=== PATIENT | male | born 1950 | race Two or more races ===

== ENCOUNTER 2016-08-17 14:37 | Inpatient (IN) | payer BC ==
[~2016-08-17] VITALS: Ht 172.7 cm; Wt 71.0 kg
[2016-08-17 19:40] LABS: ADD SCAN DIFF NO
[2016-08-17 19:44] LABS: BASOPHILS % 0.4 % (0.0-2.0); EOSINOPHILS # 0.2 10^3/ul (0.0-0.5); EOSINOPHILS % 3.1 % (0.0-7.0); HEMATOCRIT 40.6 % (42.0-52.0); HEMOGLOBIN 12.8 g/dl (14.0-18.0); LYMPHOCYTES # 1.6 10^3/ul (0.8-2.9); MEAN CORPUSCULAR HEMOGLOBIN 27.2 pg (29.0-33.0); MEAN CORPUSCULAR HGB CONC 31.5 g/dl (32.0-37.0); MEAN CORPUSCULAR VOLUME 86.2 fl (82.0-101.0); MEAN PLATELET VOLUME 10.4 fl (7.4-10.4); MONOCYTE # 0.8 10^3/ul (0.3-0.9); MONOCYTES % 10.8 % (0.0-11.0); NEUTROPHIL # 4.5 10^3/ul (1.6-7.5); NEUTROPHILS % 63.6 % (39.0-77.0); PLATELET COUNT 422 10^3/UL (140-415); RED BLOOD COUNT 4.71 10^6/ul (4.70-6.10); RED CELL DISTRIBUTION WIDTH 17.5 % (11.5-14.5)
[2016-08-17] MEDS ORDERED: DOCU100C26 PO (19:45)
[2016-08-17] MEDS ORDERED: ISOS10TA2 PO (19:46)
[2016-08-17] MEDS ORDERED: HYDR-902 PO (19:46)
[2016-08-17] MEDS ORDERED: METO5TAB58 PO (19:47)
[2016-08-17] MEDS ORDERED: CLOP75TA4 PO (19:48)
[2016-08-17] MEDS ORDERED: CARV6.2579 PO (19:48)
[2016-08-17] MEDS ORDERED: CALC667C PO (19:51)
[2016-08-17] MEDS ORDERED: NEPHRO-VITE PO (19:51)
[2016-08-17] MEDS ORDERED: ASPI-664 PO (19:52)
[2016-08-17] MEDS ORDERED: ATOR40TA68 PO (19:52)
[2016-08-17] MEDS ORDERED: THIA100T10 PO (19:53)
[2016-08-17] MEDS ORDERED: NORT25CA PO (19:53)
[2016-08-17 19:54] LABS: INR 1.07; PROTIME 13.9 Sec (12.2-14.2); PT RATIO 1.1
[2016-08-17] MEDS ORDERED: ZOLP10TA5 PO (19:54)
[2016-08-17 19:55] LABS: PARTIAL THROMBOPLASTIN TIME 34.3 Sec (25.0-35.0)
[2016-08-17 19:56] LABS: CREATININE 7.27 mg/dl (0.61-1.24)
[2016-08-17 20:08] LABS: TROPONIN-I 0.053 ng/ml (0.00-0.12)
[2016-08-17] MEDS ORDERED: ACETAMINOPHEN 325 MG TAB PO PRN (20:30)
[2016-08-17] MEDS ORDERED: ONDANSETRON 4 MG INJ IV PRN ×2 (20:30→23:00)
--- NOTE | 2016-08-17 20:40 | RADRPT ---
PROCEDURE: XR Chest. CLINICAL INDICATION: Abdominal pain. TECHNIQUE: Single frontal view of the chest was obtained. COMPARISON: None FINDINGS: Cardiomegaly with atherosclerotic calcifications in the thoracic aorta. Suspected left thyroid goit er extending the superior mediastinum with shift of the trachea from left to right. Bilateral patchy air space disease and pulmonary vascular congestion. There is no pleural effusion or pneumothorax. IMPRESSION: 1. Left thyroid goiter. 2. Cardiomegaly and mild failure. 3. Atherosclerotic calcifications in the thoracic aorta. RPTAT: [facility] Physician Karely Date Time Electronically viewed and signed by Physician Karely on 08/17/2016 20:40 RS/
[2016-08-17 21:12] VITALS: TEMP 97.9
--- NOTE | 2016-08-17 21:44 | ERA ---
ER Documentation Chief Complaint Date/Time DATE: 08/17/16 TIME: 21:42 Chief Complaint REFERRED BY SURGEON FOR PRE-OP LAB WORK & ADMISSION (PREPARING FOR HIP SX) HPI Patient is a 65-year-old male with diabetes and dialysis who presents for admission. The patient was sent by Dr. Alston from orthopedic surgery for admission as he will require surgery on his left hip. However he has renal failure and gets dialysis Saturday, Saturday, and Fridays but missed dialysis today. Since he is not due for dialysis until Saturday he will need to be admitted for dialysis. He does have left-sided hip pain and has not been able to ambulate. He was seen by Dr. Alston in the office today who sent him to the emergency department. ROS All systems reviewed and are negative except as per history of present illness. Medications Home Meds Reported Medications Zolpidem Tartrate* (Zolpidem Tartrate*) 10 Mg Tablet, 10 MG PO QHS Y for INSOMNIA, #30 TAB 08/17/16 Thiamine* (Thiamine*) 100 Mg Tablet, 250 MG PO DAILY, TAB 08/17/16 Nortriptyline Hcl* (Nortriptyline Hcl*) 25 Mg Capsule, 25 MG PO BID, CAP 08/17/16 Aspirin* (Aspirin* EC) 81 Mg Tablet.dr, 81 MG PO DAILY, TAB 08/17/16 Atorvastatin* (Atorvastatin*) 40 Mg Tablet, 40 MG PO DAILY, #30 TAB 08/17/16 Calcium Acetate* (Calcium Acetate*) 667 Mg Capsule, 2001 MG PO WITH MEALS, #90 CAP 08/17/16 [Nephro-Pam] No Conflict Check, 1 TAB PO DAILY 08/17/16 Carvedilol* (Carvedilol*) 6.25 Mg Tablet, 6.25 MG PO BID, #60 TAB 08/17/16 Clopidogrel Bisulfate* (Clopidogrel Bisulfate*) 75 Mg Tablet, 75 MG PO DAILY, # 30 TAB 08/17/16 Metoclopramide* (Reglan*) 5 Mg Tablet, 5 MG PO AC MEALS BID, TAB 08/17/16 Hydrocodone/Acetaminophen (Anatone 10-325 Tablet) 1 Each Tablet, 1 EACH PO Q4H, TAB 08/17/16 Isosorbide Dinitrate* (Isosorbide Dinitrate*) 10 Mg Tablet, 10 MG PO BID, TAB 08/17/16 Docusate Sodium* (Doc-Q-Lace*) 100 Mg Capsule, 100 MG PO DAILY, CAP 08/17/16 Allergies Allergies: Coded Allergies: No Known Allergy (Unverified , 08/17/16) PMhx/Soc History of Surgery: Yes (CARDIAC STENT PLACEMENT X2, RIGHT ARM AV SHUNT) Anesthesia Reaction: No Hx Neurological Disorder: No Hx Respiratory Disorders: No Hx Cardiac Disorders: Yes (HTN) Hx Psychiatric Problems: No Hx Miscellaneous Medical Probl: Yes (RENAL FAILURE, HIP FX) Hx Alcohol Use: No Hx Substance Use: No Hx Tobacco Use: No Smoking Status: Unknown if ever smoked FmHx Family History: diabetes Physical Exam Vitals Vital Signs Date Time Temp Pulse Resp B/P Pulse Ox O2 Delivery O2 Flow Rate FiO2 08/17/16 21:12 97.9 94 20 134/58 93 Room Air 08/17/16 18:04 95 20 175/81 95 Room Air 08/17/16 14:42 98.5 79 16 137/78 98 Physical Exam Const: Mild distress secondary to pain Head: Atraumatic Eyes: Normal Conjunctiva ENT: Normal External Ears, Nose and Mouth. Neck: Full range of motion..~ No meningismus. Resp: Clear to auscultation bilaterally Cardio: Regular rate and rhythm, no murmurs Abd: Soft, non tender, non distended. Normal bowel sounds Skin: No petechiae or rashes Back: No midline or flank tenderness Ext: Left-sided hip pain with range of motion Neur: Awake and alert Psych: Normal Mood and Affect Result Diagram: 08/17/16193408/17/161934 Results 24 hrs Laboratory Tests Test 08/17/16 19:35 Activated Partial Thromboplast Time 34.3Sec Anion Gap 23 Basophils # 0.010^3/ul Basophils % 0.4% Blood Urea Nitrogen 81mg/dl Calcium Level 11.0mg/dl Carbon Dioxide Level 27mmol/L Chloride Level 96mmol/L Creatinine 7.27mg/dl Eosinophils # 0.210^3/ul Eosinophils % 3.1% Glucose Level 152mg/dl Hematocrit 40.6% Hemoglobin 12.8g/dl INR International Normalized Ratio 1.07 Lymphocytes # 1.610^3/ul Lymphocytes % 22.0% Mean Corpuscular Hemoglobin 27.2pg Mean Corpuscular Hemoglobin Concent 31.5g/dl Mean Corpuscular Volume 86.2fl Mean Platelet Volume 10.4fl Monocytes # 0.810^3/ul Monocytes % 10.8% Neutrophils # 4.510^3/ul Neutrophils % 63.6% Nucleated Red Blood Cells # 0.010^3/ul Nucleated Red Blood Cells % 0.0/100WBC Platelet Count 71803^3/UL Potassium Level 5.0mmol/L Prothrombin Time 13.9Sec Prothrombin Time Ratio 1.1 Red Blood Count 4.7110^6/ul Red Cell Distribution Width 17.5% Sodium Level 141mmol/L Troponin I 0.053ng/ml White Blood Count 7.010^3/ul Current Medications Medications (Trade) Dose Ordered Sig/Jesus Route PRN Reason Start Time Stop Time Status Last Admin Dose Admin Ondansetron HCl (Zofran Inj) 4 mg BRIDGE ORDER PRN IV NAUSEA AND/OR VOMITING 08/17/16 20:30 08/18/16 20:29 Acetaminophen (Tylenol Tab) 650 mg ER BRIDGE PRN PO MILD PAIN/FEVER 08/17/16 20:30 08/18/16 20:29 Procedures/MDM CT scan of the left hip is pending at this time. Chest x-ray shows no pneumonia or pneumothorax per radiology. EKG read by me: Rate/Rhythm: Regular rate and rhythm at a rate of 97 Intervals: Normal Impression: No evidence of ischemia or arrhythmia Patient is a 65-year-old male with diabetes and dialysis who presents for admission. The patient has a potassium of 5.0 and will need dialysis while he is admitted as he missed dialysis today. The patient had his preoperative studies done in the emergency department. The patient will need surgery by Dr. Alston. The patient will be admitted to a medical surgical bed under the care of Dr. Back from the panel team. Departure Diagnosis: Primary Impression: Renal failure Additional Impression: Hip fracture Qualified Code: S72.002A - Hip fracture, left, closed, initial encounter Condition: ROSITA Esparza MD Aug 17, 2016 21:44
[2016-08-17 22:44] VITALS: BP 125/60; RESP 19
--- NOTE | 2016-08-17 22:49 | RADRPT ---
PROCEDURE: CT pelvis and left hip without contrast. CLINICAL INDICATION: Left hip and pelvic pain TECHNIQUE: CT scan of the pelvis and left hip without contrast was performed with 2.5 mm axial sec tions obtained from above the iliac crest through the distal femoral diaphysis. Sagittal and siddiqi l reformatted images were obtained from the axial source images. CTDI = 86.24 mGy; DLP = 3448.08 mGy -cm COMPARISON: X-ray 08/17/2016 FINDINGS: Osseous structures: The most striking finding is extension of the helical screw beyond the superior aspect of the left femoral head and into left-sided acetabular protrusion, findings most consistent with hardware failure. There is lucency surrounding the intramedullary kimi concerning for infectio n or hardware failure, the thickness of the lucency up to 5 mm. In addition, there is some lucency surrounding the stabilizing screw of the distal femoral kimi which is measuring 3 mm. Nonunion of th e left intertrochanteric fracture is noted, persistent discontinuity between the region of the lesse r trochanter and the remainder of the femur despite callus formation. There is an or bowing of the left acetabulum and a large amount of fluid within the left hip joint. Generalized demineralization is present. The right proximal femur is grossly normal. Note is made of chronic appearing vertebr al plana compression deformity of L5 and partially visualized fusion hardware of L3-4. The sacrum shows no abnormalities significance Musculature and soft tissues: There is diffuse thickening of the left obturator internus muscle with areas of heterotopic ossification. Abnormal material within the left hip joint posteriorly is prese nt unable to exclude septic arthritis or possibly blood. There is diffuse stranding of the fat surr ounding the left hip unable to exclude cellulitis. No intramuscular abnormality is demonstrated. Other findings: Severe atherosclerotic calcification is present in the iliac and femoral systems b ilaterally. No intrapelvic abscess or adenopathy is identified. RPTAT:HJJR IMPRESSION: 1. Medial left acetabular wall protrusion with abnormal attenuation in the left hip joint unable to exclude septic arthritis and / or hardware failure as there is lucency surrounding the helical scre w and intramedullary kimi. The helical screw extends beyond the femoral head and into the acetabular protrusion of the left medial acetabular wall. 2. Incomplete union of the left intertrochanteric fracture with areas of callus formation and hetero topic ossification about the proximal left femur and adjacent to the left medial acetabular protrusi on. Selwyn Martines, Physician Date Time Electronically viewed and signed by Selwyn Martines, Physician on 08/17/2016 22:49 JR/
[2016-08-17] MEDS ORDERED: ZOLPIDEM 5 MG TAB PO PRN (23:00)
[2016-08-17 23:30] VITALS: Ht 172.7 cm; Wt 71.0 kg
[2016-08-17] MEDS ORDERED: GLUCOSE GEL 15 GRAM TUBE BUCCAL PRN (23:30)
[2016-08-17] MEDS ORDERED: GLUCOSE GEL 15 GRAM TUBE PO PRN ×2 (23:30)
[2016-08-17] MEDS ORDERED: DEXTROSE 50% 50 ML SYRINGE IV PRN ×2 (23:30)
[2016-08-17] MEDS ORDERED: GLUCAGON 1 MG INJ IM PRN (23:30)
[2016-08-18] VITALS (13 sets, daily range): BP systolic 89–155; BP diastolic 44–83; PULSE 78–116; RESP 18–19
[2016-08-18] MEDS: NORTRIPTYLINE 25 MG CAP PO SCH ×3 (00:10→23:44)
[2016-08-18] MEDS: ISOSORBIDE DINITRATE 10 MG TAB PO SCH ×3 (00:11→23:44)
[2016-08-18] MEDS: ACCU-CHEK XX SCH (01:34)
--- NOTE | 2016-08-18 06:28 | HP ---
Date/Time of Note Date/Time of Note DATE: 08/18/16 TIME: 06:22 Assessment/Plan VTE Prophylaxis VTE Prophylaxis Intervention: heparin Lines/Catheters IV Catheter Type (from Nrs): Saline Lock Assessment/Plan Assessment/Plan IMPRESSION 1. Pelvic fracture 1. ESRD on HD 3. Hx of CAD with hx of CABG 4. Diabetes PLAN - Will consult nephrology for dialysis - cont home meds with adjustment as needed - insulin for diabetes - pain mgmt HPI/ROS Admit Date/Time Admit Date/Time Aug 17, 2016 at 20:14 Hx of Present Illness Patient is a 65-year-old male with hx of CAD with CABG, DM, ESRD on dialysis dialysis who was sent by Dr. Alston from orthopedic surgery for admission as he will require surgery on his left hip. However he has renal failure and gets dialysis Saturday, Saturday, and Fridays but missed dialysis today. Since he is not due for dialysis until Saturday he will need to be admitted for dialysis. He does have left-sided hip pain and has not been able to ambulate. He was seen by Dr. Alston in the office today who sent him to the emergency department. In the ER, BUN 81, cr 7.27. Pelvic CT showed left medial acetabular wall protrusion and incomplete union of the left intratrocanteric fx. . PMH/Family/Social Social History Smoking Status: Never smoker Exam/Review of Systems Vital Signs Vitals Vital Signs Date Time Temp Pulse Resp B/P Pulse Ox O2 Delivery O2 Flow Rate FiO2 08/17/16 22:44 97.6 89 19 125/60 90 08/17/16 21:12 Room Air Exam Constitutional: alert, oriented, well developed Head: atraumatic, normocephalic Eyes: EOMI, PERRL Respiratory: clear to auscultation, normal air movement Cardiovascular: nl pulses, regular rate and rhythm Gastrointestinal: non-tender, soft Extremities: edema, normal pulses Labs Result Diagram: 08/17/16193408/17/161934 Medications Medications Current Medications Atorvastatin Calcium (Lipitor) 40 mg DAILY PO ; Start 08/18/16 at 09:00 Carvedilol (Coreg) 6.25 mg BID PO Last administered on 08/18/16t 00:11; Admin Dose 6.25 MG; Start 08/17/16 at 23:00 Clopidogrel Bisulfate (plaVIX) 75 mg DAILY PO ; Start 08/18/16 at 09:00; Status Future Hold Docusate Sodium (Colace) 100 mg DAILY PO ; Start 08/18/16 at 09:00 Acetaminophen/ Hydrocodone Bitart ([place] (10/325)) 1 tab Q4H PRN PO PAIN; Start 08/17/16 at 23:00 Isosorbide Dinitrate (Isordil) 10 mg BID PO Last administered on 08/18/16 00:11 ; Admin Dose 10 MG; Start 08/17/16 at 23:00 Metoclopramide HCl (Reglan) 5 mg Q6H PRN PO NAUSEA; Start 08/17/16 at 23:00 Nortriptyline HCl (Aventyl) 25 mg BID PO Last administered on 08/18/16 00:10; Admin Dose 25 MG; Start 08/17/16 at 23:00 Thiamine HCl (Vitamin B1) 250 mg DAILY PO ; Start 08/18/16 at 09:00 Multivit/Ca Carb/ B Cmplx/FA/Prenat (Aleyda-Pam) 1 tab DAILY PO ; Start 08/18/16 at 09:00 Insulin Glargine (Lantus) 10 unit HS SC ; Start 08/18/16 at 21:00 Diagnostic Test (Pha) (Accucheck) 1 ea 02 XX ; Start 08/18/16 at 02:00 Morphine Sulfate (morphine) 3 mg Q4H PRN IV PAIN; Start 08/17/16 at 23:00 Ondansetron HCl (Zofran Inj) 4 mg Q6H PRN IV NAUSEA AND/OR VOMITING; Start 08/17 at 23:00 Miscellaneous Information 1 ea NOTE XX ; Start 08/17/16 at 23:30 Glucose (Glutose) 15 gm Q15M PRN PO DECREASED GLUCOSE; Start 08/17/16 at 23:30 Glucose (Glutose) 22.5 gm Q15M PRN PO DECREASED GLUCOSE; Start 08/17/16 at 23:30 Dextrose (D50w Syringe) 25 ml Q15M PRN IV DECREASED GLUCOSE; Start 08/17/16 at 23:30 Dextrose (D50w Syringe) 50 ml Q15M PRN IV DECREASED GLUCOSE; Start 08/17/16 at 23:30 Glucagon (Glucagen) 1 mg Q15M PRN IM DECREASED GLUCOSE; Start 08/17/16 at 23:30 Glucose (Glutose) 15 gm Q15M PRN BUCCAL DECREASED GLUCOSE; Start 08/17/16 at 23: 30 FRANTZ JEFFERSON MD Aug 18, 2016 06:28
[2016-08-18] MEDS: INSULIN ASPART [NOVOLOG] 3 ML PEN SC SCH ×4 (07:50→21:00)
[2016-08-18] MEDS: ATORVASTATIN 40 MG TAB PO SCH (08:52)
[2016-08-18] MEDS: CALCIUM ACETATE 667 MG CAP PO SCH ×2 (08:53→13:17)
[2016-08-18] MEDS: THIAMINE 100 MG TAB PO SCH (08:53)
[2016-08-18] MEDS: MULTIVIT/CA CARB/B CMPLX/FA TAB PO SCH (08:53)
[2016-08-18] MEDS: DOCUSATE SODIUM 100 MG CAP PO SCH (08:54)
--- NOTE | 2016-08-18 09:50 | CONS ---
DATE OF ADMISSION: 08/17/2016 DATE OF CONSULTATION: CHIEF COMPLAINT: Left hip pain. HISTORY OF PRESENT ILLNESS: The patient is a 65-year-old gentleman who fell approximately 3 months ago and sustained a left intertrochanteric hip fracture. At that time he was living in [place] [place]. He underwent a closed reduction and intramedullary rodding in [facility]. He has since r elocated to [place]. Since the surgery he has been unable to bear weight on left lower extremit y, has had persistent pain and shortening of the left lower extremity. Prior to the fall and surger y, he reports that he was ambulatory, without the need for a cane or a walker. Of note, he has a hi story of kidney failure and is on dialysis, which he receives 3 times a week. There has been no rep orted history of fevers, chills or wound healing problems. He came to my office yesterday as an out patient for a consultation and I noted that he had complete failure of the fixation, with cut-out of the screw into the acetabulum. I felt that he would need removal of the hardware and conversion to a total hip arthroplasty. Because of his medical comorbidities and need for dialysis, I felt it wo uld be in his best interest to have him admitted and medically optimized over the next several days prior to surgery. PAST MEDICAL HISTORY: 1. End-stage renal disease, with hemodialysis dependency. 2. Coronary artery disease. 3. Diabetes. PAST SURGICAL HISTORY: 1. Closed reduction and intramedullary rodding, left intertrochanteric hip fracture. 2. Coronary artery bypass grafting. 3. Right arm AV shunt placement. MEDICATIONS: 1. Zolpidem. 2. Thiamine. 3. Nortriptyline. 4. Aspirin 81 mg. 5. Atorvastatin. 6. Calcium. 7. Nephro-Pam. 8. Carvedilol. 9. Plavix. 10. Reglan. 11. [place]. 12. Isosorbide. 13. Colace. ALLERGIES: NO KNOWN DRUG ALLERGIES. SOCIAL HISTORY: The patient does not smoke or drink. FAMILY HISTORY: Noncontributory. REVIEW OF SYSTEMS: GENERAL/CONSTITUTIONAL: Negative for recent fevers, chills, decreased appetite, fatigue, or unexpla ined weight loss. EYES/EARS/NOSE/MOUTH/THROAT: Negative for headaches, double vision, tearing, nose bleeding, colds, obstruction, discharge, dental difficulties, gingival bleeding, dentures, neck stiffness, pain, tend erness, or masses in thyroid or other areas. CARDIOVASCULAR: History of coronary artery bypass grafting and stent placement. RESPIRATORY: Negative for shortness of breath, wheezing, stridor, hemoptysis, tuberculosis, fever, or night sweats. GASTROINTESTINAL: Negative for dysphagia, abdominal pain, heartburn, nausea, vomiting, hematemesis, jaundice, constipation, diarrhea, abnormal stools (suman-colored, tarry, bloody, greasy, foul-smelli ng), or bright red blood per rectum. GENITOURINARY: Negative for urgency, frequency, dysuria, nocturia, hematuria, stones, infections, n ephritis, hesitancy, change in size of stream, dribbling, acute retention, or incontinence. MUSCULOSKELETAL: Negative for pain, swelling, redness or heat of muscles or joints, limitation of m otion, muscular weakness, atrophy, or cramps. NEUROLOGIC/PSYCHIATRIC: Negative for convulsions, paralyses, tremor, incoordination, paresthesias, difficulties with memory or speech, sensory or motor disturbances, muscular coordination (ataxia, tr emor), emotional problems, anxiety, depression, previous psychiatric care, unusual perceptions, or h allucinations. HEMATOLOGIC: Negative for anemia, bleeding tendency, previous transfusions and reactions, or Rh inc ompatibility. ENDOCRINE: History of diabetes. PHYSICAL EXAMINATION: VITAL SIGNS: VITAL SIGNS: Temperature 97.5, blood pressure 129/62, pulse 91, respiratory rate 18. GENERAL APPEARANCE: Well-developed, well-nourished male in no acute distress. ORIENTATION: Alert and oriented to person, place, and time. HEENT: Normocephalic, atraumatic, sclerae anicteric, no nasal discharge, oropharynx clear, dentition is good. SKIN: Normal color, texture, and turgor. No rashes noted throughout the trunk, bilateral upper extre mities, and bilateral lower extremities. NECK: Supple, nontender, without lymphadenopathy. No thyromegaly, no masses. CARDIAC: Regular rate and rhythm. LUNGS: Clear to auscultation bilaterally, with symmetric chest rise. ABDOMEN: Soft, nontender, nondistended. MUSCULOSKELETAL: The patient is lying in bed, with the left lower extremity shortened and externall y rotated. There are several well-healed scars from the previous intramedullary rodding, with no re dness, warmth or fluctuance. The left hip is painful to attempt at passive range of motion. The th igh is soft. The skin is intact. NEUROVASCULAR EXAM: Motor strength is 5/5 in the quadriceps, tibialis anterior, extensor hallucis lo ngus, gastroc-soleus, and peroneals bilaterally. Sensation is intact to light touch throughout both lower extremities. There are 2+ palpable dorsalis pedis and posterior tibial pulses, with capillary refill less than 2 seconds in all 5 digits bilaterally. IMAGING: Plain radiographs demonstrate a displaced left intertrochanteric hip fracture with a short intramedullary screw in place, with complete cut-out of the proximal screw through the femoral head and into the acetabulum. There is diffuse osteopenia present. There are multiple calcifications o f the femoral vessels. There are pedicle screws in the lower lumbar spine. A CT scan done last juan jose ella demonstrates the aforementioned left intertrochanteric hip fracture, with the hardware in place . There is marked protrusion of the screw into the acetabulum, with a large amount of fluid in the hip joint. The defect involves primarily the superior and medial aspect of the acetabulum. The ante rior and posterior columns appear intact. LABORATORY: Reveals a white blood cell count of 7.0, hematocrit 40.6, platelet count 422. INR 1.1, PTT 34.3, BUN 81, creatinine 7.27. ASSESSMENT AND PLAN: Failed intramedullary nailing, left intertrochanteric hip fracture, with screw cut-out and protrusion into the acetabulum. DISCUSSION: He has complete failure of fixation and will need surgical intervention to remove the h ardware and convert this to a total hip arthroplasty. The CT scan demonstrates a significant defect of the superomedial acetabulum. The anterior and posterior bravo appear intact. However, this may require a cage cup construct reconstruction of the acetabulum. The decision whether to not to use this or a conventional hemispherical cup will be decided at the time of surgery. However, given his history of dialysis dependency and the fluid seen on the CT scan, I think his hip should be aspirat ed prior to surgical intervention to rule out the possibility of there being any infectious componen t going on in the hip joint. I will arrange this to be done by the radiology team here under image guidance. In the meantime, over the next few days he will be medically optimized with medical and n ephrology consultations and he will need dialysis over the next few days. Once he is medically stab ilized and we have been able to exclude the possibility of septic arthritis, we can proceed with piter sesay. I had a lengthy discussion with the patient and his yesterday about the nature of the cuellar rgery and the typical recovery course and what to expect from a functional standpoint. I explained the risks of surgery to include, but not be limited to, bleeding and possible need for blood transfu minor, infection, pain, stiffness, neurovascular injury with possible numbness, weakness, and/or para lysis anywhere from the hip down to the toes, fracture, instability, dislocation, leg length inequal ity, wear and/or loosening of the prosthesis, and need for revision at a later date, wound healing p roblems, blood clots, pulmonary embolism, and anesthetic complications, such as heart attack, stroke , GI bleed, pneumonia and/or . Ample time was allowed for the patient to ask questions, all of which were addressed and answered. The patient understands and wishes to proceed. I will continue to follow along here in the hospital and we will tentatively plan for surgery Saturday, but will nee d to make sure he is medically optimized and exclude the possibility of any infectious etiology prio r to proceeding. Dictated By: AARON PINTO MD EZ/NTS Conf#: [id number] DID#: [id number] CC: FRANTZ JEFFERSON MD;*EndCC*
[2016-08-18] MEDS ORDERED: LIDOCAINE 1% (MDV) 20 ML INJ ONE (10:42)
[2016-08-18 12:35] LABS: IRON 33 ug/dl (35-150)
[2016-08-18 12:44] LABS: TOTAL IRON BINDING CAPACITY 169 ug/dl (241-421)
--- NOTE | 2016-08-18 14:13 | RADRPT ---
PROCEDURE: Left hip arthrogram and aspiration. CLINICAL INDICATION: Left hip pain. Hardware failure. TECHNIQUE: Prior to the procedure, informed consent was obtained. The patient's name, date of th, and procedure to be performed were verified. Using local anesthetic, sterile technique and fluo roscopic guidance, a 20-gauge spinal needle was advanced into the left hip at the site of the fluid collection adjacent to the hardware. Approximately 4 ml of bloody fluid was aspirated. COMPARISON: CT scan of the pelvis dated 08/17/2016. FINDINGS: Images demonstrate open reduction and internal fixation of the left hip with a kimi in the shaft of t he femur and a screw in the neck of the femur. The screw is penetrated the medial joint superiorly. Images demonstrate a spinal needle in position medial to the proximal hardware. IMPRESSION: 1. Satisfactory left hip aspiration. RPTAT: QQ .Nasir Fonseca MD, MD Date Time Electronically viewed and signed by .Nasir Fonseca MD, on 08/18/2016 14:13 .R/
[2016-08-18 14:35] LABS: SYNOVIAL FLUID CLARITY Bloody; SYNOVIAL FLUID COLOR Red
[2016-08-18 14:41] LABS: LYMPHOCYTES,SYNOVIAL FLUID 27; NEUTROPHILS,SYNOVIAL FLUID 69 % (0-25)
--- NOTE | 2016-08-18 15:32 | CONS ---
DATE OF ADMISSION: 08/17/2016 DATE OF CONSULTATION: REASON FOR CONSULTATION: End-stage renal disease. HISTORY OF PRESENT ILLNESS: The patient is a 65-year-old man with a past history of end-stage renal disease on dialysis for the last 12 years, diabetes, hypertension and coronary artery disease. The patient was admitted due to a left femoral fracture. He apparently fractured his hip while in [facility] in February. He underwent surgical repair at that time. Initially, he was able to ambulate, but for the past several months he has been unable to walk and has had pain in the left hip area. He was seen by Dr. Hough and underwent a CAT scan which revealed complete failure of the fixation. He therefore was admitted for surgical repair. The patient normally dialyzes in [place] on Saturday, Saturday and Saturday. He missed his hemodialysis yesterday. He was last dialyzed 3 days ago. Currently, he is complaining of left hip pain and nausea after receiving pain medication. PAST MEDICAL HISTORY: 1. End-stage renal disease. 2. Hypertension. 3. Diabetes mellitus. 4. Coronary artery disease. Status post coronary stenting 2 months ago at [facility]. PAST SURGICAL HISTORY: 1. Left hip surgery as above. 2. Back surgery 8 years ago. MEDICATIONS: 1. Lantus insulin. 2. Atorvastatin. 3. Colace. 4. Thiamine. 5. Aleyda-Pam. 6. Calcium acetate. 7. Nortriptyline. SOCIAL HISTORY: No history of cigarette use or alcohol use. FAMILY HISTORY: Mother had hypertension. Sister has hypertension. REVIEW OF SYSTEMS: A 12-system review was negative except for what is mentioned in the HPI. PHYSICAL EXAMINATION: VITAL SIGNS: Blood pressure is 128/83, heart rate is 88, temperature is 97.6. GENERAL APPEARANCE: Reveals an elderly male in no acute distress. HEENT: Mouth revealed normal moist mucosa. NECK: Supple. There is no jugular venous distention or carotid bruit. CHEST: Lungs clear to auscultation. HEART: Regular rate, rhythm. Normal S1, normal S2. There is no murmur, gallop or rub. ABDOMEN: Soft and nontender. EXTREMITIES: There is no peripheral edema. There is an AV fistula in the right forearm with a bruit present. LABORATORY DATA: Sodium is 141, potassium is 5.0, chloride is 96, CO2 is 27, BUN is 81, creatinine is 7.27, calcium is 11.0. Hemoglobin is 12.8, hematocrit is 40.6, white blood cell count of 7000, platelet count is 422,000. IMPRESSION: 1. End-stage renal disease. The patient is due for dialysis today. 2. Hypertension, controlled. 3. Diabetes mellitus, controlled. 4. Coronary artery disease, status post recent percutaneous coronary intervention. 5. Hypercalcemia due to medications. 6. Fractured left femur. RECOMMENDATIONS: 1. Hemodialysis will be done today. 2. Calcium acetate will be discontinued due to hypercalcemia. 3. Await surgical repair of left hip fracture by Dr. Hough. Dictated By: WILD OLSEN/CHRISTOPHER Conf#: [id number] DID#: [id number] MTDD
--- NOTE | 2016-08-18 15:55 | PN ---
Date/Time of Note Date/Time of Note DATE: 08/18/16 TIME: 15:46 Assessment/Plan VTE Prophylaxis VTE Prophylaxis Intervention: SCD's Lines/Catheters IV Catheter Type (from [facility]): [place] Assessment/Plan Chief Complaint/Hosp Course Impression and plan 1. Pelvic fracture. Orthopedic surgeon following. Continue with workup. Tentative plan for surgical intervention. Will optimize patient prior to procedure 2. History of end-stage renal disease on dialysis. Nephrology is consulted. Tentative plan for HD. Monitor renal panel as well as electrolytes 3. History of CAD with CABG. continue on beta-yuliya as well as antiplatelet therapy and statin medication 4. History of dyslipidemia. Continue on statin 5. Essential hypertension. Continue antihypertensives and adjust as needed 6. Diabetes. We will continue insulin regimen. Will adjust as needed. Follow -up on A1c. Disposition and plan: Tentative plan for surgical intervention for left hip fracture. Optimized prior to procedure. Follow-up on echo. Plan for HD. Discussed plan of care with Dr. Pabon Problems: Subjective 24 Hr Interval Summary Free Text/Dictation Still reports having some nasal pain. No other specific complaints Exam/Review of Systems Vital Signs Vitals Vital Signs Date Time Temp Pulse Resp B/P Pulse Ox O2 Delivery O2 Flow Rate FiO2 08/18/16 13:00 97.6 88 128/83 94 Room Air 08/18/16 07:41 18 Exam General: No acute distress Eyes: Pupils equal round reactive to light Neck: Supple nontender, no JVD Cardiac: Regular rate S1-S2 auscultated Pulmonary: No wheezing rhonchi GI: Nontender nondistended Extremities: Minimal edema left hip Skin: Clean dry and intact Neurologic: Alert to person place and time Results Result Diagram: 08/17/16193408/17/161934 Results 24 hrs Laboratory Tests Test 08/17/16 19:35 08/17/16 23:03 08/18/16 08:51 08/18/16 09:46 Activated Partial Thromboplast Time 34.3 Anion Gap 23 H Basophils # 0.0 Basophils % 0.4 Blood Urea Nitrogen 81 H Calcium Level 11.0 H Carbon Dioxide Level 27 Chloride Level 96 L Creatinine 7.27 H Eosinophils # 0.2 Eosinophils % 3.1 Glucose Level 152 Hematocrit 40.6 L Hemoglobin 12.8 L INR International Normalized Ratio 1.07 Lymphocytes # 1.6 Lymphocytes % 22.0 Mean Corpuscular Hemoglobin 27.2 L Mean Corpuscular Hemoglobin Concent 31.5 L Mean Corpuscular Volume 86.2 Mean Platelet Volume 10.4 Monocytes # 0.8 Monocytes % 10.8 Neutrophils # 4.5 Neutrophils % 63.6 Nucleated Red Blood Cells # 0.0 Nucleated Red Blood Cells % 0.0 Platelet Count 422 H Potassium Level 5.0 Prothrombin Time 13.9 Prothrombin Time Ratio 1.1 Red Blood Count 4.71 Red Cell Distribution Width 17.5 H Sodium Level 141 Troponin I 0.053 White Blood Count 7.0 Bedside Glucose 188 115 C-Reactive Protein High Sensitivity > 1.50 H Erythrocyte Sedimentation Rate 74 H Hemoglobin A1c 5.2 Iron Level 33 L Percent Iron Saturation 20 L Total Iron Binding Capacity 169 L Test 08/18/16 12:40 08/18/16 13:16 Synovial Fluid Appearance Bloody Synovial Fluid Color Red Synovial Fluid Crystals No crystals seen Synovial Fluid Lymphocytes 27 Synovial Fluid Monocytes 2 Synovial Fluid Neutrophils 69 H Synovial Fluid Other Cells 2 Synovial Fluid Source Hip Fluid Synovial Fluid Volume 2.0 Synovial Fluid WBC Bedside Glucose 104 Medications Medications Current Medications Atorvastatin Calcium (Lipitor) 40 mg DAILY PO Last administered on 08/18/16 08: 52; Admin Dose 40 MG; Start 08/18/16 at 09:00 Carvedilol (Coreg) 6.25 mg BID PO Last administered on 08/18/16 08:53; Admin Dose 6.25 MG; Start 08/17/16 at 23:00 Clopidogrel Bisulfate (plaVIX) 75 mg DAILY PO ; Start 08/18/16 at 09:00; Status Future Hold Docusate Sodium (Colace) 100 mg DAILY PO Last administered on 08/18/16 08:54; Admin Dose 100 MG; Start 08/18/16 at 09:00 Acetaminophen/ Hydrocodone Bitart ([place] (10/325)) 1 tab Q4H PRN PO PAIN; Start 08/17/16 at 23:00 Isosorbide Dinitrate (Isordil) 10 mg BID PO Last administered on 08/18/16 08:54 ; Admin Dose 10 MG; Start 08/17/16 at 23:00 Metoclopramide HCl (Reglan) 5 mg Q6H PRN PO NAUSEA; Start 08/17/16 at 23:00 Nortriptyline HCl (Aventyl) 25 mg BID PO Last administered on 08/18/16 08:53; Admin Dose 25 MG; Start 08/17/16 at 23:00 Thiamine HCl (Vitamin B1) 250 mg DAILY PO Last administered on 08/18/16 08:53; Admin Dose 250 MG; Start 08/18/16 at 09:00 Multivit/Ca Carb/ B Cmplx/FA/Prenat (Aleyda-Pam) 1 tab DAILY PO Last administered on 08/18/16 08:53; Admin Dose 1 TAB; Start 08/18/16 at 09:00 Insulin Glargine (Lantus) 10 unit HS SC ; Start 08/18/16 at 21:00 Diagnostic Test (Pha) (Accucheck) 1 ea 02 XX ; Start 08/18/16 at 02:00 Morphine Sulfate (morphine) 3 mg Q4H PRN IV PAIN; Start 08/17/16 at 23:00 Ondansetron HCl (Zofran Inj) 4 mg Q6H PRN IV NAUSEA AND/OR VOMITING; Start 08/17 at 23:00 Miscellaneous Information 1 ea NOTE XX ; Start 08/17/16 at 23:30 Glucose (Glutose) 15 gm Q15M PRN PO DECREASED GLUCOSE; Start 08/17/16 at 23:30 Glucose (Glutose) 22.5 gm Q15M PRN PO DECREASED GLUCOSE; Start 08/17/16 at 23:30 Dextrose (D50w Syringe) 25 ml Q15M PRN IV DECREASED GLUCOSE; Start 08/17/16 at 23:30 Dextrose (D50w Syringe) 50 ml Q15M PRN IV DECREASED GLUCOSE; Start 08/17/16 at 23:30 Glucagon (Glucagen) 1 mg Q15M PRN IM DECREASED GLUCOSE; Start 08/17/16 at 23:30 Glucose (Glutose) 15 gm Q15M PRN BUCCAL DECREASED GLUCOSE; Start 08/17/16 at 23: 30 BABAR CARROLL Aug 18, 2016 15:55
[2016-08-18 16:11] LABS: ADD SCAN DIFF NO
[2016-08-18] MEDS: FERROUS SULFATE (EC) 325 MG TAB PO SCH ×2 (16:11→23:44)
[2016-08-18 16:14] LABS: BASOPHILS % 0.6 % (0.0-2.0); EOSINOPHILS # 0.2 10^3/ul (0.0-0.5); EOSINOPHILS % 2.5 % (0.0-7.0); HEMATOCRIT 36.8 % (42.0-52.0); HEMOGLOBIN 11.6 g/dl (14.0-18.0); LYMPHOCYTES # 2.1 10^3/ul (0.8-2.9); LYMPHOCYTES % 30.6 % (15.0-51.0); MEAN CORPUSCULAR HGB CONC 31.5 g/dl (32.0-37.0); MEAN CORPUSCULAR VOLUME 85.8 fl (82.0-101.0); MEAN PLATELET VOLUME 10.4 fl (7.4-10.4); MONOCYTE # 0.8 10^3/ul (0.3-0.9); MONOCYTES % 11.6 % (0.0-11.0); NEUTROPHIL # 3.7 10^3/ul (1.6-7.5); NEUTROPHILS % 54.6 % (39.0-77.0); PLATELET COUNT 409 10^3/UL (140-415); RED BLOOD COUNT 4.29 10^6/ul (4.70-6.10); RED CELL DISTRIBUTION WIDTH 17.3 % (11.5-14.5); WHITE BLOOD COUNT 6.7 10^3/ul (4.8-10.8)
[2016-08-18] MEDS: morphine 4 MG/ML VIAL IV PRN (20:32)
[2016-08-18] MEDS: INSULIN GLARGINE [LANtus] 3 ML PEN SC SCH (21:00)
[2016-08-18] MEDS: METOCLOPRAMIDE 5 MG TAB PO PRN (23:44)
[2016-08-19] MEDS: ACCU-CHEK XX SCH
[2016-08-19 00:30] VITALS: BP 142/62; PULSE 100; RESP 18
[2016-08-19 06:38] LABS: ADD SCAN DIFF NO
[2016-08-19 06:57] LABS: BASOPHIL # 0.1 10^3/ul (0.0-0.1); BASOPHILS % 0.8 % (0.0-2.0); EOSINOPHILS # 0.3 10^3/ul (0.0-0.5); EOSINOPHILS % 4.1 % (0.0-7.0); HEMATOCRIT 39.5 % (42.0-52.0); HEMOGLOBIN 12.5 g/dl (14.0-18.0); LYMPHOCYTES # 1.7 10^3/ul (0.8-2.9); LYMPHOCYTES % 27.9 % (15.0-51.0); MEAN CORPUSCULAR HEMOGLOBIN 27.3 pg (29.0-33.0); MEAN CORPUSCULAR HGB CONC 31.6 g/dl (32.0-37.0); MEAN CORPUSCULAR VOLUME 86.2 fl (82.0-101.0); MEAN PLATELET VOLUME 10.4 fl (7.4-10.4); MONOCYTE # 0.9 10^3/ul (0.3-0.9); MONOCYTES % 14.1 % (0.0-11.0); NEUTROPHIL # 3.3 10^3/ul (1.6-7.5); NEUTROPHILS % 52.9 % (39.0-77.0); PLATELET COUNT 392 10^3/UL (140-415); RED BLOOD COUNT 4.58 10^6/ul (4.70-6.10); RED CELL DISTRIBUTION WIDTH 17.3 % (11.5-14.5); WHITE BLOOD COUNT 6.2 10^3/ul (4.8-10.8)
[2016-08-19 07:18] LABS: ALBUMIN 3.5 g/dl (3.3-4.9); POTASSIUM 4.4 mmol/L (3.5-5.1)
[2016-08-19 07:20] LABS: CREATININE 5.38 mg/dl (0.61-1.24)
[2016-08-19 07:21] LABS: CALCIUM 10.8 mg/dl (8.4-10.2); TOTAL PROTEIN 8.2 g/dl (6.1-8.1)
[2016-08-19 07:33] LABS: T3 UPTAKE 44.5 % (23.5-40.5)
[2016-08-19] MEDS: INSULIN ASPART [NOVOLOG] 3 ML PEN SC SCH ×4 (07:50→21:00)
[2016-08-19 08:02] VITALS: BP 129/72; RESP 18
[2016-08-19] MEDS: morphine 4 MG/ML VIAL IV PRN ×2 (08:15→14:09)
[2016-08-19] MEDS: METOCLOPRAMIDE 5 MG TAB PO PRN (09:05)
[2016-08-19] MEDS: DOCUSATE SODIUM 100 MG CAP PO SCH (09:05)
[2016-08-19] MEDS: MULTIVIT/CA CARB/B CMPLX/FA TAB PO SCH (09:06)
[2016-08-19] MEDS: THIAMINE 100 MG TAB PO SCH (09:06)
[2016-08-19] MEDS: NORTRIPTYLINE 25 MG CAP PO SCH ×2 (09:06→22:11)
[2016-08-19] MEDS: ATORVASTATIN 40 MG TAB PO SCH (09:07)
[2016-08-19] MEDS: FERROUS SULFATE (EC) 325 MG TAB PO SCH ×3 (09:07→22:11)
[2016-08-19] MEDS: ISOSORBIDE DINITRATE 10 MG TAB PO SCH ×2 (09:13→22:11)
[2016-08-19 09:26] LABS: ALBUMIN 3.6 g/dl (3.3-4.9)
[2016-08-19 09:29] LABS: TOTAL PROTEIN 8.2 g/dl (6.1-8.1)
--- NOTE | 2016-08-19 11:50 | CONS ---
Date/Time of Note Date/Time of Note DATE: 08/19/16 TIME: 11:39 Assessment/Plan Assessment/Plan Additional Assessment/Plan Preoperative cardiac risk stratification CAD with recent PCI End-stage renal disease on hemodialysis Diabetes Hypertension -Patient had recent cardiac stenting approximately 2-3 months ago at [facility]. 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 I have attempted to contact him and awaiting a response. It is unclear what type of cardiac stent he had placed and this would dictate his antiplatelet therapy regimen. Will obtain echocardiogram to evaluate LV function. Fluid management via hemodialysis as per our nephrology colleagues. Would also request records from [facility]. Consultation Date/Type/Reason Admit Date/Time Aug 17, 2016 at 20:14 Type of Consultation: cv Reason for Consultation Preoperative cardiac risk stratification Hx of Present Illness This is a 65-year-old male with past medical history of end-stage renal disease on hemodialysis for 12 years, CAD with history of PCI approximately 2-3 months ago at [facility] who was admitted secondary to issues with a previous hip fracture repair and need for likely repeat orthopedic surgery. Cardiology consultation was requested for preoperative risk stratification. As per the family, patient had some hip surgery in [place]. They came to [place] and went to [facility]. At that time, patient underwent testing with evidence of cardiac abnormalities and he had placement of a cardiac stent. They are unsure what type of stent was placed. They denied patient having a "heart attack" at that time. The patient otherwise denies exertional chest pain, he does get shortness of breath at times when he misses hemodialysis. His activity has been limited secondary to his hip fracture. Denies any current chest pain or shortness of breath. He does admit to missing hemodialysis sessions. 12 point review of systems was performed with all pertinent positives and negatives mentioned above and all else is negative Past Medical History Medical History: hypertension, renal disease Past Surgical History Hip surgery Cardiac stent placement Family History Significant Family History: no pertinent family hx Social History Alcohol Use: none Smoking Status: Never smoker Other Social History Lives with family Exam/Review of Systems Vital Signs Vitals Vital Signs Date Time Temp Pulse Resp B/P Pulse Ox O2 Delivery O2 Flow Rate FiO2 08/19/16 08:02 97.5 97 18 129/72 90 08/19/16 00:30 Room Air Intake and Output 3/10/0108/18/16 08/19/16 15:00 23:00 07:00 Intake Total 400 ml 60 ml 750 ml Output Total 0 ml 4500 ml Balance 400 ml 60 ml -3750 ml Exam No apparent distress Constitutional: alert, oriented, well developed Head: normocephalic Neck: supple Respiratory: other (Coarse breath sounds bilaterally, no wheezing) Cardiovascular: regular rate and rhythm (S1-S2 heard) Gastrointestinal: bowel sounds, non-tender, other (No guarding), soft Extremities: other (No edema or cyanosis) Results Result Diagram: 08/19/16 0419 08/19/16 0419 Results 24 hrs Laboratory Tests Test 08/18/16 12:40 08/18/16 13:16 08/18/16 15:35 08/18/16 17:31 Synovial Fluid Appearance Bloody Synovial Fluid Color Red Synovial Fluid Crystals No crystals seen Synovial Fluid Lymphocytes 27 Synovial Fluid Monocytes 2 Synovial Fluid Neutrophils 69 H Synovial Fluid Other Cells 2 Synovial Fluid Source Hip Fluid Synovial Fluid Volume 2.0 Synovial Fluid WBC Bedside Glucose 104 79 Basophils # 0.0 Basophils % 0.6 Eosinophils # 0.2 Eosinophils % 2.5 Hematocrit 36.8 L Hemoglobin 11.6 L Lymphocytes # 2.1 Lymphocytes % 30.6 Mean Corpuscular Hemoglobin 27.0 L Mean Corpuscular Hemoglobin Concent 31.5 L Mean Corpuscular Volume 85.8 Mean Platelet Volume 10.4 Monocytes # 0.8 Monocytes % 11.6 H Neutrophils # 3.7 Neutrophils % 54.6 Nucleated Red Blood Cells # 0.0 Nucleated Red Blood Cells % 0.0 Platelet Count 409 Red Blood Count 4.29 L Red Cell Distribution Width 17.3 H White Blood Count 6.7 Test 08/18/16 20:42 08/19/16 04:00 08/19/16 04:19 08/19/16 08:14 Bedside Glucose 126 88 Alanine Aminotransferase (ALT/SGPT) 21 22 Albumin 3.6 3.5 Alkaline Phosphatase 179 H 181 H Aspartate Amino Transf (AST/SGOT) 37 34 Direct Bilirubin 0.00 0.00 Indirect Bilirubin 0.0 0.0 Total Bilirubin 0.0 L 0.0 L Total Protein 8.2 H 8.2 H Anion Gap 21 H Basophils # 0.1 Basophils % 0.8 Blood Urea Nitrogen 45 #H Calcium Level 10.8 H Carbon Dioxide Level 30 Chloride Level 100 Creatinine 5.38 H Eosinophils # 0.3 Eosinophils % 4.1 Free Thyroxine Index 2.54 Glucose Level 67 #L Hematocrit 39.5 L Hemoglobin 12.5 L Lymphocytes # 1.7 Lymphocytes % 27.9 Mean Corpuscular Hemoglobin 27.3 L Mean Corpuscular Hemoglobin Concent 31.6 L Mean Corpuscular Volume 86.2 Mean Platelet Volume 10.4 Monocytes # 0.9 Monocytes % 14.1 H Neutrophils # 3.3 Neutrophils % 52.9 Nucleated Red Blood Cells # 0.0 Nucleated Red Blood Cells % 0.0 Platelet Count 392 Potassium Level 4.4 Red Blood Count 4.58 L Red Cell Distribution Width 17.3 H Sodium Level 147 H Thyroxine (T4) 5.7 Triiodothyronine (T3) Uptake 44.5 H White Blood Count 6.2 Medications Medications Current Medications Atorvastatin Calcium (Lipitor) 40 mg DAILY PO Last administered on 08/19/16 09: 07; Admin Dose 40 MG; Start 08/18/16 at 09:00 Carvedilol (Coreg) 6.25 mg BID PO Last administered on 08/19/16 09:14; Admin Dose 6.25 MG; Start 08/17/16 at 23:00 Clopidogrel Bisulfate (plaVIX) 75 mg DAILY PO ; Start 08/18/16 at 09:00; Status Future Hold Docusate Sodium (Colace) 100 mg DAILY PO Last administered on 08/19/16 09:05; Admin Dose 100 MG; Start 08/18/16 at 09:00 Acetaminophen/ Hydrocodone Bitart ([place] (10/325)) 1 tab Q4H PRN PO PAIN; Start 08/17/16 at 23:00 Isosorbide Dinitrate (Isordil) 10 mg BID PO Last administered on 08/19/16 09:13 ; Admin Dose 10 MG; Start 08/17/16 at 23:00 Metoclopramide HCl (Reglan) 5 mg Q6H PRN PO NAUSEA Last administered on 09:05; Admin Dose 5 MG; Start 08/17/16 at 23:00 Nortriptyline HCl (Aventyl) 25 mg BID PO Last administered on 08/19/16 09:06; Admin Dose 25 MG; Start 08/17/16 at 23:00 Thiamine HCl (Vitamin B1) 250 mg DAILY PO Last administered on 08/19/16 09:06; Admin Dose 250 MG; Start 08/18/16 at 09:00 Multivit/Ca Carb/ B Cmplx/FA/Prenat (Aleyda-Pam) 1 tab DAILY PO Last administered on 08/19/16 09:06; Admin Dose 1 TAB; Start 08/18/16 at 09:00 Insulin Glargine (Lantus) 10 unit HS SC ; Start 08/18/16 at 21:00 Diagnostic Test (Pha) (Accucheck) 1 ea 02 XX ; Start 08/18/16 at 02:00 Morphine Sulfate (morphine) 3 mg Q4H PRN IV PAIN Last administered on 08/19/16 08:15; Admin Dose 3 MG; Start 08/17/16 at 23:00 Ondansetron HCl (Zofran Inj) 4 mg Q6H PRN IV NAUSEA AND/OR VOMITING; Start 08/17 at 23:00 Miscellaneous Information 1 ea NOTE XX ; Start 08/17/16 at 23:30 Glucose (Glutose) 15 gm Q15M PRN PO DECREASED GLUCOSE; Start 08/17/16 at 23:30 Glucose (Glutose) 22.5 gm Q15M PRN PO DECREASED GLUCOSE; Start 08/17/16 at 23:30 Dextrose (D50w Syringe) 25 ml Q15M PRN IV DECREASED GLUCOSE; Start 08/17/16 at 23:30 Dextrose (D50w Syringe) 50 ml Q15M PRN IV DECREASED GLUCOSE; Start 08/17/16 at 23:30 Glucagon (Glucagen) 1 mg Q15M PRN IM DECREASED GLUCOSE; Start 08/17/16 at 23:30 Glucose (Glutose) 15 gm Q15M PRN BUCCAL DECREASED GLUCOSE; Start 08/17/16 at 23: 30 Ferrous Sulfate (Ferrous Sulfate (Ec)) 325 mg TID PO Last administered on 09:07; Admin Dose 325 MG; Start 08/18/16 at 16:30 Procedures Procedures ECG demonstrates sinus rhythm, septal Q waves, no significant ischemic STT wave abnormalities Kike Cruz DO Aug 19, 2016 11:49
--- NOTE | 2016-08-19 13:04 | CONS ---
Date/Time of Note Date/Time of Note DATE: 08/19/16 TIME: 13:02 Assessment/Plan Assessment/Plan Additional Assessment/Plan 1. End-stage renal disease. s/p dialysis yesterday, next planned for tomorrow 2. Hypertension, controlled. 3. Diabetes mellitus, controlled. 4. Coronary artery disease, status post recent percutaneous coronary intervention. Cardiology following. 5. Hypercalcemia due to medications, improved. 6. Fractured left femur, awaiting surgery Consultation Date/Type/Reason Admit Date/Time Aug 17, 2016 at 20:14 Initial Consult Date Type of Consultation: Nephrology 24 HR Interval Summary Free Text/Dictation Alert, complains of left hip pain. Had dialysis yesterday, tolerated well. Exam/Review of Systems Vital Signs Vitals Vital Signs Date Time Temp Pulse Resp B/P Pulse Ox O2 Delivery O2 Flow Rate FiO2 08/19/16 08:02 97.5 97 18 129/72 90 08/19/16 00:30 Room Air Intake and Output 08/18/16 08/18/16 08/19/16 15:00 23:00 07:00 Intake Total 400 ml 60 ml 750 ml Output Total 0 ml 4500 ml Balance 400 ml 60 ml -3750 ml Exam Constitutional: alert Head: atraumatic, normocephalic Neck: supple, No jvd Respiratory: clear to auscultation Cardiovascular: regular rate and rhythm Gastrointestinal: non-tender, soft Extremities: No edema Results Result Diagram: 08/19/16 0419 08/19/16 0419 Results 24 hrs Laboratory Tests Test 08/18/16 13:16 08/18/16 15:35 08/18/16 17:31 08/18/16 20:42 Bedside Glucose 104 79 126 Basophils # 0.0 Basophils % 0.6 Eosinophils # 0.2 Eosinophils % 2.5 Hematocrit 36.8 L Hemoglobin 11.6 L Lymphocytes # 2.1 Lymphocytes % 30.6 Mean Corpuscular Hemoglobin 27.0 L Mean Corpuscular Hemoglobin Concent 31.5 L Mean Corpuscular Volume 85.8 Mean Platelet Volume 10.4 Monocytes # 0.8 Monocytes % 11.6 H Neutrophils # 3.7 Neutrophils % 54.6 Nucleated Red Blood Cells # 0.0 Nucleated Red Blood Cells % 0.0 Platelet Count 409 Red Blood Count 4.29 L Red Cell Distribution Width 17.3 H White Blood Count 6.7 Test 08/19/16 04:00 08/19/16 04:19 08/19/16 08:14 08/19/16 12:14 Alanine Aminotransferase (ALT/SGPT) 21 22 Albumin 3.6 3.5 Alkaline Phosphatase 179 H 181 H Aspartate Amino Transf (AST/SGOT) 37 34 Direct Bilirubin 0.00 0.00 Indirect Bilirubin 0.0 0.0 Total Bilirubin 0.0 L 0.0 L Total Protein 8.2 H 8.2 H Anion Gap 21 H Basophils # 0.1 Basophils % 0.8 Blood Urea Nitrogen 45 #H Calcium Level 10.8 H Carbon Dioxide Level 30 Chloride Level 100 Creatinine 5.38 H Eosinophils # 0.3 Eosinophils % 4.1 Free Thyroxine Index 2.54 Glucose Level 67 #L Hematocrit 39.5 L Hemoglobin 12.5 L Lymphocytes # 1.7 Lymphocytes % 27.9 Mean Corpuscular Hemoglobin 27.3 L Mean Corpuscular Hemoglobin Concent 31.6 L Mean Corpuscular Volume 86.2 Mean Platelet Volume 10.4 Monocytes # 0.9 Monocytes % 14.1 H Neutrophils # 3.3 Neutrophils % 52.9 Nucleated Red Blood Cells # 0.0 Nucleated Red Blood Cells % 0.0 Platelet Count 392 Potassium Level 4.4 Red Blood Count 4.58 L Red Cell Distribution Width 17.3 H Sodium Level 147 H Thyroxine (T4) 5.7 Triiodothyronine (T3) Uptake 44.5 H White Blood Count 6.2 Bedside Glucose 88 142 Medications Medications Current Medications Atorvastatin Calcium (Lipitor) 40 mg DAILY PO Last administered on 08/19/16 09: 07; Admin Dose 40 MG; Start 08/18/16 at 09:00 Carvedilol (Coreg) 6.25 mg BID PO Last administered on 08/19/16 09:14; Admin Dose 6.25 MG; Start 08/17/16 at 23:00 Clopidogrel Bisulfate (plaVIX) 75 mg DAILY PO ; Start 08/18/16 at 09:00; Status Future Hold Docusate Sodium (Colace) 100 mg DAILY PO Last administered on 08/19/16 09:05; Admin Dose 100 MG; Start 08/18/16 at 09:00 Acetaminophen/ Hydrocodone Bitart ([place] (10/325)) 1 tab Q4H PRN PO PAIN; Start 08/17/16 at 23:00 Isosorbide Dinitrate (Isordil) 10 mg BID PO Last administered on 08/19/16 09:13 ; Admin Dose 10 MG; Start 08/17/16 at 23:00 Metoclopramide HCl (Reglan) 5 mg Q6H PRN PO NAUSEA Last administered on 09:05; Admin Dose 5 MG; Start 08/17/16 at 23:00 Nortriptyline HCl (Aventyl) 25 mg BID PO Last administered on 08/19/16 09:06; Admin Dose 25 MG; Start 08/17/16 at 23:00 Thiamine HCl (Vitamin B1) 250 mg DAILY PO Last administered on 08/19/16 09:06; Admin Dose 250 MG; Start 08/18/16 at 09:00 Multivit/Ca Carb/ B Cmplx/FA/Prenat (Aleyda-Pam) 1 tab DAILY PO Last administered on 08/19/16 09:06; Admin Dose 1 TAB; Start 08/18/16 at 09:00 Insulin Glargine (Lantus) 10 unit HS SC ; Start 08/18/16 at 21:00 Diagnostic Test (Pha) (Accucheck) 1 ea 02 XX ; Start 08/18/16 at 02:00 Morphine Sulfate (morphine) 3 mg Q4H PRN IV PAIN Last administered on 08/19/16 08:15; Admin Dose 3 MG; Start 08/17/16 at 23:00 Ondansetron HCl (Zofran Inj) 4 mg Q6H PRN IV NAUSEA AND/OR VOMITING; Start 08/17 at 23:00 Miscellaneous Information 1 ea NOTE XX ; Start 08/17/16 at 23:30 Glucose (Glutose) 15 gm Q15M PRN PO DECREASED GLUCOSE; Start 08/17/16 at 23:30 Glucose (Glutose) 22.5 gm Q15M PRN PO DECREASED GLUCOSE; Start 08/17/16 at 23:30 Dextrose (D50w Syringe) 25 ml Q15M PRN IV DECREASED GLUCOSE; Start 08/17/16 at 23:30 Dextrose (D50w Syringe) 50 ml Q15M PRN IV DECREASED GLUCOSE; Start 08/17/16 at 23:30 Glucagon (Glucagen) 1 mg Q15M PRN IM DECREASED GLUCOSE; Start 08/17/16 at 23:30 Glucose (Glutose) 15 gm Q15M PRN BUCCAL DECREASED GLUCOSE; Start 08/17/16 at 23: 30 Ferrous Sulfate (Ferrous Sulfate (Ec)) 325 mg TID PO Last administered on 09:07; Admin Dose 325 MG; Start 08/18/16 at 16:30 WILD NOLAN MD Aug 19, 2016 13:04
--- NOTE | 2016-08-19 13:30 | PN ---
Date/Time of Note Date/Time of Note DATE: 08/19/16 TIME: 13:27 Assessment/Plan VTE Prophylaxis VTE Prophylaxis Intervention: SCD's Lines/Catheters IV C[facility] Type [facility]from [facility] Saline Lock Assessment/Plan Chief Complaint/Hosp Course Impression and plan 1. Pelvic fracture. Orthopedic surgeon following. . Tentative plan for surgical intervention. Will optimize patient prior to procedure. Follow-up on echocardiogram. Bottling Line Attendant and bender machine operator following 2. History of end-stage renal disease on dialysis. Continue HD per nephrology. Monitor renal panel as well as electrolytes 3. History of CAD with CABG. continue on beta-yuliya as well as antiplatelet therapy and statin medication 4. History of dyslipidemia. Continue on statin 5. Essential hypertension. Continue antihypertensives and adjust as needed 6. Diabetes. We will continue insulin regimen. Will adjust as needed Disposition and plan: Follow-up with cardiology recommendations. Continue HD per nephrology. Continue optimization prior to surgical intervention Discussed plan of care with Dr. Pabon Problems: Subjective 24 Hr Interval Summary Free Text/Dictation Comfortable at present. No signs or symptoms of distress Exam/Review of Systems Vital Signs Vitals Vital Signs Date Time Temp Pulse Resp B/P Pulse Ox O2 Delivery O2 Flow Rate FiO2 08/19/16 08:02 97.5 97 18 129/72 90 08/19/16 00:30 Room Air Intake and Output 08/18/16 08/18/16 08/19/16 14:59 22:59 06:59 Intake Total 400 ml 60 ml 750 ml Output Total 0 ml 4500 ml Balance 400 ml 60 ml -3750 ml Exam General: No acute distress. Comfortable at present Eyes: Pupils equal round r Neck: Supple nontender, no JVD Cardiac: Regular rate S1-S2 auscultated today Pulmonary: No adventitious lung sounds GI: Nontender nondistended Extremities: Pain on palpation of left hip. Skin: Clean dry and intact Neurologic: Alert to person place and time Results Result Diagram: 08/19/16 0419 08/19/16 0419 Results 24 hrs Laboratory Tests Test 08/18/16 15:35 08/18/16 17:31 08/18/16 20:42 08/19/16 04:00 Basophils # 0.0 Basophils % 0.6 Eosinophils # 0.2 Eosinophils % 2.5 Hematocrit 36.8 L Hemoglobin 11.6 L Lymphocytes # 2.1 Lymphocytes % 30.6 Mean Corpuscular Hemoglobin 27.0 L Mean Corpuscular Hemoglobin Concent 31.5 L Mean Corpuscular Volume 85.8 Mean Platelet Volume 10.4 Monocytes # 0.8 Monocytes % 11.6 H Neutrophils # 3.7 Neutrophils % 54.6 Nucleated Red Blood Cells # 0.0 Nucleated Red Blood Cells % 0.0 Platelet Count 409 Red Blood Count 4.29 L Red Cell Distribution Width 17.3 H White Blood Count 6.7 Bedside Glucose 79 126 Alanine Aminotransferase (ALT/SGPT) 21 Albumin 3.6 Alkaline Phosphatase 179 H Aspartate Amino Transf (AST/SGOT) 37 Direct Bilirubin 0.00 Indirect Bilirubin 0.0 Total Bilirubin 0.0 L Total Protein 8.2 H Test 08/19/16 04:19 08/19/16 08:14 08/19/16 12:14 Alanine Aminotransferase (ALT/SGPT) 22 Albumin 3.5 Alkaline Phosphatase 181 H Anion Gap 21 H Aspartate Amino Transf (AST/SGOT) 34 Basophils # 0.1 Basophils % 0.8 Blood Urea Nitrogen 45 #H Calcium Level 10.8 H Carbon Dioxide Level 30 Chloride Level 100 Creatinine 5.38 H Direct Bilirubin 0.00 Eosinophils # 0.3 Eosinophils % 4.1 Free Thyroxine Index 2.54 Glucose Level 67 #L Hematocrit 39.5 L Hemoglobin 12.5 L Indirect Bilirubin 0.0 Lymphocytes # 1.7 Lymphocytes % 27.9 Mean Corpuscular Hemoglobin 27.3 L Mean Corpuscular Hemoglobin Concent 31.6 L Mean Corpuscular Volume 86.2 Mean Platelet Volume 10.4 Monocytes # 0.9 Monocytes % 14.1 H Neutrophils # 3.3 Neutrophils % 52.9 Nucleated Red Blood Cells # 0.0 Nucleated Red Blood Cells % 0.0 Platelet Count 392 Potassium Level 4.4 Red Blood Count 4.58 L Red Cell Distribution Width 17.3 H Sodium Level 147 H Thyroxine (T4) 5.7 Total Bilirubin 0.0 L Total Protein 8.2 H Triiodothyronine (T3) Uptake 44.5 H White Blood Count 6.2 Bedside Glucose 88 142 Medications Medications Current Medications Atorvastatin Calcium (Lipitor) 40 mg DAILY PO Last administered on 08/19/16 09: 07; Admin Dose 40 MG; Start 08/18/16 at 09:00 Carvedilol (Coreg) 6.25 mg BID PO Last administered on 08/19/16 09:14; Admin Dose 6.25 MG; Start 08/17/16 at 23:00 Clopidogrel Bisulfate (plaVIX) 75 mg DAILY PO ; Start 08/18/16 at 09:00; Status Future Hold Docusate Sodium (Colace) 100 mg DAILY PO Last administered on 08/19/16 09:05; Admin Dose 100 MG; Start 08/18/16 at 09:00 Acetaminophen/ Hydrocodone Bitart ([place] (10/325)) 1 tab Q4H PRN PO PAIN; Start 08/17/16 at 23:00 Isosorbide Dinitrate (Isordil) 10 mg BID PO Last administered on 08/19/16 09:13 ; Admin Dose 10 MG; Start 08/17/16 at 23:00 Metoclopramide HCl (Reglan) 5 mg Q6H PRN PO NAUSEA Last administered on 09:05; Admin Dose 5 MG; Start 08/17/16 at 23:00 Nortriptyline HCl (Aventyl) 25 mg BID PO Last administered on 08/19/16 09:06; Admin Dose 25 MG; Start 08/17/16 at 23:00 Thiamine HCl (Vitamin B1) 250 mg DAILY PO Last administered on 08/19/16 09:06; Admin Dose 250 MG; Start 08/18/16 at 09:00 Multivit/Ca Carb/ B Cmplx/FA/Prenat (Aleyda-Pam) 1 tab DAILY PO Last administered on 08/19/16 09:06; Admin Dose 1 TAB; Start 08/18/16 at 09:00 Insulin Glargine (Lantus) 10 unit HS SC ; Start 08/18/16 at 21:00 Diagnostic Test (Pha) (Accucheck) 1 ea 02 XX ; Start 08/18/16 at 02:00 Morphine Sulfate (morphine) 3 mg Q4H PRN IV PAIN Last administered on 08/19/16 08:15; Admin Dose 3 MG; Start 08/17/16 at 23:00 Ondansetron HCl (Zofran Inj) 4 mg Q6H PRN IV NAUSEA AND/OR VOMITING; Start 08/17 at 23:00 Miscellaneous Information 1 ea NOTE XX ; Start 08/17/16 at 23:30 Glucose (Glutose) 15 gm Q15M PRN PO DECREASED GLUCOSE; Start 08/17/16 at 23:30 Glucose (Glutose) 22.5 gm Q15M PRN PO DECREASED GLUCOSE; Start 08/17/16 at 23:30 Dextrose (D50w Syringe) 25 ml Q15M PRN IV DECREASED GLUCOSE; Start 08/17/16 at 23:30 Dextrose (D50w Syringe) 50 ml Q15M PRN IV DECREASED GLUCOSE; Start 08/17/16 at 23:30 Glucagon (Glucagen) 1 mg Q15M PRN IM DECREASED GLUCOSE; Start 08/17/16 at 23:30 Glucose (Glutose) 15 gm Q15M PRN BUCCAL DECREASED GLUCOSE; Start 08/17/16 at 23: 30 Ferrous Sulfate (Ferrous Sulfate (Ec)) 325 mg TID PO Last administered on 09:07; Admin Dose 325 MG; Start 08/18/16 at 16:30 BABAR CARROLL Aug 19, 2016 13:29
--- NOTE | 2016-08-19 13:32 | RADRPT ---
Echocardiogram Report Patient Name: NATALEE VILLATORO Gender: Male Date: 1950 Study Date: 19-Aug-2016 Substance Abuse Counselor: DAMIEN Location: I Ref. Physician: BABAR CARROLL Quality: Technically Difficult Study Procedures: Transthoracic echocardiogram with 2D, M-Mode, and Doppler examination, poor subcostal images. Indications: Cardiac clearance. 2D/M Mode Doppler Measurement Value Normal Ranges Measurement Value Normal Ranges AoR Diam MM 3.7 cm AV Peak Ignacio 1.4 m/sec ACS MM 1.8 cm AV Peak PG 7.8 mmHg LVIDd 2D 5.2 3.5 - 5.6 cm LVOT Peak Ignacio 0.7 m/sec LVIDs 2D 4.2 2.1 - 4.1 cm LVOT Peak PG 1.8 mmHg LVPWd 2D 1.1 0.6 - 1.1 cm MV E Peak Ignacio 0.7 m/sec IVSd 2D 1.1 0.6 - 1.1 cm MV A Peak Ignacio 1.0 m/sec EDV 2D 127.9 cm3 MV E/A 0.7 ESV 2D 76.0 cm3 MV E/A 0.7 LA Dimen 2D 3.5 2.3 - 4.0 cm PV Peak Ignacio 0.9 m/sec PV Peak PG 3.0 mmHg Findings Left Ventricle: Normal left ventricular cavity size. Normal left ventricular wall thickness. Moderate to severe left ventricular systolic dysfunction. Ejection fraction is visually estimated at 35 %. Abnormal Diastolic Function. Right Ventricle: Normal right ventricular size. Normal right ventricular systolic function. Left Atrium: The left atrium is normal in size. Right Atrium: The right atrium is normal in size. Atrial Septum: Not well visualized. Mitral Valve: Mild mitral annular calcification. Mild mitral valve regurgitation. Aortic Valve: No significant aortic stenosis or insufficiency. Aortic cusps appear mildly calcified. Tricuspid Valve: Normal appearance of the tricuspid valve. Unable to obtain RVSP due to minimal presence of tricuspid regurgitation. No evidence of tricuspid regurgitation. Pulmonic Valve: Normal pulmonic valve appearance. No evidence of pulmonic regurgitation. Pericardium: Normal pericardium with no significant pericardial effusion. Aorta: Normal aortic root. IVC: The IVC is not well visualized. Pulmonary Artery: Normal pulmonary artery size. Conclusions 1.Normal left ventricular cavity size. Normal left ventricular wall thickness. Moderate to severe left ventricular systolic dysfunction. Ejection fraction is visually estimated at 35 %. Abnormal Diastolic Function. 2.Normal right ventricular size. Normal right ventricular systolic function. 3.The left atrium is normal in size. 4.The right atrium is normal in size. 5.Mild mitral annular calcification. Mild mitral valve regurgitation. 6.No significant aortic stenosis or insufficiency. Aortic cusps appear mildly calcified. 7.Normal appearance of the tricuspid valve. Unable to obtain RVSP due to minimal presence of tricuspid regurgitation. No evidence of tricuspid regurgitation. 8.Normal pericardium with no significant pericardial effusion. Electronically Signed By: Kike Curz 19-Aug-2016 13:31:51 -0800 Patient Name: NATALEE VILLATORO Study Date: 19-Aug-[id number]
--- NOTE | 2016-08-19 14:28 | PN ---
Date/Time of Note Date/Time of Note DATE: 08/19/16 TIME: 14:24 Assessment/Plan Lines/Catheters IV Catheter Type (from Nrsg): Saline Lock Assessment/Plan Assessment/Plan Failed ORIF Left Hip IT Fx. -No evidence of infection based on preliminary cultures -Elevated ESR and CRP (? secondary to chronic disease) -Await procalcitonin levels and final cultures -May consider checking blood cultures as well -Check venous dopplers given prolonged immobilization -Pain meds -Hemodialysis tomorrow -Hold Plavix -Plan for surgery Saturday Subjective 24 Hr Interval Summary Resting comfortably. Family at bedside. Had hip aspiration yesterday. Also had dialysis yesterday. Exam/Review of Systems Vital Signs Vitals Vital Signs Date Time Temp Pulse Resp B/P Pulse Ox O2 Delivery O2 Flow Rate FiO2 08/19/16 08:02 97.5 97 18 129/72 90 08/19/16 00:30 Room Air Intake and Output 08/18/16 08/18/16 08/19/16 15:00 23:00 07:00 Intake Total 400 ml 60 ml 750 ml Output Total 0 ml 4500 ml Balance 400 ml 60 ml -3750 ml Exam Free Text/Dictation Left hip painful to PROM Left LE shortened and externally rotated Thigh soft 5/5 Quadriceps, Tibialis Anterior, EHL, Gastroc Soleus, Peroneals Normal sensation Palpable DP/PT, CR < 2 Sec No distal edema Procalcitonin pending ESR 74 CRP > 1.5 No crystals Hip Aspiration: No organisms on gram stain, No growth x 24 hours Fluid bloody, unable to do cell count because of clotting, but PMNS 69% Results Result Diagram: 08/19/16 0419 08/19/16 0419 AARON PINTO MD Aug 19, 2016 14:28
--- NOTE | 2016-08-19 15:26 | RADRPT ---
PROCEDURE: US Lower extremity Venous. CLINICAL INDICATION: Bilateral lower extremity swelling , pain TECHNIQUE: Multiple sonographic images of the bilateral lower extremity deep venous system was obt ained utilizing grayscale, color-flow, compressive sonography and doppler imaging with augmentation. The images were reviewed on a PACS workstation. COMPARISON: None. FINDINGS: There is normal compressibility and flow within the bilateral common femoral, superficial femoral , posterior tibial and popliteal veins. RPTAT: AA IMPRESSION: No sonographic evidence for deep venous thrombosis. .Jossue Jerez MD, MD Date Time Electronically viewed and signed by .Jossue Jerez MD, on 08/19/2016 15:26 .S/
[2016-08-19 19:35] VITALS: BP 145/55; RESP 18
[2016-08-19] MEDS: INSULIN GLARGINE [LANtus] 3 ML PEN SC SCH (21:00)
[2016-08-20] VITALS (12 sets, daily range): BP systolic 100–145; BP diastolic 52–76; PULSE 56–101; RESP 18
[2016-08-20] MEDS: HYDROCODONE/APAP (10/325) TAB PO PRN ×3 (01:42→23:15)
[2016-08-20] MEDS: ACCU-CHEK XX SCH (02:00)
[2016-08-20 05:20] LABS: ADD SCAN DIFF NO
[2016-08-20 05:36] LABS: BASOPHIL # 0.1 10^3/ul (0.0-0.1); BASOPHILS % 0.9 % (0.0-2.0); EOSINOPHILS # 0.3 10^3/ul (0.0-0.5); HEMATOCRIT 38.7 % (42.0-52.0); HEMOGLOBIN 11.9 g/dl (14.0-18.0); LYMPHOCYTES # 2.2 10^3/ul (0.8-2.9); LYMPHOCYTES % 27.1 % (15.0-51.0); MEAN CORPUSCULAR HGB CONC 30.7 g/dl (32.0-37.0); MEAN CORPUSCULAR VOLUME 87.8 fl (82.0-101.0); MONOCYTE # 1.3 10^3/ul (0.3-0.9); MONOCYTES % 15.4 % (0.0-11.0); NEUTROPHIL # 4.3 10^3/ul (1.6-7.5); NEUTROPHILS % 52.5 % (39.0-77.0); PLATELET COUNT 326 10^3/UL (140-415); RED BLOOD COUNT 4.41 10^6/ul (4.70-6.10); RED CELL DISTRIBUTION WIDTH 17.6 % (11.5-14.5); WHITE BLOOD COUNT 8.2 10^3/ul (4.8-10.8)
[2016-08-20 05:44] LABS: ALBUMIN 3.5 g/dl (3.3-4.9)
[2016-08-20 05:45] LABS: POTASSIUM 5.6 mmol/L (3.5-5.1)
[2016-08-20 05:47] LABS: ALBUMIN/GLOBULIN RATIO 0.76; CREATININE 7.19 mg/dl (0.61-1.24); TOTAL PROTEIN 8.1 g/dl (6.1-8.1)
[2016-08-20 05:48] LABS: CALCIUM 10.6 mg/dl (8.4-10.2)
[2016-08-20 05:56] LABS: CALCIUM 10.6 mg/dl (8.4-10.2)
[2016-08-20] MEDS: INSULIN ASPART [NOVOLOG] 3 ML PEN SC SCH ×4 (07:50→20:19)
--- NOTE | 2016-08-20 08:46 | PN ---
Date/Time of Note Date/Time of Note DATE: 08/20/16 TIME: 08:42 Assessment/Plan Lines/Catheters IV Catheter Type (from Nrsg): Saline Lock Jain in Place (from Nrsg): No Assessment/Plan Assessment/Plan Stable, failed ORIF left IT fx -continue medical optimization -dialysis scheduled for today -planning for left hip surgery tomorrow -NPO after midnight -Type and Screen 2 units PRBCs -hold plavix -surgical planning discussed with patient Subjective 24 Hr Interval Summary Doing well. No acute overnight events. Complianing of pain to the left hip. No growth on hip aspiration. Plan for dialysis today. Still planning for surgery tomorrow. Exam/Review of Systems Vital Signs Vitals Vital Signs Date Time Temp Pulse Resp B/P Pulse Ox O2 Delivery O2 Flow Rate FiO2 08/20/16 07:48 97.3 93 18 130/74 90 08/19/16 00:30 Room Air Intake and Output 08/19/16 08/19/16 08/20/16 15:00 23:00 07:00 Intake Total 400 ml 300 ml Output Total 0 ml Balance 400 ml 300 ml Exam Free Text/Dictation 10/19 Quadriceps, Tibialis Anterior, EHL, Gastroc, Soleus, Peroneals Normal sensation Palpable DT/PT, CR <2 sec No distal edema Results Result Diagram: 08/20/16 0435 08/20/16 0435 TONI ORNELAS PA-C Aug 20, 2016 08:46
[2016-08-20] MEDS: ATORVASTATIN 40 MG TAB PO SCH (08:52)
[2016-08-20] MEDS: NORTRIPTYLINE 25 MG CAP PO SCH ×2 (08:52→20:24)
[2016-08-20] MEDS: THIAMINE 100 MG TAB PO SCH (08:52)
[2016-08-20] MEDS: MULTIVIT/CA CARB/B CMPLX/FA TAB PO SCH (08:52)
[2016-08-20] MEDS: FERROUS SULFATE (EC) 325 MG TAB PO SCH ×3 (08:52→20:24)
[2016-08-20] MEDS: DOCUSATE SODIUM 100 MG CAP PO SCH (08:52)
[2016-08-20] MEDS: ISOSORBIDE DINITRATE 10 MG TAB PO SCH ×2 (08:53→20:36)
--- NOTE | 2016-08-20 10:42 | PN ---
DATE: 08/20/2016 TIME OF EVALUATION: 9:30 a.m. SUBJECTIVE DATA: Denies any complaints. The patient is scheduled to get hemodialysis today. OBJECTIVE DATA: VITAL SIGNS: Temperature 97.3, pulse rate 93, respiratory rate 18, blood pressure 130/74, oxygen saturation 92% on room air. GENERAL: This is a well-built, well-nourished male patient lying in bed in no apparent distress. HEENT: Head normocephalic and atraumatic. Eyes: Anicteric sclerae. Conjunctivae clear. ENT: Nasal septum is midline. Oral mucosa is moist. NECK: Supple. No JVD noticed. RESPIRATORY: Bilaterally clear to auscultation. No adventitious breath sounds. No use of accessory muscles of respiration. CARDIAC: Regular rate and rhythm. S1 and S2 heard. ABDOMEN: Soft, nontender and nondistended. Bowel sounds positive in all 4 quadrants. GENITOURINARY: Deferred. EXTREMITIES: No cyanosis, no clubbing, no edema. Left hip tenderness. Peripheral pulses palpable. NEUROLOGIC: The patient is awake, alert and oriented. Cranial nerves are grossly intact. LABORATORY AND DIAGNOSTIC DATA: WBC 8.2, hemoglobin 11.9, hematocrit 38.7, platelet count 326. Sodium 142, potassium 5.6, chloride 99, carbon dioxide 27, anion gap 22, BUN 69, creatinine 7.1, glucose 87, calcium 10.6. ASSESSMENT AND PLAN: 1. Recent left intertrochanteric hip fracture. Failed intramedullary nailing outside the country. The patient currently being followed by orthopedic surgery. Continue medical optimization before surgical intervention. 2. Ischemic cardiomyopathy with ejection fraction of 35%. Continue to optimize cardiac medications. 3. CAD status post coronary artery stenting in the past. The patient was on Plavix. Cardiology following. Plavix on hold because of surgery on 08/21/2016. 4. Essential hypertension. Continue antihypertensives. 5. Dyslipidemia. Continue statins. 6. Type 2 diabetes mellitus. Hemoglobin A1c 5.2. Continue sliding scale insulin along with Lantus insulin. Blood sugars well controlled. 7. Normocytic anemia. Underlying iron deficiency. Continue iron supplements. 8. Hyperkalemia. The patient is scheduled to undergo hemodialysis. 9. Fluid, electrolytes and nutrition. Renal, carbohydrate controlled diet. 10. Deep venous thrombosis prophylaxis. Bilateral sequential compression devices. 11. Gastrointestinal prophylaxis with histamine 2 receptor blockers. PLAN: Continue to optimize cardiac medications. Hemodialysis as per Nephrology. Case discussed with Dr. Calabrese. LORIE CALABRESE MD, AM/CHRISTOPHER Conf#: [id number] DID#: [id number] MTDD
--- NOTE | 2016-08-20 11:15 | CONS ---
Date/Time of Note Date/Time of Note DATE: 08/20/16 TIME: 10:58 Assessment/Plan Assessment/Plan Chief Complaint/Hosp Course 1. He has end-stage renal disease and is on maintenance hemodialysis Saturday and Saturday. He is due for hemodialysis treatment today. 2. The patient fractured his left femur approximately 3 months ago. At that time he was living in [facility]. He had a surgery with an ORIF of the left hip; however, he has continued to have pain. The patient saw Dr. Pérez Hough as an outpatient. Dr. Botello admitted him to the hospital to have a definitive surgery to fix his left hip. Problems: Consultation Date/Type/Reason Admit Date/Time Aug 17, 2016 at 20:14 Initial Consult Date Type of Consultation: Nephrology 24 HR Interval Summary Free Text/Dictation He is awake and alert. He speaks Farsi only. His granddaughter is in the room and she speaks Swiss. They tell me that his dialysis doctor is Dr. Toro Constitutional: no complaints Exam/Review of Systems Vital Signs Vitals Vital Signs Date Time Temp Pulse Resp B/P Pulse Ox O2 Delivery O2 Flow Rate FiO2 08/20/16 07:48 97.3 93 18 130/74 90 08/19/16 00:30 Room Air Intake and Output 08/19/16 08/19/16 08/20/16 15:00 23:00 07:00 Intake Total 400 ml 300 ml Output Total 0 ml Balance 400 ml 300 ml Exam Constitutional: alert, oriented Respiratory: clear to auscultation, normal air movement Cardiovascular: regular rate and rhythm Gastrointestinal: soft Musculoskeletal: nl extremities to inspection Results Result Diagram: 08/20/16 0435 08/20/16 0435 Results 24 hrs Laboratory Tests Test 08/19/16 12:14 08/19/16 17:51 08/19/16 18:11 08/19/16 19:00 Bedside Glucose 142 61 L 99 110 Test 08/19/16 20:41 08/20/16 04:35 08/20/16 07:54 Bedside Glucose 102 81 Alanine Aminotransferase (ALT/SGPT) 23 Albumin 3.5 Albumin/Globulin Ratio 0.76 Alkaline Phosphatase 159 H Anion Gap 22 H Aspartate Amino Transf (AST/SGOT) 34 Basophils # 0.1 Basophils % 0.9 Blood Urea Nitrogen 69 H Calcium Level 10.6 H Carbon Dioxide Level 27 Chloride Level 99 Creatinine 7.19 H Direct Bilirubin 0.00 Eosinophils # 0.3 Eosinophils % 4.0 Globulin 4.60 H Glucose Level 87 Hematocrit 38.7 L Hemoglobin 11.9 L Indirect Bilirubin 0.0 Lymphocytes # 2.2 Lymphocytes % 27.1 Mean Corpuscular Hemoglobin 27.0 L Mean Corpuscular Hemoglobin Concent 30.7 L Mean Corpuscular Volume 87.8 Mean Platelet Volume 11.0 H Monocytes # 1.3 H Monocytes % 15.4 H Neutrophils # 4.3 Neutrophils % 52.5 Nucleated Red Blood Cells # 0.0 Nucleated Red Blood Cells % 0.0 Platelet Count 326 Potassium Level 5.6 H Red Blood Count 4.41 L Red Cell Distribution Width 17.6 H Sodium Level 142 Total Bilirubin 0.0 L Total Protein 8.1 White Blood Count 8.2 # Medications Medications Current Medications Atorvastatin Calcium (Lipitor) 40 mg DAILY PO Last administered on 08/20/16 08: 52; Admin Dose 40 MG; Start 08/18/16 at 09:00 Carvedilol (Coreg) 6.25 mg BID PO Last administered on 08/19/16 22:11; Admin Dose 6.25 MG; Start 08/17/16 at 23:00 Clopidogrel Bisulfate (plaVIX) 75 mg DAILY PO ; Start 08/18/16 at 09:00; Status Future Hold Docusate Sodium (Colace) 100 mg DAILY PO Last administered on 08/20/16 08:52; Admin Dose 100 MG; Start 08/18/16 at 09:00 Acetaminophen/ Hydrocodone Bitart ([place] (10/325)) 1 tab Q4H PRN PO PAIN Last administered on 08/20/16 01:42; Admin Dose 1 TAB; Start 08/17/16 at 23:00 Isosorbide Dinitrate (Isordil) 10 mg BID PO Last administered on 08/19/16 22:11 ; Admin Dose 10 MG; Start 08/17/16 at 23:00 Metoclopramide HCl (Reglan) 5 mg Q6H PRN PO NAUSEA Last administered on 09:05; Admin Dose 5 MG; Start 08/17/16 at 23:00 Nortriptyline HCl (Aventyl) 25 mg BID PO Last administered on 08/20/16 08:52; Admin Dose 25 MG; Start 08/17/16 at 23:00 Thiamine HCl (Vitamin B1) 250 mg DAILY PO Last administered on 08/20/16 08:52; Admin Dose 250 MG; Start 08/18/16 at 09:00 Multivit/Ca Carb/ B Cmplx/FA/Prenat (Aleyda-Pam) 1 tab DAILY PO Last administered on 08/20/16 08:52; Admin Dose 1 TAB; Start 08/18/16 at 09:00 Insulin Glargine (Lantus) 10 unit HS SC ; Start 08/18/16 at 21:00 Diagnostic Test (Pha) (Accucheck) 1 ea 02 XX ; Start 08/18/16 at 02:00 Morphine Sulfate (morphine) 3 mg Q4H PRN IV PAIN Last administered on 08/19/16 14:09; Admin Dose 3 MG; Start 08/17/16 at 23:00 Ondansetron HCl (Zofran Inj) 4 mg Q6H PRN IV NAUSEA AND/OR VOMITING; Start 08/17 at 23:00 Miscellaneous Information 1 ea NOTE XX ; Start 08/17/16 at 23:30 Glucose (Glutose) 15 gm Q15M PRN PO DECREASED GLUCOSE; Start 08/17/16 at 23:30 Glucose (Glutose) 22.5 gm Q15M PRN PO DECREASED GLUCOSE; Start 08/17/16 at 23:30 Dextrose (D50w Syringe) 25 ml Q15M PRN IV DECREASED GLUCOSE; Start 08/17/16 at 23:30 Dextrose (D50w Syringe) 50 ml Q15M PRN IV DECREASED GLUCOSE; Start 08/17/16 at 23:30 Glucagon (Glucagen) 1 mg Q15M PRN IM DECREASED GLUCOSE; Start 08/17/16 at 23:30 Glucose (Glutose) 15 gm Q15M PRN BUCCAL DECREASED GLUCOSE; Start 08/17/16 at 23: 30 Ferrous Sulfate (Ferrous Sulfate (Ec)) 325 mg TID PO Last administered on 08:52; Admin Dose 325 MG; Start 08/18/16 at 16:30 Famotidine (Pepcid) 20 mg DAILY PO ; Start 08/20/16 at 11:00 HEATHER MULLINS MD Aug 20, 2016 11:15
[2016-08-20] MEDS: FAMOTIDINE 20 MG TAB PO SCH (12:24)
--- NOTE | 2016-08-20 20:04 | CONS ---
Date/Time of Note Date/Time of Note DATE: 08/20/16 TIME: 20:00 Assessment/Plan Assessment/Plan Additional Assessment/Plan Preoperative cardiac risk stratification Hip fracture Cardiomyopathy with ejection fraction 35% CAD with recent PCI End-stage renal disease on hemodialysis Diabetes Hypertension -I obtain records from [facility] labeling strategist, patient with bare-metal stenting of LAD in June 07, 2016. Okay to hold aspirin and Plavix at the current time prior to surgery given greater than 1 month since placement. Echocardiogram with ejection fraction 35%. Given patient's multiple risk factors, he is at an intermediate risk for any untoward cardiac events for his orthopedic surgery. Would maintain the patient euvolemic with close monitoring by our nephrology colleagues for needs of hemodialysis. Continue beta-yuliya as blood pressure and heart rate permits. Consultation Date/Type/Reason Admit Date/Time Aug 17, 2016 at 20:14 Initial Consult Date Type of Consultation: cv 24 HR Interval Summary Free Text/Dictation Patient denies shortness of breath, chest pain or palpitations Exam/Review of Systems Vital Signs Vitals Vital Signs Date Time Temp Pulse Resp B/P Pulse Ox O2 Delivery O2 Flow Rate FiO2 08/20/16 18:58 100 14 08/20/16 07:48 97.3 130/74 90 08/19/16 00:30 Room Air Intake and Output 08/19/16 08/19/16 08/20/16 14:59 22:59 06:59 Intake Total 400 ml 300 ml Output Total 0 ml Balance 400 ml 300 ml Exam No apparent distress, family at bedside Constitutional: alert, oriented Head: normocephalic Neck: supple Respiratory: other (Coarse breath sounds bilaterally, no wheezing) Cardiovascular: other (S1-S2 heard), regular rate and rhythm Gastrointestinal: bowel sounds, non-tender, other (No guarding), soft Extremities: edema Results Result Diagram: 08/20/16 0435 08/20/16 0435 Results 24 hrs Laboratory Tests Test 08/19/16 20:41 08/20/16 04:35 08/20/16 07:54 08/20/16 11:13 Bedside Glucose 102 81 83 Alanine Aminotransferase (ALT/SGPT) 23 Albumin 3.5 Albumin/Globulin Ratio 0.76 Alkaline Phosphatase 159 H Anion Gap 22 H Aspartate Amino Transf (AST/SGOT) 34 Basophils # 0.1 Basophils % 0.9 Blood Urea Nitrogen 69 H Calcium Level 10.6 H Carbon Dioxide Level 27 Chloride Level 99 Creatinine 7.19 H Direct Bilirubin 0.00 Eosinophils # 0.3 Eosinophils % 4.0 Globulin 4.60 H Glucose Level 87 Hematocrit 38.7 L Hemoglobin 11.9 L Indirect Bilirubin 0.0 Lymphocytes # 2.2 Lymphocytes % 27.1 Mean Corpuscular Hemoglobin 27.0 L Mean Corpuscular Hemoglobin Concent 30.7 L Mean Corpuscular Volume 87.8 Mean Platelet Volume 11.0 H Monocytes # 1.3 H Monocytes % 15.4 H Neutrophils # 4.3 Neutrophils % 52.5 Nucleated Red Blood Cells # 0.0 Nucleated Red Blood Cells % 0.0 Platelet Count 326 Potassium Level 5.6 H Red Blood Count 4.41 L Red Cell Distribution Width 17.6 H Sodium Level 142 Total Bilirubin 0.0 L Total Protein 8.1 White Blood Count 8.2 # Test 08/20/16 17:25 Bedside Glucose 113 Medications Medications Current Medications Atorvastatin Calcium (Lipitor) 40 mg DAILY PO Last administered on 08/20/16 08: 52; Admin Dose 40 MG; Start 08/18/16 at 09:00 Carvedilol (Coreg) 6.25 mg BID PO Last administered on 08/19/16 22:11; Admin Dose 6.25 MG; Start 08/17/16 at 23:00 Clopidogrel Bisulfate (plaVIX) 75 mg DAILY PO ; Start 08/18/16 at 09:00; Status Future Hold Docusate Sodium (Colace) 100 mg DAILY PO Last administered on 08/20/16 08:52; Admin Dose 100 MG; Start 08/18/16 at 09:00 Acetaminophen/ Hydrocodone Bitart ([place] (10/325)) 1 tab Q4H PRN PO PAIN Last administered on 08/20/16 17:59; Admin Dose 1 TAB; Start 08/17/16 at 23:00 Isosorbide Dinitrate (Isordil) 10 mg BID PO Last administered on 08/19/16 22:11 ; Admin Dose 10 MG; Start 08/17/16 at 23:00 Metoclopramide HCl (Reglan) 5 mg Q6H PRN PO NAUSEA Last administered on 09:05; Admin Dose 5 MG; Start 08/17/16 at 23:00 Nortriptyline HCl (Aventyl) 25 mg BID PO Last administered on 08/20/16 08:52; Admin Dose 25 MG; Start 08/17/16 at 23:00 Thiamine HCl (Vitamin B1) 250 mg DAILY PO Last administered on 08/20/16 08:52; Admin Dose 250 MG; Start 08/18/16 at 09:00 Multivit/Ca Carb/ B Cmplx/FA/Prenat (Aleyda-Pam) 1 tab DAILY PO Last administered on 08/20/16 08:52; Admin Dose 1 TAB; Start 08/18/16 at 09:00 Insulin Glargine (Lantus) 10 unit HS SC ; Start 08/18/16 at 21:00 Diagnostic Test (Pha) (Accucheck) 1 ea 02 XX ; Start 08/18/16 at 02:00 Morphine Sulfate (morphine) 3 mg Q4H PRN IV PAIN Last administered on 08/19/16 14:09; Admin Dose 3 MG; Start 08/17/16 at 23:00 Ondansetron HCl (Zofran Inj) 4 mg Q6H PRN IV NAUSEA AND/OR VOMITING; Start 08/17 at 23:00 Miscellaneous Information 1 ea NOTE XX ; Start 08/17/16 at 23:30 Glucose (Glutose) 15 gm Q15M PRN PO DECREASED GLUCOSE; Start 08/17/16 at 23:30 Glucose (Glutose) 22.5 gm Q15M PRN PO DECREASED GLUCOSE; Start 08/17/16 at 23:30 Dextrose (D50w Syringe) 25 ml Q15M PRN IV DECREASED GLUCOSE; Start 08/17/16 at 23:30 Dextrose (D50w Syringe) 50 ml Q15M PRN IV DECREASED GLUCOSE; Start 08/17/16 at 23:30 Glucagon (Glucagen) 1 mg Q15M PRN IM DECREASED GLUCOSE; Start 08/17/16 at 23:30 Glucose (Glutose) 15 gm Q15M PRN BUCCAL DECREASED GLUCOSE; Start 08/17/16 at 23: 30 Ferrous Sulfate (Ferrous Sulfate (Ec)) 325 mg TID PO Last administered on 12:24; Admin Dose 325 MG; Start 08/18/16 at 16:30 Famotidine 20 mg 20 mg DAILY PO Last administered on 3/6/17at 12:24; Admin Dose 20 MG; Start 08/20/16 at 11:00 Tranexamic Acid 710 mg/Sodium Chloride 107.1 ml @ 200 mls/hr PRE-OP ONCE IVPB ; Start 08/21/16 at 15:00; Stop 08/21/16 at 15:32 Tranexamic Acid 710 mg/Sodium Chloride 107.1 ml @ 200 mls/hr INTRA-OP ONCE IVPB ; Start 08/21/16 at 15:00; Stop 08/21/16 at 15:32 Lactated Ringer's (Lr) 1,000 ml @ 100 mls/hr Q10H IV ; Start 08/21/16 at 14:00 Oxycodone HCl (Oxycontin) 10 mg PRE-OP ONCE PO ; Start 08/21/16 at 14:00; Stop at 14:01 Pregabalin (Lyrica) 300 mg PRE-OP ONCE PO ; Start 08/21/16 at 14:00; Stop at 14:01 Celecoxib (Celebrex) 400 mg PRE-OP ONCE PO ; Start 08/21/16 at 14:00; Stop at 14:01 Tramadol HCl 50 mg 50 mg PRE-OP ONCE PO ; Start 08/21/16 at 14:00; Stop 08/21/16 at 14:01 Vancomycin HCl 250 ml @ 250 mls/hr PRE-OP ONCE IVPB ; Start 08/21/16 at 14:00; Stop 08/21/16 at 14:59 Bupivacaine HCl/ Morphine Sulfate/ Epinephrine/ Ketorolac Tromethamine/ Clonidine/Sodium Chloride/ Vancomycin HCl (Marcaine 0.5% (Sdv)/Duramorph/ EPINEPHrine/ Toradol/Duraclon/ NS/Vancocin) INTRA-OP ONCE IRR ; Start 08/21/16 at 14:00; Stop 08/21/16 at 14:01 Bupivacaine Liposome (Exparel 266 Mg/ 20 ml Vial) 266 mg INTRA-OP ONCE INFIL ; Start 08/21/16 at 16:00; Stop 08/21/16 at 16:01 Miscellaneous Information 1 ea NOTE XX ; Start 08/21/16 at 17:00; Stop 08/25/16 at 16:59 Kike Cruz DO Aug 20, 2016 20:04
[2016-08-21] MEDS: DEXTROSE 5%-LR 1,000 ML IV SCH ×2 (00:58→14:17)
[2016-08-21] MEDS: ACCU-CHEK XX SCH (01:13)
[2016-08-21 05:38] LABS: ADD SCAN DIFF NO
[2016-08-21 05:53] LABS: BASOPHILS % 0.4 % (0.0-2.0); EOSINOPHILS # 0.1 10^3/ul (0.0-0.5); HEMATOCRIT 39.1 % (42.0-52.0); HEMOGLOBIN 12.2 g/dl (14.0-18.0); LYMPHOCYTES # 1.7 10^3/ul (0.8-2.9); LYMPHOCYTES % 24.2 % (15.0-51.0); MEAN CORPUSCULAR HEMOGLOBIN 27.1 pg (29.0-33.0); MEAN CORPUSCULAR HGB CONC 31.2 g/dl (32.0-37.0); MEAN CORPUSCULAR VOLUME 86.9 fl (82.0-101.0); MEAN PLATELET VOLUME 10.2 fl (7.4-10.4); MONOCYTE # 1.1 10^3/ul (0.3-0.9); MONOCYTES % 15.5 % (0.0-11.0); NEUTROPHILS % 57.6 % (39.0-77.0); PLATELET COUNT 329 10^3/UL (140-415); RED CELL DISTRIBUTION WIDTH 17.1 % (11.5-14.5); WHITE BLOOD COUNT 6.9 10^3/ul (4.8-10.8)
[2016-08-21 06:10] LABS: MAGNESIUM 2.4 mg/dl (1.7-2.5); PHOSPHORUS 4.5 mg/dl (2.5-4.9); POTASSIUM 4.3 mmol/L (3.5-5.1)
[2016-08-21 06:12] LABS: CREATININE 5.39 mg/dl (0.61-1.24)
[2016-08-21 06:13] LABS: CALCIUM 10.1 mg/dl (8.4-10.2)
[2016-08-21] MEDS: INSULIN ASPART [NOVOLOG] 3 ML PEN SC SCH ×4 (07:50→21:00)
--- NOTE | 2016-08-21 08:42 | CONS ---
Date/Time of Note Date/Time of Note DATE: 08/21/16 TIME: 08:37 Assessment/Plan Assessment/Plan Chief Complaint/Hosp Course 1. He has end-stage renal disease and is on maintenance hemodialysis Saturday and Saturday. He is due for hemodialysis treatment tomorrow. 2. The patient fractured his left femur approximately 3 months ago. At that time he was living in [facility]. He had a surgery with an ORIF of the left hip; however, he has continued to have pain. The patient saw Dr. Pérez Hough as an outpatient. Dr. Botello admitted him to the hospital to have a definitive surgery to fix his left hip. He is scheduled for surgery today. 3. DM type 2 4. HTN 5. CAD Problems: Consultation Date/Type/Reason Admit Date/Time Aug 17, 2016 at 20:14 Type of Consultation: cv 24 HR Interval Summary Free Text/Dictation He is awake and responsive. He is nothing by mouth today for surgery. Constitutional: no complaints Exam/Review of Systems Vital Signs Vitals Vital Signs Date Time Temp Pulse Resp B/P Pulse Ox O2 Delivery O2 Flow Rate FiO2 08/20/16 20:15 98.6 58 18 118/56 95 Nasal Cannula 2.0 Intake and Output 08/20/16 08/20/16 08/21/16 15:00 23:00 07:00 Intake Total 1300 ml 770 ml Output Total 3350 ml Balance -2050 ml 770 ml Exam Constitutional: alert Respiratory: clear to auscultation, normal air movement Cardiovascular: regular rate and rhythm Gastrointestinal: soft Musculoskeletal: nl extremities to inspection Results Result Diagram: 08/21/16 0450 08/21/16 0450 Results 24 hrs Laboratory Tests Test 08/20/16 11:13 08/20/16 17:25 08/20/16 20:18 08/21/16 04:50 Bedside Glucose 83 113 112 Anion Gap 20 H Basophils # 0.0 Basophils % 0.4 Blood Urea Nitrogen 43 #H Calcium Level 10.1 Carbon Dioxide Level 31 Chloride Level 96 L Creatinine 5.39 H Eosinophils # 0.1 Eosinophils % 2.0 Glucose Level 136 # Hematocrit 39.1 L Hemoglobin 12.2 L Lymphocytes # 1.7 Lymphocytes % 24.2 Magnesium Level 2.4 Mean Corpuscular Hemoglobin 27.1 L Mean Corpuscular Hemoglobin Concent 31.2 L Mean Corpuscular Volume 86.9 Mean Platelet Volume 10.2 Monocytes # 1.1 H Monocytes % 15.5 H Neutrophils # 4.0 Neutrophils % 57.6 Nucleated Red Blood Cells # 0.0 Nucleated Red Blood Cells % 0.0 Phosphorus Level 4.5 Platelet Count 329 Potassium Level 4.3 Red Blood Count 4.50 L Red Cell Distribution Width 17.1 H Sodium Level 143 White Blood Count 6.9 Medications Medications Current Medications Atorvastatin Calcium (Lipitor) 40 mg DAILY PO Last administered on 08/20/16 08: 52; Admin Dose 40 MG; Start 08/18/16 at 09:00 Carvedilol (Coreg) 6.25 mg BID PO Last administered on 08/19/16 22:11; Admin Dose 6.25 MG; Start 08/17/16 at 23:00 Clopidogrel Bisulfate (plaVIX) 75 mg DAILY PO ; Start 08/18/16 at 09:00; Status Future Hold Docusate Sodium (Colace) 100 mg DAILY PO Last administered on 08/20/16 08:52; Admin Dose 100 MG; Start 08/18/16 at 09:00 Acetaminophen/ Hydrocodone Bitart ([place] (10/325)) 1 tab Q4H PRN PO PAIN Last administered on 08/20/16 23:15; Admin Dose 1 TAB; Start 08/17/16 at 23:00 Isosorbide Dinitrate (Isordil) 10 mg BID PO Last administered on 08/19/16 22:11 ; Admin Dose 10 MG; Start 08/17/16 at 23:00 Metoclopramide HCl (Reglan) 5 mg Q6H PRN PO NAUSEA Last administered on 09:05; Admin Dose 5 MG; Start 08/17/16 at 23:00 Nortriptyline HCl (Aventyl) 25 mg BID PO Last administered on 08/20/16 20:24; Admin Dose 25 MG; Start 08/17/16 at 23:00 Thiamine HCl (Vitamin B1) 250 mg DAILY PO Last administered on 08/20/16 08:52; Admin Dose 250 MG; Start 08/18/16 at 09:00 Multivit/Ca Carb/ B Cmplx/FA/Prenat (Aleyda-Pam) 1 tab DAILY PO Last administered on 08/20/16 08:52; Admin Dose 1 TAB; Start 08/18/16 at 09:00 Insulin Glargine (Lantus) 10 unit HS SC ; Start 08/18/16 at 21:00; Status Future Hold Diagnostic Test (Pha) (Accucheck) 1 ea 02 XX ; Start 08/18/16 at 02:00 Morphine Sulfate (morphine) 3 mg Q4H PRN IV PAIN Last administered on 08/19/16 14:09; Admin Dose 3 MG; Start 08/17/16 at 23:00 Ondansetron HCl (Zofran Inj) 4 mg Q6H PRN IV NAUSEA AND/OR VOMITING; Start 08/17 at 23:00 Miscellaneous Information 1 ea NOTE XX ; Start 08/17/16 at 23:30 Glucose (Glutose) 15 gm Q15M PRN PO DECREASED GLUCOSE; Start 08/17/16 at 23:30 Glucose (Glutose) 22.5 gm Q15M PRN PO DECREASED GLUCOSE; Start 08/17/16 at 23:30 Dextrose (D50w Syringe) 25 ml Q15M PRN IV DECREASED GLUCOSE; Start 08/17/16 at 23:30 Dextrose (D50w Syringe) 50 ml Q15M PRN IV DECREASED GLUCOSE; Start 08/17/16 at 23:30 Glucagon (Glucagen) 1 mg Q15M PRN IM DECREASED GLUCOSE; Start 08/17/16 at 23:30 Glucose (Glutose) 15 gm Q15M PRN BUCCAL DECREASED GLUCOSE; Start 08/17/16 at 23: 30 Ferrous Sulfate (Ferrous Sulfate (Ec)) 325 mg TID PO Last administered on 20:24; Admin Dose 325 MG; Start 08/18/16 at 16:30 Famotidine 20 mg 20 mg DAILY PO Last administered on 08/20/16 12:24; Admin Dose 20 MG; Start 08/20/16 at 11:00 Tranexamic Acid 710 mg/Sodium Chloride 107.1 ml @ 200 mls/hr PRE-OP ONCE IVPB ; Start 08/21/16 at 15:00; Stop 08/21/16 at 15:32 Tranexamic Acid 710 mg/Sodium Chloride 107.1 ml @ 200 mls/hr INTRA-OP ONCE IVPB ; Start 08/21/16 at 15:00; Stop 08/21/16 at 15:32 Lactated Ringer's (Lr) 1,000 ml @ 100 mls/hr Q10H IV ; Start 08/21/16 at 14:00 Oxycodone HCl (Oxycontin) 10 mg PRE-OP ONCE PO ; Start 08/21/16 at 14:00; Stop at 14:01 Pregabalin (Lyrica) 300 mg PRE-OP ONCE PO ; Start 08/21/16 at 14:00; Stop at 14:01 Celecoxib (Celebrex) 400 mg PRE-OP ONCE PO ; Start 08/21/16 at 14:00; Stop at 14:01 Tramadol HCl 50 mg 50 mg PRE-OP ONCE PO ; Start 08/21/16 at 14:00; Stop 08/21/16 at 14:01 Vancomycin HCl 250 ml @ 250 mls/hr PRE-OP ONCE IVPB ; Start 08/21/16 at 14:00; Stop 08/21/16 at 14:59 Bupivacaine HCl/ Morphine Sulfate/ Epinephrine/ Ketorolac Tromethamine/ Clonidine/Sodium Chloride/ Vancomycin HCl (Marcaine 0.5% (Sdv)/Duramorph/ EPINEPHrine/ Toradol/Duraclon/ NS/Vancocin) INTRA-OP ONCE IRR ; Start 08/21/16 at 14:00; Stop 08/21/16 at 14:01 Bupivacaine Liposome (Exparel 266 Mg/ 20 ml Vial) 266 mg INTRA-OP ONCE INFIL ; Start 08/21/16 at 16:00; Stop 08/21/16 at 16:01 Miscellaneous Information 1 ea 1 ea NOTE XX ; Start 08/21/16 at 17:00; Stop 08/25 at 16:59 Dextrose/Lactated Ringer's (D5-Lr) 1,000 ml @ 70 mls/hr [id number] IV Last administered on 08/21/16t 00:58; Admin Dose 70 MLS/HR; Start 08/20/16 at 23:59 HEATHER MULLINS MD Aug 21, 2016 08:41
[2016-08-21] MEDS: MULTIVIT/CA CARB/B CMPLX/FA TAB PO SCH (09:00)
[2016-08-21] MEDS: FERROUS SULFATE (EC) 325 MG TAB PO SCH ×3 (09:00→20:35)
[2016-08-21] MEDS: ATORVASTATIN 40 MG TAB PO SCH (09:00)
[2016-08-21] MEDS: THIAMINE 100 MG TAB PO SCH (09:00)
[2016-08-21] MEDS: DOCUSATE SODIUM 100 MG CAP PO SCH (09:00)
[2016-08-21] MEDS: FAMOTIDINE 20 MG TAB PO SCH (09:00)
[2016-08-21] MEDS: NORTRIPTYLINE 25 MG CAP PO SCH ×2 (09:00→20:35)
[2016-08-21] MEDS: ISOSORBIDE DINITRATE 10 MG TAB PO SCH ×2 (10:54→20:35)
[2016-08-21] MEDS: HYDROCODONE/APAP (10/325) TAB PO PRN (11:00)
[2016-08-21] MEDS ORDERED: oxyCODONE (CR) 10 MG TAB [oxyCONTIN] X1 DOSE PO ONE (14:00)
[2016-08-21] MEDS ORDERED: PREGABALIN 300 MG PO X1 PO ONE (14:00)
[2016-08-21] MEDS ORDERED: PAIN COCKTAIL - VANCOMYCIN IRR ONE ×7 (14:00)
[2016-08-21] MEDS ORDERED: CELECOXIB 400 MG PO X1 DOSE PO ONE (14:00)
[2016-08-21] MEDS ORDERED: traMADOL 50 MG TAB X 1 DOSE PO ONE (14:00)
[2016-08-21] MEDS ORDERED: LACTATED RINGER'S 1,000 ML IV SCH (14:00)
[2016-08-21] MEDS ORDERED: VANCOMYCIN 1 GM/NS 250 ML X1 BEFORE INCISION IVPB ONE (14:00)
[2016-08-21] MEDS ORDERED: TRANEXAMIC ACID 710 MG in SOD CHLORIDE 0.9% 100 ML IVPB ONE ×4 (15:00)
[2016-08-21] MEDS ORDERED: VANCOMYCIN 1 GM (PMX) 250 ML IVPB SCH (15:30)
[2016-08-21] MEDS ORDERED: BUPIVACAINE LIPOSOME/PF 266 MG/20 ML VIAL INFIL ONE (16:00)
--- NOTE | 2016-08-21 16:13 | QN ---
Documentation Comment Anesthesia Note: Patient has history of ESRD on HD MWF, CAD on Plavix, moderate to severe CHF EF: 35%, DM, HTN. He was originally scheduled to have removal of hardware and total hip replacement done on Saturday08/21/16. Besides patient received his last dose of Plavix on 08/17/16. Considering the nature of the procedure and high likelihood of significant blood loss due to Plavix and ESRD at this point I would suggest the following: -Postpone the procedure to 08/23/16 when the patient is off-Plavix for at least 7 days. -Order 2 units of platelet, 2 pooled units of cryoprecipitate and 2 units of Packed RBC in preparation for procedure all on standby. -Order cell saver Thanks, Andrew Kaiser MD, M.D. Aug 21, 2016 16:13
--- NOTE | 2016-08-21 16:35 | PN ---
Date/Time of Note Date/Time of Note DATE: 08/21/16 TIME: 16:34 Assessment/Plan VTE Prophylaxis VTE Prophylaxis Intervention: SCD's Lines/Catheters IV [facility]from [facility]): Peripheral IV Urinary Cath still in place: No Assessment/Plan Chief Complaint/Hosp Course 1. Recent left intertrochanteric hip fracture. Failed intramedullary nailing outside the country. The patient currently being followed by orthopedic surgery. Continue medical optimization before surgical intervention. 2. Ischemic cardiomyopathy with ejection fraction of 35%. Continue to optimize cardiac medications. 3. CAD status post coronary artery stenting in the past. The patient was on Plavix. Cardiology following. Plavix on hold because of surgery on 08/21/2016. 4. Essential hypertension. Continue antihypertensives. 5. Dyslipidemia. Continue statin. 6. Type 2 diabetes mellitus. Hemoglobin A1c 5.2. Continue sliding scale insulin along with Lantus insulin. Blood sugars well controlled. 7. Normocytic anemia. Underlying iron deficiency. Continue iron supplements. 8. Hyperkalemia. Resolved. 9. Fluid, electrolytes and nutrition. Renal, carbohydrate controlled diet. 10. Deep venous thrombosis prophylaxis. Bilateral sequential compression devices. 11. Gastrointestinal prophylaxis with histamine 2 receptor blockers. PLAN: Continue to optimize cardiac medications. Hemodialysis as per Nephrology. Case discussed with Dr. Hope. Problems: Subjective 24 Hr Interval Summary Free Text/Dictation Hip pain well controlled. Exam/Review of Systems Vital Signs Vitals Vital Signs Date Time Temp Pulse Resp B/P Pulse Ox O2 Delivery O2 Flow Rate FiO2 08/20/16 20:15 98.6 58 18 118/56 95 Nasal Cannula 2.0 Intake and Output 08/20/16 08/20/16 08/21/16 15:00 23:00 07:00 Intake Total 1300 ml 770 ml Output Total 3350 ml Balance -2050 ml 770 ml Exam GENERAL: This is a well-built, well-nourished male patient lying in bed in no apparent distress. HEENT: Head normocephalic and atraumatic. Eyes: Anicteric sclerae. Conjunctivae clear. ENT: Nasal septum is midline. Oral mucosa is moist. NECK: Supple. No JVD noticed. RESPIRATORY: Bilaterally clear to auscultation. No adventitious breath sounds. No use of accessory muscles of respiration. CARDIAC: Regular rate and rhythm. S1 and S2 heard. ABDOMEN: Soft, nontender and nondistended. Bowel sounds positive in all 4 quadrants. GENITOURINARY: Deferred. EXTREMITIES: No cyanosis, no clubbing, no edema. Left hip tenderness. Peripheral pulses palpable. NEUROLOGIC: The patient is awake, alert and oriented. Cranial nerves are grossly intact. Results Result Diagram: 08/21/16 0450 08/21/16 0450 Results 24 hrs Laboratory Tests Test 08/20/16 17:25 08/20/16 20:18 08/21/16 04:50 08/21/16 08:39 Bedside Glucose 113 112 104 Anion Gap 20 H Basophils # 0.0 Basophils % 0.4 Blood Urea Nitrogen 43 #H Calcium Level 10.1 Carbon Dioxide Level 31 Chloride Level 96 L Creatinine 5.39 H Eosinophils # 0.1 Eosinophils % 2.0 Glucose Level 136 # Hematocrit 39.1 L Hemoglobin 12.2 L Lymphocytes # 1.7 Lymphocytes % 24.2 Magnesium Level 2.4 Mean Corpuscular Hemoglobin 27.1 L Mean Corpuscular Hemoglobin Concent 31.2 L Mean Corpuscular Volume 86.9 Mean Platelet Volume 10.2 Monocytes # 1.1 H Monocytes % 15.5 H Neutrophils # 4.0 Neutrophils % 57.6 Nucleated Red Blood Cells # 0.0 Nucleated Red Blood Cells % 0.0 Phosphorus Level 4.5 Platelet Count 329 Potassium Level 4.3 Red Blood Count 4.50 L Red Cell Distribution Width 17.1 H Sodium Level 143 White Blood Count 6.9 Test 08/21/16 12:45 Bedside Glucose 113 Medications Medications Current Medications Atorvastatin Calcium (Lipitor) 40 mg DAILY PO Last administered on 08/20/16 08: 52; Admin Dose 40 MG; Start 08/18/16 at 09:00 Carvedilol (Coreg) 6.25 mg BID PO Last administered on 08/21/16 10:53; Admin Dose 6.25 MG; Start 08/17/16 at 23:00 Clopidogrel Bisulfate (plaVIX) 75 mg DAILY PO ; Start 08/18/16 at 09:00; Status Future Hold Docusate Sodium (Colace) 100 mg DAILY PO Last administered on 08/20/16 08:52; Admin Dose 100 MG; Start 08/18/16 at 09:00 Acetaminophen/ Hydrocodone Bitart ([place] (10/325)) 1 tab Q4H PRN PO PAIN Last administered on 08/21/16 11:00; Admin Dose 1 TAB; Start 08/17/16 at 23:00 Isosorbide Dinitrate (Isordil) 10 mg BID PO Last administered on 08/21/16 10:54 ; Admin Dose 10 MG; Start 08/17/16 at 23:00 Metoclopramide HCl (Reglan) 5 mg Q6H PRN PO NAUSEA Last administered on 09:05; Admin Dose 5 MG; Start 08/17/16 at 23:00 Nortriptyline HCl (Aventyl) 25 mg BID PO Last administered on 08/20/16 20:24; Admin Dose 25 MG; Start 08/17/16 at 23:00 Thiamine HCl (Vitamin B1) 250 mg DAILY PO Last administered on 08/20/16 08:52; Admin Dose 250 MG; Start 08/18/16 at 09:00 Multivit/Ca Carb/ B Cmplx/FA/Prenat (Aleyda-Pam) 1 tab DAILY PO Last administered on 08/20/16 08:52; Admin Dose 1 TAB; Start 08/18/16 at 09:00 Insulin Glargine (Lantus) 10 unit HS SC ; Start 08/18/16 at 21:00; Status Future Hold Diagnostic Test (Pha) (Accucheck) 1 ea 02 XX ; Start 08/18/16 at 02:00 Morphine Sulfate (morphine) 3 mg Q4H PRN IV PAIN Last administered on 08/19/16 14:09; Admin Dose 3 MG; Start 08/17/16 at 23:00 Ondansetron HCl (Zofran Inj) 4 mg Q6H PRN IV NAUSEA AND/OR VOMITING; Start 08/17 at 23:00 Miscellaneous Information 1 ea NOTE XX ; Start 08/17/16 at 23:30 Glucose (Glutose) 15 gm Q15M PRN PO DECREASED GLUCOSE; Start 08/17/16 at 23:30 Glucose (Glutose) 22.5 gm Q15M PRN PO DECREASED GLUCOSE; Start 08/17/16 at 23:30 Dextrose (D50w Syringe) 25 ml Q15M PRN IV DECREASED GLUCOSE; Start 08/17/16 at 23:30 Dextrose (D50w Syringe) 50 ml Q15M PRN IV DECREASED GLUCOSE; Start 08/17/16 at 23:30 Glucagon (Glucagen) 1 mg Q15M PRN IM DECREASED GLUCOSE; Start 08/17/16 at 23:30 Glucose (Glutose) 15 gm Q15M PRN BUCCAL DECREASED GLUCOSE; Start 08/17/16 at 23: 30 Ferrous Sulfate (Ferrous Sulfate (Ec)) 325 mg TID PO Last administered on 20:24; Admin Dose 325 MG; Start 08/18/16 at 16:30 Famotidine 20 mg 20 mg DAILY PO Last administered on 08/20/16 12:24; Admin Dose 20 MG; Start 08/20/16 at 11:00 Lactated Ringer's (Lr) 1,000 ml @ 100 mls/hr Q10H IV ; Start 08/21/16 at 14:00 Miscellaneous Information 1 ea 1 ea NOTE XX ; Start 08/21/16 at 17:00; Stop 08/25 at 16:59 Dextrose/Lactated Ringer's (D5-Lr) 1,000 ml @ 70 mls/hr [id number] IV Last administered on 08/21/16 00:58; Admin Dose 70 MLS/HR; Start 08/20/16 at 23:59 LORIE MAHMOOD NP Aug 21, 2016 16:34
--- NOTE | 2016-08-21 16:57 | PN ---
Date/Time of Note Date/Time of Note DATE: 08/21/16 TIME: 16:51 Assessment/Plan Lines/Catheters IV Catheter Type (from Nrsg): Peripheral IV Jain in Place (from Nrsg): No Assessment/Plan Assessment/Plan The patient was scheduled to undergo surgery to his left hip today, but it will be delayed for medical optimization. The patient has a history of ESRD on dialysis and recent plavix use, therefore it is in the patient's best interest to delay the surgery to decrease the risk of intra-operative bleeding. This was discussed at length with the family members today who appeared grateful and demonstrate understanding. We will resume the patients inpatient orders and add a dilaudid DEPUTY MANAGER for better pain control. We will continue to to medically optimize the patient so he can have the best outcome possible. Subjective 24 Hr Interval Summary Doing satisfactory. Complaining of mild pain. Was scheduled to undergo surgery to his left hip today, but it is being pushed to secondary to the patient's history of ESRD and recent plavix use. Discussed at length with the patient and his family who demonstrate understanding. VSS, afebrile. Exam/Review of Systems Vital Signs Vitals Vital Signs Date Time Temp Pulse Resp B/P Pulse Ox O2 Delivery O2 Flow Rate FiO2 08/20/16 20:15 98.6 58 18 118/56 95 Nasal Cannula 2.0 Intake and Output 08/20/16 08/20/16 08/21/16 15:00 23:00 07:00 Intake Total 1300 ml 770 ml Output Total 3350 ml Balance -2050 ml 770 ml Exam Free Text/Dictation 5/5 Quadriceps, Tibialis Anterior, EHL, Gastroc, Soleus, Peroneals hip in position of comfort Normal sensation Palpable DT/PT, CR <2 sec No distal edema Results Result Diagram: 08/21/1644908/21/16 045 TONI ORNELAS PA-C Aug 21, 2016 16:56
[2016-08-21] MEDS ORDERED: HYDROmorphONE 0.2 MG/ML PCA IV SCH (17:00)
[2016-08-21] MEDS ORDERED: EXPAREL NOTE (BUPIVICAINE LIPOSOMAL) XX SCH (17:00)
[2016-08-21] MEDS ORDERED: HYDROmorphONE 1 MG/ML SYG IV PRN (17:00)
[2016-08-21 19:56] VITALS: BP 131/76; RESP 20
[2016-08-21] MEDS: DEXTROSE 5%-0.45% NACL 1,000 ML IV SCH (22:23)
[2016-08-22] VITALS (9 sets, daily range): BP systolic 90–150; BP diastolic 45–72; PULSE 70–89; RESP 19
[2016-08-22] MEDS: ACCU-CHEK XX SCH (02:00)
[2016-08-22 05:43] LABS: ADD SCAN DIFF NO
[2016-08-22 05:51] LABS: BASOPHILS % 0.5 % (0.0-2.0); EOSINOPHILS # 0.2 10^3/ul (0.0-0.5); EOSINOPHILS % 3.2 % (0.0-7.0); HEMATOCRIT 37.3 % (42.0-52.0); HEMOGLOBIN 11.2 g/dl (14.0-18.0); LYMPHOCYTES # 1.7 10^3/ul (0.8-2.9); LYMPHOCYTES % 31.4 % (15.0-51.0); MEAN CORPUSCULAR HEMOGLOBIN 26.9 pg (29.0-33.0); MEAN CORPUSCULAR VOLUME 89.4 fl (82.0-101.0); MEAN PLATELET VOLUME 11.4 fl (7.4-10.4); MONOCYTE # 0.9 10^3/ul (0.3-0.9); MONOCYTES % 16.4 % (0.0-11.0); NEUTROPHIL # 2.7 10^3/ul (1.6-7.5); PLATELET COUNT 265 10^3/UL (140-415); RED BLOOD COUNT 4.17 10^6/ul (4.70-6.10); RED CELL DISTRIBUTION WIDTH 17.3 % (11.5-14.5); WHITE BLOOD COUNT 5.5 10^3/ul (4.8-10.8)
[2016-08-22 06:16] LABS: PHOSPHORUS 6.9 mg/dl (2.5-4.9)
[2016-08-22 06:17] LABS: MAGNESIUM 2.4 mg/dl (1.7-2.5)
[2016-08-22 06:20] LABS: POTASSIUM 4.5 mmol/L (3.5-5.1)
[2016-08-22 06:23] LABS: CREATININE 6.29 mg/dl (0.61-1.24)
[2016-08-22 06:24] LABS: CALCIUM 8.6 mg/dl (8.4-10.2)
--- NOTE | 2016-08-22 07:32 | PN ---
Date/Time of Note Date/Time of Note DATE: 08/22/16 TIME: 07:31 Assessment/Plan VTE Prophylaxis VTE Prophylaxis Intervention: SCD's Lines/Catheters IV Catheter Type (from [facility]): Peripheral IV Urinary Cath still in place: No Assessment/Plan Chief Complaint/Hosp Course 1. Recent left intertrochanteric hip fracture. Failed intramedullary nailing outside the country. The patient currently being followed by orthopedic surgery. Continue medical optimization before surgical intervention. 2. Ischemic cardiomyopathy with ejection fraction of 35%. Continue to optimize cardiac medications. 3. CAD status post coronary artery stenting in the past. The patient was on Plavix. Cardiology following. Plavix on hold because of surgery on 08/23/2016. 4. Essential hypertension. Continue antihypertensives. 5. Dyslipidemia. Continue statin. 6. Type 2 diabetes mellitus. Hemoglobin A1c 5.2. Continue sliding scale insulin along with Lantus insulin. Blood sugars well controlled. 7. Normocytic anemia. Underlying iron deficiency. Continue iron supplements. 8. Hyperkalemia. Resolved. 9. Fluid, electrolytes and nutrition. Renal, carbohydrate controlled diet. 10. Deep venous thrombosis prophylaxis. Bilateral sequential compression devices. 11. Gastrointestinal prophylaxis with histamine 2 receptor blockers. PLAN: Continue to optimize cardiac medications. Hemodialysis as per Nephrology. Plan for surgical intervention on 08/23/2016. The blood sugar of 504 could be a lab error. Case discussed with Dr. Hope. Problems: Subjective 24 Hr Interval Summary Free Text/Dictation The patient's surgery was cancelled on 08/21/2016. Exam/Review of Systems Vital Signs Vitals Vital Signs Date Time Temp Pulse Resp B/P Pulse Ox O2 Delivery O2 Flow Rate FiO2 08/22/16 07:25 98.2 87 19 150/72 98 08/20/16 20:15 Nasal Cannula 2.0 Intake and Output 08/21/16 08/21/16 08/22/16 15:00 23:00 07:00 Intake Total 950 ml 1170 ml Output Total 0 ml 0 ml Balance 950 ml 1170 ml Exam GENERAL: This is a well-built, well-nourished male patient lying in bed in no apparent distress. HEENT: Head normocephalic and atraumatic. Eyes: Anicteric sclerae. Conjunctivae clear. ENT: Nasal septum is midline. Oral mucosa is moist. NECK: Supple. No JVD noticed. RESPIRATORY: Bilaterally clear to auscultation. No adventitious breath sounds. No use of accessory muscles of respiration. CARDIAC: Regular rate and rhythm. S1 and S2 heard. ABDOMEN: Soft, nontender and nondistended. Bowel sounds positive in all 4 quadrants. GENITOURINARY: Deferred. EXTREMITIES: No cyanosis, no clubbing, no edema. Left hip tenderness. Peripheral pulses palpable. NEUROLOGIC: The patient is awake and alert. Confused. Cranial nerves are grossly intact. Results Result Diagram: 08/22/16 0443 08/22/16 0443 Results 24 hrs Laboratory Tests Test 08/21/16 08:39 08/21/16 12:45 08/21/16 18:05 08/21/16 20:18 Bedside Glucose 104 113 126 74 Test 08/22/16 01:56 08/22/16 04:43 08/22/16 06:38 Bedside Glucose 98 75 Anion Gap 19 H Basophils # 0.0 Basophils % 0.5 Blood Urea Nitrogen 52 H Calcium Level 8.6 Carbon Dioxide Level 28 Chloride Level 95 L Creatinine 6.29 H Eosinophils # 0.2 Eosinophils % 3.2 Glucose Level 504 #*H Hematocrit 37.3 L Hemoglobin 11.2 L Lymphocytes # 1.7 Lymphocytes % 31.4 Magnesium Level 2.4 Mean Corpuscular Hemoglobin 26.9 L Mean Corpuscular Hemoglobin Concent 30.0 L Mean Corpuscular Volume 89.4 Mean Platelet Volume 11.4 H Monocytes # 0.9 Monocytes % 16.4 H Neutrophils # 2.7 Neutrophils % 48.0 Nucleated Red Blood Cells # 0.0 Nucleated Red Blood Cells % 0.0 Phosphorus Level 6.9 #H Platelet Count 265 Potassium Level 4.5 Red Blood Count 4.17 L Red Cell Distribution Width 17.3 H Sodium Level 137 White Blood Count 5.5 # Medications Medications Current Medications Atorvastatin Calcium (Lipitor) 40 mg DAILY PO Last administered on 08/20/16 08: 52; Admin Dose 40 MG; Start 08/18/16 at 09:00 Carvedilol (Coreg) 6.25 mg BID PO Last administered on 08/21/16 20:36; Admin Dose 6.25 MG; Start 08/17/16 at 23:00 Clopidogrel Bisulfate (plaVIX) 75 mg DAILY PO ; Start 08/18/16 at 09:00; Status Future Hold Docusate Sodium (Colace) 100 mg DAILY PO Last administered on 08/20/16 08:52; Admin Dose 100 MG; Start 08/18/16 at 09:00 Acetaminophen/ Hydrocodone Bitart ([place] (10325)) 1 tab Q4H PRN PO PAIN Last administered on 08/21/16 11:00; Admin Dose 1 TAB; Start 08/17/16 at 23:00; Status Future Hold Isosorbide Dinitrate (Isordil) 10 mg BID PO Last administered on 08/21/16 20:35 ; Admin Dose 10 MG; Start 08/17/16 at 23:00 Metoclopramide HCl (Reglan) 5 mg Q6H PRN PO NAUSEA Last administered on 09:05; Admin Dose 5 MG; Start 08/17/16 at 23:00 Nortriptyline HCl (Aventyl) 25 mg BID PO Last administered on 08/21/16 20:35; Admin Dose 25 MG; Start 08/17/16 at 23:00 Thiamine HCl (Vitamin B1) 250 mg DAILY PO Last administered on 08/20/16 08:52; Admin Dose 250 MG; Start 08/18/16 at 09:00 Multivit/Ca Carb/ B Cmplx/FA/Prenat (Aleyda-Pam) 1 tab DAILY PO Last administered on 08/20/16 08:52; Admin Dose 1 TAB; Start 08/18/16 at 09:00 Insulin Glargine (Lantus) 10 unit HS SC ; Start 08/18/16 at 21:00; Status Future Hold Diagnostic Test (Pha) (Accucheck) 1 ea 02 XX ; Start 08/18/16 at 02:00 Ondansetron HCl (Zofran Inj) 4 mg Q6H PRN IV NAUSEA AND/OR VOMITING; Start 08/17 at 23:00 Miscellaneous Information 1 ea NOTE XX ; Start 08/17/16 at 23:30 Glucose (Glutose) 15 gm Q15M PRN PO DECREASED GLUCOSE; Start 08/17/16 at 23:30 Glucose (Glutose) 22.5 gm Q15M PRN PO DECREASED GLUCOSE; Start 08/17/16 at 23:30 Dextrose (D50w Syringe) 25 ml Q15M PRN IV DECREASED GLUCOSE; Start 08/17/16 at 23:30 Dextrose (D50w Syringe) 50 ml Q15M PRN IV DECREASED GLUCOSE; Start 08/17/16 at 23:30 Glucagon (Glucagen) 1 mg Q15M PRN IM DECREASED GLUCOSE; Start 08/17/16 at 23:30 Glucose (Glutose) 15 gm Q15M PRN BUCCAL DECREASED GLUCOSE; Start 08/17/16 at 23: 30 Ferrous Sulfate (Ferrous Sulfate (Ec)) 325 mg TID PO Last administered on 20:35; Admin Dose 325 MG; Start 08/18/16 at 16:30 Famotidine (Pepcid) 20 mg DAILY PO Last administered on 08/20/16 12:24; Admin Dose 20 MG; Start 08/20/16 at 11:00 Miscellaneous Information 1 ea NOTE XX ; Start 08/21/16 at 17:00; Stop 08/25/16 at 16:59 Hydromorphone HCl 0.2 MG DOSE 10 ... Q4PCA IV ; Start 08/21/16 at 17:00 Dextrose/Sodium Chloride (D5-1/2ns) 1,000 ml @ 60 mls/hr [id number] IV Last administered on 08/21/16 22:23; Admin Dose 60 MLS/HR; Start 08/21/16 at 21:30 LORIE MAHMOOD NP Aug 22, 2016 07:32
[2016-08-22] MEDS: INSULIN ASPART [NOVOLOG] 3 ML PEN SC SCH ×4 (07:50→20:20)
--- NOTE | 2016-08-22 08:22 | CONS ---
Date/Time of Note Date/Time of Note DATE: 08/22/16 TIME: 08:20 Assessment/Plan Assessment/Plan Chief Complaint/Hosp Course 1. He has end-stage renal disease and is on maintenance hemodialysis Saturday and Saturday. He is due for hemodialysis treatment today and is ordered . 2. The patient fractured his left femur approximately 3 months ago. At that time he was living in [facility]. He had a surgery with an ORIF of the left hip; however, he has continued to have pain. The patient saw Dr. Pérez Hough as an outpatient. Dr. Botello admitted him to the hospital to have a definitive surgery to fix his left hip. He is scheduled for surgery tomorrow . 3. DM type 2 4. HTN 5. CAD Problems: Consultation Date/Type/Reason Admit Date/Time Aug 17, 2016 at 20:14 Type of Consultation: renal 24 HR Interval Summary Free Text/Dictation Patient is awake and responsive . His surgery was postponed yesterday . He is due for hemodialysis treatment today . Exam/Review of Systems Vital Signs Vitals Vital Signs Date Time Temp Pulse Resp B/P Pulse Ox O2 Delivery O2 Flow Rate FiO2 08/22/16 07:25 98.2 87 19 150/72 98 08/20/16 20:15 Nasal Cannula 2.0 Intake and Output 08/21/16 08/21/16 08/22/16 15:00 23:00 07:00 Intake Total 950 ml 1170 ml Output Total 0 ml 0 ml Balance 950 ml 1170 ml Exam Constitutional: alert Respiratory: clear to auscultation, normal air movement Cardiovascular: regular rate and rhythm Gastrointestinal: soft Musculoskeletal: nl extremities to inspection Results Result Diagram: 08/22/16 0443 08/22/16 0706 Results 24 hrs Laboratory Tests Test 08/21/16 08:39 08/21/16 12:45 08/21/16 18:05 08/21/16 20:18 Bedside Glucose 104 113 126 74 Test 08/22/16 01:56 08/22/16 04:43 08/22/16 06:38 08/22/16 07:06 Bedside Glucose 98 75 Anion Gap 19 H Basophils # 0.0 Basophils % 0.5 Blood Urea Nitrogen 52 H Calcium Level 8.6 Carbon Dioxide Level 28 Chloride Level 95 L Creatinine 6.29 H Eosinophils # 0.2 Eosinophils % 3.2 Glucose Level 504 #*H 80 # Hematocrit 37.3 L Hemoglobin 11.2 L Lymphocytes # 1.7 Lymphocytes % 31.4 Magnesium Level 2.4 Mean Corpuscular Hemoglobin 26.9 L Mean Corpuscular Hemoglobin Concent 30.0 L Mean Corpuscular Volume 89.4 Mean Platelet Volume 11.4 H Monocytes # 0.9 Monocytes % 16.4 H Neutrophils # 2.7 Neutrophils % 48.0 Nucleated Red Blood Cells # 0.0 Nucleated Red Blood Cells % 0.0 Phosphorus Level 6.9 #H Platelet Count 265 Potassium Level 4.5 Red Blood Count 4.17 L Red Cell Distribution Width 17.3 H Sodium Level 137 White Blood Count 5.5 # Medications Medications Current Medications Atorvastatin Calcium (Lipitor) 40 mg DAILY PO Last administered on 08/20/16 08: 52; Admin Dose 40 MG; Start 08/18/16 at 09:00 Carvedilol (Coreg) 6.25 mg BID PO Last administered on 08/21/16 20:36; Admin Dose 6.25 MG; Start 08/17/16 at 23:00 Clopidogrel Bisulfate (plaVIX) 75 mg DAILY PO ; Start 08/18/16 at 09:00; Status Future Hold Docusate Sodium (Colace) 100 mg DAILY PO Last administered on 08/20/16 08:52; Admin Dose 100 MG; Start 08/18/16 at 09:00 Acetaminophen/ Hydrocodone Bitart ([place] (10/325)) 1 tab Q4H PRN PO PAIN Last administered on 08/21/16 11:00; Admin Dose 1 TAB; Start 08/17/16 at 23:00; Status Future Hold Isosorbide Dinitrate (Isordil) 10 mg BID PO Last administered on 08/21/16 20:35 ; Admin Dose 10 MG; Start 08/17/16 at 23:00 Metoclopramide HCl (Reglan) 5 mg Q6H PRN PO NAUSEA Last administered on 09:05; Admin Dose 5 MG; Start 08/17/16 at 23:00 Nortriptyline HCl (Aventyl) 25 mg BID PO Last administered on 08/21/16 20:35; Admin Dose 25 MG; Start 08/17/16 at 23:00 Thiamine HCl (Vitamin B1) 250 mg DAILY PO Last administered on 08/20/16 08:52; Admin Dose 250 MG; Start 08/18/16 at 09:00 Multivit/Ca Carb/ B Cmplx/FA/Prenat (Aleyda-Pam) 1 tab DAILY PO Last administered on 08/20/16 08:52; Admin Dose 1 TAB; Start 08/18/16 at 09:00 Insulin Glargine (Lantus) 10 unit HS SC ; Start 08/18/16 at 21:00; Status Future Hold Diagnostic Test (Pha) (Accucheck) 1 ea 02 XX ; Start 08/18/16 at 02:00 Ondansetron HCl (Zofran Inj) 4 mg Q6H PRN IV NAUSEA AND/OR VOMITING; Start 08/17 at 23:00 Miscellaneous Information 1 ea NOTE XX ; Start 08/17/16 at 23:30 Glucose (Glutose) 15 gm Q15M PRN PO DECREASED GLUCOSE; Start 08/17/16 at 23:30 Glucose (Glutose) 22.5 gm Q15M PRN PO DECREASED GLUCOSE; Start 08/17/16 at 23:30 Dextrose (D50w Syringe) 25 ml Q15M PRN IV DECREASED GLUCOSE; Start 08/17/16 at 23:30 Dextrose (D50w Syringe) 50 ml Q15M PRN IV DECREASED GLUCOSE; Start 08/17/16 at 23:30 Glucagon (Glucagen) 1 mg Q15M PRN IM DECREASED GLUCOSE; Start 08/17/16 at 23:30 Glucose (Glutose) 15 gm Q15M PRN BUCCAL DECREASED GLUCOSE; Start 08/17/16 at 23: 30 Ferrous Sulfate (Ferrous Sulfate (Ec)) 325 mg TID PO Last administered on 20:35; Admin Dose 325 MG; Start 08/18/16 at 16:30 Famotidine (Pepcid) 20 mg DAILY PO Last administered on 08/20/16 12:24; Admin Dose 20 MG; Start 08/20/16 at 11:00 Miscellaneous Information 1 ea NOTE XX ; Start 08/21/16 at 17:00; Stop 08/25/16 at 16:59 Hydromorphone HCl 0.2 MG DOSE 10 ... Q4PCA IV ; Start 08/21/16 at 17:00 Dextrose/Sodium Chloride (D5-1/2ns) 1,000 ml @ 60 mls/hr [id number] IV Last administered on 08/21/16t 22:23; Admin Dose 60 MLS/HR; Start 08/21/16 at 21:30 HEATHER MULLINS MD Aug 22, 2016 08:22
--- NOTE | 2016-08-22 08:43 | PN ---
Date/Time of Note Date/Time of Note DATE: 08/22/16 TIME: 08:41 Assessment/Plan Lines/Catheters IV Catheter Type (from Nrsg): Peripheral IV Jain in Place (from Nrsg): No Assessment/Plan Assessment/Plan Failed left IT fx, planning for conversion to left MIGUE tomorrow -pain meds as needed -SCDs for DVT prophylaxis -NPO after midnight -2 units platelets and PRCCs ordered -cryoprecipitate also ordered -plan for Vancomycin 1 hour prior to surgery tomorrow -all questions and concerns addressed with patient and family Subjective 24 Hr Interval Summary Doing well. No acute overnight events. Pain better controlled with dilaudid [employer]. Scheduled to undergo surgery to the left hip tomorrow Exam/Review of Systems Vital Signs Vitals Vital Signs Date Time Temp Pulse Resp B/P Pulse Ox O2 Delivery O2 Flow Rate FiO2 08/22/16 07:25 98.2 87 19 150/72 98 08/20/16 20:15 Nasal Cannula 2.0 Intake and Output 08/21/16 08/21/16 08/22/16 15:00 23:00 07:00 Intake Total 950 ml 1170 ml Output Total 0 ml 0 ml Balance 950 ml 1170 ml Exam Free Text/Dictation 4/5 Quadriceps, Tibialis Anterior, EHL, Gastroc, Soleus, Peroneals Normal sensation Palpable DT/PT, CR <2 sec No distal edema Results Result Diagram: 08/22/16 0443 08/22/16 0706 TONI ORNELAS PA-C Aug 22, 2016 08:43
[2016-08-22] MEDS: NORTRIPTYLINE 25 MG CAP PO SCH ×2 (09:28→20:16)
[2016-08-22] MEDS: DOCUSATE SODIUM 100 MG CAP PO SCH (09:28)
[2016-08-22] MEDS: ISOSORBIDE DINITRATE 10 MG TAB PO SCH ×2 (09:28→20:15)
[2016-08-22] MEDS: FERROUS SULFATE (EC) 325 MG TAB PO SCH ×3 (09:29→20:16)
[2016-08-22] MEDS: ATORVASTATIN 40 MG TAB PO SCH (09:30)
[2016-08-22] MEDS: MULTIVIT/CA CARB/B CMPLX/FA TAB PO SCH (09:30)
[2016-08-22] MEDS: THIAMINE 100 MG TAB PO SCH (09:30)
[2016-08-22] MEDS: FAMOTIDINE 20 MG TAB PO SCH (09:34)
[2016-08-22] MEDS: DEXTROSE 5%-0.45% NACL 1,000 ML IV SCH (17:55)
[2016-08-23] VITALS (23 sets, daily range): BP systolic 81–142; BP diastolic 49–97; PULSE 92–100; RESP 17–29
[2016-08-23] MEDS: ACCU-CHEK XX SCH (02:00)
[2016-08-23] MEDS ORDERED: VITAMIN A & D 5 GM OINT PACKET TOP ONE (02:06)
[2016-08-23 05:13] LABS: ADD SCAN DIFF NO
[2016-08-23 05:26] LABS: BASOPHILS % 0.4 % (0.0-2.0); EOSINOPHILS # 0.2 10^3/ul (0.0-0.5); EOSINOPHILS % 3.4 % (0.0-7.0); HEMATOCRIT 36.2 % (42.0-52.0); HEMOGLOBIN 11.2 g/dl (14.0-18.0); LYMPHOCYTES # 1.9 10^3/ul (0.8-2.9); LYMPHOCYTES % 26.6 % (15.0-51.0); MEAN CORPUSCULAR HEMOGLOBIN 27.1 pg (29.0-33.0); MEAN CORPUSCULAR HGB CONC 30.9 g/dl (32.0-37.0); MEAN CORPUSCULAR VOLUME 87.7 fl (82.0-101.0); MEAN PLATELET VOLUME 10.6 fl (7.4-10.4); MONOCYTE # 1.1 10^3/ul (0.3-0.9); MONOCYTES % 15.7 % (0.0-11.0); NEUTROPHIL # 3.7 10^3/ul (1.6-7.5); NEUTROPHILS % 53.6 % (39.0-77.0); PLATELET COUNT 271 10^3/UL (140-415); RED BLOOD COUNT 4.13 10^6/ul (4.70-6.10)
[2016-08-23 05:28] LABS: POTASSIUM 4.4 mmol/L (3.5-5.1)
[2016-08-23 05:30] LABS: CREATININE 5.13 mg/dl (0.61-1.24)
[2016-08-23 05:31] LABS: CALCIUM 8.9 mg/dl (8.4-10.2)
[2016-08-23 05:46] LABS: PHOSPHORUS 5.5 mg/dl (2.5-4.9)
[2016-08-23 05:47] LABS: MAGNESIUM 2.3 mg/dl (1.7-2.5)
[2016-08-23] MEDS: DEXTROSE 5%-0.45% NACL 1,000 ML IV SCH ×2 (06:39→12:16)
[2016-08-23] MEDS ORDERED: PREGABALIN 300 MG PO X1 PO SCH (07:00)
[2016-08-23] MEDS ORDERED: oxyCODONE (CR) 10 MG TAB [oxyCONTIN] X1 DOSE PO SCH (07:00)
[2016-08-23] MEDS ORDERED: BUPIVACAINE LIPOSOME/PF 266 MG/20 ML VIAL INFIL SCH (07:00)
[2016-08-23] MEDS ORDERED: VANCOMYCIN 1 GM/NS 250 ML X1 BEFORE INCISION IVPB SCH (07:00)
[2016-08-23] MEDS ORDERED: LACTATED RINGER'S 1,000 ML IV SCH (07:00)
[2016-08-23] MEDS ORDERED: PAIN COCKTAIL - VANCOMYCIN IRR SCH ×7 (07:00)
[2016-08-23] MEDS ORDERED: traMADOL 50 MG TAB X 1 DOSE PO SCH (07:00)
[2016-08-23] MEDS ORDERED: EXPAREL NOTE (BUPIVICAINE LIPOSOMAL) XX SCH (07:00)
[2016-08-23] MEDS ORDERED: CELECOXIB 400 MG PO X1 DOSE PO SCH (07:00)
[2016-08-23] MEDS: INSULIN ASPART [NOVOLOG] 3 ML PEN SC SCH ×4 (07:50→21:00)
[2016-08-23] MEDS: ISOSORBIDE DINITRATE 10 MG TAB PO SCH ×2 (09:00→20:40)
[2016-08-23] MEDS: NORTRIPTYLINE 25 MG CAP PO SCH ×2 (09:00→20:39)
[2016-08-23] MEDS: THIAMINE 100 MG TAB PO SCH (09:00)
[2016-08-23] MEDS: FERROUS SULFATE (EC) 325 MG TAB PO SCH ×3 (09:00→20:40)
[2016-08-23] MEDS: FAMOTIDINE 20 MG TAB PO SCH (09:00)
[2016-08-23] MEDS: ATORVASTATIN 40 MG TAB PO SCH (09:00)
[2016-08-23] MEDS: DOCUSATE SODIUM 100 MG CAP PO SCH ×2 (09:00→20:39)
[2016-08-23] MEDS: MULTIVIT/CA CARB/B CMPLX/FA TAB PO SCH (09:00)
--- NOTE | 2016-08-23 09:48 | CONS ---
Date/Time of Note Date/Time of Note DATE: 08/23/16 TIME: 09:45 Assessment/Plan Assessment/Plan Chief Complaint/Hosp Course 1. He has end-stage renal disease and is on maintenance hemodialysis Saturday and Saturday. He is due for hemodialysis treatment tomorrow , and is ordered . 2. The patient fractured his left femur approximately 3 months ago. At that time he was living in [facility]. He had a surgery with an ORIF of the left hip; however, he has continued to have pain. The patient saw Dr. Pérez Hough as an outpatient. Dr. Botello admitted him to the hospital to have a definitive surgery to fix his left hip. He is scheduled for surgery today and is cleared for surgery . 3. DM type 2 4. HTN 5. CAD Problems: Consultation Date/Type/Reason Admit Date/Time Aug 17, 2016 at 20:14 Type of Consultation: renal 24 HR Interval Summary Free Text/Dictation He is awake and responsive . Exam/Review of Systems Vital Signs Vitals Vital Signs Date Time Temp Pulse Resp B/P Pulse Ox O2 Delivery O2 Flow Rate FiO2 08/23/16 08:19 98.2 99 18 130/60 92 08/20/16 20:15 Nasal Cannula 2.0 Intake and Output 08/22/16 08/22/16 08/23/16 15:00 23:00 07:00 Intake Total 2100 ml 1020 ml Output Total 1500 ml 0 ml Balance 600 ml 1020 ml Exam Constitutional: alert Respiratory: clear to auscultation, normal air movement Cardiovascular: regular rate and rhythm Gastrointestinal: soft Musculoskeletal: nl extremities to inspection Results Result Diagram: 08/23/16 0440 08/23/16 0440 Results 24 hrs Laboratory Tests Test 08/22/16 12:00 08/22/16 17:43 08/22/16 20:12 08/23/16 01:48 Bedside Glucose 129 121 109 148 Test 08/23/16 04:40 08/23/16 08:35 Anion Gap 17 H Basophils # 0.0 Basophils % 0.4 Blood Urea Nitrogen 42 H Calcium Level 8.9 Carbon Dioxide Level 31 Chloride Level 95 L Creatinine 5.13 H Eosinophils # 0.2 Eosinophils % 3.4 Glucose Level 109 Hematocrit 36.2 L Hemoglobin 11.2 L Lymphocytes # 1.9 Lymphocytes % 26.6 Magnesium Level 2.3 Mean Corpuscular Hemoglobin 27.1 L Mean Corpuscular Hemoglobin Concent 30.9 L Mean Corpuscular Volume 87.7 Mean Platelet Volume 10.6 H Monocytes # 1.1 H Monocytes % 15.7 H Neutrophils # 3.7 Neutrophils % 53.6 Nucleated Red Blood Cells # 0.0 Nucleated Red Blood Cells % 0.0 Phosphorus Level 5.5 H Platelet Count 271 Potassium Level 4.4 Red Blood Count 4.13 L Red Cell Distribution Width 17.0 H Sodium Level 139 White Blood Count 7.0 # Bedside Glucose 105 Medications Medications Current Medications Atorvastatin Calcium (Lipitor) 40 mg DAILY PO Last administered on 08/22/16 09: 30; Admin Dose 40 MG; Start 08/18/16 at 09:00 Carvedilol (Coreg) 6.25 mg BID PO Last administered on 08/22/16 20:16; Admin Dose 6.25 MG; Start 08/17/16 at 23:00 Clopidogrel Bisulfate (plaVIX) 75 mg DAILY PO ; Start 08/18/16 at 09:00; Status Future Hold Docusate Sodium (Colace) 100 mg DAILY PO Last administered on 08/22/16 09:28; Admin Dose 100 MG; Start 08/18/16 at 09:00 Acetaminophen/ Hydrocodone Bitart ([place] (10/325)) 1 tab Q4H PRN PO PAIN Last administered on 08/21/16 11:00; Admin Dose 1 TAB; Start 08/17/16 at 23:00; Status Future Hold Isosorbide Dinitrate (Isordil) 10 mg BID PO Last administered on 08/22/16 20:15 ; Admin Dose 10 MG; Start 08/17/16 at 23:00 Metoclopramide HCl (Reglan) 5 mg Q6H PRN PO NAUSEA Last administered on 09:05; Admin Dose 5 MG; Start 08/17/16 at 23:00 Nortriptyline HCl (Aventyl) 25 mg BID PO Last administered on 08/22/16 20:16; Admin Dose 25 MG; Start 08/17/16 at 23:00 Thiamine HCl (Vitamin B1) 250 mg DAILY PO Last administered on 08/22/16 09:30; Admin Dose 250 MG; Start 08/18/16 at 09:00 Multivit/Ca Carb/ B Cmplx/FA/Prenat (Aleyda-Pam) 1 tab DAILY PO Last administered on 08/22/16 09:30; Admin Dose 1 TAB; Start 08/18/16 at 09:00 Insulin Glargine (Lantus) 10 unit HS SC ; Start 08/18/16 at 21:00; Status Future Hold Diagnostic Test (Pha) (Accucheck) 1 ea 02 XX ; Start 08/18/16 at 02:00 Ondansetron HCl (Zofran Inj) 4 mg Q6H PRN IV NAUSEA AND/OR VOMITING; Start 08/17 at 23:00 Miscellaneous Information 1 ea NOTE XX ; Start 08/17/16 at 23:30 Glucose (Glutose) 15 gm Q15M PRN PO DECREASED GLUCOSE; Start 08/17/16 at 23:30 Glucose (Glutose) 22.5 gm Q15M PRN PO DECREASED GLUCOSE; Start 08/17/16 at 23:30 Dextrose (D50w Syringe) 25 ml Q15M PRN IV DECREASED GLUCOSE; Start 08/17/16 at 23:30 Dextrose (D50w Syringe) 50 ml Q15M PRN IV DECREASED GLUCOSE; Start 08/17/16 at 23:30 Glucagon (Glucagen) 1 mg Q15M PRN IM DECREASED GLUCOSE; Start 08/17/16 at 23:30 Glucose (Glutose) 15 gm Q15M PRN BUCCAL DECREASED GLUCOSE; Start 08/17/16 at 23: 30 Ferrous Sulfate (Ferrous Sulfate (Ec)) 325 mg TID PO Last administered on 20:16; Admin Dose 325 MG; Start 08/18/16 at 16:30 Famotidine (Pepcid) 20 mg DAILY PO Last administered on 08/22/16 09:34; Admin Dose 20 MG; Start 08/20/16 at 11:00 Miscellaneous Information 1 ea NOTE XX ; Start 08/21/16 at 17:00; Stop 08/25/16 at 16:59 Hydromorphone HCl 0.2 MG DOSE 10 ... Q4PCA IV ; Start 08/21/16 at 17:00 Dextrose/Sodium Chloride 1,000 ml @ 60 mls/hr [id number] IV Last administered on 08/22/16 17:55; Admin Dose 60 MLS/HR; Start 08/21/16 at 21:30 Vancomycin HCl 1.25 gm/Sodium Chloride 250 ml @ 83.333 mls/ hr ONCE ONCE IVPB ; Start 08/23/16 at 15:00; Stop 08/23/16 at 17:59 Tranexamic Acid 710 mg/Sodium Chloride 107.1 ml @ 200 mls/hr PRE-OP ONCE IVPB ; Start 08/23/16 at 12:00; Stop 08/23/16 at 12:32 Tranexamic Acid 710 mg/Sodium Chloride 107.1 ml @ 200 mls/hr INTRA-OP ONCE IVPB ; Start 08/23/16 at 12:00; Stop 08/23/16 at 12:32 Lactated Ringer's (Lr) 1,000 ml @ 100 mls/hr Q10H IV Last administered on t 06:39; Admin Dose 100 MLS/HR; Start 08/23/16 at 07:00; Stop 08/23/16 at 16:59 Oxycodone HCl (Oxycontin) 10 mg PRE-OP PO ; Start 08/23/16 at 07:00; Stop at 15:00 Pregabalin (Lyrica) 300 mg PRE-OP PO ; Start 08/23/16 at 07:00; Stop 08/23/16 at 16:00 Celecoxib (Celebrex) 400 mg PRE-OP PO ; Start 08/23/16 at 07:00; Stop 08/23/16 at 16:00 Tramadol HCl 50 mg 50 mg PRE-OP PO ; Start 08/23/16 at 07:00; Stop 08/23/16 at 16: 00 Vancomycin HCl 250 ml @ 250 mls/hr PRE-OP IVPB ; Start 08/23/16 at 07:00; Stop 08/23/16 at 16:00 Bupivacaine HCl/ Morphine Sulfate/ Epinephrine/ Ketorolac Tromethamine/ Clonidine/Sodium Chloride/ Vancomycin HCl (Marcaine 0.5% (Sdv)/Duramorph/ EPINEPHrine/ Toradol/Duraclon/ NS/Vancocin) INTRA-OP IRR ; Start 08/23/16 at 07: 00; Stop 08/23/16 at 16:00 Bupivacaine Liposome (Exparel 266 Mg/ 20 ml Vial) 266 mg INTRA-OP INFIL ; Start 3/9/17 at 07:00; Stop 08/23/16 at 16:00 Miscellaneous Information 1 ea NOTE XX ; Start 08/23/16 at 07:00; Stop 08/27/18 at 06:59 HEATHER MULLINS MD Aug 23, 2016 09:48
--- NOTE | 2016-08-23 10:18 | PN ---
Date/Time of Note Date/Time of Note DATE: 08/23/16 TIME: 10:16 Assessment/Plan VTE Prophylaxis VTE Prophylaxis Intervention: SCD's Lines/Catheters IV Catheter Type (from [facility]): Peripheral IV Urinary Cath still in place: No Assessment/Plan Chief Complaint/Hosp Course 1. Recent left intertrochanteric hip fracture. Failed intramedullary nailing [place] the country. The patient currently being followed by orthopedic surgery. Continue medical optimization before surgical intervention. 2. Ischemic cardiomyopathy with ejection fraction of 35%. Continue to optimize cardiac medications. 3. CAD status post coronary artery stenting in the past. The patient was on Plavix. Cardiology following. Plavix on hold because of surgery on 08/23/2016. 4. Essential hypertension. Continue antihypertensives. 5. Dyslipidemia. Continue statin. 6. Type 2 diabetes mellitus. Hemoglobin A1c 5.2. Continue sliding scale insulin along with Lantus insulin. Blood sugars well controlled. 7. Normocytic anemia. Underlying iron deficiency. Continue iron supplements. 8. Hyperkalemia. Resolved. 9. Fluid, electrolytes and nutrition. Renal, carbohydrate controlled diet. 10. Deep venous thrombosis prophylaxis. Bilateral sequential compression devices. 11. Gastrointestinal prophylaxis with histamine 2 receptor blockers. PLAN: Continue to optimize cardiac medications. Hemodialysis as per Nephrology. Plan for surgical intervention on 08/23/2016. Obtain portable CXR. Case discussed with Dr. Hope. Problems: Subjective 24 Hr Interval Summary Free Text/Dictation Patient scheduled for surgery today. Exam/Review of Systems Vital Signs Vitals Vital Signs Date Time Temp Pulse Resp B/P Pulse Ox O2 Delivery O2 Flow Rate FiO2 08/23/16 08:19 98.2 99 18 130/60 92 08/20/16 20:15 Nasal Cannula 2.0 Intake and Output 08/22/16 08/22/16 08/23/16 15:00 23:00 07:00 Intake Total 2100 ml 1020 ml Output Total 1500 ml 0 ml Balance 600 ml 1020 ml Exam GENERAL: This is a well-built, well-nourished male patient lying in bed in mild respiratory distress. HEENT: Head normocephalic and atraumatic. Eyes: Anicteric sclerae. Conjunctivae clear. ENT: Nasal septum is midline. Oral mucosa is moist. NECK: Supple. No JVD noticed. RESPIRATORY: Bilaterally clear to auscultation. No adventitious breath sounds. Minimal use of accessory muscles of respiration. CARDIAC: Regular rate and rhythm. S1 and S2 heard. ABDOMEN: Soft, nontender and nondistended. Bowel sounds positive in all 4 quadrants. GENITOURINARY: Deferred. EXTREMITIES: No cyanosis, no clubbing, no edema. Left hip tenderness. Peripheral pulses palpable. NEUROLOGIC: The patient is awake and alert. Confused. Cranial nerves are grossly intact. Results Result Diagram: 08/23/16 0440 08/23/16 0440 Results 24 hrs Laboratory Tests Test 08/22/16 12:00 08/22/16 17:43 08/22/16 20:12 08/23/16 01:48 Bedside Glucose 129 121 109 148 Test 08/23/16 04:40 08/23/16 08:35 Anion Gap 17 H Basophils # 0.0 Basophils % 0.4 Blood Urea Nitrogen 42 H Calcium Level 8.9 Carbon Dioxide Level 31 Chloride Level 95 L Creatinine 5.13 H Eosinophils # 0.2 Eosinophils % 3.4 Glucose Level 109 Hematocrit 36.2 L Hemoglobin 11.2 L Lymphocytes # 1.9 Lymphocytes % 26.6 Magnesium Level 2.3 Mean Corpuscular Hemoglobin 27.1 L Mean Corpuscular Hemoglobin Concent 30.9 L Mean Corpuscular Volume 87.7 Mean Platelet Volume 10.6 H Monocytes # 1.1 H Monocytes % 15.7 H Neutrophils # 3.7 Neutrophils % 53.6 Nucleated Red Blood Cells # 0.0 Nucleated Red Blood Cells % 0.0 Phosphorus Level 5.5 H Platelet Count 271 Potassium Level 4.4 Red Blood Count 4.13 L Red Cell Distribution Width 17.0 H Sodium Level 139 White Blood Count 7.0 # Bedside Glucose 105 Medications Medications Current Medications Atorvastatin Calcium (Lipitor) 40 mg DAILY PO Last administered on 08/22/16 09: 30; Admin Dose 40 MG; Start 08/18/16 at 09:00 Carvedilol (Coreg) 6.25 mg BID PO Last administered on 08/22/16 20:16; Admin Dose 6.25 MG; Start 08/17/16 at 23:00 Clopidogrel Bisulfate (plaVIX) 75 mg DAILY PO ; Start 08/18/16 at 09:00; Status Future Hold Docusate Sodium (Colace) 100 mg DAILY PO Last administered on 08/22/16 09:28; Admin Dose 100 MG; Start 08/18/16 at 09:00 Acetaminophen/ Hydrocodone Bitart (Holly (10)) 1 tab Q4H PRN PO PAIN Last administered on 08/21/16 11:00; Admin Dose 1 TAB; Start 08/17/16 at 23:00; Status Future Hold Isosorbide Dinitrate (Isordil) 10 mg BID PO Last administered on 08/22/16 20:15 ; Admin Dose 10 MG; Start 08/17/16 at 23:00 Metoclopramide HCl (Reglan) 5 mg Q6H PRN PO NAUSEA Last administered on 09:05; Admin Dose 5 MG; Start 08/17/16 at 23:00 Nortriptyline HCl (Aventyl) 25 mg BID PO Last administered on 08/22/16 20:16; Admin Dose 25 MG; Start 08/17/16 at 23:00 Thiamine HCl (Vitamin B1) 250 mg DAILY PO Last administered on 08/22/16 09:30; Admin Dose 250 MG; Start 08/18/16 at 09:00 Multivit/Ca Carb/ B Cmplx/FA/Prenat (Aleyda-Pam) 1 tab DAILY PO Last administered on 08/22/16 09:30; Admin Dose 1 TAB; Start 08/18/16 at 09:00 Insulin Glargine (Lantus) 10 unit HS SC ; Start 08/18/16 at 21:00; Status Future Hold Diagnostic Test (Pha) (Accucheck) 1 ea 02 XX ; Start 08/18/16 at 02:00 Ondansetron HCl (Zofran Inj) 4 mg Q6H PRN IV NAUSEA AND/OR VOMITING; Start 08/17 at 23:00 Miscellaneous Information 1 ea NOTE XX ; Start 08/17/16 at 23:30 Glucose (Glutose) 15 gm Q15M PRN PO DECREASED GLUCOSE; Start 08/17/16 at 23:30 Glucose (Glutose) 22.5 gm Q15M PRN PO DECREASED GLUCOSE; Start 08/17/16 at 23:30 Dextrose (D50w Syringe) 25 ml Q15M PRN IV DECREASED GLUCOSE; Start 08/17/16 at 23:30 Dextrose (D50w Syringe) 50 ml Q15M PRN IV DECREASED GLUCOSE; Start 08/17/16 at 23:30 Glucagon (Glucagen) 1 mg Q15M PRN IM DECREASED GLUCOSE; Start 08/17/16 at 23:30 Glucose (Glutose) 15 gm Q15M PRN BUCCAL DECREASED GLUCOSE; Start 08/17/16 at 23: 30 Ferrous Sulfate (Ferrous Sulfate (Ec)) 325 mg TID PO Last administered on 20:16; Admin Dose 325 MG; Start 08/18/16 at 16:30 Famotidine (Pepcid) 20 mg DAILY PO Last administered on 08/22/16 09:34; Admin Dose 20 MG; Start 08/20/16 at 11:00 Miscellaneous Information 1 ea NOTE XX ; Start 08/21/16 at 17:00; Stop 08/25/16 at 16:59 Hydromorphone HCl 0.2 MG DOSE 10 ... Q4PCA IV ; Start 08/21/16 at 17:00 Dextrose/Sodium Chloride 1,000 ml @ 60 mls/hr [id number] IV Last administered on 08/22/16 17:55; Admin Dose 60 MLS/HR; Start 08/21/16 at 21:30 Vancomycin HCl 1.25 gm/Sodium Chloride 250 ml @ 83.333 mls/ hr ONCE ONCE IVPB ; Start 08/23/16 at 15:00; Stop 08/23/16 at 17:59 Tranexamic Acid 710 mg/Sodium Chloride 107.1 ml @ 200 mls/hr PRE-OP ONCE IVPB ; Start 08/23/16 at 12:00; Stop 08/23/16 at 12:32 Tranexamic Acid/ Sodium Chloride (Tranexamic Acid/ NS) 107.1 ml @ 200 mls/hr INTRA-OP ONCE IVPB ; Start 08/23/16 at 12:00; Stop 08/23/16 at 12:32 Oxycodone HCl (Oxycontin) 10 mg PRE-OP PO ; Start 08/23/16 at 07:00; Stop at 15:00 Pregabalin (Lyrica) 300 mg PRE-OP PO ; Start 08/23/16 at 07:00; Stop 08/23/16 at 16:00 Celecoxib (Celebrex) 400 mg PRE-OP PO ; Start 08/23/16 at 07:00; Stop 08/23/16 at 16:00 Tramadol HCl 50 mg 50 mg PRE-OP PO ; Start 08/23/16 at 07:00; Stop 08/23/16 at 16: 00 Vancomycin HCl 250 ml @ 250 mls/hr PRE-OP IVPB ; Start 08/23/16 at 07:00; Stop 08/23/16 at 16:00 Bupivacaine HCl/ Morphine Sulfate/ Epinephrine/ Ketorolac Tromethamine/ Clonidine/Sodium Chloride/ Vancomycin HCl (Marcaine 0.5% (Sdv)/Duramorph/ EPINEPHrine/ Toradol/Duraclon/ NS/Vancocin) INTRA-OP IRR ; Start 08/23/16 at 07: 00; Stop 08/23/16 at 16:00 Bupivacaine Liposome (Exparel 266 Mg/ 20 ml Vial) 266 mg INTRA-OP INFIL ; Start 08/23/16 at 07:00; Stop 08/23/16 at 16:00 Miscellaneous Information 1 ea 1 ea NOTE XX ; Start 08/23/16 at 07:00; Stop 08/27 at 06:59 Dextrose/Sodium Chloride (D5-1/2ns) 1,000 ml @ 50 mls/hr Q20H IV ; Start at 10:00 LORIE MAHMOOD NP Aug 23, 2016 10:18
[2016-08-23] MEDS ORDERED: TRANEXAMIC ACID 710 MG in SOD CHLORIDE 0.9% 100 ML IVPB ONE ×5 (12:00→22:00)
--- NOTE | 2016-08-23 13:28 | RADRPT ---
PROCEDURE: XR Chest. CLINICAL INDICATION: Dyspnea TECHNIQUE: Chest AP portable. COMPARISON: 08/17/2016 FINDINGS: The mediastinal structures are unremarkable. There is calcification of the thoracic aorta (consiste nt with atherosclerosis). There is mild cardiomegaly. There is pulmonary venous hypertension. The re are right perihilar, RLL and left perihilar patchy consolidations (edema/pneumonia). The pleural spaces are unremarkable. The osseous structures are unremarkable. IMPRESSION: Mild cardiomegaly. Pulmonary venous hypertension. Right perihilar, RLL and left perihilar patchy consolidations (edema/pneumonia). RPTAT: HGDB .James Jarrell MD, Date Time Electronically viewed and signed by .James Jarrell MD, on 08/23/2016 13:27 .B/
[2016-08-23] MEDS ORDERED: SODIUM CL BACTERIOSTATIC 30 ML INJ ONE (14:02)
[2016-08-23] MEDS ORDERED: VANCOMYCIN 1 GM INJ ONE ×2 (14:03→17:15)
[2016-08-23] MEDS ORDERED: POLYMYXIN B 500000 UNIT INJ ONE (14:03)
[2016-08-23] MEDS ORDERED: HEPARIN 1000 UNITS/ML 10 ML INJ ONE (14:03)
[2016-08-23] MEDS ORDERED: TOBRAMYCIN 1.2 GM POWDER ONE (14:03)
[2016-08-23] MEDS ORDERED: CEFAZOLIN 1 GM INJ ONE (14:15)
[2016-08-23] MEDS ORDERED: PROPOFOL 100 ML ONE (14:15)
[2016-08-23] MEDS ORDERED: MIDAZOLAM 1 MG/ML 2 ML INJ ONE (14:15)
[2016-08-23] MEDS ORDERED: METOCLOPRAMIDE 10 MG INJ ONE (14:16)
[2016-08-23] MEDS ORDERED: DEXAMETHASONE 4 MG/ML 1 ML INJ ONE (14:16)
[2016-08-23] MEDS ORDERED: NORepinephrine 8MG/250 ML (PMX 250 ML IV ONE (14:30)
[2016-08-23] MEDS ORDERED: EPHEDrine SULFATE 50 MG/5 ML SYG ONE (14:56)
[2016-08-23] MEDS ORDERED: FENTAnyl 50 MCG/ML VIAL ONE (14:56)
[2016-08-23] MEDS ORDERED: BACITRACIN 50000 UNITS INJ ONE (14:58)
[2016-08-23] MEDS ORDERED: VANCOMYCIN 1.25 GM in SOD CHLORIDE 0.9% 250 ML IVPB ONE (15:00)
[2016-08-23] MEDS ORDERED: PHENYLephrine (100 MCG/ML) 5ML SYG ONE (15:25)
[2016-08-23] MEDS ORDERED: TOBRAMYCIN 1.2 GM POWDER ZFS ONE (16:35)
[2016-08-23] MEDS ORDERED: VANCOMYCIN 1 GM INJ IVPB ONE (16:37)
[2016-08-23] MEDS ORDERED: BACITRACIN 50000 UNITS INJ IRR ONE (16:38)
[2016-08-23] MEDS: LACTATED RINGER'S 1,000 ML IV SCH (18:42)
[2016-08-23] MEDS ORDERED: MAGNESIUM HYDROXIDE 30ML CUP PO PRN (19:00)
[2016-08-23] MEDS ORDERED: oxyCODONE 5 MG TAB PO PRN ×2 (19:00)
[2016-08-23] MEDS ORDERED: NA PHOSPHATE/BIPHOS 133 ML ENEMA PR PRN (19:00)
[2016-08-23] MEDS ORDERED: NACL 0.9% 3 ML SYG IV SCH (19:00)
[2016-08-23] MEDS ORDERED: ONDANSETRON 4 MG INJ IV PRN (19:00)
[2016-08-23] MEDS ORDERED: BISACODYL 10 MG SUPP PR PRN (19:00)
[2016-08-23] MEDS ORDERED: DIPHENHYDRAMINE 25 MG CAP PO PRN (19:00)
--- NOTE | 2016-08-23 19:02 | PN ---
Date/Time of Note Date/Time of Note DATE: 08/23/16 TIME: 18:58 Assessment/Plan Lines/Catheters IV Catheter Type (from Nrsg): Peripheral IV Jain in Place (from Nrsg): No Assessment/Plan Assessment/Plan Guarded condition in ICU, s/p hardware removal, failed left hip IM rodding, conversion to left posterior MIGUE -continue vancomycin x 72 hours until final culture results -hold anticoagulation secondary to intra-operative bleeding. SCDs in place for DVT prophylaxis -pain meds as needed -hemodialysis per nephrology -monitor drain -posterior hip precautions -OOB with PT as tolerated. TDWB -check AM labs XR of the left hip is pending at this time Subjective 24 Hr Interval Summary Guarded condition in ICU. Lethargic secondary to anesthesia. Unable to assess motor function but present palpable pulses distally. Leg length are equal. Abduction pillow in place. Exam/Review of Systems Vital Signs Vitals Vital Signs Date Time Temp Pulse Resp B/P Pulse Ox O2 Delivery O2 Flow Rate FiO2 08/23/16 08:19 98.2 99 18 130/60 92 08/20/16 20:15 Nasal Cannula 2.0 Intake and Output 08/22/16 08/22/16 08/23/16 15:00 23:00 07:00 Intake Total 2100 ml 1020 ml Output Total 1500 ml 0 ml Balance 600 ml 1020 ml Exam Free Text/Dictation Dressing dry Incision clean, dry, and intact without redness or drainage 5/5 Quadriceps, Tibialis Anterior, EHL, Gastroc, Soleus, Peroneals Normal sensation Palpable DT/PT, CR <2 sec No distal edema Results Result Diagram: 08/23/1643908/23/16439 TONI ORNELAS PA-C Aug 23, 2016 19:02
--- NOTE | 2016-08-23 19:09 | OPPN ---
Date/Time of Note Date/Time of Note DATE: 08/23/16 TIME: 19:07 Operative/Procedure Note Dictation # [id number] Pre-Operative Diagnosis Failed ORIF Left Hip Fx Post-Operative Diagnosis Same Procedure HWR Left Hip and Conversion to Left MIGUE Surgeon: AARON PINTO MD Rf Test Technician: TONI ORNELAS PA-C Anesthesiologist: SCOOBY AIKEN MD Findings Failed Left MIGUE with screw cutout and acetabular defect Blood Usage/Administration 2 units PRBC and 250 cc cell saver Implants/Grafts Biomet G7 and Depuy Endurance stem Estimated blood loss: other Drains Hemovac x 1 Specimens Aerobic and anaerobic culture x 2 Complications: None Anesthesia type: spinal AARON PINTO MD Aug 23, 2016 19:09
[2016-08-23] MEDS ORDERED: VANCOMYCIN IV PER PHARMACY XX SCH (20:00)
[2016-08-23 20:22] LABS: ADD SCAN DIFF NO
[2016-08-23 20:24] LABS: ABNORMAL IP MESSAGE 1; HEMOGLOBIN 11.9 g/dl (14.0-18.0); MEAN CORPUSCULAR HEMOGLOBIN 27.7 pg (29.0-33.0); MEAN CORPUSCULAR HGB CONC 32.2 g/dl (32.0-37.0); MEAN CORPUSCULAR VOLUME 86.2 fl (82.0-101.0); MEAN PLATELET VOLUME 10.6 fl (7.4-10.4); PLATELET COUNT 250 10^3/UL (140-415); RED BLOOD COUNT 4.29 10^6/ul (4.70-6.10); RED CELL DISTRIBUTION WIDTH 15.9 % (11.5-14.5); WHITE BLOOD COUNT 12.6 10^3/ul (4.8-10.8)
[2016-08-23 20:34] LABS: ALBUMIN 2.8 g/dl (3.3-4.9)
[2016-08-23 20:35] LABS: POTASSIUM 5.9 mmol/L (3.5-5.1)
[2016-08-23 20:36] LABS: CREATININE 5.84 mg/dl (0.61-1.24)
[2016-08-23 20:37] LABS: ALBUMIN/GLOBULIN RATIO 0.75; BILIRUBIN,DIRECT 0.1 mg/dl (0.00-0.20); BILIRUBIN,INDIRECT 0.2 mg/dl (0-1.1); BILIRUBIN,TOTAL 0.3 mg/dl (0.2-1.3); TOTAL PROTEIN 6.5 g/dl (6.1-8.1)
[2016-08-23 20:38] LABS: CALCIUM 8.8 mg/dl (8.4-10.2); MAGNESIUM 2.4 mg/dl (1.7-2.5); PHOSPHORUS 7.3 mg/dl (2.5-4.9)
[2016-08-23] MEDS: PREGABALIN 25 MG CAP PO SCH (20:41)
[2016-08-23] MEDS: LEVOFLOXACIN 500MG/D5W (PMX) 100 ML IVPB SCH ×2 (20:54→21:18)
[2016-08-23] MEDS ORDERED: VANCOMYCIN 1 GM in NS 250 ML IVPB SCH (21:00)
[2016-08-23 21:13] LABS: LYMPHOCYTES # 0.3 10^3/ul (0.8-2.9); MONOCYTE # 0.1 10^3/ul (0.3-0.9); NEUTROPHIL # 12.2 10^3/ul (1.6-7.5)
[2016-08-23 21:24] LABS: AADO2 Arterial 175.5 mmHg (7.0-24.0); Arterial Base Excess -4.6 mmol/L (-3.0-3); Arterial COHb 1.3 % (0.0-3.0); Arterial Fraction of Oxyhgb 94.5 % (93.0-99.0); Arterial HCO3 22.5 mmol/L (22.0-26.0); Arterial MetHb 0 % (0.0-1.5); Arterial Total Hemglobin 13.2 g/dl (12.0-18.0); MODE MASK - NRB
[2016-08-23 22:33] LABS: AADO2 Arterial 206.6 mmHg (7.0-24.0); Allen Test ACCEPTAB; Arterial Base Excess -12.1 mmol/L (-3.0-3); Arterial COHb 0.7 % (0.0-3.0); Arterial Fraction of Oxyhgb 96.7 % (93.0-99.0); Arterial HCO3 13.1 mmol/L (22.0-26.0); Arterial MetHb 0.2 % (0.0-1.5); Arterial Total Hemglobin 9.4 g/dl (12.0-18.0); Blood Gas IEPAP 15/8; MODE MASK-BIPAP
[2016-08-23] MEDS: traMADol 50 MG TAB PO SCH (23:38)
[2016-08-24] VITALS (92 sets, daily range): BP systolic 82–187; BP diastolic 31–65; PULSE 63–102; RESP 8–27
[2016-08-24] MEDS ORDERED: TRANEXAMIC ACID 710 MG in SOD CHLORIDE 0.9% 100 ML IVPB ONE (01:00)
[2016-08-24] MEDS: ACCU-CHEK XX SCH (01:11)
--- NOTE | 2016-08-24 02:37 | OPR ---
DATE OF OPERATION: 08/23/2016 PREOPERATIVE DIAGNOSIS: Failed open reduction internal fixation left intertrochanteric hip fracture . POSTOPERATIVE DIAGNOSIS: Failed open reduction internal fixation left intertrochanteric hip fractur e. OPERATION PERFORMED: Hardware removal, left hip and conversion to left total hip arthroplasty. SURGEON: Aaron Hough MD DYNAMITE RECLAIMER: BERNABE Gurrola COMPONENTS USED: Biomet G7 58 mm cup with three 6.5 screws, 58/44 dual mobility cup, size 300 mm antonia wed left Endurance cemented stem, 28+15.5 cobalt chrome head. ANESTHESIA: Spinal plus general endotracheal intubation. ANESTHESIOLOGIST: Dr. Westfall. ESTIMATED BLOOD LOSS: 800 mL. INTRAVENOUS FLUIDS: 500 mL of crystalloid, 2 units of packed red blood cells, 250 mL of autologous Cell Saver blood, and 2 units of cryoprecipitate. SPECIMENS: Aerobic and anaerobic culture x2. DRAINS: Hemovac x1. COMPLICATIONS: None. DISPOSITION: Patient tolerated the procedure well and was taken to the recovery room in stable cond ition. INDICATIONS: The patient is a 65-year-old gentleman with end-stage renal disease who is on dialysis and has significant cardiac disease with a low ejection fraction, who had a fall and was treated wi th a closed reduction and intramedullary rodding at an outside hospital in [facility] 3 months ago. He has had persistent pain and inability to bear weight on the left lower extremity. Imaging studies demonstrated complete cutout of the screw of the femoral head with protrusion into the aceta bulum and complete displacement of the fracture. I felt that he would benefit from hardware removal and conversion to a total hip arthroplasty. He had been on Plavix and had to be medically optimize d and we decided to wait about a week from the Plavix being discontinued before proceeding with surg suzi. He had a hip aspiration which has been negative for any bacterial growth. He has been medical ly optimized and cleared for surgery. The risks, benefits, alternatives of the procedure were expla ined in detail to the patient through a Farsi annealing furnace operator. I explained the risks of surgery to inclu de but not be limited to bleeding and possible need for blood transfusion, infection, pain, stiffnes s, neurovascular injury with possible numbness, weakness, and/or paralysis anywhere from the hip sabina n to the toes, fracture, instability, dislocation, leg length inequality, wear and/or loosening of t he prosthesis, need for revision at a later date, wound healing problems, blood clots, pulmonary emb olism, and anesthetic complications such as heart attack, stroke, GI bleed, pneumonia and/or . Ample time was allowed for the patient to ask questions, all of which were addressed and answered. The patient understood the risks involved and wished to proceed. Informed consent was signed prior to the procedure. PROCEDURE: The left hip was initialed with a marking pen in the preoperative holding area to identi fy the correct operative site. The patient was brought to the operating room and transferred from [facility] to the operating table where he was administered a spinal anesthetic and then ane sthetized and intubated. No Jain catheter was placed because he was on dialysis. He was turned i n lateral decubitus position with the left side up. An axillary roll was placed under the right sangita st wall. He was secured to the pegboard and all bony prominences were well padded. He had been giv en 2 grams of intravenous Ancef and 1 gram of vancomycin within 1 hour prior to the incision. [facility] were pre[facility] and draped in usual sterile fashion. A long posterolateral incision was made centered over the greater trochanter. This was carried down to subcutaneous tissue and fat with sharp dissection. The iliotibial band and gluteus keila musc le fascia were incised along the length of the wound. The gluteus keila muscle fibers were bluntl y split. I noted that there was quite a bit of scar tissue from the previous surgery. The trochant lali bursa was scarred down and the quadratus femoris and posterior capsule and short external rotat or sleeve were taken down off the posterior aspect of the greater trochanter with electrocautery and tagged with #2 FiberWire. The gluteus keila tendon insertion was released for optimal visualizat ion. Fluid from the joint was swabbed for aerobic and anaerobic culture x2. At this point, the dis matthew interlocking screw was identified and removed. The screw was seen already cut out through the h ead and was dislocated posteriorly, as was the head of the femur. The proximal screw was removed. The kimi was then removed. The femur was retracted anteriorly. There was marked loss of bone down t o the lesser trochanter. The acetabulum was inspected and there was a large defect superiorly, but the anterior and posterior rims and medial wall were intact. At this point, the defect superiorly a nd medially was removed with curettes. It was irrigated and then packed with Cerament until it was hardened. I reamed the acetabulum prior to doing this up to a 56 reamer, getting a good bite. A 58 mm G7 Biomet cup was impacted in the acetabulum and sat flush circumferentially, getting a good bit e. This had about 40 degrees of abduction and 20 degrees of anteversion. Three screws were drilled and filled to the appropriate length, getting a good bite. The metal liner was impacted into the a cetabulum. Attention was turned towards the femur. The canal was reamed with flexible reamers up t o 16 mm and still no chatter. Curets were used to remove all of the fibrous tissue. I felt that he would benefit from a cemented stem since he had quite severe osteoporosis and I felt that an unceme nted stem would risk fracture. At this point, the size 3, 300 mm length bowed left Endurance stem w as opened. Five bags of cement with vancomycin mixed into it were mixed and then once in the doughy stage, was injected into the femoral canal and pressurized. The stem was placed down the canal and anteverted 20 to 25 degrees relative to the tibia, pointing towards the ceiling. I left the neck a bout 2 fingerbreadths above the lesser trochanter. This was left in place until it hardened. I tri alled and felt that the 15.5 head gave the best reproduction of leg lengths and offset. At this poi nt, the 28+15.5 head was assembled into the Dual Mobility polyethylene liner on the back table and t kiara this was impacted on the trunnion, reducing the acetabulum. Hip was taken through range of yanna on. The hip had 100 degrees of flexion. At 90 degrees of flexion and neutral abduction, the hip wa s stable posteriorly to 80 degrees of internal rotation. The position of sleep was stable to 80 deg alka of internal rotation as well. The hip came to full extension with no posterior impingement or anterior instability. C-arm imaging showed the components to be in good position. At this point, t he hip was irrigated with Betadine and saline and then antibiotic saline pulsatile lavage. Stimulan beads mixed with vancomycin and tobramycin were placed into the deep wound. The posterior capsule and short external rotators were repaired back to the greater trochanter through drill holes with #2 FiberWire. Quadratus femoris was repaired back to the vastus lateralis with running #1 Vicryl. Th e gluteus keila tendon was repaired with interrupted #1 Vicryl as well. A Hemovac drain was place d in the deep portion of the wound and brought out the anterolateral thigh. The soft tissues were i nfiltrated with a mixture of 0.5% ropivacaine, 4 mg Duramorph, 30 mg Toradol and vancomycin. At thi s point, the iliotibial band was repaired with interrupted #1 Ethibonds in [id number] fashion a nd a running #1 Vicryl. The deep fat layer was irrigated and closed with 2-0 Stratafix and then 3-0 Vicryl, and safia on the skin. The skin edges were sealed with Dermabond. The drain was secured with 3-0 nylon. Sponge and needle counts were correct at the end of case. The wound was covered w ith silver Mepilex. The patient was awakened, extubated, and taken to the recovery room in stable c ondition. Dictated By: AARON WOLFF/CHRISTOPHER Conf#: [id number] DID#: [id number]
[2016-08-24] MEDS: LACTATED RINGER'S 1,000 ML IV SCH (03:24)
[2016-08-24] MEDS ORDERED: VANCOMYCIN 1 GM (PMX) 250 ML IVPB SCH (04:30)
[2016-08-24 05:01] LABS: ADD SCAN DIFF NO
[2016-08-24 05:06] LABS: BASOPHILS % 0.1 % (0.0-2.0); HEMATOCRIT 34.2 % (42.0-52.0); HEMOGLOBIN 10.9 g/dl (14.0-18.0); LYMPHOCYTES # 1.1 10^3/ul (0.8-2.9); LYMPHOCYTES % 9.8 % (15.0-51.0); MEAN CORPUSCULAR HEMOGLOBIN 27.4 pg (29.0-33.0); MEAN CORPUSCULAR HGB CONC 31.9 g/dl (32.0-37.0); MEAN CORPUSCULAR VOLUME 85.9 fl (82.0-101.0); MEAN PLATELET VOLUME 11.2 fl (7.4-10.4); MONOCYTE # 0.6 10^3/ul (0.3-0.9); MONOCYTES % 5.5 % (0.0-11.0); NEUTROPHIL # 9.5 10^3/ul (1.6-7.5); NEUTROPHILS % 84.2 % (39.0-77.0); PLATELET COUNT 264 10^3/UL (140-415); RED BLOOD COUNT 3.98 10^6/ul (4.70-6.10); RED CELL DISTRIBUTION WIDTH 16.7 % (11.5-14.5); WHITE BLOOD COUNT 11.3 10^3/ul (4.8-10.8)
[2016-08-24] MEDS: PANTOPRAZOLE (EC) 40 MG TAB PO SCH ×2 (05:30→17:43)
[2016-08-24] MEDS: ACETAMINOPHEN 1000MG/100ML IV 100 ML IVPB SCH ×4 (05:30→17:43)
[2016-08-24] MEDS: traMADol 50 MG TAB PO SCH ×3 (05:31→18:00)
[2016-08-24 05:32] LABS: MAGNESIUM 2.1 mg/dl (1.7-2.5)
[2016-08-24 05:36] LABS: CREATININE 6.19 mg/dl (0.61-1.24)
[2016-08-24 05:37] LABS: CALCIUM 9.3 mg/dl (8.4-10.2)
[2016-08-24] MEDS: DEXTROSE 5%-0.45% NACL 1,000 ML IV SCH (06:20)
--- NOTE | 2016-08-24 08:23 | CONS ---
Date/Time of Note Date/Time of Note DATE: 08/24/16 TIME: 08:00 Assessment/Plan Assessment/Plan Chief Complaint/Hosp Course 1. He has end-stage renal disease and is on maintenance hemodialysis Saturday and Saturday. He is due for hemodialysis treatment today .He is having a hemodialysis treatment now . Will check labs in am to determine next hemodialysis . 2. The patient fractured his left femur approximately 3 months ago. At that time he was living in [facility]. He had a surgery with an ORIF of the left hip; however, he has continued to have pain. The patient saw Dr. Pérez Hough as an outpatient. Dr. Botello admitted him to the hospital to have a definitive surgery to fix his left hip.He had a L MIGUE yesterday . He received a 2 unit blood transfusion yesterday during surgery . 3. DM type 2 4. HTN 5. CAD , Cardiology to see 6. He had infiltrates on CXR yesterday , pneumonia vs edema , he is on antibiotics . He was transiently on BIPAP last night . Pulmonary consult called . Problems: Consultation Date/Type/Reason Admit Date/Time Aug 17, 2016 at 20:14 Type of Consultation: renal 24 HR Interval Summary Free Text/Dictation He is now in the ICU , 1 day post op a L MIGUE . He is lethargic on Levophed for BP support . He does rouse to verbal stimuli . He is now having hemodialysis . Subjective hx not possible: pt non-verbal Exam/Review of Systems Vital Signs Vitals Vital Signs Date Time Temp Pulse Resp B/P Pulse Ox O2 Delivery O2 Flow Rate FiO2 08/24/16 06:45 71 22 117/46 99 08/24/16 03:00 98.6 08/24/16 02:35 3.0 08/24/16 00:45 40 08/23/16 19:15 Mask Intake and Output 08/23/16 08/23/16 08/24/16 15:00 23:00 07:00 Intake Total 483 ml 20 ml Output Total 820 ml 20 ml Balance -337 ml 0 ml Exam Constitutional: non-verbal Respiratory: clear to auscultation, diminished breath sounds Cardiovascular: regular rate and rhythm Gastrointestinal: soft Musculoskeletal: nl extremities to inspection Results Result Diagram: 08/24/16 0443 08/24/16 0443 Results 24 hrs Laboratory Tests Test 08/23/16 08:35 08/23/16 12:16 08/23/16 19:05 08/23/16 20:14 Bedside Glucose 105 96 Arterial Blood HCO3 22.5 Arterial Blood Base Excess -4.6 L Arterial Blood Oxygen Saturation 95.7 Ruel Test N/A Arterial Blood Gas Puncture Site LB Arterial Blood Carboxyhemoglobin 1.3 Arterial Blood Date Drawn 08/23/2016 7:20:00 PM Arterial Blood Methemoglobin 0 Arterial Blood pCO2 (Temp correct) 49.6 H Arterial Blood pH (Temp corrected) 7.274 *L Arterial Blood pO2 (Temp corrected) 88.9 Blood Gas A-a O2 Differential 175.5 H Blood Gas Critical Value Read Back VENKATIM, RN Blood Gas Modality MASK - NRB Blood Gas Notified Time 08/23/2016 7:38:00 PM Blood Gas Notified Whom MA Blood Gas Specimen Source Blood arterial Blood Gas Temperature 37.0 FiO2 45.0 Oxyhemoglobin Percent 94.5 Total Hemoglobin 13.2 Alanine Aminotransferase (ALT/SGPT) 35 Albumin 2.8 L Albumin/Globulin Ratio 0.75 Alkaline Phosphatase 134 H Anion Gap 22 H Aspartate Amino Transf (AST/SGOT) 49 H Blood Urea Nitrogen 53 H Calcium Level 8.8 Carbon Dioxide Level 20 #L Chloride Level 99 Creatinine 5.84 H Direct Bilirubin 0.10 Globulin 3.70 H Glucose Level 203 Hematocrit 37.0 L Hemoglobin 11.9 L Indirect Bilirubin 0.2 Lymphocytes # 0.3 L Lymphocytes % 2.0 L Magnesium Level 2.4 Mean Corpuscular Hemoglobin 27.7 L Mean Corpuscular Hemoglobin Concent 32.2 Mean Corpuscular Volume 86.2 Mean Platelet Volume 10.6 H Monocytes # 0.1 L Monocytes % 1.0 Neutrophils # 12.2 H Neutrophils % 97.0 H Phosphorus Level 7.3 H Platelet Count 250 Potassium Level 5.9 H Red Blood Count 4.29 L Red Cell Distribution Width 15.9 H Sodium Level 135 Total Bilirubin 0.3 Total Protein 6.5 White Blood Count 12.6 #H Test 08/23/16 20:47 08/23/16 22:30 08/24/16 01:09 08/24/16 04:43 Bedside Glucose 171 177 Arterial Blood HCO3 13.1 L Arterial Blood Base Excess -12.1 L Arterial Blood Oxygen Saturation 97.6 Ruel Test ACCEPTAB Arterial Blood Gas Puncture Site Left Radial Arterial Blood Carboxyhemoglobin 0.7 Arterial Blood Date Drawn 08/23/2016 10:20:49 PM Arterial Blood Methemoglobin 0.2 Arterial Blood pCO2 (Temp correct) 27.6 L Arterial Blood pH (Temp corrected) 7.294 *L Arterial Blood pO2 (Temp corrected) 118.9 H Blood Gas A-a O2 Differential 206.6 H Blood Gas Actual Respiration Rate 24 Blood Gas Critical Value Read Back SEVEN WILLIAM Blood Gas IPAP/EPAP Ratio 15 Blood Gas Modality MASK-BIPAP Blood Gas Notified Time 08/23/2016 10:33:46 PM Blood Gas Notified Whom JMD Blood Gas Respiration Rate 14.0 Blood Gas Specimen Source Blood arterial Blood Gas Temperature 37.0 FiO2 50.0 Oxyhemoglobin Percent 96.7 Total Hemoglobin 9.4 L Anion Gap 20 H Basophils # 0.0 Basophils % 0.1 Blood Urea Nitrogen 64 H Calcium Level 9.3 Carbon Dioxide Level 22 Chloride Level 103 Creatinine 6.19 H Eosinophils # 0.0 Eosinophils % 0.0 Glucose Level 149 # Hematocrit 34.2 L Hemoglobin 10.9 L Lymphocytes # 1.1 Lymphocytes % 9.8 L Magnesium Level 2.1 Mean Corpuscular Hemoglobin 27.4 L Mean Corpuscular Hemoglobin Concent 31.9 L Mean Corpuscular Volume 85.9 Mean Platelet Volume 11.2 H Monocytes # 0.6 Monocytes % 5.5 Neutrophils # 9.5 H Neutrophils % 84.2 H Nucleated Red Blood Cells # 0.0 Nucleated Red Blood Cells % 0.0 Phosphorus Level 9.0 H Platelet Count 264 Potassium Level 6.0 H Red Blood Count 3.98 L Red Cell Distribution Width 16.7 H Sodium Level 139 White Blood Count 11.3 H Medications Medications Current Medications Atorvastatin Calcium (Lipitor) 40 mg DAILY PO Last administered on 08/22/16 09: 30; Admin Dose 40 MG; Start 08/18/16 at 09:00 Carvedilol (Coreg) 6.25 mg BID PO Last administered on 08/22/16 20:16; Admin Dose 6.25 MG; Start 08/17/16 at 23:00 Clopidogrel Bisulfate (plaVIX) 75 mg DAILY PO ; Start 08/18/16 at 09:00; Status Future Hold Isosorbide Dinitrate (Isordil) 10 mg BID PO Last administered on 08/22/16 20:15 ; Admin Dose 10 MG; Start 08/17/16 at 23:00 Metoclopramide HCl (Reglan) 5 mg Q6H PRN PO NAUSEA Last administered on 09:05; Admin Dose 5 MG; Start 08/17/16 at 23:00 Nortriptyline HCl (Aventyl) 25 mg BID PO Last administered on 08/22/16 20:16; Admin Dose 25 MG; Start 08/17/16 at 23:00 Thiamine HCl (Vitamin B1) 250 mg DAILY PO Last administered on 08/22/16 09:30; Admin Dose 250 MG; Start 08/18/16 at 09:00 Multivit/Ca Carb/ B Cmplx/FA/Prenat (Aleyda-Pam) 1 tab DAILY PO Last administered on 08/22/16 09:30; Admin Dose 1 TAB; Start 08/18/16 at 09:00 Insulin Glargine (Lantus) 10 unit HS SC ; Start 08/18/16 at 21:00; Status Future Hold Diagnostic Test (Pha) (Accucheck) 1 ea 02 XX Last administered on 08/24/16 01: 11; Admin Dose 1 EA; Start 08/18/16 at 02:00 Miscellaneous Information 1 ea NOTE XX ; Start 08/17/16 at 23:30 Glucose (Glutose) 15 gm Q15M PRN PO DECREASED GLUCOSE; Start 08/17/16 at 23:30 Glucose (Glutose) 22.5 gm Q15M PRN PO DECREASED GLUCOSE; Start 08/17/16 at 23:30 Dextrose (D50w Syringe) 25 ml Q15M PRN IV DECREASED GLUCOSE; Start 08/17/16 at 23:30 Dextrose (D50w Syringe) 50 ml Q15M PRN IV DECREASED GLUCOSE; Start 08/17/16 at 23:30 Glucagon (Glucagen) 1 mg Q15M PRN IM DECREASED GLUCOSE; Start 08/17/16 at 23:30 Glucose (Glutose) 15 gm Q15M PRN BUCCAL DECREASED GLUCOSE; Start 08/17/16 at 23: 30 Ferrous Sulfate (Ferrous Sulfate (Ec)) 325 mg TID PO Last administered on 20:16; Admin Dose 325 MG; Start 08/18/16 at 16:30 Miscellaneous Information 1 ea NOTE XX ; Start 08/21/16 at 17:00; Stop 08/25/16 at 16:59 Hydromorphone HCl (Dilaudid [employer]) 0.2 MG DOSE 10 ... Q4PCA IV ; Start 08/21/16 at 17:00 Miscellaneous Information 1 ea 1 ea NOTE XX ; Start 08/23/16 at 07:00; Stop 08/27 at 06:59 Dextrose/Sodium Chloride 1,000 ml @ 50 mls/hr Q20H IV Last administered on 06:20; Admin Dose 50 MLS/HR; Start 08/23/16 at 10:00 Lactated Ringer's 1,000 ml @ 125 mls/hr Q8H IV Last administered on 08/24/16 03:24; Admin Dose 125 MLS/HR; Start 08/23/16 at 18:42 Acetaminophen (Ofirmev 1000mg/ 100ml Iv) 100 ml @ 400 mls/hr Q6 IVPB Last administered on 08/24/16 05:30; Admin Dose 400 MLS/HR; Start 08/24/16 at 00:00 ; Stop 08/24/16 at 23:59 Tramadol HCl (Ultram) 50 mg Q6 PO ; Start 08/24/16 at 00:00; Stop 08/26/16 at 00 :00 Oxycodone HCl (Roxicodone) 5 mg Q4H PRN PO PAIN LEVEL 1-3; Start 08/23/16 at 19: 00 Oxycodone HCl (Roxicodone) 10 mg Q4H PRN PO PAIN LEVEL 4-7; Start 08/23/16 at 19 :00 Hydromorphone HCl (Dilaudid) 1 mg Q3H PRN IV PAIN LEVEL 8-10; Start 08/23/16 at 19:00 Ondansetron HCl (Zofran Inj) 4 mg Q6H PRN IV NAUSEA AND/OR VOMITING; Start 08/23 at 19:00 Bisacodyl (Dulcolax Supp) 10 mg Q12H PRN CA CONSTIPATION; Start 08/23/16 at 19: 00 Magnesium Hydroxide (Milk Of Mag) 30 ml BID PRN PO CONSTIPATION; Start 08/23/16 at 19:00 Sodium Biphosphate/ Sodium Phosphate (Fleet Enema) 133 ml DAILY PRN CA CONSTIPATION; Start 08/23/16 at 19:00 Docusate Sodium (Colace) 100 mg BID PO ; Start 08/23/16 at 21:00 Diphenhydramine HCl (Benadryl) 25 mg Q6H PRN PO PRURITUS; Start 08/23/16 at 19: 00 Pantoprazole (Protonix Tab) 40 mg BID@06,18 PO Last administered on 08/24/16 05:30; Admin Dose 40 MG; Start 08/24/16 at 06:00 Pregabalin (Lyrica) 50 mg BID PO ; Start 08/23/16 at 21:00 Vancomycin HCl PER PHARMACY DOSING NOTE XX ; Start 08/23/16 at 20:00 Levofloxacin/ Dextrose (Levaquin 500mg/ D5W 100 ml (Pmx)) 100 ml @ 100 mls/hr Q48H IVPB Last administered on 08/23/16 21:18; Admin Dose 100 MLS/HR; Start 08/23/16 at 20:00 HEATHER MULLINS MD Aug 24, 2016 08:13
--- NOTE | 2016-08-24 08:32 | RADRPT ---
PROCEDURE: XR Chest. CLINICAL INDICATION: Shortness of breath, postop TECHNIQUE: An AP view of the chest was obtained. COMPARISON: Chest x-ray dated 08/23/2016 FINDINGS: There is prominence of the interstitial and central pulmonary vascular markings. There are right b asilar interstitial opacities and small right pleural effusion. No pneumothorax is seen. The card iomediastinal silhouette is mildly enlarged . Calcifications are seen within the aortic arch. The osseous structures demonstrate senescent changes. IMPRESSION: 1. Right basilar interstitial opacities may reflect interstitial edema, atelectasis, and / or pneum onia. Findings are mildly increased when compared to the prior examination. 2. Small right pleural effusion. 3. Findings suggestive of underline pulmonary vascular congestion. No significant interval change. 4. Mild cardiomegaly and aortic atherosclerosis. RPTAT: HH .Ania Isaacs MD, MD Date Time Electronically viewed and signed by .Ania Isaacs MD, on 08/24/2016 08:32 .G/
--- NOTE | 2016-08-24 08:34 | RADRPT ---
PROCEDURE: XR Hip. CLINICAL INDICATION: Postop. TECHNIQUE: An AP view of the pelvis was obtained. COMPARISON: None. FINDINGS: There are postsurgical changes from left total hip arthroplasty revision with femoral and acetabular components. The hardware is intact. Alignment appears satisfactory on the provided image. Antibi otic beads are noted within the joint space. No fracture is identified. There are expected post cuellar rgical changes with mild subcutaneous emphysema , catheter and skin safia. IMPRESSION: Expected postoperative changes from revision total left hip arthroplasty with antibiotic beads. Ali gnment appears anatomic. RPTAT: HH .Ania Isaacs MD, MD Date Time Electronically viewed and signed by .Ania Isaacs MD, MD on 08/24/2016 08:33 .G/
--- NOTE | 2016-08-24 08:36 | RADRPT ---
PROCEDURE: Intraoperative C-arm views CLINICAL INDICATION: Left hip arthroplasty TECHNIQUE: Images were obtained intraoperatively during a left hip arthroplasty procedure. COMPARISON: None available FINDINGS: X-ray images were obtained intraoperatively for localization during a left hip arthroplasty. 24 sec onds seconds of fluoroscopy time was utilized. 3 intraoperative images of the left hip and pelvis we re obtained. IMPRESSION: 24 seconds of fluoroscopy time utilized intraoperatively for localization during a left total hip a rthroplasty. 3 intraoperative images of the left hip and pelvis were obtained. RPTAT: HH .Anai Isaacs MD, MD Date Time Electronically viewed and signed by .Ania Isaacs MD, on 08/24/2016 08:36 .G/
--- NOTE | 2016-08-24 08:36 | RADRPT ---
PROCEDURE: XR Hip. CLINICAL INDICATION: Postop. TECHNIQUE: AP views of the left hip and femur were obtained COMPARISON: CT pelvis dated 08/17/2016 FINDINGS: There are postsurgical changes from left total hip arthroplasty with extended femoral and acetabular components. The hardware is intact. Alignment appears satisfactory on the provided image. No fra cture is identified. Antibiotic beads are seen within the femoral acetabular joint space. Small mat erial is noted along the superior medial margin of the acetabulum. There are expected post surgical changes with mild subcutaneous emphysema, catheter and skin safia. IMPRESSION: Expected postoperative changes from revision total left hip arthroplasty with buttressing of the sup erior medial acetabulum and placement of antibiotic beads. Alignment appears anatomic. RPTAT: HH .Ania Isaacs MD, Date Time Electronically viewed and signed by .Ania Isaacs MD, on 08/24/2016 08:35 .G/
--- NOTE | 2016-08-24 08:37 | RADRPT ---
PROCEDURE: XR Chest. CLINICAL INDICATION: Shortness of breath, postop TECHNIQUE: An AP view of the chest was obtained. COMPARISON: No prior exam is available for comparison. FINDINGS: There is prominence of the interstitial markings. No pleural effusion or pneumothorax is seen. Th e cardiomediastinal silhouette is mildly enlarged . Calcifications are seen within the aortic arch. The osseous structures demonstrate senescent changes. IMPRESSION: 1. Mild prominence of the interstitial markings, suggesting mild interstitial edema. Lung aeration is significantly improved when compared to the prior examination. 2. Mild cardiomegaly and aortic atherosclerosis. RPTAT: HH .Ania Isaacs MD, MD Date Time Electronically viewed and signed by .Ania Isaacs MD, on 08/24/2016 08:37 .G/
--- NOTE | 2016-08-24 08:52 | PN ---
Date/Time of Note Date/Time of Note DATE: 08/24/16 TIME: 08:47 Assessment/Plan Lines/Catheters IV Catheter Type (from Nrsg): Peripheral IV Jain in Place (from Nrsg): No Assessment/Plan Assessment/Plan Guarded condition in ICU, s/p hardware removal, failed left hip IM rodding, conversion to left posterior MIGUE -continue antibiotics per Dr. Seals based on CXR findings -pain meds as needed -SCDs and posterior hip precautions -hold ASA until tomorrow. Will plan to begin ASA 325mg BID for DVT prophylaxis tomorrow -hemodialysis per nephrology -check intra-operative cultures -OOB with PT as tolerated. TDWB -monitor drain -check AM labs Subjective 24 Hr Interval Summary No acute overnight events. H&H stable. Patient is complaining of pain to his left hip. Difficult to assess his orientation secondary to language barrier. Spoke with Dr. Seals regarding CXR, anticoagulation, as well as antibiotic therapy. Exam/Review of Systems Vital Signs Vitals Vital Signs Date Time Temp Pulse Resp B/P Pulse Ox O2 Delivery O2 Flow Rate FiO2 08/24/16 06:45 71 22 117/46 99 08/24/16 03:00 98.6 08/24/16 02:35 3.0 08/24/16 00:45 40 08/23/16 19:15 Mask Intake and Output 08/23/16 08/23/16 08/24/16 15:00 23:00 07:00 Intake Total 483 ml 20 ml Output Total 820 ml 20 ml Balance -337 ml 0 ml Exam Free Text/Dictation Hemovac: 40cc Dressing dry Incision clean, dry, and intact without redness or drainage 4/5 Quadriceps, Tibialis Anterior, EHL, Gastroc, Soleus, Peroneals Normal sensation Palpable DT/PT, CR <2 sec No distal edema Constitutional: alert Results Result Diagram: 08/24/16 0443 08/24/16 0443 TONI ORNELAS PA-C Aug 24, 2016 08:52
[2016-08-24] MEDS ORDERED: CEFAZOLIN 1 GM/50 ML (PMX) 50 ML IVPB SCH (09:00)
[2016-08-24] MEDS: ISOSORBIDE DINITRATE 10 MG TAB PO SCH ×2 (09:00→20:46)
[2016-08-24] MEDS: INSULIN ASPART [NOVOLOG] 3 ML PEN SC SCH ×4 (09:16→21:00)
[2016-08-24] MEDS ORDERED: ASPIRIN (EC) 325 MG TAB PO SCH (09:30)
[2016-08-24] MEDS: FERROUS SULFATE (EC) 325 MG TAB PO SCH ×3 (10:20→20:46)
[2016-08-24] MEDS: ATORVASTATIN 40 MG TAB PO SCH (10:20)
[2016-08-24] MEDS: DOCUSATE SODIUM 100 MG CAP PO SCH ×2 (10:20→20:46)
[2016-08-24] MEDS: THIAMINE 100 MG TAB PO SCH (10:22)
[2016-08-24] MEDS: MULTIVIT/CA CARB/B CMPLX/FA TAB PO SCH (10:22)
--- NOTE | 2016-08-24 10:29 | PN ---
Date/Time of Note Date/Time of Note DATE: 08/24/16 TIME: 10:22 Assessment/Plan VTE Prophylaxis VTE Prophylaxis Intervention: other Lines/Catheters IV [facility]ter Type (from [facility] Peripheral IV Urinary Cath still in place: No Assessment/Plan Chief Complaint/Hosp Course Chief Complaint/Hosp Course 1. Failed open reduction internal fixation left intertrochanteric hip fracture. Status post hardware removal, left hip and conversion to left total hip arthroplasty. Continue postsurgical care, pain medication 2. Ischemic cardiomyopathy with ejection fraction of 35%. Continue to optimize cardiac medications if blood pressure allows. 3. CAD status post coronary artery stenting in the past. The patient was on Plavix. Cardiology following. Plavix on hold because of surgery on 08/23/2016. 4. Essential hypertension. At this time we will hold off blood pressure medication secondary to hypotension, 5. Dyslipidemia. Continue statin. 6. Type 2 diabetes mellitus. Hemoglobin A1c 5.2. Continue sliding scale insulin along with Lantus insulin. Blood sugars well controlled. 7. Normocytic anemia. Underlying iron deficiency. Continue iron supplements. 8. Hyperkalemia. On hemodialysis follow up electrolytes in a.m. 9. End-stage renal disease. On hemodialysis continue nephrology recommendations 10. Deep venous thrombosis prophylaxis. Bilateral sequential compression devices. 11. Gastrointestinal prophylaxis with histamine 2 receptor blockers. PLAN: Hemodialysis as per Nephrology. We will continue monitor patient closely for recommendation management treatment as clinical course DVT prophylaxis as per orthopedic surgery recommendations Problems: Subjective 24 Hr Interval Summary Free Text/Dictation Patient denies any chest pain or shortness of breath Obtaining hemodialysis On pressors via levophed at 5 ARCHIE Denies of any pain in his left hip Exam/Review of Systems Vital Signs Vitals Vital Signs Date Time Temp Pulse Resp B/P Pulse Ox O2 Delivery O2 Flow Rate FiO2 08/24/16 09:45 94 22 118/55 95 Nasal Cannula 4.0 08/24/16 08:00 98.1 08/24/16 00:45 40 Intake and Output 08/23/16 08/23/16 08/24/16 15:00 23:00 07:00 Intake Total 483 ml 25.625 ml Output Total 820 ml 20 ml Balance -337 ml 5.625 ml Exam General: The patient is well-developed, Not in acute distress. HEENT: Atraumatic, normocephalic. The pupils are equal and round . Neck: Supple with full range of motion. Chest: Normal expansion of the thorax during inspiration Lungs: Clear to auscultation bilaterally Heart: Normal S1-S2, Regular rhythm and rate. Abdomen: Soft , nontender, nondistended , bowel sounds are present. Extremities: AV fistula and right upper extremity, no edema no cyanosis, surgical site is dry and clean at the left lower extremity, drain in place Neurologic: Normal mental status,The patient is awake, alert and oriented . Results Result Diagram: 08/24/16 0443 08/24/16 0443 Results 24 hrs Laboratory Tests Test 08/23/16 12:16 08/23/16 19:05 08/23/16 20:14 08/23/16 20:47 Bedside Glucose 96 171 Arterial Blood HCO3 22.5 Arterial Blood Base Excess -4.6 L Arterial Blood Oxygen Saturation 95.7 Ruel Test N/A Arterial Blood Gas Puncture Site LB Arterial Blood Carboxyhemoglobin 1.3 Arterial Blood Date Drawn 08/23/2016 7:20:00 PM Arterial Blood Methemoglobin 0 Arterial Blood pCO2 (Temp correct) 49.6 H Arterial Blood pH (Temp corrected) 7.274 *L Arterial Blood pO2 (Temp corrected) 88.9 Blood Gas A-a O2 Differential 175.5 H Blood Gas Critical Value Read Back JEANA, RN Blood Gas Modality MASK - NRB Blood Gas Notified Time 08/23/2016 7:38:00 PM Blood Gas Notified Whom [place] Blood Gas Specimen Source Blood arterial Blood Gas Temperature 37.0 FiO2 45.0 Oxyhemoglobin Percent 94.5 Total Hemoglobin 13.2 Alanine Aminotransferase (ALT/SGPT) 35 Albumin 2.8 L Albumin/Globulin Ratio 0.75 Alkaline Phosphatase 134 H Anion Gap 22 H Aspartate Amino Transf (AST/SGOT) 49 H Blood Urea Nitrogen 53 H Calcium Level 8.8 Carbon Dioxide Level 20 #L Chloride Level 99 Creatinine 5.84 H Direct Bilirubin 0.10 Globulin 3.70 H Glucose Level 203 Hematocrit 37.0 L Hemoglobin 11.9 L Indirect Bilirubin 0.2 Lymphocytes # 0.3 L Lymphocytes % 2.0 L Magnesium Level 2.4 Mean Corpuscular Hemoglobin 27.7 L Mean Corpuscular Hemoglobin Concent 32.2 Mean Corpuscular Volume 86.2 Mean Platelet Volume 10.6 H Monocytes # 0.1 L Monocytes % 1.0 Neutrophils # 12.2 H Neutrophils % 97.0 H Phosphorus Level 7.3 H Platelet Count 250 Potassium Level 5.9 H Red Blood Count 4.29 L Red Cell Distribution Width 15.9 H Sodium Level 135 Total Bilirubin 0.3 Total Protein 6.5 White Blood Count 12.6 #H Test 08/23/16 22:30 08/24/16 01:09 08/24/16 04:43 08/24/16 09:10 Arterial Blood HCO3 13.1 L Arterial Blood Base Excess -12.1 L Arterial Blood Oxygen Saturation 97.6 Ruel Test ACCEPTAB Arterial Blood Gas Puncture Site Left Radial Arterial Blood Carboxyhemoglobin 0.7 Arterial Blood Date Drawn 08/23/2016 10:20:49 PM Arterial Blood Methemoglobin 0.2 Arterial Blood pCO2 (Temp correct) 27.6 L Arterial Blood pH (Temp corrected) 7.294 *L Arterial Blood pO2 (Temp corrected) 118.9 H Blood Gas A-a O2 Differential 206.6 H Blood Gas Actual Respiration Rate 24 Blood Gas Critical Value Read Back [facility] [place] Blood Gas IPAP/EPAP Ratio 15/8 Blood Gas Modality MASK-BIPAP Blood Gas Notified Time 08/23/2016 10:33:46 PM Blood Gas Notified Whom JMD Blood Gas Respiration Rate 14.0 Blood Gas Specimen Source Blood arterial Blood Gas Temperature 37.0 FiO2 50.0 Oxyhemoglobin Percent 96.7 Total Hemoglobin 9.4 L Bedside Glucose 177 157 Anion Gap 20 H Basophils # 0.0 Basophils % 0.1 Blood Urea Nitrogen 64 H Calcium Level 9.3 Carbon Dioxide Level 22 Chloride Level 103 Creatinine 6.19 H Eosinophils # 0.0 Eosinophils % 0.0 Glucose Level 149 # Hematocrit 34.2 L Hemoglobin 10.9 L Lymphocytes # 1.1 Lymphocytes % 9.8 L Magnesium Level 2.1 Mean Corpuscular Hemoglobin 27.4 L Mean Corpuscular Hemoglobin Concent 31.9 L Mean Corpuscular Volume 85.9 Mean Platelet Volume 11.2 H Monocytes # 0.6 Monocytes % 5.5 Neutrophils # 9.5 H Neutrophils % 84.2 H Nucleated Red Blood Cells # 0.0 Nucleated Red Blood Cells % 0.0 Phosphorus Level 9.0 H Platelet Count 264 Potassium Level 6.0 H Red Blood Count 3.98 L Red Cell Distribution Width 16.7 H Sodium Level 139 White Blood Count 11.3 H Medications Medications Current Medications Atorvastatin Calcium (Lipitor) 40 mg DAILY PO Last administered on 08/22/16 09: 30; Admin Dose 40 MG; Start 08/18/16 at 09:00 Carvedilol (Coreg) 6.25 mg BID PO Last administered on 08/22/16 20:16; Admin Dose 6.25 MG; Start 08/17/16 at 23:00 Clopidogrel Bisulfate (plaVIX) 75 mg DAILY PO ; Start 08/18/16 at 09:00; Status Future Hold Isosorbide Dinitrate (Isordil) 10 mg BID PO Last administered on 08/22/16 20:15 ; Admin Dose 10 MG; Start 08/17/16 at 23:00 Metoclopramide HCl (Reglan) 5 mg Q6H PRN PO NAUSEA Last administered on 09:05; Admin Dose 5 MG; Start 08/17/16 at 23:00 Nortriptyline HCl (Aventyl) 25 mg BID PO Last administered on 08/22/16 20:16; Admin Dose 25 MG; Start 08/17/16 at 23:00 Thiamine HCl (Vitamin B1) 250 mg DAILY PO Last administered on 08/22/16 09:30; Admin Dose 250 MG; Start 08/18/16 at 09:00 Multivit/Ca Carb/ B Cmplx/FA/Prenat (Aleyda-Pam) 1 tab DAILY PO Last administered on 08/22/16 09:30; Admin Dose 1 TAB; Start 08/18/16 at 09:00 Insulin Glargine (Lantus) 10 unit HS SC ; Start 08/18/16 at 21:00; Status Future Hold Diagnostic Test (Pha) (Accucheck) 1 ea 02 XX Last administered on 08/24/16 01: 11; Admin Dose 1 EA; Start 08/18/16 at 02:00 Miscellaneous Information 1 ea NOTE XX ; Start 08/17/16 at 23:30 Glucose (Glutose) 15 gm Q15M PRN PO DECREASED GLUCOSE; Start 08/17/16 at 23:30 Glucose (Glutose) 22.5 gm Q15M PRN PO DECREASED GLUCOSE; Start 08/17/16 at 23:30 Dextrose (D50w Syringe) 25 ml Q15M PRN IV DECREASED GLUCOSE; Start 08/17/16 at 23:30 Dextrose (D50w Syringe) 50 ml Q15M PRN IV DECREASED GLUCOSE; Start 08/17/16 at 23:30 Glucagon (Glucagen) 1 mg Q15M PRN IM DECREASED GLUCOSE; Start 08/17/16 at 23:30 Glucose (Glutose) 15 gm Q15M PRN BUCCAL DECREASED GLUCOSE; Start 08/17/16 at 23: 30 Ferrous Sulfate (Ferrous Sulfate (Ec)) 325 mg TID PO Last administered on 20:16; Admin Dose 325 MG; Start 08/18/16 at 16:30 Miscellaneous Information 1 ea NOTE XX ; Start 08/21/16 at 17:00; Stop 08/25/16 at 16:59 Hydromorphone HCl (Dilaudid [employer] [place]) 0.2 MG DOSE 10 ... Q4PCA IV ; Start 08/21/16 at 17:00 Miscellaneous Information 1 ea 1 ea NOTE XX ; Start 08/23/16 at 07:00; Stop 08/27 at 06:59 Dextrose/Sodium Chloride 1,000 ml @ 50 mls/hr Q20H IV Last administered on 06:20; Admin Dose 50 MLS/HR; Start 08/23/16 at 10:00 Acetaminophen (Ofirmev 1000mg/ 100ml Iv) 100 ml @ 400 mls/hr Q6 IVPB Last administered on 08/24/16 05:30; Admin Dose 400 MLS/HR; Start 08/24/16 at 00:00 ; Stop 08/24/16 at 23:59 Tramadol HCl (Ultram) 50 mg Q6 PO ; Start 08/24/16 at 00:00; Stop 08/26/16 at 00 :00 Oxycodone HCl (Roxicodone) 5 mg Q4H PRN PO PAIN LEVEL 1-3; Start 08/23/16 at 19: 00 Oxycodone HCl (Roxicodone) 10 mg Q4H PRN PO PAIN LEVEL 4-7; Start 08/23/16 at 19 :00 Hydromorphone HCl (Dilaudid) 1 mg Q3H PRN IV PAIN LEVEL 8-10; Start 08/23/16 at 19:00 Ondansetron HCl (Zofran Inj) 4 mg Q6H PRN IV NAUSEA AND/OR VOMITING; Start 08/23 at 19:00 Bisacodyl (Dulcolax Supp) 10 mg Q12H PRN [place] CONSTIPATION; Start 08/23/16 at 19: 00 Magnesium Hydroxide (Milk Of Mag) 30 ml BID PRN PO CONSTIPATION; Start 08/23/16 at 19:00 Sodium Biphosphate/ Sodium Phosphate (Fleet Enema) 133 ml DAILY PRN [place] CONSTIPATION; Start 08/23/16 at 19:00 Docusate Sodium (Colace) 100 mg BID PO ; Start 08/23/16 at 21:00 Diphenhydramine HCl (Benadryl) 25 mg Q6H PRN PO PRURITUS; Start 08/23/16 at 19: 00 Pantoprazole (Protonix Tab) 40 mg BID@06,18 PO Last administered on 08/24/16 05:30; Admin Dose 40 MG; Start 08/24/16 at 06:00 Pregabalin (Lyrica) 50 mg BID PO ; Start 08/23/16 at 21:00 Vancomycin HCl PER PHARMACY DOSING NOTE XX ; Start 08/23/16 at 20:00 Levofloxacin/ Dextrose (Levaquin 500mg/ D5W 100 ml (Pmx)) 100 ml @ 100 mls/hr Q48H IVPB Last administered on 08/23/16 21:18; Admin Dose 100 MLS/HR; Start 08/23/16 at 20:00 Miscellaneous Information (*Rx Drug Level Order Reminder*) 1 ONCE ONCE XX ; Start 08/25/16 at 05:00; Stop 08/25/16 at 05:01 Aspirin (Ecotrin) 325 mg BID PO ; Start 08/25/16 at 09:00 LEELA OSEGUERA MD Aug 24, 2016 10:29
[2016-08-24] MEDS: PREGABALIN 25 MG CAP PO SCH (10:38)
[2016-08-24] MEDS: NORTRIPTYLINE 25 MG CAP PO SCH ×2 (11:20→20:45)
--- NOTE | 2016-08-24 11:36 | CONS ---
Date/Time of Note Date/Time of Note DATE: 08/24/16 TIME: 11:33 Assessment/Plan Assessment/Plan Additional Assessment/Plan Hip fracture status post hip surgery Postop hypotension, improved Cardiomyopathy with ejection fraction 35% CAD with bare-metal stent to LAD May 2016 End-stage renal disease on hemodialysis Diabetes History of hypertension -Patient with postoperative hypotension, tolerated hemodialysis this morning and currently off IV pressor. Would hold all antihypertensives for today. Restart if blood pressure trend remained stable. Restart antiplatelet therapy when okay by our surgical colleagues. Fluid management via hemodialysis as per nephrology. Consultation Date/Type/Reason Admit Date/Time Aug 17, 2016 at 20:14 Type of Consultation: cv 24 HR Interval Summary Free Text/Dictation Patient feeling better, denies shortness of breath, dizziness or chest pain. Undergoing physical therapy currently Exam/Review of Systems Vital Signs Vitals Vital Signs Date Time Temp Pulse Resp B/P Pulse Ox O2 Delivery O2 Flow Rate FiO2 08/24/16 10:00 92 08/24/16 10:00 18 08/24/16 09:45 118/55 95 Nasal Cannula 4.0 08/24/16 08:00 98.1 08/24/16 00:45 40 Intake and Output 08/23/16 08/23/16 08/24/16 15:00 23:00 07:00 Intake Total 483 ml 25.625 ml Output Total 820 ml 20 ml Balance -337 ml 5.625 ml Exam Sitting up, undergoing physical therapy Constitutional: alert, oriented Head: normocephalic Neck: supple Respiratory: other (Coarse breath sounds bilaterally, no wheezing) Cardiovascular: other (S1-S2 heard), regular rate and rhythm Gastrointestinal: bowel sounds, non-tender, other (No guarding), soft Extremities: other (Trace edema, left leg brace) Results Result Diagram: 08/24/16 0443 08/24/16 0443 Results 24 hrs Laboratory Tests Test 08/23/16 12:16 08/23/16 19:05 08/23/16 20:14 08/23/16 20:47 Bedside Glucose 96 171 Arterial Blood HCO3 22.5 Arterial Blood Base Excess -4.6 L Arterial Blood Oxygen Saturation 95.7 Ruel Test N/A Arterial Blood Gas Puncture Site LB Arterial Blood Carboxyhemoglobin 1.3 Arterial Blood Date Drawn 08/23/2016 7:20:00 PM Arterial Blood Methemoglobin 0 Arterial Blood pCO2 (Temp correct) 49.6 H Arterial Blood pH (Temp corrected) 7.274 *L Arterial Blood pO2 (Temp corrected) 88.9 Blood Gas A-a O2 Differential 175.5 H Blood Gas Critical Value Read Back [place] Blood Gas Modality MASK - NRB Blood Gas Notified Time 08/23/2016 7:38:00 PM Blood Gas Notified Whom [place] Blood Gas Specimen Source Blood arterial Blood Gas Temperature 37.0 FiO2 45.0 Oxyhemoglobin Percent 94.5 Total Hemoglobin 13.2 Alanine Aminotransferase (ALT/SGPT) 35 Albumin 2.8 L Albumin/Globulin Ratio 0.75 Alkaline Phosphatase 134 H Anion Gap 22 H Aspartate Amino Transf (AST/SGOT) 49 H Blood Urea Nitrogen 53 H Calcium Level 8.8 Carbon Dioxide Level 20 #L Chloride Level 99 Creatinine 5.84 H Direct Bilirubin 0.10 Globulin 3.70 H Glucose Level 203 Hematocrit 37.0 L Hemoglobin 11.9 L Indirect Bilirubin 0.2 Lymphocytes # 0.3 L Lymphocytes % 2.0 L Magnesium Level 2.4 Mean Corpuscular Hemoglobin 27.7 L Mean Corpuscular Hemoglobin Concent 32.2 Mean Corpuscular Volume 86.2 Mean Platelet Volume 10.6 H Monocytes # 0.1 L Monocytes % 1.0 Neutrophils # 12.2 H Neutrophils % 97.0 H Phosphorus Level 7.3 H Platelet Count 250 Potassium Level 5.9 H Red Blood Count 4.29 L Red Cell Distribution Width 15.9 H Sodium Level 135 Total Bilirubin 0.3 Total Protein 6.5 White Blood Count 12.6 #H Test 08/23/16 22:30 08/24/16 01:09 08/24/16 04:43 08/24/16 09:10 Arterial Blood HCO3 13.1 L Arterial Blood Base Excess -12.1 L Arterial Blood Oxygen Saturation 97.6 Ruel Test ACCEPTAB Arterial Blood Gas Puncture Site Left Radial Arterial Blood Carboxyhemoglobin 0.7 Arterial Blood Date Drawn 08/23/2016 10:20:49 PM Arterial Blood Methemoglobin 0.2 Arterial Blood pCO2 (Temp correct) 27.6 L Arterial Blood pH (Temp corrected) 7.294 *L Arterial Blood pO2 (Temp corrected) 118.9 H Blood Gas A-a O2 Differential 206.6 H Blood Gas Actual Respiration Rate 24 Blood Gas Critical Value Read Back [place] [place] Blood Gas IPAP/EPAP Ratio 15 Blood Gas Modality MASK-BIPAP Blood Gas Notified Time 08/23/2016 10:33:46 PM Blood Gas Notified Whom HARSHIL Blood Gas Respiration Rate 14.0 Blood Gas Specimen Source Blood arterial Blood Gas Temperature 37.0 FiO2 50.0 Oxyhemoglobin Percent 96.7 Total Hemoglobin 9.4 L Bedside Glucose 177 157 Anion Gap 20 H Basophils # 0.0 Basophils % 0.1 Blood Urea Nitrogen 64 H Calcium Level 9.3 Carbon Dioxide Level 22 Chloride Level 103 Creatinine 6.19 H Eosinophils # 0.0 Eosinophils % 0.0 Glucose Level 149 # Hematocrit 34.2 L Hemoglobin 10.9 L Lymphocytes # 1.1 Lymphocytes % 9.8 L Magnesium Level 2.1 Mean Corpuscular Hemoglobin 27.4 L Mean Corpuscular Hemoglobin Concent 31.9 L Mean Corpuscular Volume 85.9 Mean Platelet Volume 11.2 H Monocytes # 0.6 Monocytes % 5.5 Neutrophils # 9.5 H Neutrophils % 84.2 H Nucleated Red Blood Cells # 0.0 Nucleated Red Blood Cells % 0.0 Phosphorus Level 9.0 H Platelet Count 264 Potassium Level 6.0 H Red Blood Count 3.98 L Red Cell Distribution Width 16.7 H Sodium Level 139 White Blood Count 11.3 H Medications Medications Current Medications Atorvastatin Calcium (Lipitor) 40 mg DAILY PO Last administered on 08/24/16 10 :20; Admin Dose 40 MG; Start 08/18/16 at 09:00 Carvedilol (Coreg) 6.25 mg BID PO Last administered on 08/22/16 20:16; Admin Dose 6.25 MG; Start 08/17/16 at 23:00 Clopidogrel Bisulfate (plaVIX) 75 mg DAILY PO ; Start 08/18/16 at 09:00; Status Future Hold Isosorbide Dinitrate (Isordil) 10 mg BID PO Last administered on 08/22/16 20:15 ; Admin Dose 10 MG; Start 08/17/16 at 23:00 Metoclopramide HCl (Reglan) 5 mg Q6H PRN PO NAUSEA Last administered on 09:05; Admin Dose 5 MG; Start 08/17/16 at 23:00 Nortriptyline HCl (Aventyl) 25 mg BID PO Last administered on 08/24/16 11:20; Admin Dose 25 MG; Start 08/17/16 at 23:00 Thiamine HCl (Vitamin B1) 250 mg DAILY PO Last administered on 08/24/16 10:22 ; Admin Dose 250 MG; Start 08/18/16 at 09:00 Multivit/Ca Carb/ B Cmplx/FA/Prenat (Aleyda-Pam) 1 tab DAILY PO Last administered on 08/24/16 10:22; Admin Dose 1 TAB; Start 08/18/16 at 09:00 Insulin Glargine (Lantus) 10 unit HS SC ; Start 08/18/16 at 21:00; Status Future Hold Diagnostic Test (Pha) (Accucheck) 1 ea 02 XX Last administered on 08/24/16 01: 11; Admin Dose 1 EA; Start 08/18/16 at 02:00 Miscellaneous Information 1 ea NOTE XX ; Start 08/17/16 at 23:30 Glucose (Glutose) 15 gm Q15M PRN PO DECREASED GLUCOSE; Start 08/17/16 at 23:30 Glucose (Glutose) 22.5 gm Q15M PRN PO DECREASED GLUCOSE; Start 08/17/16 at 23:30 Dextrose (D50w Syringe) 25 ml Q15M PRN IV DECREASED GLUCOSE; Start 08/17/16 at 23:30 Dextrose (D50w Syringe) 50 ml Q15M PRN IV DECREASED GLUCOSE; Start 08/17/16 at 23:30 Glucagon (Glucagen) 1 mg Q15M PRN IM DECREASED GLUCOSE; Start 08/17/16 at 23:30 Glucose (Glutose) 15 gm Q15M PRN BUCCAL DECREASED GLUCOSE; Start 08/17/16 at 23: 30 Ferrous Sulfate (Ferrous Sulfate (Ec)) 325 mg TID PO Last administered on 10:20; Admin Dose 325 MG; Start 08/18/16 at 16:30 Miscellaneous Information 1 ea NOTE XX ; Start 08/21/16 at 17:00; Stop 08/25/16 at 16:59 Hydromorphone HCl (Dilaudid [employer]) 0.2 MG DOSE 10 ... Q4PCA IV ; Start 08/21/16 at 17:00 Miscellaneous Information 1 ea 1 ea NOTE XX ; Start 08/23/16 at 07:00; Stop 08/27 at 06:59 Dextrose/Sodium Chloride 1,000 ml @ 50 mls/hr Q20H IV Last administered on 06:20; Admin Dose 50 MLS/HR; Start 08/23/16 at 10:00 Acetaminophen (Ofirmev 1000mg/ 100ml Iv) 100 ml @ 400 mls/hr Q6 IVPB Last administered on 08/24/16 05:30; Admin Dose 400 MLS/HR; Start 08/24/16 at 00:00 ; Stop 08/24/16 at 23:59 Tramadol HCl (Ultram) 50 mg Q6 PO ; Start 08/24/16 at 00:00; Stop 08/26/16 at 00 :00 Oxycodone HCl (Roxicodone) 5 mg Q4H PRN PO PAIN LEVEL 1-3; Start 08/23/16 at 19: 00 Oxycodone HCl (Roxicodone) 10 mg Q4H PRN PO PAIN LEVEL 4-7; Start 08/23/16 at 19 :00 Hydromorphone HCl (Dilaudid) 1 mg Q3H PRN IV PAIN LEVEL 8-10; Start 08/23/16 at 19:00 Ondansetron HCl (Zofran Inj) 4 mg Q6H PRN IV NAUSEA AND/OR VOMITING; Start 08/23 at 19:00 Bisacodyl (Dulcolax Supp) 10 mg Q12H PRN [place] CONSTIPATION; Start 08/23/16 at 19: 00 Magnesium Hydroxide (Milk Of Mag) 30 ml BID PRN PO CONSTIPATION; Start 08/23/16 at 19:00 Sodium Biphosphate/ Sodium Phosphate (Fleet Enema) 133 ml DAILY PRN [place] CONSTIPATION; Start 08/23/16 at 19:00 Docusate Sodium (Colace) 100 mg BID PO Last administered on 08/24/16 10:20; Admin Dose 100 MG; Start 08/23/16 at 21:00 Diphenhydramine HCl (Benadryl) 25 mg Q6H PRN PO PRURITUS; Start 08/23/16 at 19: 00 Pantoprazole (Protonix Tab) 40 mg BID@06,18 PO Last administered on 08/24/16 05:30; Admin Dose 40 MG; Start 08/24/16 at 06:00 Pregabalin (Lyrica) 50 mg BID PO Last administered on 08/24/16 10:38; Admin Dose 50 MG; Start 08/23/16 at 21:00 Vancomycin HCl PER PHARMACY DOSING NOTE XX ; Start 08/23/16 at 20:00 Levofloxacin/ Dextrose (Levaquin 500mg/ D5W 100 ml (Pmx)) 100 ml @ 100 mls/hr Q48H IVPB Last administered on 08/23/16 21:18; Admin Dose 100 MLS/HR; Start 08/23/16 at 20:00 Miscellaneous Information (*Rx Drug Level Order Reminder*) 1 ONCE ONCE XX ; Start 08/25/16 at 05:00; Stop 08/25/16 at 05:01 Aspirin (Ecotrin) 325 mg BID PO ; Start 08/25/16 at 09:00 Kike Cruz DO Aug 24, 2016 11:36
--- NOTE | 2016-08-24 11:59 | PN ---
Date/Time of Note Date/Time of Note DATE: 08/24/16 TIME: 10:31 Anesthesia Note: A 65year male s/p left hip arthroplasty, removal of hardware under TIVA and spinal, pod #1. pt is doing fine more oriented and alert compared to pre op, under dialysis, pain is controlled, no N/V headache, or itching. back is clean. Assessment/Plan VTE Prophylaxis VTE Prophylaxis Intervention: SCD's Lines/Catheters IV Catheter Type (from Nrsg): Peripheral IV Urinary Cath still in place: No Exam/Review of Systems Vital Signs Vitals Vital Signs Date Time Temp Pulse Resp B/P Pulse Ox O2 Delivery O2 Flow Rate FiO2 08/24/16 10:00 92 08/24/16 10:00 18 08/24/16 09:45 118/55 95 Nasal Cannula 4.0 08/24/16 08:00 98.1 08/24/16 00:45 40 Intake and Output 08/23/16 08/23/16 08/24/16 15:00 23:00 07:00 Intake Total 483 ml 25.625 ml Output Total 820 ml 20 ml Balance -337 ml 5.625 ml Results Result Diagram: 08/24/16 0443 08/24/16 0443 Results 24 hrs Laboratory Tests Test 08/23/16 12:16 08/23/16 19:05 08/23/16 20:14 08/23/16 20:47 Bedside Glucose 96 171 Arterial Blood HCO3 22.5 Arterial Blood Base Excess -4.6 L Arterial Blood Oxygen Saturation 95.7 Rule Test N/A Arterial Blood Gas Puncture Site LB Arterial Blood Carboxyhemoglobin 1.3 Arterial Blood Date Drawn 08/23/2016 7:20:00 PM Arterial Blood Methemoglobin 0 Arterial Blood pCO2 (Temp correct) 49.6 H Arterial Blood pH (Temp corrected) 7.274 *L Arterial Blood pO2 (Temp corrected) 88.9 Blood Gas A-a O2 Differential 175.5 H Blood Gas Critical Value Read Back JEANA RN Blood Gas Modality MASK - NRB Blood Gas Notified Time 08/23/2016 7:38:00 PM Blood Gas Notified Whom MA Blood Gas Specimen Source Blood arterial Blood Gas Temperature 37.0 FiO2 45.0 Oxyhemoglobin Percent 94.5 Total Hemoglobin 13.2 Alanine Aminotransferase (ALT/SGPT) 35 Albumin 2.8 L Albumin/Globulin Ratio 0.75 Alkaline Phosphatase 134 H Anion Gap 22 H Aspartate Amino Transf (AST/SGOT) 49 H Blood Urea Nitrogen 53 H Calcium Level 8.8 Carbon Dioxide Level 20 #L Chloride Level 99 Creatinine 5.84 H Direct Bilirubin 0.10 Globulin 3.70 H Glucose Level 203 Hematocrit 37.0 L Hemoglobin 11.9 L Indirect Bilirubin 0.2 Lymphocytes # 0.3 L Lymphocytes % 2.0 L Magnesium Level 2.4 Mean Corpuscular Hemoglobin 27.7 L Mean Corpuscular Hemoglobin Concent 32.2 Mean Corpuscular Volume 86.2 Mean Platelet Volume 10.6 H Monocytes # 0.1 L Monocytes % 1.0 Neutrophils # 12.2 H Neutrophils % 97.0 H Phosphorus Level 7.3 H Platelet Count 250 Potassium Level 5.9 H Red Blood Count 4.29 L Red Cell Distribution Width 15.9 H Sodium Level 135 Total Bilirubin 0.3 Total Protein 6.5 White Blood Count 12.6 #H Test 08/23/16 22:30 08/24/16 01:09 08/24/16 04:43 08/24/16 09:10 Arterial Blood HCO3 13.1 L Arterial Blood Base Excess -12.1 L Arterial Blood Oxygen Saturation 97.6 Ruel Test ACCEPTAB Arterial Blood Gas Puncture Site Left Radial Arterial Blood Carboxyhemoglobin 0.7 Arterial Blood Date Drawn 08/23/2016 10:20:49 PM Arterial Blood Methemoglobin 0.2 Arterial Blood pCO2 (Temp correct) 27.6 L Arterial Blood pH (Temp corrected) 7.294 *L Arterial Blood pO2 (Temp corrected) 118.9 H Blood Gas A-a O2 Differential 206.6 H Blood Gas Actual Respiration Rate 24 Blood Gas Critical Value Read Back SEVEN WILLIAM Blood Gas IPAP/EPAP Ratio 15/8 Blood Gas Modality MASK-BIPAP Blood Gas Notified Time 08/23/2016 10:33:46 PM Blood Gas Notified Whom HARSHIL Blood Gas Respiration Rate 14.0 Blood Gas Specimen Source Blood arterial Blood Gas Temperature 37.0 FiO2 50.0 Oxyhemoglobin Percent 96.7 Total Hemoglobin 9.4 L Bedside Glucose 177 157 Anion Gap 20 H Basophils # 0.0 Basophils % 0.1 Blood Urea Nitrogen 64 H Calcium Level 9.3 Carbon Dioxide Level 22 Chloride Level 103 Creatinine 6.19 H Eosinophils # 0.0 Eosinophils % 0.0 Glucose Level 149 # Hematocrit 34.2 L Hemoglobin 10.9 L Lymphocytes # 1.1 Lymphocytes % 9.8 L Magnesium Level 2.1 Mean Corpuscular Hemoglobin 27.4 L Mean Corpuscular Hemoglobin Concent 31.9 L Mean Corpuscular Volume 85.9 Mean Platelet Volume 11.2 H Monocytes # 0.6 Monocytes % 5.5 Neutrophils # 9.5 H Neutrophils % 84.2 H Nucleated Red Blood Cells # 0.0 Nucleated Red Blood Cells % 0.0 Phosphorus Level 9.0 H Platelet Count 264 Potassium Level 6.0 H Red Blood Count 3.98 L Red Cell Distribution Width 16.7 H Sodium Level 139 White Blood Count 11.3 H Medications Medications Current Medications Atorvastatin Calcium (Lipitor) 40 mg DAILY PO Last administered on 08/24/16 10 :20; Admin Dose 40 MG; Start 08/18/16 at 09:00 Carvedilol (Coreg) 6.25 mg BID PO Last administered on 08/22/16 20:16; Admin Dose 6.25 MG; Start 08/17/16 at 23:00 Clopidogrel Bisulfate (plaVIX) 75 mg DAILY PO ; Start 08/18/16 at 09:00; Status Future Hold Isosorbide Dinitrate (Isordil) 10 mg BID PO Last administered on 08/22/16 20:15 ; Admin Dose 10 MG; Start 08/17/16 at 23:00 Metoclopramide HCl (Reglan) 5 mg Q6H PRN PO NAUSEA Last administered on 09:05; Admin Dose 5 MG; Start 08/17/16 at 23:00 Nortriptyline HCl (Aventyl) 25 mg BID PO Last administered on 08/24/16 11:20; Admin Dose 25 MG; Start 08/17/16 at 23:00 Thiamine HCl (Vitamin B1) 250 mg DAILY PO Last administered on 08/24/16 10:22 ; Admin Dose 250 MG; Start 08/18/16 at 09:00 Multivit/Ca Carb/ B Cmplx/FA/Prenat (Aleyda-Pam) 1 tab DAILY PO Last administered on 08/24/16 10:22; Admin Dose 1 TAB; Start 08/18/16 at 09:00 Insulin Glargine (Lantus) 10 unit HS SC ; Start 08/18/16 at 21:00; Status Future Hold Diagnostic Test (Pha) (Accucheck) 1 ea 02 XX Last administered on 08/24/16 01: 11; Admin Dose 1 EA; Start 08/18/16 at 02:00 Miscellaneous Information 1 ea NOTE XX ; Start 08/17/16 at 23:30 Glucose (Glutose) 15 gm Q15M PRN PO DECREASED GLUCOSE; Start 08/17/16 at 23:30 Glucose (Glutose) 22.5 gm Q15M PRN PO DECREASED GLUCOSE; Start 08/17/16 at 23:30 Dextrose (D50w Syringe) 25 ml Q15M PRN IV DECREASED GLUCOSE; Start 08/17/16 at 23:30 Dextrose (D50w Syringe) 50 ml Q15M PRN IV DECREASED GLUCOSE; Start 08/17/16 at 23:30 Glucagon (Glucagen) 1 mg Q15M PRN IM DECREASED GLUCOSE; Start 08/17/16 at 23:30 Glucose (Glutose) 15 gm Q15M PRN BUCCAL DECREASED GLUCOSE; Start 08/17/16 at 23: 30 Ferrous Sulfate (Ferrous Sulfate (Ec)) 325 mg TID PO Last administered on 10:20; Admin Dose 325 MG; Start 08/18/16 at 16:30 Miscellaneous Information 1 ea NOTE XX ; Start 08/21/16 at 17:00; Stop 08/25/16 at 16:59 Hydromorphone HCl (Dilaudid RESEARCH FELLOW) 0.2 MG DOSE 10 ... Q4PCA IV ; Start 08/21/16 at 17:00 Miscellaneous Information 1 ea 1 ea NOTE XX ; Start 08/23/16 at 07:00; Stop 08/27 at 06:59 Dextrose/Sodium Chloride 1,000 ml @ 50 mls/hr Q20H IV Last administered on 06:20; Admin Dose 50 MLS/HR; Start 08/23/16 at 10:00 Acetaminophen (Ofirmev 1000mg/ 100ml Iv) 100 ml @ 400 mls/hr Q6 IVPB Last administered on 08/24/16 05:30; Admin Dose 400 MLS/HR; Start 08/24/16 at 00:00 ; Stop 08/24/16 at 23:59 Tramadol HCl (Ultram) 50 mg Q6 PO ; Start 08/24/16 at 00:00; Stop 08/26/16 at 00 :00 Oxycodone HCl (Roxicodone) 5 mg Q4H PRN PO PAIN LEVEL 1-3; Start 08/23/16 at 19: 00 Oxycodone HCl (Roxicodone) 10 mg Q4H PRN PO PAIN LEVEL 4-7; Start 08/23/16 at 19 :00 Hydromorphone HCl (Dilaudid) 1 mg Q3H PRN IV PAIN LEVEL 8-10; Start 08/23/16 at 19:00 Ondansetron HCl (Zofran Inj) 4 mg Q6H PRN IV NAUSEA AND/OR VOMITING; Start 08/23 at 19:00 Bisacodyl (Dulcolax Supp) [address] CONSTIPATION; Start 08/23/16 at 19: 00 Magnesium Hydroxide (Milk Of Mag) 30 ml BID PRN PO CONSTIPATION; Start 08/23/16 at 19:00 Sodium Biphosphate/ Sodium Phosphate (Fleet Enema) [address] CONSTIPATION; Start 08/23/16 at 19:00 Docusate Sodium (Colace) 100 mg BID PO Last administered on 08/24/16 10:20; Admin Dose 100 MG; Start 08/23/16 at 21:00 Diphenhydramine HCl (Benadryl) 25 mg Q6H PRN PO PRURITUS; Start 08/23/16 at 19: 00 Pantoprazole (Protonix Tab) 40 mg BID@06,18 PO Last administered on 08/24/16 05:30; Admin Dose 40 MG; Start 08/24/16 at 06:00 Pregabalin (Lyrica) 50 mg BID PO Last administered on 08/24/16 10:38; Admin Dose 50 MG; Start 08/23/16 at 21:00 Vancomycin HCl PER PHARMACY DOSING NOTE XX ; Start 08/23/16 at 20:00 Levofloxacin/ Dextrose (Levaquin 500mg/ D5W 100 ml (Pmx)) 100 ml @ 100 mls/hr Q48H IVPB Last administered on 08/23/16 21:18; Admin Dose 100 MLS/HR; Start 08/23/16 at 20:00 Miscellaneous Information (*Rx Drug Level Order Reminder*) 1 ONCE ONCE XX ; Start 08/25/16 at 05:00; Stop 08/25/16 at 05:01 Aspirin (Ecotrin) 325 mg BID PO ; Start 08/25/16 at 09:00 SCOOBY AIKEN MD Aug 24, 2016 11:58
--- NOTE | 2016-08-24 14:44 | RADRPT ---
Vent Rate: 94 bpm RR Interval: 0 msec [place] Interval: 156 msec QRS Duration: 74 msec QT Interval: 372 msec QTC Interval: 465 msec P-R-T [place]: 68 - 9 - 75 degrees Normal sinus rhythm Possible Left atrial enlargement T wave abnormality, consider lateral ischemia Prolonged QT Abnormal ECG Electronically Signed By: Sebastian Coates [id number]
--- NOTE | 2016-08-24 15:42 | CONS ---
Date/Time of Note Date/Time of Note DATE: 08/24/16 TIME: 15:37 Assessment/Plan Assessment/Plan Chief Complaint/Hosp Course - ESRD - ANEMIA - Hx of Hip Fracture - S/P Total Hip Replacement - CAD/CHF - Recent Angiogram @ [facility] & STENT PLAN: ESRD on Dialysis @ [facility] Bedside dialysis today UF of ~ 1 Kg Slightly confused today but overall has improved Pain better controlled compared to out patient Continue with PT/OT Next Dialysis hopefully Saturday if potassium stay stable Problems: Consultation Date/Type/Reason Admit Date/Time Aug 17, 2016 at 20:14 Date of Consultation: Aug 24, 2016 Type of Consultation: NEPHROLOGY Reason for Consultation ESRD HD Dependent Constitutional: improved, no complaints Eyes: no complaints ENT: no complaints Respiratory: no complaints Cardiovascular: no complaints Gastrointestinal: no complaints Genitourinary: no complaints Musculoskeletal: no complaints Skin: no complaints Past Medical History Medical History: congestive heart failure, coronary artery disease, hypertension, renal disease Family History Significant Family History: renal disease Social History Alcohol Use: none Smoking Status: Never smoker Drug Use: none Exam/Review of Systems Vital Signs Vitals Vital Signs Date Time Temp Pulse Resp B/P Pulse Ox O2 Delivery O2 Flow Rate FiO2 08/24/16 14:04 4.0 08/24/16 14:00 86 22 83/43 Nasal Cannula 08/24/16 13:45 99 08/24/16 12:00 97.7 08/24/16 00:45 40 Intake and Output 08/23/16 08/23/16 08/24/16 15:00 23:00 07:00 Intake Total 483 ml 25.625 ml Output Total 820 ml 20 ml Balance -337 ml 5.625 ml Exam Constitutional: alert, oriented Psych: no complaints Head: normocephalic Eyes: nl conjunctiva Neck: supple Respiratory: crackles/rales Cardiovascular: systolic murmur Gastrointestinal: soft Results Result Diagram: 08/24/16 0443 08/24/16442 Results 24 hrs Laboratory Tests Test 08/23/16 19:05 08/23/16 20:14 08/23/16 20:47 08/23/16 22:30 Arterial Blood HCO3 22.5 13.1 L Arterial Blood Base Excess -4.6 L -12.1 L Arterial Blood Oxygen Saturation 95.7 97.6 Ruel Test N/A ACCEPTAB Arterial Blood Gas Puncture Site LB Left Radial Arterial Blood Carboxyhemoglobin 1.3 0.7 Arterial Blood Date Drawn 08/23/2016 7:20:00 PM 08/23/2016 10:20:49 PM Arterial Blood Methemoglobin 0 0.2 Arterial Blood pCO2 (Temp correct) 49.6 H 27.6 L Arterial Blood pH (Temp corrected) 7.274 *L 7.294 *L Arterial Blood pO2 (Temp corrected) 88.9 118.9 H Blood Gas A-a O2 Differential 175.5 H 206.6 H Blood Gas Critical Value Read Back [place] RN Blood Gas Modality MASK - NRB MASK-BIPAP Blood Gas Notified Time 08/23/2016 7:38:00 PM 08/23/2016 10:33:46 PM Blood Gas Notified Whom NASIR CHUA Blood Gas Specimen Source Blood arterial Blood arterial Blood Gas Temperature 37.0 37.0 FiO2 45.0 50.0 Oxyhemoglobin Percent 94.5 96.7 Total Hemoglobin 13.2 9.4 L Alanine Aminotransferase (ALT/SGPT) 35 Albumin 2.8 L Albumin/Globulin Ratio 0.75 Alkaline Phosphatase 134 H Anion Gap 22 H Aspartate Amino Transf (AST/SGOT) 49 H Blood Urea Nitrogen 53 H Calcium Level 8.8 Carbon Dioxide Level 20 #L Chloride Level 99 Creatinine 5.84 H Direct Bilirubin 0.10 Globulin 3.70 H Glucose Level 203 Hematocrit 37.0 L Hemoglobin 11.9 L Indirect Bilirubin 0.2 Lymphocytes # 0.3 L Lymphocytes % 2.0 L Magnesium Level 2.4 Mean Corpuscular Hemoglobin 27.7 L Mean Corpuscular Hemoglobin Concent 32.2 Mean Corpuscular Volume 86.2 Mean Platelet Volume 10.6 H Monocytes # 0.1 L Monocytes % 1.0 Neutrophils # 12.2 H Neutrophils % 97.0 H Phosphorus Level 7.3 H Platelet Count 250 Potassium Level 5.9 H Red Blood Count 4.29 L Red Cell Distribution Width 15.9 H Sodium Level 135 Total Bilirubin 0.3 Total Protein 6.5 White Blood Count 12.6 #H Bedside Glucose 171 Blood Gas Actual Respiration Rate 24 Blood Gas IPAP/EPAP Ratio 15/8 Blood Gas Respiration Rate 14.0 Test 08/24/16 01:09 08/24/16 04:43 08/24/16 09:10 08/24/16 12:44 Bedside Glucose 177 157 143 Anion Gap 20 H Basophils # 0.0 Basophils % 0.1 Blood Urea Nitrogen 64 H Calcium Level 9.3 Carbon Dioxide Level 22 Chloride Level 103 Creatinine 6.19 H Eosinophils # 0.0 Eosinophils % 0.0 Glucose Level 149 # Hematocrit 34.2 L Hemoglobin 10.9 L Lymphocytes # 1.1 Lymphocytes % 9.8 L Magnesium Level 2.1 Mean Corpuscular Hemoglobin 27.4 L Mean Corpuscular Hemoglobin Concent 31.9 L Mean Corpuscular Volume 85.9 Mean Platelet Volume 11.2 H Monocytes # 0.6 Monocytes % 5.5 Neutrophils # 9.5 H Neutrophils % 84.2 H Nucleated Red Blood Cells # 0.0 Nucleated Red Blood Cells % 0.0 Phosphorus Level 9.0 H Platelet Count 264 Potassium Level 6.0 H Red Blood Count 3.98 L Red Cell Distribution Width 16.7 H Sodium Level 139 White Blood Count 11.3 H Medications Medications Current Medications Atorvastatin Calcium (Lipitor) 40 mg DAILY PO Last administered on 08/24/16 10 :20; Admin Dose 40 MG; Start 08/18/16 at 09:00 Carvedilol (Coreg) 6.25 mg BID PO Last administered on 08/22/16 20:16; Admin Dose 6.25 MG; Start 08/17/16 at 23:00 Clopidogrel Bisulfate (plaVIX) 75 mg DAILY PO ; Start 08/18/16 at 09:00; Status Future Hold Isosorbide Dinitrate (Isordil) 10 mg BID PO Last administered on 08/22/16 20:15 ; Admin Dose 10 MG; Start 08/17/16 at 23:00 Metoclopramide HCl (Reglan) 5 mg Q6H PRN PO NAUSEA Last administered on 09:05; Admin Dose 5 MG; Start 08/17/16 at 23:00 Nortriptyline HCl (Aventyl) 25 mg BID PO Last administered on 08/24/16 11:20; Admin Dose 25 MG; Start 08/17/16 at 23:00 Thiamine HCl (Vitamin B1) 250 mg DAILY PO Last administered on 08/24/16 10:22 ; Admin Dose 250 MG; Start 08/18/16 at 09:00 Multivit/Ca Carb/ B Cmplx/FA/Prenat (Aleyda-Pam) 1 tab DAILY PO Last administered on 08/24/16 10:22; Admin Dose 1 TAB; Start 08/18/16 at 09:00 Insulin Glargine (Lantus) 10 unit HS SC ; Start 08/18/16 at 21:00; Status Future Hold Diagnostic Test (Pha) (Accucheck) 1 ea 02 XX Last administered on 08/24/16 01: 11; Admin Dose 1 EA; Start 08/18/16 at 02:00 Miscellaneous Information 1 ea NOTE XX ; Start 08/17/16 at 23:30 Glucose (Glutose) 15 gm Q15M PRN PO DECREASED GLUCOSE; Start 08/17/16 at 23:30 Glucose (Glutose) 22.5 gm Q15M PRN PO DECREASED GLUCOSE; Start 08/17/16 at 23:30 Dextrose (D50w Syringe) 25 ml Q15M PRN IV DECREASED GLUCOSE; Start 08/17/16 at 23:30 Dextrose (D50w Syringe) 50 ml Q15M PRN IV DECREASED GLUCOSE; Start 08/17/16 at 23:30 Glucagon (Glucagen) 1 mg Q15M PRN IM DECREASED GLUCOSE; Start 08/17/16 at 23:30 Glucose (Glutose) 15 gm Q15M PRN BUCCAL DECREASED GLUCOSE; Start 08/17/16 at 23: 30 Ferrous Sulfate (Ferrous Sulfate (Ec)) 325 mg TID PO Last administered on 10:20; Admin Dose 325 MG; Start 08/18/16 at 16:30 Miscellaneous Information 1 ea NOTE XX ; Start 08/21/16 at 17:00; Stop 08/25/16 at 16:59 Hydromorphone HCl (Dilaudid NEWS VIDEOTAPE EDITOR) 0.2 MG DOSE 10 ... Q4PCA IV ; Start 08/21/16 at 17:00 Miscellaneous Information 1 ea 1 ea NOTE XX ; Start 08/23/16 at 07:00; Stop 08/27 at 06:59 Dextrose/Sodium Chloride 1,000 ml @ 50 mls/hr Q20H IV Last administered on 06:20; Admin Dose 50 MLS/HR; Start 08/23/16 at 10:00 Acetaminophen (Ofirmev 1000mg/ 100ml Iv) 100 ml @ 400 mls/hr Q6 IVPB Last administered on 08/24/16 12:57; Admin Dose 400 MLS/HR; Start 08/24/16 at 00:00 ; Stop 08/24/16 at 23:59 Tramadol HCl (Ultram) 50 mg Q6 PO Last administered on 08/24/16 12:56; Admin Dose 50 MG; Start 08/24/16 at 00:00; Stop 08/26/16 at 00:00 Oxycodone HCl (Roxicodone) 5 mg Q4H PRN PO PAIN LEVEL 1-3; Start 08/23/16 at 19: 00 Oxycodone HCl (Roxicodone) 10 mg Q4H PRN PO PAIN LEVEL 4-7; Start 08/23/16 at 19 :00 Hydromorphone HCl (Dilaudid) 1 mg Q3H PRN IV PAIN LEVEL 8-10; Start 08/23/16 at 19:00 Ondansetron HCl (Zofran Inj) 4 mg Q6H PRN IV NAUSEA AND/OR VOMITING; Start 08/23 at 19:00 Bisacodyl (Dulcolax Supp) 10 mg Q12H PRN [place] CONSTIPATION; Start 08/23/16 at 19: 00 Magnesium Hydroxide (Milk Of Mag) 30 ml BID PRN PO CONSTIPATION; Start 08/23/16 at 19:00 Sodium Biphosphate/ Sodium Phosphate (Fleet Enema) 133 ml DAILY PRN [place] CONSTIPATION; Start 08/23/16 at 19:00 Docusate Sodium (Colace) 100 mg BID PO Last administered on 08/24/16 10:20; Admin Dose 100 MG; Start 08/23/16 at 21:00 Diphenhydramine HCl (Benadryl) 25 mg Q6H PRN PO PRURITUS; Start 08/23/16 at 19: 00 Pantoprazole (Protonix Tab) 40 mg BID@06,18 PO Last administered on 08/24/16 05:30; Admin Dose 40 MG; Start 08/24/16 at 06:00 Pregabalin (Lyrica) 50 mg BID PO Last administered on 08/24/16 10:38; Admin Dose 50 MG; Start 08/23/16 at 21:00 Vancomycin HCl PER PHARMACY DOSING NOTE XX ; Start 08/23/16 at 20:00 Levofloxacin/ Dextrose (Levaquin 500mg/ D5W 100 ml (Pmx)) 100 ml @ 100 mls/hr Q48H IVPB Last administered on 08/23/16t 21:18; Admin Dose 100 MLS/HR; Start 08/23/16 at 20:00 Miscellaneous Information (*Rx Drug Level Order Reminder*) 1 ONCE ONCE XX ; Start 08/25/16 at 05:00; Stop 08/25/16 at 05:01 Aspirin (Ecotrin) 325 mg BID PO ; Start 08/25/16 at 09:00 MINA QUICK MD Aug 24, 2016 15:42
[2016-08-24] MEDS: HYDROmorphONE 1 MG/ML SYG IV PRN (18:03)
[2016-08-24] MEDS ORDERED: NORepinephrine 8MG/250 ML (PMX 250 ML IV SCH (20:30)
[2016-08-25] VITALS (53 sets, daily range): BP systolic 92–228; BP diastolic 32–158; PULSE 63–119; RESP 16–31
[2016-08-25] MEDS: traMADol 50 MG TAB PO SCH ×5 (00:45→23:47)
[2016-08-25] MEDS: ACCU-CHEK XX SCH (02:00)
[2016-08-25] MEDS: DEXTROSE 5%-0.45% NACL 1,000 ML IV SCH ×3 (03:46→22:38)
[2016-08-25 05:42] LABS: ADD SCAN DIFF NO
[2016-08-25] MEDS: PANTOPRAZOLE (EC) 40 MG TAB PO SCH ×2 (05:48→18:10)
[2016-08-25 05:59] LABS: BASOPHILS % 0.2 % (0.0-2.0); EOSINOPHILS # 0.1 10^3/ul (0.0-0.5); EOSINOPHILS % 1.2 % (0.0-7.0); HEMATOCRIT 27.4 % (42.0-52.0); HEMOGLOBIN 8.8 g/dl (14.0-18.0); LYMPHOCYTES % 10.5 % (15.0-51.0); MEAN CORPUSCULAR HEMOGLOBIN 27.5 pg (29.0-33.0); MEAN CORPUSCULAR HGB CONC 32.1 g/dl (32.0-37.0); MEAN CORPUSCULAR VOLUME 85.6 fl (82.0-101.0); MONOCYTE # 0.7 10^3/ul (0.3-0.9); MONOCYTES % 7.3 % (0.0-11.0); NEUTROPHIL # 7.3 10^3/ul (1.6-7.5); NEUTROPHILS % 80.4 % (39.0-77.0); PLATELET COUNT 213 10^3/UL (140-415); RED CELL DISTRIBUTION WIDTH 16.5 % (11.5-14.5); WHITE BLOOD COUNT 9.1 10^3/ul (4.8-10.8)
[2016-08-25 06:11] LABS: POTASSIUM 4.4 mmol/L (3.5-5.1)
[2016-08-25 06:13] LABS: CREATININE 5.29 mg/dl (0.61-1.24)
[2016-08-25 06:14] LABS: CALCIUM 8.7 mg/dl (8.4-10.2)
[2016-08-25 06:16] LABS: MAGNESIUM 2.4 mg/dl (1.7-2.5); PHOSPHORUS 6.3 mg/dl (2.5-4.9)
[2016-08-25] MEDS: INSULIN ASPART [NOVOLOG] 3 ML PEN SC SCH ×4 (07:35→20:59)
--- NOTE | 2016-08-25 08:17 | PN ---
Date/Time of Note Date/Time of Note DATE: 08/25/16 TIME: 08:08 Assessment/Plan VTE Prophylaxis VTE Prophylaxis Intervention: SCD's, other (Aspirin 325 mg) Lines/Catheters IV Catheter Type (from Nrsg): A Line Jain in Place (from Nrsg): No Assessment/Plan Assessment/Plan -Hemovac remains intact. Likely remove tomorrow -Pain Meds as needed -Dressing intact. No change performed today per Dr. Hough instructions. Change will be performed tomorrow. -Continue with PT -ASA/SCDs for DVT Prophylaxis -Continue monitoring with Dr. Belle. Continue with Levaquin and vancomycin. -Discussed with Dr. Hough and given that patient remained stable as confirmed with charge nurse in ICU, patient may be transferred to [facility] as he has completed his Levophed dosing there is no complications with ongoing progress. Advised patient to remain in the immobilizer and abduction pillow. Do not remove Hemovac. Likely to be removed on 08/26/2016. -Patient Stable Subjective 24 Hr Interval Summary 65-year-old male status post hardware removal with conversion to left total hip arthroplasty via posterior route. Patient stable overnight with no overnight events. Continues with antibiotics Levaquin and vancomycin. Pain appears well- controlled but difficult to assess in detail due to language barrier. Continues to progress well. Exam/Review of Systems Vital Signs Vitals Vital Signs Date Time Temp Pulse Resp B/P Pulse Ox O2 Delivery O2 Flow Rate FiO2 08/25/16 07:00 78 26 140/42 08/25/16 06:45 98.4 89 Nasal Cannula 08/25/16 02:46 4.0 08/24/16 00:45 40 Intake and Output 08/24/16 08/24/16 08/25/16 15:00 23:00 07:00 Intake Total 2331.575 ml 740.40 ml 601 ml Output Total 1300 ml 0 ml Balance 1031.575 ml 740.40 ml 601 ml Exam Free Text/Dictation -Hemovac: Intact. Showing 340 cc output -Incision: Clean, Dry and Intact without any redness or drainage. -Thigh soft -4/5 Quadriceps, Tibialis Anterior, EHL Gastrocnemius/Soleus and Peroneals -Normal Sensation -Palpable DP/PT, Capillary Refill <2 secs -No Distal Edema -Negative Cheo Sign/No calf pain -Toes Freely Movable Results Result Diagram: 08/25/16 0520 08/25/16 0500 BERRY FULTON PA-C Aug 25, 2016 08:16
[2016-08-25] MEDS: THIAMINE 100 MG TAB PO SCH (08:41)
[2016-08-25] MEDS: ASPIRIN (EC) 325 MG TAB PO SCH ×2 (08:44→20:38)
[2016-08-25] MEDS: FERROUS SULFATE (EC) 325 MG TAB PO SCH ×2 (08:45→20:38)
[2016-08-25] MEDS: ATORVASTATIN 40 MG TAB PO SCH (08:45)
[2016-08-25] MEDS: DOCUSATE SODIUM 100 MG CAP PO SCH ×2 (08:46→20:38)
[2016-08-25] MEDS: MULTIVIT/CA CARB/B CMPLX/FA TAB PO SCH (08:47)
[2016-08-25] MEDS: ISOSORBIDE DINITRATE 10 MG TAB PO SCH ×2 (08:47→21:00)
[2016-08-25] MEDS: NORTRIPTYLINE 25 MG CAP PO SCH ×2 (08:47→22:37)
[2016-08-25] MEDS: HYDROmorphONE 1 MG/ML SYG IV PRN (08:49)
--- NOTE | 2016-08-25 10:02 | PN ---
Date/Time of Note Date/Time of Note DATE: 08/25/16 TIME: 09:55 Assessment/Plan VTE Prophylaxis VTE Prophylaxis Intervention: other Lines/Catheters IV [facility]ter Type (from [facility] A Line Urinary Cath still in place: No Assessment/Plan Chief Complaint/Hosp Course Chief Complaint/Hosp Course 1. Failed open reduction internal fixation left intertrochanteric hip fracture. Status post hardware removal, left hip and conversion to left total hip arthroplasty. Continue postsurgical care, pain medication Continue broad-spectrum IV antibiotics as per surgery recommendations 2. Ischemic cardiomyopathy with ejection fraction of 35%. Continue to optimize cardiac medications if blood pressure allows. 3. CAD status post coronary artery stenting in the past. The patient was on Plavix. Cardiology following. Plavix on hold because of surgery on 08/23/2016. 4. Essential hypertension. At this time we will hold off blood pressure medication secondary to hypotension, 5. Dyslipidemia. Continue statin. 6. Type 2 diabetes mellitus. Hemoglobin A1c 5.2. Continue sliding scale insulin along with Lantus insulin. Blood sugars well controlled. 7. Normocytic anemia. Underlying iron deficiency. Continue iron supplements. 8. Hyperkalemia. On hemodialysis follow up electrolytes in a.m. 9. End-stage renal disease. On hemodialysis continue nephrology recommendations 10. Deep venous thrombosis prophylaxis. Bilateral sequential compression devices. 11. Gastrointestinal prophylaxis with histamine 2 receptor blockers. PLAN: Hemodialysis as per Nephrology. We will continue monitor patient closely for recommendation management treatment as clinical course DVT prophylaxis as per orthopedic surgery recommendations Problems: Subjective 24 Hr Interval Summary Free Text/Dictation Patient continues to complain of having left knee pain He denies of any chest pain or shortness of breath During the course of physical therapy he heart rate increased to 110s-120s without any chest pain Tolerating oral intake Status post hemodialysis on 08/24/2016 Off pressors Exam/Review of Systems Vital Signs Vitals Vital Signs Date Time Temp Pulse Resp B/P Pulse Ox O2 Delivery O2 Flow Rate FiO2 08/25/16 09:45 102 25 141/41 93 Nasal Cannula 08/25/16 08:00 98.8 08/25/16 02:46 4.0 08/24/16 00:45 40 Intake and Output 08/24/16 08/24/16 08/25/16 15:00 23:00 07:00 Intake Total 2331.575 ml 740.40 ml 601 ml Output Total 1300 ml 100 ml 0 ml Balance 1031.575 ml 640.40 ml 601 ml Exam General: The patient is not in acute distress. HEENT: Atraumatic, normocephalic. The pupils are equal and round . Neck: Supple with full range of motion. Chest: Normal expansion of the thorax during inspiration Lungs: Decreased breath sounds bilateral lower lung field Heart: Normal S1-S2, Regular rhythm and rate. Abdomen: Soft , nontender, nondistended , bowel sounds are present. Extremities: Normal to inspection, no edema no cyanosis, AV fistula in right upper extremity Neurologic: mental status at baseline,The patient is awake, alert Results Result Diagram: 08/25/16 0520 08/25/16 0500 Results 24 hrs Laboratory Tests Test 08/24/16 12:44 08/24/16 17:42 08/24/16 21:04 08/25/16 03:52 Bedside Glucose 143 162 179 137 Test 08/25/16 05:00 08/25/16 05:20 08/25/16 08:40 Anion Gap 19 H Blood Urea Nitrogen 56 H Calcium Level 8.7 Carbon Dioxide Level 24 Chloride Level 102 Creatinine 5.29 H Glucose Level 107 # Magnesium Level 2.4 Phosphorus Level 6.3 #H Potassium Level 4.4 Sodium Level 141 Basophils # 0.0 Basophils % 0.2 Eosinophils # 0.1 Eosinophils % 1.2 Hematocrit 27.4 L Hemoglobin 8.8 L Lymphocytes # 1.0 Lymphocytes % 10.5 L Mean Corpuscular Hemoglobin 27.5 L Mean Corpuscular Hemoglobin Concent 32.1 Mean Corpuscular Volume 85.6 Mean Platelet Volume 11.0 H Monocytes # 0.7 Monocytes % 7.3 Neutrophils # 7.3 Neutrophils % 80.4 H Nucleated Red Blood Cells # 0.0 Nucleated Red Blood Cells % 0.0 Platelet Count 213 Random Vancomycin Level 18.4 Red Blood Count 3.20 L Red Cell Distribution Width 16.5 H White Blood Count 9.1 Bedside Glucose 95 Medications Medications Current Medications Atorvastatin Calcium (Lipitor) 40 mg DAILY PO Last administered on 08/25/16 08 :45; Admin Dose 40 MG; Start 08/18/16 at 09:00 Carvedilol (Coreg) 6.25 mg BID PO Last administered on 08/25/16 08:48; Admin Dose 6.25 MG; Start 08/17/16 at 23:00 Clopidogrel Bisulfate (plaVIX) 75 mg DAILY PO ; Start 08/18/16 at 09:00; Status Future Hold Isosorbide Dinitrate (Isordil) 10 mg BID PO Last administered on 08/25/16 08: 47; Admin Dose 10 MG; Start 08/17/16 at 23:00 Metoclopramide HCl (Reglan) 5 mg Q6H PRN PO NAUSEA Last administered on 09:05; Admin Dose 5 MG; Start 08/17/16 at 23:00 Nortriptyline HCl (Aventyl) 25 mg BID PO Last administered on 08/25/16 08:47; Admin Dose 25 MG; Start 08/17/16 at 23:00 Thiamine HCl (Vitamin B1) 250 mg DAILY PO Last administered on 08/25/16 08:41 ; Admin Dose 250 MG; Start 08/18/16 at 09:00 Multivit/Ca Carb/ B Cmplx/FA/Prenat (Aleyda-Pam) 1 tab DAILY PO Last administered on 08/25/16 08:47; Admin Dose 1 TAB; Start 08/18/16 at 09:00 Insulin Glargine (Lantus) 10 unit HS SC ; Start 08/18/16 at 21:00; Status Future Hold Diagnostic Test (Pha) (Accucheck) 1 ea 02 XX Last administered on 08/25/16 02: 00; Admin Dose 1 EA; Start 08/18/16 at 02:00 Miscellaneous Information 1 ea NOTE XX ; Start 08/17/16 at 23:30 Glucose (Glutose) 15 gm Q15M PRN PO DECREASED GLUCOSE; Start 08/17/16 at 23:30 Glucose (Glutose) 22.5 gm Q15M PRN PO DECREASED GLUCOSE; Start 08/17/16 at 23:30 Dextrose (D50w Syringe) 25 ml Q15M PRN IV DECREASED GLUCOSE; Start 08/17/16 at 23:30 Dextrose (D50w Syringe) 50 ml Q15M PRN IV DECREASED GLUCOSE; Start 08/17/16 at 23:30 Glucagon (Glucagen) 1 mg Q15M PRN IM DECREASED GLUCOSE; Start 08/17/16 at 23:30 Glucose (Glutose) 15 gm Q15M PRN BUCCAL DECREASED GLUCOSE; Start 08/17/16 at 23: 30 Ferrous Sulfate (Ferrous Sulfate (Ec)) 325 mg TID PO Last administered on 08:45; Admin Dose 325 MG; Start 08/18/16 at 16:30 Miscellaneous Information 1 ea NOTE XX ; Start 08/21/16 at 17:00; Stop 08/25/16 at 16:59 Hydromorphone HCl (Dilaudid [employer]) 0.2 MG DOSE 10 ... Q4PCA IV ; Start 08/21/16 at 17:00 Miscellaneous Information 1 ea 1 ea NOTE XX ; Start 08/23/16 at 07:00; Stop 08/27 at 06:59 Dextrose/Sodium Chloride (D5-1/2ns) 1,000 ml @ 50 mls/hr Q20H IV Last administered on 08/25/16 03:46; Admin Dose 50 MLS/HR; Start 08/23/16 at 10:00 Tramadol HCl (Ultram) 50 mg Q6 PO Last administered on 08/25/16 05:59; Admin Dose 50 MG; Start 08/24/16 at 00:00; Stop 08/26/16 at 00:00 Oxycodone HCl (Roxicodone) 5 mg Q4H PRN PO PAIN LEVEL 1-3; Start 08/23/16 at 19: 00 Oxycodone HCl (Roxicodone) 10 mg Q4H PRN PO PAIN LEVEL 4-7; Start 08/23/16 at 19 :00 Hydromorphone HCl (Dilaudid) 1 mg Q3H PRN IV PAIN LEVEL 8-10 Last administered on 08/25/16 08:49; Admin Dose 1 MG; Start 08/23/16 at 19:00 Ondansetron HCl (Zofran Inj) 4 mg Q6H PRN IV NAUSEA AND/OR VOMITING; Start 08/23 at 19:00 Bisacodyl (Dulcolax Supp) 10 mg Q12H PRN [place] CONSTIPATION; Start 08/23/16 at 19: 00 Magnesium Hydroxide (Milk Of Mag) 30 ml BID PRN PO CONSTIPATION; Start 08/23/16 at 19:00 Sodium Biphosphate/ Sodium Phosphate (Fleet Enema) 133 ml DAILY PRN PA CONSTIPATION; Start 08/23/16 at 19:00 Docusate Sodium (Colace) 100 mg BID PO Last administered on 08/25/16 08:46; Admin Dose 100 MG; Start 08/23/16 at 21:00 Diphenhydramine HCl (Benadryl) 25 mg Q6H PRN PO PRURITUS; Start 08/23/16 at 19: 00 Pantoprazole (Protonix Tab) 40 mg BID@06,18 PO Last administered on 08/25/16 05:48; Admin Dose 40 MG; Start 08/24/16 at 06:00 Vancomycin HCl PER PHARMACY DOSING NOTE XX ; Start 08/23/16 at 20:00 Levofloxacin/ Dextrose (Levaquin 500mg/ D5W 100 ml (Pmx)) 100 ml @ 100 mls/hr Q48H IVPB Last administered on 08/23/16 21:18; Admin Dose 100 MLS/HR; Start 08/23/16 at 20:00 Aspirin 325 mg 325 mg BID PO Last administered on 08/25/16 08:44; Admin Dose 325 MG; Start 08/25/16 at 09:00 Norepinephrine 250 ml @ 1.875 mls/ hr TITRATE IV Last administered on 20:49; Admin Dose 5.62 MLS/HR; Start 08/24/16 at 20:30 Vancomycin HCl (Vancocin) 250 ml @ 125 mls/hr 16 IVPB ; Start 08/25/16 at 16:00 ; Stop 08/25/16 at 23:00 LEELA OSEGUERA MD Aug 25, 2016 10:01
[2016-08-25] MEDS: hydrALAzine 20 MG INJ IV PRN (11:53)
[2016-08-25] MEDS ORDERED: VANCOMYCIN 1 GM in NS 250 ML IVPB SCH (16:00)
[2016-08-25] MEDS: LEVOFLOXACIN 500MG/D5W (PMX) 100 ML IVPB SCH (20:34)
[2016-08-26] VITALS (26 sets, daily range): BP systolic 90–148; BP diastolic 35–77; PULSE 56–121; RESP 16–28
[2016-08-26] MEDS: ACCU-CHEK XX SCH (02:00)
[2016-08-26] MEDS: PANTOPRAZOLE (EC) 40 MG TAB PO SCH ×2 (05:23→18:51)
[2016-08-26 06:23] LABS: ADD SCAN DIFF NO
[2016-08-26 06:30] LABS: BASOPHILS % 0.2 % (0.0-2.0); EOSINOPHILS # 0.3 10^3/ul (0.0-0.5); HEMATOCRIT 26.2 % (42.0-52.0); HEMOGLOBIN 8.1 g/dl (14.0-18.0); LYMPHOCYTES # 1.4 10^3/ul (0.8-2.9); LYMPHOCYTES % 14.3 % (15.0-51.0); MEAN CORPUSCULAR HEMOGLOBIN 27.4 pg (29.0-33.0); MEAN CORPUSCULAR HGB CONC 30.9 g/dl (32.0-37.0); MEAN CORPUSCULAR VOLUME 88.5 fl (82.0-101.0); MEAN PLATELET VOLUME 11.3 fl (7.4-10.4); MONOCYTE # 0.9 10^3/ul (0.3-0.9); MONOCYTES % 9.7 % (0.0-11.0); NEUTROPHIL # 6.9 10^3/ul (1.6-7.5); NEUTROPHILS % 72.5 % (39.0-77.0); PLATELET COUNT 216 10^3/UL (140-415); RED BLOOD COUNT 2.96 10^6/ul (4.70-6.10); RED CELL DISTRIBUTION WIDTH 16.6 % (11.5-14.5); WHITE BLOOD COUNT 9.5 10^3/ul (4.8-10.8)
[2016-08-26 06:43] LABS: POTASSIUM 4.9 mmol/L (3.5-5.1)
[2016-08-26 06:45] LABS: CREATININE 6.99 mg/dl (0.61-1.24)
[2016-08-26 06:46] LABS: CALCIUM 9.4 mg/dl (8.4-10.2)
[2016-08-26 06:49] LABS: PHOSPHORUS 5.3 mg/dl (2.5-4.9)
[2016-08-26 06:50] LABS: MAGNESIUM 2.4 mg/dl (1.7-2.5)
[2016-08-26] MEDS: INSULIN ASPART [NOVOLOG] 3 ML PEN SC SCH ×4 (08:00→21:00)
--- NOTE | 2016-08-26 08:19 | PN ---
Date/Time of Note Date/Time of Note DATE: 08/26/16 TIME: 08:06 Assessment/Plan VTE Prophylaxis VTE Prophylaxis Intervention: SCD's, other (Aspirin 325 mg twice daily) Lines/Catheters IV Catheter Type (from Nrsg): Peripheral IV Jain in Place (from Nrsg): No Assessment/Plan Assessment/Plan -Hemovac showing no increased output since yesterday (Remains 380cc). We will keep Hemovac in 1 more night (per Dr. Hough instructions). -Pain Meds as needed -Dress change not performed today per Dr. Hough instructions. Wound showing no signs of infections. -Continue with PT -ASA/SCDs for DVT Prophylaxis -Continue monitoring with Internal Medicine in regards to unstable blood pressure. Patient also has downward trending labs in regards to hemoglobin and hematocrit. Will defer to hospitalist to see if blood transfusion is recommended. -Requesting transfer from [address] [place] [address] to [facility] telemetry [facility] or [facility] ( if blood pressure becomes stable). Have discussed with charge nurse and she is working on transfer to [address] [place] [address] and will confirm if possible. Subjective 24 Hr Interval Summary 65-year-old male postop day 3 removal of hardware to the left hip with conversion to left total hip arthroplasty via posterior route. Patient transferred from ICU yesterday to telemetry unit. Blood pressure unstable. Overnight, patient was hypotensive. Continued monitoring by hospitalist. In regards to the hip, patient appears to be doing well with no complications. No additional drainage from Hemovac overnight. Wound remains clean dry and intact. Difficult communicating with patient today. Awake, alert but disoriented. Family members present and states that overall he has been okay. Exam/Review of Systems Vital Signs Vitals Vital Signs Date Time Temp Pulse Resp B/P Pulse Ox O2 Delivery O2 Flow Rate FiO2 08/26/16 07:59 98.5 67 18 121/60 97 08/26/16 06:04 15.0 50 08/26/16 04:04 Venturi Mask Intake and Output 08/25/16 08/25/16 08/26/16 15:00 23:00 07:00 Intake Total 500 ml 420 ml Output Total 0 ml Balance 500 ml 420 ml Exam Free Text/Dictation -Hemovac: Intact -Incision: Clean, Dry and Intact without any redness or drainage -Thigh soft -4/5 Quadriceps, Tibialis Anterior, EHL Gastrocnemius/Soleus and Peroneals -Normal Sensation -Palpable DP/PT, Capillary Refill <2 secs -No Distal Edema -Negative Cheo Sign/No calf pain -Toes Freely Movable Results Result Diagram: 08/26/16 0535 08/26/16 0535 Copies To: CC: LEELA OSEGUERA MD, KERBY PA-C Aug 26, 2016 08:17
[2016-08-26] MEDS: FERROUS SULFATE (EC) 325 MG TAB PO SCH ×2 (08:44→23:14)
[2016-08-26] MEDS: MULTIVIT/CA CARB/B CMPLX/FA TAB PO SCH (08:44)
[2016-08-26] MEDS: ASPIRIN (EC) 325 MG TAB PO SCH ×2 (08:44→23:14)
[2016-08-26] MEDS: CLOPIDOGREL 75 MG TAB PO SCH (08:45)
[2016-08-26] MEDS: THIAMINE 100 MG TAB PO SCH (08:45)
[2016-08-26] MEDS: DOCUSATE SODIUM 100 MG CAP PO SCH ×2 (08:45→23:14)
[2016-08-26] MEDS: NORTRIPTYLINE 25 MG CAP PO SCH ×2 (08:45→23:24)
[2016-08-26] MEDS: ATORVASTATIN 40 MG TAB PO SCH (08:46)
[2016-08-26] MEDS: ISOSORBIDE DINITRATE 10 MG TAB PO SCH ×2 (08:46→23:24)
[2016-08-26] MEDS ORDERED: FUROSEMIDE 40 MG INJ IV ONE (13:00)
--- NOTE | 2016-08-26 13:36 | PN ---
Date/Time of Note Date/Time of Note DATE: 08/26/16 TIME: 13:28 Assessment/Plan VTE Prophylaxis VTE Prophylaxis Intervention: other Lines/Catheters [facility] Per[facility] IV Urinary Cath still in place: No Assessment/Plan Chief Complaint/Hosp Course Chief Complaint/Hosp Course 1. Failed open reduction internal fixation left intertrochanteric hip fracture. Status post hardware removal, left hip and conversion to left total hip arthroplasty. Continue postsurgical care, pain medication Continue broad-spectrum IV antibiotics as per surgery recommendations 2. Ischemic cardiomyopathy with ejection fraction of 35%. Continue to optimize cardiac medications if blood pressure allows. 3. CAD status post coronary artery stenting in the past. The patient was on Plavix. Cardiology following. Plavix on hold because of surgery on 08/23/2016. 4. Essential hypertension. At this time we will hold off blood pressure medication secondary to hypotension, 5. Dyslipidemia. Continue statin. 6. Type 2 diabetes mellitus. Hemoglobin A1c 5.2. Continue sliding scale insulin along with Lantus insulin. Blood sugars well controlled. 7. Normocytic anemia. Underlying iron deficiency. Continue iron supplements. 8. Hyperkalemia. On hemodialysis follow up electrolytes in a.m. 9. End-stage renal disease. On hemodialysis continue nephrology recommendations 10. Respiratory distress. Likely secondary to fluid overload. Schedule for hemodialysis today - Deep venous thrombosis prophylaxis. Bilateral sequential compression devices. - Gastrointestinal prophylaxis with histamine 2 receptor blockers. PLAN: Hemodialysis as per Nephrology. We will continue monitor patient closely for recommendation management treatment as clinical course DVT prophylaxis as per orthopedic surgery recommendations Problems: Subjective 24 Hr Interval Summary Free Text/Dictation Patient complains of having shortness of breath without any chest pain Tolerating oral intake although he has minimal appetite Exam/Review of Systems Vital Signs Vitals Vital Signs Date Time Temp Pulse Resp B/P Pulse Ox O2 Delivery O2 Flow Rate FiO2 08/26/16 13:12 98 08/26/16 12:23 98.6 18 123/64 97 Nasal Cannula 08/26/16 11:34 4.0 08/26/16 06:04 50 Intake and Output 08/25/16 08/25/16 08/26/16 15:00 23:00 07:00 Intake Total 500 ml 420 ml Output Total 0 ml Balance 500 ml 420 ml Exam General: The patient is well-developed, Not in acute distress. HEENT: Atraumatic, normocephalic. The pupils are equal and round . Neck: Supple with full range of motion. Chest: Normal expansion of the thorax during inspiration Lungs: Crackles bilateral lung field Heart: Normal S1-S2, Regular rhythm and rate. Abdomen: Soft , nontender, nondistended , bowel sounds are present. Extremities: Surgical site is dry and clean, no edema no cyanosis Neurologic: Normal mental status,The patient is awake, alert and oriented . Results Result Diagram: 08/26/16 0535 08/26/16 0535 Results 24 hrs Laboratory Tests Test 08/25/16 18:15 08/25/16 20:45 08/26/16 02:31 08/26/16 02:42 Bedside Glucose 72 229 H 69 L 77 Test 08/26/16 05:35 08/26/16 07:32 08/26/16 11:45 Anion Gap 19 H Basophils # 0.0 Basophils % 0.2 Blood Urea Nitrogen 67 H Calcium Level 9.4 Carbon Dioxide Level 23 Chloride Level 101 Creatinine 6.99 H Eosinophils # 0.3 Eosinophils % 3.0 Glucose Level 84 Hematocrit 26.2 L Hemoglobin 8.1 L Lymphocytes # 1.4 Lymphocytes % 14.3 L Magnesium Level 2.4 Mean Corpuscular Hemoglobin 27.4 L Mean Corpuscular Hemoglobin Concent 30.9 L Mean Corpuscular Volume 88.5 Mean Platelet Volume 11.3 H Monocytes # 0.9 Monocytes % 9.7 Neutrophils # 6.9 Neutrophils % 72.5 Nucleated Red Blood Cells # 0.0 Nucleated Red Blood Cells % 0.0 Phosphorus Level 5.3 H Platelet Count 216 Potassium Level 4.9 Red Blood Count 2.96 L Red Cell Distribution Width 16.6 H Sodium Level 138 White Blood Count 9.5 Bedside Glucose 113 119 Medications Medications Current Medications Atorvastatin Calcium (Lipitor) 40 mg DAILY PO Last administered on 08/26/16 08 :46; Admin Dose 40 MG; Start 08/18/16 at 09:00 Carvedilol (Coreg) 6.25 mg BID PO Last administered on 08/26/16 08:46; Admin Dose 6.25 MG; Start 08/17/16 at 23:00 Clopidogrel Bisulfate (plaVIX) 75 mg DAILY PO Last administered on 08/26/16 08 :45; Admin Dose 75 MG; Start 08/18/16 at 09:00; Status Future hold Isosorbide Dinitrate (Isordil) 10 mg BID PO Last administered on 08/26/16 08: 46; Admin Dose 10 MG; Start 08/17/16 at 23:00 Metoclopramide HCl (Reglan) 5 mg Q6H PRN PO NAUSEA Last administered on 09:05; Admin Dose 5 MG; Start 08/17/16 at 23:00 Nortriptyline HCl (Aventyl) 25 mg BID PO Last administered on 08/26/16 08:45; Admin Dose 25 MG; Start 08/17/16 at 23:00 Thiamine HCl (Vitamin B1) 250 mg DAILY PO Last administered on 08/26/16 08:45 ; Admin Dose 250 MG; Start 08/18/16 at 09:00 Multivit/Ca Carb/ B Cmplx/FA/Prenat (Aleyda-Pam) 1 tab DAILY PO Last administered on 08/26/16 08:44; Admin Dose 1 TAB; Start 08/18/16 at 09:00 Insulin Glargine (Lantus) 10 unit HS SC ; Start 08/18/16 at 21:00; Status Future Hold Diagnostic Test (Pha) (Accucheck) 1 ea 02 XX Last administered on 08/26/16 02: 00; Admin Dose 1 EA; Start 08/18/16 at 02:00 Miscellaneous Information 1 ea NOTE XX ; Start 08/17/16 at 23:30 Glucose (Glutose) 15 gm Q15M PRN PO DECREASED GLUCOSE; Start 08/17/16 at 23:30 Glucose (Glutose) 22.5 gm Q15M PRN PO DECREASED GLUCOSE; Start 08/17/16 at 23:30 Dextrose (D50w Syringe) 25 ml Q15M PRN IV DECREASED GLUCOSE; Start 08/17/16 at 23:30 Dextrose (D50w Syringe) 50 ml Q15M PRN IV DECREASED GLUCOSE; Start 08/17/16 at 23:30 Glucagon (Glucagen) 1 mg Q15M PRN IM DECREASED GLUCOSE; Start 08/17/16 at 23:30 Glucose (Glutose) 15 gm Q15M PRN BUCCAL DECREASED GLUCOSE; Start 08/17/16 at 23: 30 Miscellaneous Information 1 ea NOTE XX ; Start 08/23/16 at 07:00; Stop 08/27/18 at 06:59 Oxycodone HCl (Roxicodone) 5 mg Q4H PRN PO PAIN LEVEL 1-3; Start 08/23/16 at 19: 00 Oxycodone HCl (Roxicodone) 10 mg Q4H PRN PO PAIN LEVEL 4-7; Start 08/23/16 at 19 :00 Hydromorphone HCl (Dilaudid) 1 mg Q3H PRN IV PAIN LEVEL 8-10 Last administered on 08/25/16 08:49; Admin Dose 1 MG; Start 08/23/16 at 19:00 Ondansetron HCl (Zofran Inj) 4 mg Q6H PRN IV NAUSEA AND/OR VOMITING; Start 08/23 at 19:00 Bisacodyl (Dulcolax Supp) 10 mg Q12H PRN [place] CONSTIPATION; Start 08/23/16 at 19: 00 Magnesium Hydroxide (Milk Of Mag) 30 ml BID PRN PO CONSTIPATION; Start 08/23/16 at 19:00 Sodium Biphosphate/ Sodium Phosphate (Fleet Enema) 133 ml DAILY PRN NM CONSTIPATION; Start 08/23/16 at 19:00 Docusate Sodium (Colace) 100 mg BID PO Last administered on 08/26/16 08:45; Admin Dose 100 MG; Start 08/23/16 at 21:00 Diphenhydramine HCl (Benadryl) 25 mg Q6H PRN PO PRURITUS; Start 08/23/16 at 19: 00 Pantoprazole (Protonix Tab) 40 mg BID@06,18 PO Last administered on 08/25/16 18:10; Admin Dose 40 MG; Start 08/24/16 at 06:00 Vancomycin HCl PER PHARMACY DOSING NOTE XX ; Start 08/23/16 at 20:00 Levofloxacin/ Dextrose (Levaquin 500mg/ D5W 100 ml (Pmx)) 100 ml @ 100 mls/hr Q48H IVPB Last administered on 08/25/16 20:34; Admin Dose 100 MLS/HR; Start at 20:00 Aspirin (Ecotrin) 325 mg BID PO Last administered on 08/26/16 08:44; Admin Dose 325 MG; Start 08/25/16 at 09:00 Ferrous Sulfate (Ferrous Sulfate (Ec)) 325 mg BID PO Last administered on 08:44; Admin Dose 325 MG; Start 08/25/16 at 21:00 Hydralazine HCl (Apresoline) 10 mg Q8H PRN IV ELEVATED BLOOD PRESSURE Last administered on 08/25/16 11:53; Admin Dose 10 MG; Start 08/25/16 at 12:00 LEELA OSEGUERA MD Aug 26, 2016 13:36
[2016-08-26] MEDS: FUROSEMIDE 20 MG INJ IV SCH (18:00)
[2016-08-26] MEDS ORDERED: ALBUTEROL/IPRATROPIUM (NEB) 3 ML AMP HHN STA (20:42)
[2016-08-27] VITALS (10 sets, daily range): BP systolic 100–167; BP diastolic 49–107; PULSE 103–112; RESP 18–19
[2016-08-27] MEDS: ACCU-CHEK XX SCH (02:00)
[2016-08-27] MEDS: PANTOPRAZOLE (EC) 40 MG TAB PO SCH ×2 (06:46→19:03)
[2016-08-27] MEDS: FUROSEMIDE 20 MG INJ IV SCH ×2 (06:49→19:03)
--- NOTE | 2016-08-27 07:14 | PN ---
DATE: 08/26/2016 CARDIOLOGY FOLLOWUP SUBJECTIVE: Discussed with the staff, discussed with the family at the bedside. Patient with no ch est pain or pressure. Does complain of cough, sore throat. MEDICATIONS: Reviewed. PHYSICAL EXAMINATION: VITAL SIGNS: Temperature 98.5, heart rate of 99, blood pressure 121/60, respiratory rate of 18. HEENT: Normocephalic, atraumatic. Pupils equal. CARDIOVASCULAR: Regular rate and rhythm. PULMONARY: Mild rhonchi, diffuse. GASTROINTESTINAL: Soft, nontender. EXTREMITIES: Left lower extremity in a cast. NEUROLOGIC: Awake, responds appropriately. PSYCHIATRIC: Appears to be calm. LABORATORY: Sodium 138, potassium 4.9, BUN of 67, creatinine 6.99, glucose of 84. WBC of 9.5, hemo globin 8.1, platelets of 216. ASSESSMENT AND PLAN: 1. Status post orthopedic surgery. 2. Ischemic cardiomyopathy, ejection fraction 35%. 3. Coronary artery disease, status post recent stenting. 4. hypertension. 5. Renal failure, on dialysis. 6. Diabetes. 7. Anemia. 8. Electrolyte abnormality, hyperkalemia. RECOMMENDATIONS: Plavix will be continued given his recent PCI. DVT prophylaxis as per orthopedic recommendations. Continue the blood pressure control. Dialysis as per renal. Dictated By: PAULY BONNER/CHRISTOPHER Conf#: [id number] DID#: [id number]
[2016-08-27 07:15] LABS: HEMATOCRIT 25.3 % (42.0-52.0); HEMOGLOBIN 8.1 g/dl (14.0-18.0)
[2016-08-27 07:35] LABS: POTASSIUM 4.3 mmol/L (3.5-5.1)
[2016-08-27 07:37] LABS: CREATININE 5.22 mg/dl (0.61-1.24)
[2016-08-27 07:38] LABS: CALCIUM 10.1 mg/dl (8.4-10.2)
--- NOTE | 2016-08-27 07:48 | PN ---
DATE: 08/25/2016 CARDIOLOGY FOLLOWUP SUBJECTIVE: Discussed with the staff, discussed with the patient's in ICU. The patient remain s in sinus tachycardia. Did receive Dilaudid earlier today and has been sedated and lethargic. As per history, no reported chest pain or pressure. Blood pressure has been labile and difficult to as sess given his dialysis access placement. MEDICATIONS: Reviewed. OBJECTIVE: VITAL SIGNS: Temperature 99, pulse rate of 117, blood pressure 135/100, respiration rate of 25, sat urating 92%. HEENT: Normocephalic, atraumatic. CARDIOVASCULAR: Tachycardic. PULMONARY: Minimal rhonchi at the base. GASTROINTESTINAL: Soft, nontender. EXTREMITIES: With severe edema. NEUROLOGIC: Lethargic now, drowsy. LABORATORY: Sodium 141, potassium 4.4, BUN of 36, creatinine 1.29, glucose 107. WBC of 9.1, hemogl obin 8.8, platelets of 213. Chest x-ray most recently done yesterday showed mild prominence at the ____. ASSESSMENT AND PLAN: 1. Coronary artery disease. 2. History of ischemic cardiomyopathy. 3. Congestive heart failure. 4. Status post percutaneous coronary intervention of the left anterior descending. 5. Hip fracture status post surgery. 6. Hypotension and shock, currently improved. 7. Renal failure on dialysis. 8. Diabetes. 9. Essential hypertension. RECOMMENDATIONS: Beta yuliya will be continued as tolerated. I will resume the patient's Plavix g iven his history of recent coronary artery disease and PCI. Postop care as per orthopedic. Dialysi s as per renal will be continued. Statin will be continued. We will continue to closely monitor on telemetry as well. 38 minutes of critical care time was spent managing this patient excluding procedures. Dictated By: PAULY DE PAZ MD AV/CHRISTOPHER Conf#: [id number] DID#: [id number] CC: LEELA OSEUGERA MD;*End*
[2016-08-27] MEDS: INSULIN ASPART [NOVOLOG] 3 ML PEN SC SCH ×4 (07:55→21:00)
--- NOTE | 2016-08-27 08:45 | RADRPT ---
PROCEDURE: XR Chest. CLINICAL INDICATION: Coarse rhonchi and crackles michael TECHNIQUE: Single frontal view of the chest was obtained COMPARISON: Chest x-ray 08/20/2016 06:08 a.m. FINDINGS: The soft tissues are normal. Degenerative osteophytes are present in the thoracic spine. There are old fractures of the left third fourth and fifth ribs. There are old healed fracture suspected inv olving the posterior lateral right seventh and eighth ribs. There is an acute or subacute anterior right third rib fracture. The heart is mildly enlarged. The cardiomediastinal silhouette, pulmonar y vasculature and hilar structures are normal. There are vascular calcifications in the left sided a ortic arch. There are vague infiltrates in the right hilar area and right lower lobe. There is a cuellar boptimal inspiratory effort. There is some pleural thickening on the right lateral chest wall. The costophrenic angles are normal. IMPRESSION: 1. There are asymmetric interstitial infiltrates in the right hilar area and right lower lobe which are little changed compared to the prior study. 2. Mild cardiomegaly. 3. Atherosclerosis of the aortic arch. 4. Asymmetric right pleural thickening which may be the result of pleural scarring, hemothorax or l oculated pleural effusion. 5. Old bilateral healed rib fractures. 6. Acute versus subacute right anterior third rib fracture. RPTAT:AAJJ Physician Bridgett Date Time Electronically viewed and signed by Dexter Lundberg Physician on 08/27/2016 08:45 DIDI/
--- NOTE | 2016-08-27 08:45 | PN ---
Date/Time of Note Date/Time of Note DATE: 08/27/16 TIME: 08:41 Assessment/Plan Lines/Catheters IV Catheter Type (from Nrsg): Peripheral IV Jain in Place (from Nrsg): No Assessment/Plan Assessment/Plan Guarded POD #4, s/p hardware removal, failed left hip IM rodding, conversion to left posterior MIGUE -continue abx per hospitalist team -Plavix restarted by cardiology. We will stop ASA due to concern for increased bleeding -SCDs for DVT prophylaxis -drain removed and dressing changed today -posterior hip precautions -knee immobilizer to be worn at all times -OOB with PT as tolerated -check AM labs. H&H low but stable for now Subjective 24 Hr Interval Summary No acute overnight events. Denies any pain to the left hip. Plavix has been restarted by cardiology. Still on O2 via nasal cannula. Has not done much physical therapy at this point. No f/c. Blood pressure still somewhat unstable/ variable. Exam/Review of Systems Vital Signs Vitals Vital Signs Date Time Temp Pulse Resp B/P Pulse Ox O2 Delivery O2 Flow Rate FiO2 08/27/16 08:23 97.4 52 18 100/49 98 08/27/16 05:43 4.0 08/26/16 21:21 Nasal Cannula 08/26/16 06:04 50 Intake and Output 08/26/16 08/26/16 08/27/16 15:00 23:00 07:00 Intake Total 120 ml 800 ml Output Total 0 ml 3200 ml Balance 120 ml -2400 ml Exam Free Text/Dictation Hemovac: 0cc Dressing dry Incision clean, dry, and intact without redness or drainage 5/5 Quadriceps, Tibialis Anterior, EHL, Gastroc, Soleus, Peroneals Normal sensation Palpable DT/PT, CR <2 sec No distal edema Results Result Diagram: 08/27/16 0555 08/27/16 0555 TONI ORNELAS PA-C Aug 27, 2016 08:45
[2016-08-27] MEDS: NORTRIPTYLINE 25 MG CAP PO SCH ×2 (09:48→21:37)
[2016-08-27] MEDS: CLOPIDOGREL 75 MG TAB PO SCH (09:49)
[2016-08-27] MEDS: MULTIVIT/CA CARB/B CMPLX/FA TAB PO SCH (09:49)
[2016-08-27] MEDS: FERROUS SULFATE (EC) 325 MG TAB PO SCH ×2 (09:49→21:36)
[2016-08-27] MEDS: DOCUSATE SODIUM 100 MG CAP PO SCH ×2 (09:49→21:37)
[2016-08-27] MEDS: THIAMINE 100 MG TAB PO SCH (09:49)
[2016-08-27] MEDS: ATORVASTATIN 40 MG TAB PO SCH (09:51)
[2016-08-27] MEDS: ISOSORBIDE DINITRATE 10 MG TAB PO SCH (09:51)
--- NOTE | 2016-08-27 11:52 | CONS ---
Date/Time of Note Date/Time of Note DATE: 08/27/16 TIME: 11:49 Assessment/Plan Assessment/Plan Chief Complaint/Hosp Course - ESRD - ANEMIA - Hx of Hip Fracture - S/P Total Hip Replacement - CAD/CHF - Recent Angiogram @ [facility] & STENT PLAN: ESRD on Dialysis @ [facility] Had urgent HD/UF yesterday due to volume overload Transfered out of ICU Pain better controlled compared to out patient Continue with PT/OT Next Dialysis tomorrow Problems: Consultation Date/Type/Reason Admit Date/Time Aug 17, 2016 at 20:14 Initial Consult Date 08/24/16 Type of Consultation: NEPHROLOGY Reason for Consultation ESRD Hemodialysis dependent 24 HR Interval Summary Constitutional: improved Exam/Review of Systems Vital Signs Vitals Vital Signs Date Time Temp Pulse Resp B/P Pulse Ox O2 Delivery O2 Flow Rate FiO2 08/27/16 11:38 98.1 66 19 102/50 99 08/27/16 05:43 4.0 08/26/16 21:21 Nasal Cannula 08/26/16 06:04 50 Intake and Output 08/26/16 08/26/16 08/27/16 15:00 23:00 07:00 Intake Total 120 ml 800 ml Output Total 0 ml 3200 ml Balance 120 ml -2400 ml Exam Constitutional: alert, oriented Psych: no complaints Head: normocephalic Eyes: nl conjunctiva ENMT: nl external ears & nose Neck: supple Respiratory: crackles/rales, diminished breath sounds Cardiovascular: regular rate and rhythm, systolic murmur Gastrointestinal: soft Results Result Diagram: 08/27/16 0555 08/27/16 0555 Results 24 hrs Laboratory Tests Test 08/26/16 18:49 08/27/16 01:02 08/27/16 05:55 08/27/16 09:23 Bedside Glucose 177 129 177 Anion Gap 17 H Blood Urea Nitrogen 42 #H Calcium Level 10.1 Carbon Dioxide Level 27 Chloride Level 100 Creatinine 5.22 H Glucose Level 95 Hematocrit 25.3 L Hemoglobin 8.1 L Potassium Level 4.3 Sodium Level 140 Medications Medications Current Medications Atorvastatin Calcium (Lipitor) 40 mg DAILY PO Last administered on 08/27/16t 09 :51; Admin Dose 40 MG; Start 08/18/16 at 09:00 Carvedilol (Coreg) 6.25 mg BID PO Last administered on 08/27/16 09:51; Admin Dose 6.25 MG; Start 08/17/16 at 23:00 Clopidogrel Bisulfate (plaVIX) 75 mg DAILY PO Last administered on 08/27/16 09 :49; Admin Dose 75 MG; Start 08/18/16 at 09:00; Status Future hold Isosorbide Dinitrate (Isordil) 10 mg BID PO Last administered on 08/27/16 09: 51; Admin Dose 10 MG; Start 08/17/16 at 23:00 Metoclopramide HCl (Reglan) 5 mg Q6H PRN PO NAUSEA Last administered on 09:05; Admin Dose 5 MG; Start 08/17/16 at 23:00 Nortriptyline HCl (Aventyl) 25 mg BID PO Last administered on 08/27/16 09:48; Admin Dose 25 MG; Start 08/17/16 at 23:00 Thiamine HCl (Vitamin B1) 250 mg DAILY PO Last administered on 08/27/16 09:49 ; Admin Dose 250 MG; Start 08/18/16 at 09:00 Multivit/Ca Carb/ B Cmplx/FA/Prenat (Aleyda-Pam) 1 tab DAILY PO Last administered on 08/27/16 09:49; Admin Dose 1 TAB; Start 08/18/16 at 09:00 Insulin Glargine (Lantus) 10 unit HS SC ; Start 08/18/16 at 21:00; Status Future Hold Diagnostic Test (Pha) (Accucheck) 1 ea 02 XX Last administered on 08/26/16 02: 00; Admin Dose 1 EA; Start 08/18/16 at 02:00 Miscellaneous Information 1 ea NOTE XX ; Start 08/17/16 at 23:30 Glucose (Glutose) 15 gm Q15M PRN PO DECREASED GLUCOSE; Start 08/17/16 at 23:30 Glucose (Glutose) 22.5 gm Q15M PRN PO DECREASED GLUCOSE; Start 08/17/16 at 23:30 Dextrose (D50w Syringe) 25 ml Q15M PRN IV DECREASED GLUCOSE; Start 08/17/16 at 23:30 Dextrose (D50w Syringe) 50 ml Q15M PRN IV DECREASED GLUCOSE; Start 08/17/16 at 23:30 Glucagon (Glucagen) 1 mg Q15M PRN IM DECREASED GLUCOSE; Start 08/17/16 at 23:30 Glucose (Glutose) 15 gm Q15M PRN BUCCAL DECREASED GLUCOSE; Start 08/17/16 at 23: 30 Miscellaneous Information 1 ea NOTE XX ; Start 08/23/16 at 07:00; Stop 08/27/18 at 06:59 Oxycodone HCl (Roxicodone) 5 mg Q4H PRN PO PAIN LEVEL 1-3; Start 08/23/16 at 19: 00 Oxycodone HCl (Roxicodone) 10 mg Q4H PRN PO PAIN LEVEL 4-7; Start 08/23/16 at 19 :00 Hydromorphone HCl (Dilaudid) 1 mg Q3H PRN IV PAIN LEVEL 8-10 Last administered on 08/25/16 08:49; Admin Dose 1 MG; Start 08/23/16 at 19:00 Ondansetron HCl (Zofran Inj) 4 mg Q6H PRN IV NAUSEA AND/OR VOMITING; Start 08/23 at 19:00 Bisacodyl (Dulcolax Supp) 10 mg Q12H PRN [place] CONSTIPATION; Start 08/23/16 at 19: 00 Magnesium Hydroxide (Milk Of Mag) 30 ml BID PRN PO CONSTIPATION; Start 08/23/16 at 19:00 Sodium Biphosphate/ Sodium Phosphate (Fleet Enema) 133 ml DAILY PRN [place] CONSTIPATION; Start 08/23/16 at 19:00 Docusate Sodium (Colace) 100 mg BID PO Last administered on 08/27/16 09:49; Admin Dose 100 MG; Start 08/23/16 at 21:00 Diphenhydramine HCl (Benadryl) 25 mg Q6H PRN PO PRURITUS; Start 08/23/16 at 19: 00 Pantoprazole (Protonix Tab) 40 mg BID@06,18 PO Last administered on 08/27/16 06:46; Admin Dose 40 MG; Start 08/24/16 at 06:00 Vancomycin HCl PER PHARMACY DOSING NOTE XX ; Start 08/23/16 at 20:00 Levofloxacin/ Dextrose (Levaquin 500mg/ D5W 100 ml (Pmx)) 100 ml @ 100 mls/hr Q48H IVPB Last administered on 08/25/16 20:34; Admin Dose 100 MLS/HR; Start at 20:00 Ferrous Sulfate (Ferrous Sulfate (Ec)) 325 mg BID PO Last administered on 09:49; Admin Dose 325 MG; Start 08/25/16 at 21:00 Hydralazine HCl (Apresoline) 10 mg Q8H PRN IV ELEVATED BLOOD PRESSURE Last administered on 08/25/16 11:53; Admin Dose 10 MG; Start 08/25/16 at 12:00 MINA QUICK MD Aug 27, 2016 11:51
--- NOTE | 2016-08-27 13:48 | PN ---
Date/Time of Note Date/Time of Note DATE: 08/27/16 TIME: 13:46 Assessment/Plan VTE Prophylaxis VTE Prophylaxis Intervention: heparin Lines/Catheters IV [facility]from [facility]): Peripheral IV Urinary Cath still in place: No Assessment/Plan Chief Complaint/Hosp Course Chief Complaint/Hosp Course 1. Failed open reduction internal fixation left intertrochanteric hip fracture. Status post hardware removal, left hip and conversion to left total hip arthroplasty. Continue postsurgical care, pain medication Continue broad-spectrum IV antibiotics as per surgery recommendations 2. Ischemic cardiomyopathy with ejection fraction of 35%. Continue to optimize cardiac medications if blood pressure allows. 3. CAD status post coronary artery stenting in the past. The patient was on Plavix. Cardiology following. Plavix on hold because of surgery on 08/23/2016. 4. Essential hypertension. At this time we will hold off blood pressure medication secondary to hypotension, 5. Dyslipidemia. Continue statin. 6. Type 2 diabetes mellitus. Hemoglobin A1c 5.2. Continue sliding scale insulin along with Lantus insulin. Blood sugars well controlled. 7. Normocytic anemia. Underlying iron deficiency. Continue iron supplements. 8. Hyperkalemia. On hemodialysis follow up electrolytes in a.m. 9. End-stage renal disease. On hemodialysis continue nephrology recommendations 10. Respiratory distress. Likely secondary to fluid overload. Status post hemodialysis - Deep venous thrombosis prophylaxis. Bilateral sequential compression devices. - Gastrointestinal prophylaxis with histamine 2 receptor blockers. PLAN: Hemodialysis as per Nephrology. We will continue monitor patient closely for recommendation management treatment as clinical course DVT prophylaxis as per orthopedic surgery recommendations Problems: Subjective 24 Hr Interval Summary Free Text/Dictation Patient is having episodes of delusion Less responsive to verbal commands although still awake and alert Tolerating oral intake Exam/Review of Systems Vital Signs Vitals Vital Signs Date Time Temp Pulse Resp B/P Pulse Ox O2 Delivery O2 Flow Rate FiO2 08/27/16 12:14 103 08/27/16 11:38 98.1 19 102/50 99 08/27/16 05:43 4.0 08/26/16 21:21 Nasal Cannula 08/26/16 06:04 50 Intake and Output 08/26/16 08/26/16 08/27/16 15:00 23:00 07:00 Intake Total 120 ml 800 ml Output Total 0 ml 3200 ml Balance 120 ml -2400 ml Exam General: The patient is well-developed, Not in acute distress. HEENT: Atraumatic, normocephalic. The pupils are equal and round . Neck: Supple with full range of motion. Chest: Normal expansion of the thorax during inspiration Lungs: Positive crackles bilateral lower lung field Heart: Normal S1-S2, Regular rhythm and rate. Abdomen: Soft , nontender, nondistended , bowel sounds are present. Extremities: Normal to inspection, no edema no cyanosis Neurologic: ,The patient is awake, Results Result Diagram: 08/27/16 0555 08/27/16 0555 Results 24 hrs Laboratory Tests Test 08/26/16 18:49 08/27/16 01:02 08/27/16 05:55 08/27/16 09:23 Bedside Glucose 177 129 177 Anion Gap 17 H Blood Urea Nitrogen 42 #H Calcium Level 10.1 Carbon Dioxide Level 27 Chloride Level 100 Creatinine 5.22 H Glucose Level 95 Hematocrit 25.3 L Hemoglobin 8.1 L Potassium Level 4.3 Sodium Level 140 Test 08/27/16 12:34 Bedside Glucose 139 Medications Medications Current Medications Atorvastatin Calcium (Lipitor) 40 mg DAILY PO Last administered on 08/27/16 09 :51; Admin Dose 40 MG; Start 08/18/16 at 09:00 Carvedilol (Coreg) 6.25 mg BID PO Last administered on 08/27/16 09:51; Admin Dose 6.25 MG; Start 08/17/16 at 23:00 Clopidogrel Bisulfate (plaVIX) 75 mg DAILY PO Last administered on 08/27/16 09 :49; Admin Dose 75 MG; Start 08/18/16 at 09:00; Status Future hold Isosorbide Dinitrate (Isordil) 10 mg BID PO Last administered on 08/27/16 09: 51; Admin Dose 10 MG; Start 08/17/16 at 23:00 Metoclopramide HCl (Reglan) 5 mg Q6H PRN PO NAUSEA Last administered on 09:05; Admin Dose 5 MG; Start 08/17/16 at 23:00 Nortriptyline HCl (Aventyl) 25 mg BID PO Last administered on 08/27/16 09:48; Admin Dose 25 MG; Start 08/17/16 at 23:00 Thiamine HCl (Vitamin B1) 250 mg DAILY PO Last administered on 08/27/16 09:49 ; Admin Dose 250 MG; Start 08/18/16 at 09:00 Multivit/Ca Carb/ B Cmplx/FA/Prenat (Aleyda-Pam) 1 tab DAILY PO Last administered on 08/27/16 09:49; Admin Dose 1 TAB; Start 08/18/16 at 09:00 Insulin Glargine (Lantus) 10 unit HS SC ; Start 08/18/16 at 21:00; Status Future Hold Diagnostic Test (Pha) (Accucheck) 1 ea 02 XX Last administered on 08/26/16 02: 00; Admin Dose 1 EA; Start 08/18/16 at 02:00 Miscellaneous Information 1 ea NOTE XX ; Start 08/17/16 at 23:30 Glucose (Glutose) 15 gm Q15M PRN PO DECREASED GLUCOSE; Start 08/17/16 at 23:30 Glucose (Glutose) 22.5 gm Q15M PRN PO DECREASED GLUCOSE; Start 08/17/16 at 23:30 Dextrose (D50w Syringe) 25 ml Q15M PRN IV DECREASED GLUCOSE; Start 08/17/16 at 23:30 Dextrose (D50w Syringe) 50 ml Q15M PRN IV DECREASED GLUCOSE; Start 08/17/16 at 23:30 Glucagon (Glucagen) 1 mg Q15M PRN IM DECREASED GLUCOSE; Start 08/17/16 at 23:30 Glucose (Glutose) 15 gm Q15M PRN BUCCAL DECREASED GLUCOSE; Start 08/17/16 at 23: 30 Miscellaneous Information 1 ea NOTE XX ; Start 08/23/16 at 07:00; Stop 08/27/18 at 06:59 Oxycodone HCl (Roxicodone) 5 mg Q4H PRN PO PAIN LEVEL 1-3; Start 08/23/16 at 19: 00 Oxycodone HCl (Roxicodone) 10 mg Q4H PRN PO PAIN LEVEL 4-7; Start 08/23/16 at 19 :00 Hydromorphone HCl (Dilaudid) 1 mg Q3H PRN IV PAIN LEVEL 8-10 Last administered on 08/25/16 08:49; Admin Dose 1 MG; Start 08/23/16 at 19:00 Ondansetron HCl (Zofran Inj) 4 mg Q6H PRN IV NAUSEA AND/OR VOMITING; Start 08/23 at 19:00 Bisacodyl (Dulcolax Supp) 10 mg Q12H PRN [place] CONSTIPATION; Start 08/23/16 at 19: 00 Magnesium Hydroxide (Milk Of Mag) 30 ml BID PRN PO CONSTIPATION; Start 08/23/16 at 19:00 Sodium Biphosphate/ Sodium Phosphate (Fleet Enema) 133 ml DAILY PRN [place] CONSTIPATION; Start 08/23/16 at 19:00 Docusate Sodium (Colace) 100 mg BID PO Last administered on 08/27/16 09:49; Admin Dose 100 MG; Start 08/23/16 at 21:00 Diphenhydramine HCl (Benadryl) 25 mg Q6H PRN PO PRURITUS; Start 08/23/16 at 19: 00 Pantoprazole (Protonix Tab) 40 mg BID@06,18 PO Last administered on 08/27/16 06:46; Admin Dose 40 MG; Start 08/24/16 at 06:00 Vancomycin HCl PER PHARMACY DOSING NOTE XX ; Start 08/23/16 at 20:00 Levofloxacin/ Dextrose (Levaquin 500mg/ D5W 100 ml (Pmx)) 100 ml @ 100 mls/hr Q48H IVPB Last administered on 08/25/16 20:34; Admin Dose 100 MLS/HR; Start at 20:00 Ferrous Sulfate (Ferrous Sulfate (Ec)) 325 mg BID PO Last administered on 09:49; Admin Dose 325 MG; Start 08/25/16 at 21:00 Hydralazine HCl (Apresoline) 10 mg Q8H PRN IV ELEVATED BLOOD PRESSURE Last administered on 08/25/16 11:53; Admin Dose 10 MG; Start 08/25/16 at 12:00 LEELA OSEGUERA MD Aug 27, 2016 13:48
--- NOTE | 2016-08-27 15:53 | CONS ---
Date/Time of Note Date/Time of Note DATE: 08/27/16 TIME: 15:46 Assessment/Plan Assessment/Plan Additional Assessment/Plan Hip fracture status post hip surgery Postop hypotension, improved Cardiomyopathy with ejection fraction 35% CAD with bare-metal stent to LAD May 2016 End-stage renal disease on hemodialysis Diabetes History of hypertension -Patient with borderline low blood pressure, with decreased dose of Coreg hold Isordil for now. Fluid management via hemodialysis as per our nephrology colleagues. Patient following commands but at times becomes confused as per . Check CT head Consultation Date/Type/Reason Admit Date/Time Aug 17, 2016 at 20:14 Type of Consultation: cv 24 HR Interval Summary Free Text/Dictation Denies chest pain, shortness of breath, has had increased cough. Family concerned because remains tired with intermittent altered mental status. Exam/Review of Systems Vital Signs Vitals Vital Signs Date Time Temp Pulse Resp B/P Pulse Ox O2 Delivery O2 Flow Rate FiO2 08/27/16 12:14 103 08/27/16 11:38 98.1 19 102/50 99 08/27/16 05:43 4.0 08/26/16 21:21 Nasal Cannula 08/26/16 06:04 50 Intake and Output 08/26/16 08/26/16 08/27/16 15:00 23:00 07:00 Intake Total 120 ml 800 ml Output Total 0 ml 3200 ml Balance 120 ml -2400 ml Exam Awake, following commands, confused at times, no apparent distress Head: normocephalic Respiratory: other (Coarse breath sounds bilaterally, no wheezing) Cardiovascular: other (S1-S2 heard), regular rate and rhythm Gastrointestinal: bowel sounds, non-tender, other (No guarding), soft Extremities: edema (Trace, no edema) Results Result Diagram: 08/27/16 0555 08/27/16 0555 Results 24 hrs Laboratory Tests Test 08/26/16 18:49 08/27/16 01:02 08/27/16 05:55 08/27/16 09:23 Bedside Glucose 177 129 177 Anion Gap 17 H Blood Urea Nitrogen 42 #H Calcium Level 10.1 Carbon Dioxide Level 27 Chloride Level 100 Creatinine 5.22 H Glucose Level 95 Hematocrit 25.3 L Hemoglobin 8.1 L Potassium Level 4.3 Sodium Level 140 Test 08/27/16 12:34 Bedside Glucose 139 Medications Medications Current Medications Atorvastatin Calcium (Lipitor) 40 mg DAILY PO Last administered on 08/27/16 09 :51; Admin Dose 40 MG; Start 08/18/16 at 09:00 Carvedilol (Coreg) 6.25 mg BID PO Last administered on 08/27/16 09:51; Admin Dose 6.25 MG; Start 08/17/16 at 23:00 Clopidogrel Bisulfate (plaVIX) 75 mg DAILY PO Last administered on 08/27/16 09 :49; Admin Dose 75 MG; Start 08/18/16 at 09:00; Status Future hold Isosorbide Dinitrate (Isordil) 10 mg BID PO Last administered on 08/27/16 09: 51; Admin Dose 10 MG; Start 08/17/16 at 23:00 Metoclopramide HCl (Reglan) 5 mg Q6H PRN PO NAUSEA Last administered on 09:05; Admin Dose 5 MG; Start 08/17/16 at 23:00 Nortriptyline HCl (Aventyl) 25 mg BID PO Last administered on 08/27/16 09:48; Admin Dose 25 MG; Start 08/17/16 at 23:00 Thiamine HCl (Vitamin B1) 250 mg DAILY PO Last administered on 08/27/16 09:49 ; Admin Dose 250 MG; Start 08/18/16 at 09:00 Multivit/Ca Carb/ B Cmplx/FA/Prenat (Aleyda-Pam) 1 tab DAILY PO Last administered on 08/27/16 09:49; Admin Dose 1 TAB; Start 08/18/16 at 09:00 Insulin Glargine (Lantus) 10 unit HS SC ; Start 08/18/16 at 21:00; Status Future Hold Diagnostic Test (Pha) (Accucheck) 1 ea 02 XX Last administered on 08/26/16 02: 00; Admin Dose 1 EA; Start 08/18/16 at 02:00 Miscellaneous Information 1 ea NOTE XX ; Start 08/17/16 at 23:30 Glucose (Glutose) 15 gm Q15M PRN PO DECREASED GLUCOSE; Start 08/17/16 at 23:30 Glucose (Glutose) 22.5 gm Q15M PRN PO DECREASED GLUCOSE; Start 08/17/16 at 23:30 Dextrose (D50w Syringe) 25 ml Q15M PRN IV DECREASED GLUCOSE; Start 08/17/16 at 23:30 Dextrose (D50w Syringe) 50 ml Q15M PRN IV DECREASED GLUCOSE; Start 08/17/16 at 23:30 Glucagon (Glucagen) 1 mg Q15M PRN IM DECREASED GLUCOSE; Start 08/17/16 at 23:30 Glucose (Glutose) 15 gm Q15M PRN BUCCAL DECREASED GLUCOSE; Start 08/17/16 at 23: 30 Miscellaneous Information 1 ea NOTE XX ; Start 08/23/16 at 07:00; Stop 08/27/18 at 06:59 Oxycodone HCl (Roxicodone) 5 mg Q4H PRN PO PAIN LEVEL 1-3; Start 08/23/16 at 19: 00 Oxycodone HCl (Roxicodone) 10 mg Q4H PRN PO PAIN LEVEL 4-7; Start 08/23/16 at 19 :00 Hydromorphone HCl (Dilaudid) 1 mg Q3H PRN IV PAIN LEVEL 8-10 Last administered on 08/25/16 08:49; Admin Dose 1 MG; Start 08/23/16 at 19:00 Ondansetron HCl (Zofran Inj) 4 mg Q6H PRN IV NAUSEA AND/OR VOMITING; Start 08/23 at 19:00 Bisacodyl (Dulcolax Supp) 10 mg Q12H PRN [place] CONSTIPATION; Start 08/23/16 at 19: 00 Magnesium Hydroxide (Milk Of Mag) 30 ml BID PRN PO CONSTIPATION; Start 08/23/16 at 19:00 Sodium Biphosphate/ Sodium Phosphate (Fleet Enema) 133 ml DAILY PRN [place] CONSTIPATION; Start 08/23/16 at 19:00 Docusate Sodium (Colace) 100 mg BID PO Last administered on 08/27/16 09:49; Admin Dose 100 MG; Start 08/23/16 at 21:00 Diphenhydramine HCl (Benadryl) 25 mg Q6H PRN PO PRURITUS; Start 08/23/16 at 19: 00 Pantoprazole (Protonix Tab) 40 mg BID@06,18 PO Last administered on 08/27/16 06:46; Admin Dose 40 MG; Start 08/24/16 at 06:00 Vancomycin HCl PER PHARMACY DOSING NOTE XX ; Start 08/23/16 at 20:00 Levofloxacin/ Dextrose (Levaquin 500mg/ D5W 100 ml (Pmx)) 100 ml @ 100 mls/hr Q48H IVPB Last administered on 08/25/16 20:34; Admin Dose 100 MLS/HR; Start at 20:00 Ferrous Sulfate (Ferrous Sulfate (Ec)) 325 mg BID PO Last administered on 09:49; Admin Dose 325 MG; Start 08/25/16 at 21:00 Hydralazine HCl (Apresoline) 10 mg Q8H PRN IV ELEVATED BLOOD PRESSURE Last administered on 08/25/16 11:53; Admin Dose 10 MG; Start 08/25/16 at 12:00 Kike Cruz DO Aug 27, 2016 15:53
--- NOTE | 2016-08-27 20:27 | RADRPT ---
PROCEDURE: CT Brain without. CLINICAL INDICATION: Altered mental status. TECHNIQUE: A CT of the brain was performed on multidetector high-resolution CT scanner utilizing a xial sections from the skull base through the vertex without contrast. The scan was reviewed in sof t tissue brain and high frequency resolution bone algorithm windows. Images were reviewed on a high -resolution PACS workstation. One or more the following does reduction techniques were utilized: Aut omated exposure control, adjustment of the mA/ or kV according to patient's size, or use of iterativ e reconstruction technique. The exam CTDI = 40.29 mGy and the DLP = 769.79 mGy-cm. COMPARISON: None available. FINDINGS: The ventricles and sulci are mildly to moderately prominent indicative of volume loss. There is no i ntracranial hemorrhage, mass effect or midline shift. No abnormal intra-axial or extra-axial fluid collections are seen. The burt/white matter differentiation is preserved. There are mild to moderate scattered foci of hypoattenuation in the white matter, which are nonspeci fic in etiology but likely reflect chronic small vessel ischemic changes. There are mild to moderat e intracranial vascular calcifications consistent with atherosclerosis. The visualized paranasal sin uses demonstrate mild scattered mucosal thickening mainly in ethmoid air cells with small left air-f luid level. Partial opacification of bilateral mastoid air cells are noted, right greater than left . IMPRESSION: 1. No acute intracranial hemorrhage, transcortical infarction or mass effect. 2. Mild to moderate intracranial atherosclerosis and chronic small vessel ischemic changes. 3. Mild to moderate generalized cerebral volume loss. 4. Mild scattered paranasal sinus disease mainly in ethmoid air cells with small air-fluid level, c orrelate for acute sinusitis. Partial opacification of bilateral mastoid air cells. RPTAT: HH .Jovanna Adam MD, MD Date Time Electronically viewed and signed by .Jovanna Adam MD, MD on 08/27/2016 20:27 .N/
[2016-08-27] MEDS: LEVOFLOXACIN 500MG/D5W (PMX) 100 ML IVPB SCH (21:37)
[2016-08-28] VITALS (21 sets, daily range): BP systolic 110–165; BP diastolic 47–90; PULSE 57–112; RESP 17–20
[2016-08-28] MEDS: ACCU-CHEK XX SCH (02:00)
[2016-08-28] MEDS: FUROSEMIDE 20 MG INJ IV SCH ×3 (06:19→18:54)
[2016-08-28] MEDS: PANTOPRAZOLE (EC) 40 MG TAB PO SCH ×2 (06:19→18:54)
[2016-08-28 06:30] LABS: HEMATOCRIT 26.3 % (42.0-52.0); HEMOGLOBIN 8.4 g/dl (14.0-18.0)
[2016-08-28 06:35] LABS: POTASSIUM 4.7 mmol/L (3.5-5.1)
[2016-08-28 06:37] LABS: CREATININE 6.33 mg/dl (0.61-1.24)
[2016-08-28 06:38] LABS: CALCIUM 10.7 mg/dl (8.4-10.2)
[2016-08-28] MEDS: INSULIN ASPART [NOVOLOG] 3 ML PEN SC SCH ×4 (07:55→20:20)
--- NOTE | 2016-08-28 10:16 | PN ---
Date/Time of Note Date/Time of Note DATE: 08/28/16 TIME: 10:11 Assessment/Plan Lines/Catheters IV Catheter Type (from Nrsg): Peripheral IV Jain in Place (from Nrsg): No Assessment/Plan Assessment/Plan Guarded POD #5, s/p hardware removal, failed left hip IM rodding, conversion to left posterior MIUGE -continue abx per hospitalist team -Plavix restarted by cardiology. ASA held due to concern for increased bleeding -SCDs for DVT prophylaxis -posterior hip precautions -knee immobilizer to be worn at all times -OOB with PT as tolerated -check AM labs. H&H low but stable for now -continue hemodialysis per nephrology Subjective 24 Hr Interval Summary No acute overnight events. BP continues to be variable. Undergoing hemodialysis today. Mild pain at the hip. Has not worked with physical therapy due to other medical comorbidities. Still appears to be intermittently confused. Head CT done today which showed no acute intracranial abnormalities. Exam/Review of Systems Vital Signs Vitals Vital Signs Date Time Temp Pulse Resp B/P Pulse Ox O2 Delivery O2 Flow Rate FiO2 08/28/16 09:25 105 20 08/28/16 07:51 98.9 149/88 95 08/28/16 04:36 4.0 08/28/16 00:00 Nasal Cannula 08/26/16 06:04 50 Intake and Output 08/27/16 08/27/16 08/28/16 15:00 23:00 07:00 Intake Total 200 ml Balance 200 ml Exam Free Text/Dictation Dressing dry Incision clean, dry, and intact without redness or drainage 4/5 Quadriceps, Tibialis Anterior, EHL, Gastroc, Soleus, Peroneals Normal sensation Palpable DT/PT, CR <2 sec No distal edema Results Result Diagram: 08/28/16 0520 08/28/16 0500 TONI ORNELAS PA-C Aug 28, 2016 10:16
[2016-08-28] MEDS: HYDROmorphONE 1 MG/ML SYG IV PRN (13:59)
[2016-08-28] MEDS: MULTIVIT/CA CARB/B CMPLX/FA TAB PO SCH (13:59)
[2016-08-28] MEDS: FERROUS SULFATE (EC) 325 MG TAB PO SCH ×2 (13:59→20:15)
[2016-08-28] MEDS: NORTRIPTYLINE 25 MG CAP PO SCH ×2 (13:59→20:15)
[2016-08-28] MEDS: THIAMINE 100 MG TAB PO SCH (14:00)
[2016-08-28] MEDS: ATORVASTATIN 40 MG TAB PO SCH (14:00)
[2016-08-28] MEDS: CLOPIDOGREL 75 MG TAB PO SCH (14:00)
[2016-08-28] MEDS: DOCUSATE SODIUM 100 MG CAP PO SCH ×2 (14:01→20:15)
--- NOTE | 2016-08-28 14:24 | PN ---
Date/Time of Note Date/Time of Note DATE: 08/28/16 TIME: 14:15 Assessment/Plan VTE Prophylaxis VTE Prophylaxis Intervention: SCD's Lines/Catheters [facility] Peripheral IV Urinary Cath still in place: No Assessment/Plan Chief Complaint/Hosp Course Chief Complaint/Hosp Course 1. Failed open reduction internal fixation left intertrochanteric hip fracture. Status post hardware removal, left hip and conversion to left total hip arthroplasty. Continue postsurgical care, pain medication Continue broad-spectrum IV antibiotics as per surgery recommendations 2. Ischemic cardiomyopathy with ejection fraction of 35%. Continue to optimize cardiac medications if blood pressure allows. 3. CAD status post coronary artery stenting in the past. The patient was on Plavix. Cardiology following. Plavix on hold because of surgery on 08/23/2016. 4. Essential hypertension. At this time we will hold off blood pressure medication secondary to hypotension, 5. Dyslipidemia. Continue statin. 6. Type 2 diabetes mellitus. Hemoglobin A1c 5.2. Continue sliding scale insulin along with Lantus insulin. Blood sugars well controlled. 7. Normocytic anemia. Underlying iron deficiency. Continue iron supplements. 8. Hyperkalemia. On hemodialysis follow up electrolytes in a.m. 9. End-stage renal disease. On hemodialysis continue nephrology recommendations 10. Respiratory distress. Likely secondary to fluid overload. Status post hemodialysis - Deep venous thrombosis prophylaxis. Bilateral sequential compression devices. - Gastrointestinal prophylaxis with histamine 2 receptor blockers. PLAN: Hemodialysis as per Nephrology. We will continue monitor patient closely for recommendation management treatment as clinical course DVT prophylaxis as per orthopedic surgery recommendations Problems: Subjective 24 Hr Interval Summary Free Text/Dictation Patient was found to be altered yesterday although his mentation has mildly improved this morning Tolerating hemodialysis Consuming 5-10% of his meals today Exam/Review of Systems Vital Signs Vitals Vital Signs Date Time Temp Pulse Resp B/P Pulse Ox O2 Delivery O2 Flow Rate FiO2 08/28/16 13:50 98 08/28/16 12:26 18 08/28/16 11:41 98.2 160/78 99 08/28/16 08:15 Nasal Cannula 4.0 08/26/16 06:04 50 Intake and Output 08/27/16 08/27/16 08/28/16 15:00 23:00 07:00 Intake Total 200 ml Balance 200 ml Exam General: The patient is not in acute distress. Awake and alert HEENT: Atraumatic, normocephalic. The pupils are equal and round . Neck: Supple with full range of motion. Chest: Normal expansion of the thorax during inspiration Lungs: Clear to auscultation bilaterally Heart: Normal S1-S2, Regular rhythm and rate. Abdomen: Soft , nontender, nondistended , bowel sounds are present. Extremities: Normal to inspection, no edema no cyanosis Neurologic: ,The patient is awake, alert Skin: Decubitus ulcer in sacral region and left foot Results Result Diagram: 08/28/16 0520 08/28/16 0500 Results 24 hrs Laboratory Tests Test 08/27/16 18:31 08/27/16 22:59 08/28/16 05:00 08/28/16 05:20 Bedside Glucose 103 92 Anion Gap 22 H Blood Urea Nitrogen 55 H Calcium Level 10.7 H Carbon Dioxide Level 25 Chloride Level 100 Creatinine 6.33 H Glucose Level 61 #L Potassium Level 4.7 Sodium Level 142 Hematocrit 26.3 L Hemoglobin 8.4 L Test 08/28/16 08:34 08/28/16 13:24 Bedside Glucose 70 164 Medications Medications Current Medications Atorvastatin Calcium (Lipitor) 40 mg DAILY PO Last administered on 08/28/16 14 :00; Admin Dose 40 MG; Start 08/18/16 at 09:00 Clopidogrel Bisulfate (plaVIX) 75 mg DAILY PO Last administered on 08/28/16 14 :00; Admin Dose 75 MG; Start 08/18/16 at 09:00; Status Future hold Metoclopramide HCl (Reglan) 5 mg Q6H PRN PO NAUSEA Last administered on 09:05; Admin Dose 5 MG; Start 08/17/16 at 23:00 Nortriptyline HCl (Aventyl) 25 mg BID PO Last administered on 08/28/16 13:59; Admin Dose 25 MG; Start 08/17/16 at 23:00 Thiamine HCl (Vitamin B1) 250 mg DAILY PO Last administered on 08/28/16 14:00 ; Admin Dose 250 MG; Start 08/18/16 at 09:00 Multivit/Ca Carb/ B Cmplx/FA/Prenat (Aleyda-Pam) 1 tab DAILY PO Last administered on 08/28/16 13:59; Admin Dose 1 TAB; Start 08/18/16 at 09:00 Insulin Glargine (Lantus) 10 unit HS SC ; Start 08/18/16 at 21:00; Status Future Hold Diagnostic Test (Pha) (Accucheck) 1 ea 02 XX Last administered on 08/26/16 02: 00; Admin Dose 1 EA; Start 08/18/16 at 02:00 Miscellaneous Information 1 ea NOTE XX ; Start 08/17/16 at 23:30 Glucose (Glutose) 15 gm Q15M PRN PO DECREASED GLUCOSE; Start 08/17/16 at 23:30 Glucose (Glutose) 22.5 gm Q15M PRN PO DECREASED GLUCOSE; Start 08/17/16 at 23:30 Dextrose (D50w Syringe) 25 ml Q15M PRN IV DECREASED GLUCOSE; Start 08/17/16 at 23:30 Dextrose (D50w Syringe) 50 ml Q15M PRN IV DECREASED GLUCOSE; Start 08/17/16 at 23:30 Glucagon (Glucagen) 1 mg Q15M PRN IM DECREASED GLUCOSE; Start 08/17/16 at 23:30 Glucose (Glutose) 15 gm Q15M PRN BUCCAL DECREASED GLUCOSE; Start 08/17/16 at 23: 30 Miscellaneous Information 1 ea NOTE XX ; Start 08/23/16 at 07:00; Stop 08/27/18 at 06:59 Oxycodone HCl (Roxicodone) 5 mg Q4H PRN PO PAIN LEVEL 1-3; Start 08/23/16 at 19: 00 Oxycodone HCl (Roxicodone) 10 mg Q4H PRN PO PAIN LEVEL 4-7; Start 08/23/16 at 19 :00 Hydromorphone HCl (Dilaudid) 1 mg Q3H PRN IV PAIN LEVEL 8-10 Last administered on 08/28/16 13:59; Admin Dose 1 MG; Start 08/23/16 at 19:00 Ondansetron HCl (Zofran Inj) 4 mg Q6H PRN IV NAUSEA AND/OR VOMITING; Start 08/23 at 19:00 Bisacodyl (Dulcolax Supp) 10 mg Q12H PRN [place] CONSTIPATION; Start 08/23/16 at 19: 00 Magnesium Hydroxide (Milk Of Mag) 30 ml BID PRN PO CONSTIPATION; Start 08/23/16 at 19:00 Sodium Biphosphate/ Sodium Phosphate (Fleet Enema) 133 ml DAILY PRN [place] CONSTIPATION; Start 08/23/16 at 19:00 Docusate Sodium (Colace) 100 mg BID PO Last administered on 08/28/16 14:01; Admin Dose 100 MG; Start 08/23/16 at 21:00 Diphenhydramine HCl (Benadryl) 25 mg Q6H PRN PO PRURITUS; Start 08/23/16 at 19: 00 Pantoprazole (Protonix Tab) 40 mg BID@06,18 PO Last administered on 08/28/16 06:19; Admin Dose 40 MG; Start 08/24/16 at 06:00 Vancomycin HCl PER PHARMACY DOSING NOTE XX ; Start 08/23/16 at 20:00 Levofloxacin/ Dextrose (Levaquin 500mg/ D5W 100 ml (Pmx)) 100 ml @ 100 mls/hr Q48H IVPB Last administered on 08/27/16 21:37; Admin Dose 100 MLS/HR; Start at 20:00 Ferrous Sulfate (Ferrous Sulfate (Ec)) 325 mg BID PO Last administered on 13:59; Admin Dose 325 MG; Start 08/25/16 at 21:00 Hydralazine HCl (Apresoline) 10 mg Q8H PRN IV ELEVATED BLOOD PRESSURE Last administered on 08/25/16 11:53; Admin Dose 10 MG; Start 08/25/16 at 12:00 Carvedilol (Coreg) 3.125 mg BID PO Last administered on 08/28/16 14:01; Admin Dose 3.125 MG; Start 08/27/16 at 21:00 Miscellaneous Information (*Rx Drug Level Order Reminder*) 1 ONCE ONCE XX ; Start 08/29/16 at 05:00; Stop 08/29/16 at 05:01 LEELA OSEGUERA MD Aug 28, 2016 14:24
--- NOTE | 2016-08-28 14:44 | CONS ---
Date/Time of Note Date/Time of Note DATE: 08/28/16 TIME: 14:42 Assessment/Plan Assessment/Plan Additional Assessment/Plan Hip fracture status post hip surgery Postop hypotension, improved Cardiomyopathy with ejection fraction 35% CAD with bare-metal stent to LAD May 2016 End-stage renal disease on hemodialysis Diabetes History of hypertension -Mental status improving, blood pressure elevated, increased dose of Coreg. If blood pressure remains stable, would restart Isordil next 1-2 days. Consultation Date/Type/Reason Admit Date/Time Aug 17, 2016 at 20:14 Type of Consultation: cv 24 HR Interval Summary Free Text/Dictation Patient's mental status improved today, following commands and speaking with and coherent. Exam/Review of Systems Vital Signs Vitals Vital Signs Date Time Temp Pulse Resp B/P Pulse Ox O2 Delivery O2 Flow Rate FiO2 08/28/16 13:50 98 08/28/16 12:26 18 08/28/16 11:41 98.2 160/78 99 08/28/16 08:15 Nasal Cannula 4.0 08/26/16 06:04 50 Intake and Output 08/27/16 08/27/16 08/28/16 15:00 23:00 07:00 Intake Total 200 ml Balance 200 ml Exam Follows commands, no apparent distress Constitutional: alert, frail Head: normocephalic Neck: supple Respiratory: other (Coarse breath sounds bilaterally, no wheezing) Cardiovascular: other, regular rate and rhythm Gastrointestinal: bowel sounds, non-tender, other (No guarding), soft Extremities: edema (Trace), other (No cyanosis) Results Result Diagram: 08/28/16 0520 08/28/16 0500 Results 24 hrs Laboratory Tests Test 08/27/16 18:31 08/27/16 22:59 08/28/16 05:00 08/28/16 05:20 Bedside Glucose 103 92 Anion Gap 22 H Blood Urea Nitrogen 55 H Calcium Level 10.7 H Carbon Dioxide Level 25 Chloride Level 100 Creatinine 6.33 H Glucose Level 61 #L Potassium Level 4.7 Sodium Level 142 Hematocrit 26.3 L Hemoglobin 8.4 L Test 08/28/16 08:34 08/28/16 13:24 Bedside Glucose 70 164 Medications Medications Current Medications Atorvastatin Calcium (Lipitor) 40 mg DAILY PO Last administered on 08/28/16 14 :00; Admin Dose 40 MG; Start 08/18/16 at 09:00 Clopidogrel Bisulfate (plaVIX) 75 mg DAILY PO Last administered on 08/28/16 14 :00; Admin Dose 75 MG; Start 08/18/16 at 09:00; Status Future hold Metoclopramide HCl (Reglan) 5 mg Q6H PRN PO NAUSEA Last administered on 09:05; Admin Dose 5 MG; Start 08/17/16 at 23:00 Nortriptyline HCl (Aventyl) 25 mg BID PO Last administered on 08/28/16 13:59; Admin Dose 25 MG; Start 08/17/16 at 23:00 Thiamine HCl (Vitamin B1) 250 mg DAILY PO Last administered on 08/28/16 14:00 ; Admin Dose 250 MG; Start 08/18/16 at 09:00 Multivit/Ca Carb/ B Cmplx/FA/Prenat (Aleyda-Pam) 1 tab DAILY PO Last administered on 08/28/16 13:59; Admin Dose 1 TAB; Start 08/18/16 at 09:00 Insulin Glargine (Lantus) 10 unit HS SC ; Start 08/18/16 at 21:00; Status Future Hold Diagnostic Test (Pha) (Accucheck) 1 ea 02 XX Last administered on 08/26/16 02: 00; Admin Dose 1 EA; Start 08/18/16 at 02:00 Miscellaneous Information 1 ea NOTE XX ; Start 08/17/16 at 23:30 Glucose (Glutose) 15 gm Q15M PRN PO DECREASED GLUCOSE; Start 08/17/16 at 23:30 Glucose (Glutose) 22.5 gm Q15M PRN PO DECREASED GLUCOSE; Start 08/17/16 at 23:30 Dextrose (D50w Syringe) 25 ml Q15M PRN IV DECREASED GLUCOSE; Start 08/17/16 at 23:30 Dextrose (D50w Syringe) 50 ml Q15M PRN IV DECREASED GLUCOSE; Start 08/17/16 at 23:30 Glucagon (Glucagen) 1 mg Q15M PRN IM DECREASED GLUCOSE; Start 08/17/16 at 23:30 Glucose (Glutose) 15 gm Q15M PRN BUCCAL DECREASED GLUCOSE; Start 08/17/16 at 23: 30 Miscellaneous Information 1 ea NOTE XX ; Start 08/23/16 at 07:00; Stop 08/27/18 at 06:59 Oxycodone HCl (Roxicodone) 5 mg Q4H PRN PO PAIN LEVEL 1-3; Start 08/23/16 at 19: 00 Oxycodone HCl (Roxicodone) 10 mg Q4H PRN PO PAIN LEVEL 4-7; Start 08/23/16 at 19 :00 Hydromorphone HCl (Dilaudid) 1 mg Q3H PRN IV PAIN LEVEL 8-10 Last administered on 08/28/16 13:59; Admin Dose 1 MG; Start 08/23/16 at 19:00 Ondansetron HCl (Zofran Inj) 4 mg Q6H PRN IV NAUSEA AND/OR VOMITING; Start 08/23 at 19:00 Bisacodyl (Dulcolax Supp) 10 mg Q12H PRN [place] CONSTIPATION; Start 08/23/16 at 19: 00 Magnesium Hydroxide (Milk Of Mag) 30 ml BID PRN PO CONSTIPATION; Start 08/23/16 at 19:00 Sodium Biphosphate/ Sodium Phosphate (Fleet Enema) 133 ml DAILY PRN [place] CONSTIPATION; Start 08/23/16 at 19:00 Docusate Sodium (Colace) 100 mg BID PO Last administered on 08/28/16 14:01; Admin Dose 100 MG; Start 08/23/16 at 21:00 Diphenhydramine HCl (Benadryl) 25 mg Q6H PRN PO PRURITUS; Start 08/23/16 at 19: 00 Pantoprazole (Protonix Tab) 40 mg BID@06,18 PO Last administered on 08/28/16 06:19; Admin Dose 40 MG; Start 08/24/16 at 06:00 Vancomycin HCl PER PHARMACY DOSING NOTE XX ; Start 08/23/16 at 20:00 Levofloxacin/ Dextrose (Levaquin 500mg/ D5W 100 ml (Pmx)) 100 ml @ 100 mls/hr Q48H IVPB Last administered on 08/27/16 21:37; Admin Dose 100 MLS/HR; Start at 20:00 Ferrous Sulfate (Ferrous Sulfate (Ec)) 325 mg BID PO Last administered on 13:59; Admin Dose 325 MG; Start 08/25/16 at 21:00 Hydralazine HCl (Apresoline) 10 mg Q8H PRN IV ELEVATED BLOOD PRESSURE Last administered on 08/25/16 11:53; Admin Dose 10 MG; Start 08/25/16 at 12:00 Carvedilol (Coreg) 3.125 mg BID PO Last administered on 08/28/16 14:01; Admin Dose 3.125 MG; Start 08/27/16 at 21:00 Miscellaneous Information (*Rx Drug Level Order Reminder*) 1 ONCE ONCE XX ; Start 08/29/16 at 05:00; Stop 08/29/16 at 05:01 Kike Cruz DO Aug 28, 2016 14:44
[2016-08-29] VITALS (13 sets, daily range): BP systolic 105–186; BP diastolic 51–81; PULSE 86–96; RESP 19–22
[2016-08-29] MEDS: ACCU-CHEK XX SCH (02:00)
[2016-08-29] MEDS: hydrALAzine 20 MG INJ IV PRN ×2 (03:48→19:59)
[2016-08-29] MEDS: FUROSEMIDE 20 MG INJ IV SCH ×2 (05:18→18:06)
[2016-08-29] MEDS: PANTOPRAZOLE (EC) 40 MG TAB PO SCH ×2 (06:00→18:06)
[2016-08-29 06:26] LABS: HEMATOCRIT 26.8 % (42.0-52.0); HEMOGLOBIN 8.2 g/dl (14.0-18.0)
[2016-08-29 06:34] LABS: POTASSIUM 3.7 mmol/L (3.5-5.1)
[2016-08-29 06:37] LABS: CALCIUM 10.2 mg/dl (8.4-10.2); CREATININE 4.3 mg/dl (0.61-1.24)
[2016-08-29] MEDS: INSULIN ASPART [NOVOLOG] 3 ML PEN SC SCH ×4 (07:55→20:28)
[2016-08-29] MEDS: ATORVASTATIN 40 MG TAB PO SCH (08:58)
[2016-08-29] MEDS: NORTRIPTYLINE 25 MG CAP PO SCH ×2 (08:58→20:27)
[2016-08-29] MEDS: FERROUS SULFATE (EC) 325 MG TAB PO SCH ×2 (08:58→20:27)
[2016-08-29] MEDS: DOCUSATE SODIUM 100 MG CAP PO SCH ×2 (08:58→20:27)
[2016-08-29] MEDS: MULTIVIT/CA CARB/B CMPLX/FA TAB PO SCH (08:59)
[2016-08-29] MEDS: THIAMINE 100 MG TAB PO SCH (08:59)
[2016-08-29] MEDS: CLOPIDOGREL 75 MG TAB PO SCH (08:59)
--- NOTE | 2016-08-29 09:13 | PN ---
Date/Time of Note Date/Time of Note DATE: 08/29/16 TIME: 09:11 Assessment/Plan Lines/Catheters IV Catheter Type (from Nrsg): Peripheral IV Jain in Place (from Nrsg): No Assessment/Plan Assessment/Plan Guarded but slight improvement POD #6, s/p hardware removal, failed left hip IM rodding, conversion to left posterior MIGUE -continue abx per hospitalist team -Plavix restarted by cardiology. ASA held due to concern for increased bleeding -SCDs for DVT prophylaxis -posterior hip precautions -knee immobilizer to be worn at all times -OOB with PT as tolerated -check AM labs. H&H low but stable for now -BP continues to be variable. Will monitor closely -dressing changed -continue hemodialysis per nephrology Subjective 24 Hr Interval Summary No acute overnight events. states he is doing slightly better today. Hemodialysis performed yesterday. BP continues to be variable. Limited PT secondary to other comorbidities. Denies any significant hip pain. Exam/Review of Systems Vital Signs Vitals Vital Signs Date Time Temp Pulse Resp B/P Pulse Ox O2 Delivery O2 Flow Rate FiO2 08/29/16 07:07 98.6 99 20 175/76 98 08/29/16 05:27 4.0 08/28/16 21:00 Nasal Cannula 08/26/16 06:04 50 Intake and Output 08/28/16 08/28/16 08/29/16 15:00 23:00 07:00 Intake Total 500 ml Output Total 2500 ml Balance -2000 ml Exam Free Text/Dictation Dressing dry Incision clean, dry, and intact without redness or drainage 4/5 Quadriceps, Tibialis Anterior, EHL, Gastroc, Soleus, Peroneals Normal sensation Palpable DT/PT, CR <2 sec No distal edema Results Result Diagram: 08/29/16 0540 08/29/16 0540 TONI ORNELAS PA-C Aug 29, 2016 09:13
--- NOTE | 2016-08-29 11:21 | CONS ---
Date/Time of Note Date/Time of Note DATE: 08/29/16 TIME: 11:19 Assessment/Plan Assessment/Plan Additional Assessment/Plan Hip fracture status post hip surgery Cardiomyopathy with ejection fraction 35% CAD with bare-metal stent to LAD May 2016 End-stage renal disease on hemodialysis Diabetes History of hypertension -Blood pressure trend improving, with start ED inhibitor given patient with cardiomyopathy. Fluid management via hemodialysis as per our nephrology colleagues. Consultation Date/Type/Reason Admit Date/Time Aug 17, 2016 at 20:14 Type of Consultation: cv 24 HR Interval Summary Free Text/Dictation Patient denies shortness of breath, chest pain Exam/Review of Systems Vital Signs Vitals Vital Signs Date Time Temp Pulse Resp B/P Pulse Ox O2 Delivery O2 Flow Rate FiO2 08/29/16 11:10 98.2 80 22 129/70 93 08/29/16 05:27 4.0 08/28/16 21:00 Nasal Cannula 08/26/16 06:04 50 Intake and Output 08/28/16 08/28/16 08/29/16 15:00 23:00 07:00 Intake Total 500 ml Output Total 2500 ml Balance -2000 ml Exam No apparent distress, at bedside Constitutional: alert, oriented Head: normocephalic Neck: supple Respiratory: other (Coarse breath sounds bilaterally, no wheezing) Cardiovascular: other (S1-S2 heard), regular rate and rhythm Gastrointestinal: bowel sounds, non-tender, other (No guarding), soft Extremities: edema (Trace), other (No cyanosis) Results Result Diagram: 08/29/16 0540 08/29/16 0540 Results 24 hrs Laboratory Tests Test 08/28/16 13:24 08/28/16 18:52 08/28/16 20:19 08/29/16 05:40 Bedside Glucose 164 161 132 Anion Gap 17 H Blood Urea Nitrogen 27 #H Calcium Level 10.2 Carbon Dioxide Level 31 Chloride Level 101 Creatinine 4.30 #H Glucose Level 96 Hematocrit 26.8 L Hemoglobin 8.2 L Potassium Level 3.7 Random Vancomycin Level 17.1 Sodium Level 145 H Test 08/29/16 08:10 Bedside Glucose 100 Medications Medications Current Medications Atorvastatin Calcium (Lipitor) 40 mg DAILY PO Last administered on 08/29/16t 08 :58; Admin Dose 40 MG; Start 08/18/16 at 09:00 Clopidogrel Bisulfate (plaVIX) 75 mg DAILY PO Last administered on 08/29/16 08 :59; Admin Dose 75 MG; Start 08/18/16 at 09:00; Status Future hold Metoclopramide HCl (Reglan) 5 mg Q6H PRN PO NAUSEA Last administered on 09:05; Admin Dose 5 MG; Start 08/17/16 at 23:00 Nortriptyline HCl (Aventyl) 25 mg BID PO Last administered on 08/29/16 08:58; Admin Dose 25 MG; Start 08/17/16 at 23:00 Thiamine HCl (Vitamin B1) 250 mg DAILY PO Last administered on 08/29/16 08:59 ; Admin Dose 250 MG; Start 08/18/16 at 09:00 Multivit/Ca Carb/ B Cmplx/FA/Prenat (Aleyda-Pam) 1 tab DAILY PO Last administered on 08/29/16 08:59; Admin Dose 1 TAB; Start 08/18/16 at 09:00 Insulin Glargine (Lantus) 10 unit HS SC ; Start 08/18/16 at 21:00; Status Future Hold Diagnostic Test (Pha) (Accucheck) 1 ea 02 XX Last administered on 08/26/16 02: 00; Admin Dose 1 EA; Start 08/18/16 at 02:00 Miscellaneous Information 1 ea NOTE XX ; Start 08/17/16 at 23:30 Glucose (Glutose) 15 gm Q15M PRN PO DECREASED GLUCOSE; Start 08/17/16 at 23:30 Glucose (Glutose) 22.5 gm Q15M PRN PO DECREASED GLUCOSE; Start 08/17/16 at 23:30 Dextrose (D50w Syringe) 25 ml Q15M PRN IV DECREASED GLUCOSE; Start 08/17/16 at 23:30 Dextrose (D50w Syringe) 50 ml Q15M PRN IV DECREASED GLUCOSE; Start 08/17/16 at 23:30 Glucagon (Glucagen) 1 mg Q15M PRN IM DECREASED GLUCOSE; Start 08/17/16 at 23:30 Glucose (Glutose) 15 gm Q15M PRN BUCCAL DECREASED GLUCOSE; Start 08/17/16 at 23: 30 Miscellaneous Information 1 ea NOTE XX ; Start 08/23/16 at 07:00; Stop 08/27/18 at 06:59 Oxycodone HCl (Roxicodone) 5 mg Q4H PRN PO PAIN LEVEL 1-3; Start 08/23/16 at 19: 00 Oxycodone HCl (Roxicodone) 10 mg Q4H PRN PO PAIN LEVEL 4-7; Start 08/23/16 at 19 :00 Hydromorphone HCl (Dilaudid) 1 mg Q3H PRN IV PAIN LEVEL 8-10 Last administered on 08/28/16 13:59; Admin Dose 1 MG; Start 08/23/16 at 19:00 Ondansetron HCl (Zofran Inj) 4 mg Q6H PRN IV NAUSEA AND/OR VOMITING; Start 08/23 at 19:00 Bisacodyl (Dulcolax Supp) 10 mg Q12H PRN OR CONSTIPATION; Start 08/23/16 at 19: 00 Magnesium Hydroxide (Milk Of Mag) 30 ml BID PRN PO CONSTIPATION; Start 08/23/16 at 19:00 Sodium Biphosphate/ Sodium Phosphate (Fleet Enema) 133 ml DAILY PRN OR CONSTIPATION; Start 08/23/16 at 19:00 Docusate Sodium (Colace) 100 mg BID PO Last administered on 08/29/16 08:58; Admin Dose 100 MG; Start 08/23/16 at 21:00 Diphenhydramine HCl (Benadryl) 25 mg Q6H PRN PO PRURITUS; Start 08/23/16 at 19: 00 Pantoprazole (Protonix Tab) 40 mg BID@06,18 PO Last administered on 08/28/16 18:54; Admin Dose 40 MG; Start 08/24/16 at 06:00 Vancomycin HCl PER PHARMACY DOSING NOTE XX ; Start 08/23/16 at 20:00 Levofloxacin/ Dextrose (Levaquin 500mg/ D5W 100 ml (Pmx)) 100 ml @ 100 mls/hr Q48H IVPB Last administered on 08/27/16 21:37; Admin Dose 100 MLS/HR; Start at 20:00 Ferrous Sulfate (Ferrous Sulfate (Ec)) 325 mg BID PO Last administered on 08:58; Admin Dose 325 MG; Start 08/25/16 at 21:00 Hydralazine HCl (Apresoline) 10 mg Q8H PRN IV ELEVATED BLOOD PRESSURE Last administered on 08/29/16 03:48; Admin Dose 10 MG; Start 08/25/16 at 12:00 Carvedilol 6.25 mg 6.25 mg BID PO Last administered on 08/29/16 08:58; Admin Dose 6.25 MG; Start 08/28/16 at 21:00 Vancomycin HCl/ Sodium Chloride (Vancocin/NS) 150 ml @ 75 mls/hr Q96H IVPB ; Start 08/29/16 at 18:00 Kike Cruz DO Aug 29, 2016 11:21
[2016-08-29] MEDS ORDERED: LIDOCAINE 2% VISC 15 ML CUP PO PRN (12:00)
--- NOTE | 2016-08-29 12:24 | PN ---
Date/Time of Note Date/Time of Note DATE: 08/29/16 TIME: 12:10 Assessment/Plan VTE Prophylaxis VTE Prophylaxis Intervention: other Lines/Catheters [facility] (from [facility] Peripheral IV Urinary Cath still in place: No Assessment/Plan Chief Complaint/Hosp Course Chief Complaint/Hosp Course 1. Failed open reduction internal fixation left intertrochanteric hip fracture. Status post hardware removal, left hip and conversion to left total hip arthroplasty. Continue postsurgical care, pain medication Continue broad-spectrum IV antibiotics as per surgery recommendations 2. Ischemic cardiomyopathy with ejection fraction of 35%. Continue to optimize cardiac medications if blood pressure allows. 3. CAD status post coronary artery stenting in the past. The patient was on Plavix. Cardiology following. Plavix on hold because of surgery on 08/23/2016. 4. Essential hypertension. At this time we will hold off blood pressure medication secondary to hypotension, 5. Dyslipidemia. Continue statin. 6. Type 2 diabetes mellitus. Hemoglobin A1c 5.2. Continue sliding scale insulin along with Lantus insulin. Blood sugars well controlled. 7. Normocytic anemia. Underlying iron deficiency. Continue iron supplements. 8. Hyperkalemia. On hemodialysis follow up electrolytes in a.m. 9. End-stage renal disease. On hemodialysis continue nephrology recommendations 10. Respiratory distress. Likely secondary to fluid overload. Status post hemodialysis - Deep venous thrombosis prophylaxis. Bilateral sequential compression devices. - Gastrointestinal prophylaxis with histamine 2 receptor blockers. PLAN: Hemodialysis as per Nephrology. 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 intake Consuming 30-35% of his meals Had a long discussion with patient's spouse regarding disposition and she is adamant that she would like to take the patient home with home health She is refusing halfway facility placement Exam/Review of Systems Vital Signs Vitals Vital Signs Date Time Temp Pulse Resp B/P Pulse Ox O2 Delivery O2 Flow Rate FiO2 08/29/16 11:10 98.2 80 22 129/70 93 08/29/16 05:27 4.0 08/28/16 21:00 Nasal Cannula 08/26/16 06:04 50 Intake and Output 3/08/28/16 08/29/16 15:00 23:00 07:00 Intake Total 500 ml Output Total 2500 ml Balance -2000 ml Exam General: The patient is not in acute distress. HEENT: Atraumatic, normocephalic. The pupils are equal and round . Neck: Supple with full range of motion. Chest: Normal expansion of the thorax during inspiration Lungs: Clear to auscultation bilaterally Heart: Normal S1-S2, Regular rhythm and rate. Abdomen: Soft , nontender, nondistended , bowel sounds are present. Extremities: Normal to inspection, no edema no cyanosis, surgical site is dry and clean Neurologic: mental status at baseline,The patient is awake, alert Results Result Diagram: 08/29/16 0540 08/29/16 0540 Results 24 hrs Laboratory Tests Test 08/28/16 13:24 08/28/16 18:52 08/28/16 20:19 08/29/16 05:40 Bedside Glucose 164 161 132 Anion Gap 17 H Blood Urea Nitrogen 27 #H Calcium Level 10.2 Carbon Dioxide Level 31 Chloride Level 101 Creatinine 4.30 #H Glucose Level 96 Hematocrit 26.8 L Hemoglobin 8.2 L Potassium Level 3.7 Random Vancomycin Level 17.1 Sodium Level 145 H Test 08/29/16 08:10 08/29/16 11:37 Bedside Glucose 100 117 Medications Medications Current Medications Atorvastatin Calcium (Lipitor) 40 mg DAILY PO Last administered on 08/29/16 08 :58; Admin Dose 40 MG; Start 08/18/16 at 09:00 Clopidogrel Bisulfate (plaVIX) 75 mg DAILY PO Last administered on 08/29/16 08 :59; Admin Dose 75 MG; Start 08/18/16 at 09:00; Status Future hold Metoclopramide HCl (Reglan) 5 mg Q6H PRN PO NAUSEA Last administered on 09:05; Admin Dose 5 MG; Start 08/17/16 at 23:00 Nortriptyline HCl (Aventyl) 25 mg BID PO Last administered on 08/29/16 08:58; Admin Dose 25 MG; Start 08/17/16 at 23:00 Thiamine HCl (Vitamin B1) 250 mg DAILY PO Last administered on 08/29/16 08:59 ; Admin Dose 250 MG; Start 08/18/16 at 09:00 Multivit/Ca Carb/ B Cmplx/FA/Prenat (Aleyda-Pam) 1 tab DAILY PO Last administered on 08/29/16 08:59; Admin Dose 1 TAB; Start 08/18/16 at 09:00 Insulin Glargine (Lantus) 10 unit HS SC ; Start 08/18/16 at 21:00; Status Future Hold Diagnostic Test (Pha) (Accucheck) 1 ea 02 XX Last administered on 08/26/16 02: 00; Admin Dose 1 EA; Start 08/18/16 at 02:00 Miscellaneous Information 1 ea NOTE XX ; Start 08/17/16 at 23:30 Glucose (Glutose) 15 gm Q15M PRN PO DECREASED GLUCOSE; Start 08/17/16 at 23:30 Glucose (Glutose) 22.5 gm Q15M PRN PO DECREASED GLUCOSE; Start 08/17/16 at 23:30 Dextrose (D50w Syringe) 25 ml Q15M PRN IV DECREASED GLUCOSE; Start 08/17/16 at 23:30 Dextrose (D50w Syringe) 50 ml Q15M PRN IV DECREASED GLUCOSE; Start 08/17/16 at 23:30 Glucagon (Glucagen) 1 mg Q15M PRN IM DECREASED GLUCOSE; Start 08/17/16 at 23:30 Glucose (Glutose) 15 gm Q15M PRN BUCCAL DECREASED GLUCOSE; Start 08/17/16 at 23: 30 Miscellaneous Information 1 ea NOTE XX ; Start 08/23/16 at 07:00; Stop 08/27/18 at 06:59 Oxycodone HCl (Roxicodone) 5 mg Q4H PRN PO PAIN LEVEL 1-3; Start 08/23/16 at 19: 00 Oxycodone HCl (Roxicodone) 10 mg Q4H PRN PO PAIN LEVEL 4-7; Start 08/23/16 at 19 :00 Hydromorphone HCl (Dilaudid) 1 mg Q3H PRN IV PAIN LEVEL 8-10 Last administered on 08/28/16 13:59; Admin Dose 1 MG; Start 08/23/16 at 19:00 Ondansetron HCl (Zofran Inj) 4 mg Q6H PRN IV NAUSEA AND/OR VOMITING; Start 08/23 at 19:00 Bisacodyl (Dulcolax Supp) 10 mg Q12H PRN [place] CONSTIPATION; Start 08/23/16 at 19: 00 Magnesium Hydroxide (Milk Of Mag) 30 ml BID PRN PO CONSTIPATION; Start 08/23/16 at 19:00 Sodium Biphosphate/ Sodium Phosphate (Fleet Enema) 133 ml DAILY PRN [place] CONSTIPATION; Start 08/23/16 at 19:00 Docusate Sodium (Colace) 100 mg BID PO Last administered on 08/29/16 08:58; Admin Dose 100 MG; Start 08/23/16 at 21:00 Diphenhydramine HCl (Benadryl) 25 mg Q6H PRN PO PRURITUS; Start 08/23/16 at 19: 00 Pantoprazole (Protonix Tab) 40 mg BID@06,18 PO Last administered on 08/28/16 18:54; Admin Dose 40 MG; Start 08/24/16 at 06:00 Vancomycin HCl PER PHARMACY DOSING NOTE XX ; Start 08/23/16 at 20:00 Levofloxacin/ Dextrose (Levaquin 500mg/ D5W 100 ml (Pmx)) 100 ml @ 100 mls/hr Q48H IVPB Last administered on 08/27/16 21:37; Admin Dose 100 MLS/HR; Start at 20:00 Ferrous Sulfate (Ferrous Sulfate (Ec)) 325 mg BID PO Last administered on 08:58; Admin Dose 325 MG; Start 08/25/16 at 21:00 Hydralazine HCl (Apresoline) 10 mg Q8H PRN IV ELEVATED BLOOD PRESSURE Last administered on 08/29/16 03:48; Admin Dose 10 MG; Start 08/25/16 at 12:00 Carvedilol 6.25 mg 6.25 mg BID PO Last administered on 08/29/16 08:58; Admin Dose 6.25 MG; Start 08/28/16 at 21:00 Vancomycin HCl/ Sodium Chloride (Vancocin/NS) 150 ml @ 75 mls/hr Q96H IVPB ; Start 08/29/16 at 18:00 Lisinopril (Zestril) 5 mg BID PO ; Start 08/29/16 at 21:00 Lidocaine (Xylocaine (Viscous)) 15 ml TID PRN PO ORAL CAVITY PAIN ; Start 08/29 at 12:00 LEELA OSEGUERA MD Aug 29, 2016 12:21
[2016-08-29] MEDS: VANCOMYCIN 750 MG in SOD CHLORIDE 0.9% 150 ML IVPB SCH (18:05)
[2016-08-29] MEDS: LISINOPRIL 5 MG TAB PO SCH (20:27)
[2016-08-29] MEDS: LEVOFLOXACIN 500MG/D5W (PMX) 100 ML IVPB SCH (20:28)
[2016-08-30] VITALS (22 sets, daily range): BP systolic 75–192; BP diastolic 34–102; PULSE 64–102; RESP 15–20
[2016-08-30] MEDS: ACCU-CHEK XX SCH (01:16)
[2016-08-30] MEDS: hydrALAzine 20 MG INJ IV PRN (04:38)
[2016-08-30] MEDS: FUROSEMIDE 20 MG INJ IV SCH ×2 (05:02→17:31)
[2016-08-30] MEDS: PANTOPRAZOLE (EC) 40 MG TAB PO SCH ×2 (05:02→17:30)
[2016-08-30 06:43] LABS: HEMATOCRIT 28.7 % (42.0-52.0); HEMOGLOBIN 8.8 g/dl (14.0-18.0)
[2016-08-30 07:09] LABS: POTASSIUM 4.1 mmol/L (3.5-5.1)
[2016-08-30 07:11] LABS: CREATININE 5.42 mg/dl (0.61-1.24)
[2016-08-30 07:12] LABS: CALCIUM 10.9 mg/dl (8.4-10.2)
[2016-08-30] MEDS: INSULIN ASPART [NOVOLOG] 3 ML PEN SC SCH ×4 (07:18→21:00)
[2016-08-30] MEDS: LISINOPRIL 5 MG TAB PO SCH ×2 (09:00→21:20)
[2016-08-30] MEDS: THIAMINE 100 MG TAB PO SCH (09:38)
[2016-08-30] MEDS: FERROUS SULFATE (EC) 325 MG TAB PO SCH ×2 (09:39→21:19)
[2016-08-30] MEDS: DOCUSATE SODIUM 100 MG CAP PO SCH ×2 (09:39→21:19)
[2016-08-30] MEDS: MULTIVIT/CA CARB/B CMPLX/FA TAB PO SCH (09:39)
[2016-08-30] MEDS: NORTRIPTYLINE 25 MG CAP PO SCH ×2 (09:39→21:19)
[2016-08-30] MEDS: ATORVASTATIN 40 MG TAB PO SCH (09:40)
[2016-08-30] MEDS: CLOPIDOGREL 75 MG TAB PO SCH (09:40)
--- NOTE | 2016-08-30 11:10 | PN ---
Date/Time of Note Date/Time of Note DATE: 08/30/16 TIME: 11:06 Assessment/Plan VTE Prophylaxis VTE Prophylaxis Intervention: other Lines/Catheters [facility] Saline Lock Urinary Cath still in place: No Assessment/Plan Chief Complaint/Hosp Course Chief Complaint/Hosp Course 1. Failed open reduction internal fixation left intertrochanteric hip fracture. Status post hardware removal, left hip and conversion to left total hip arthroplasty. Continue postsurgical care, pain medication Continue broad-spectrum IV antibiotics as per surgery recommendations 2. Ischemic cardiomyopathy with ejection fraction of 35%. Continue to optimize cardiac medications if blood pressure allows. 3. CAD status post coronary artery stenting in the past. The patient was on Plavix. Cardiology following. Plavix on hold because of surgery on 08/23/2016. 4. Essential hypertension. At this time we will hold off blood pressure medication secondary to hypotension, 5. Dyslipidemia. Continue statin. 6. Type 2 diabetes mellitus. Hemoglobin A1c 5.2. Continue sliding scale insulin along with Lantus insulin. Blood sugars well controlled. 7. Normocytic anemia. Underlying iron deficiency. Continue iron supplements. 8. Hyperkalemia. On hemodialysis follow up electrolytes in a.m. 9. End-stage renal disease. On hemodialysis continue nephrology recommendations 10. Respiratory distress. Likely secondary to fluid overload. Status post hemodialysis - Deep venous thrombosis prophylaxis. Bilateral sequential compression devices. - Gastrointestinal prophylaxis with histamine 2 receptor blockers. PLAN: Hemodialysis as per Nephrology. We will continue monitor patient closely for recommendation management treatment as clinical course DVT prophylaxis as per orthopedic surgery recommendations general manager for retirement facility versus home via home health Problems: Subjective 24 Hr Interval Summary Free Text/Dictation Patient is more awake and alert Tolerating oral intake Denies any chest pain or shortness of breath Unfortunately patient has not been accepted at acute rehab. Have discussed disposition with patient and patient's spouse and options such as retirement facility has been discussed with them although at this time to have refused retirement facility and would like to be discharged home with home health. The risk has been discussed with patient and patient's Exam/Review of Systems Vital Signs Vitals Vital Signs Date Time Temp Pulse Resp B/P Pulse Ox O2 Delivery O2 Flow Rate FiO2 08/30/16 08:25 89 08/30/16 07:47 Nasal Cannula 4.0 08/30/16 07:30 97.7 19 110/57 96 08/30/16 01:46 27 Intake and Output 08/29/16 08/29/16 08/30/16 15:00 23:00 07:00 Intake Total 450 ml Balance 450 ml Exam General: The patient is well-developed, Not in acute distress. HEENT: Atraumatic, normocephalic. The pupils are equal and round . Neck: Supple with full range of motion. Chest: Normal expansion of the thorax during inspiration Lungs: Clear to auscultation bilaterally Heart: Normal S1-S2, Regular rhythm and rate. Abdomen: Soft , nontender, nondistended , bowel sounds are present. Extremities: Evidence of muscle wasting bilateral lower extremity, no edema no cyanosis, left lower extremity surgical site is dry and clean Neurologic: Normal mental status,The patient is awake, alert and oriented . Results Result Diagram: 08/30/16 0600 08/30/16 0600 Results 24 hrs Laboratory Tests Test 08/29/16 11:37 08/29/16 17:27 08/30/16 06:00 08/30/16 07:15 Bedside Glucose 117 105 81 Anion Gap 20 H Blood Urea Nitrogen 39 #H Calcium Level 10.9 H Carbon Dioxide Level 28 Chloride Level 98 Creatinine 5.42 H Glucose Level 76 Hematocrit 28.7 L Hemoglobin 8.8 L Potassium Level 4.1 Sodium Level 142 Medications Medications Current Medications Atorvastatin Calcium (Lipitor) 40 mg DAILY PO Last administered on 08/30/16 09 :40; Admin Dose 40 MG; Start 08/18/16 at 09:00 Clopidogrel Bisulfate (plaVIX) 75 mg DAILY PO Last administered on 08/30/16 09 :40; Admin Dose 75 MG; Start 08/18/16 at 09:00; Status Future hold Metoclopramide HCl (Reglan) 5 mg Q6H PRN PO NAUSEA Last administered on 09:05; Admin Dose 5 MG; Start 08/17/16 at 23:00 Nortriptyline HCl (Aventyl) 25 mg BID PO Last administered on 08/30/16 09:39; Admin Dose 25 MG; Start 08/17/16 at 23:00 Thiamine HCl (Vitamin B1) 250 mg DAILY PO Last administered on 08/30/16 09:38 ; Admin Dose 250 MG; Start 08/18/16 at 09:00 Multivit/Ca Carb/ B Cmplx/FA/Prenat (Aleyda-Pam) 1 tab DAILY PO Last administered on 08/30/16 09:39; Admin Dose 1 TAB; Start 08/18/16 at 09:00 Insulin Glargine (Lantus) 10 unit HS SC ; Start 08/18/16 at 21:00; Status Future Hold Diagnostic Test (Pha) (Accucheck) 1 ea 02 XX Last administered on 08/26/16 02: 00; Admin Dose 1 EA; Start 08/18/16 at 02:00 Miscellaneous Information 1 ea NOTE XX ; Start 08/17/16 at 23:30 Glucose (Glutose) 15 gm Q15M PRN PO DECREASED GLUCOSE; Start 08/17/16 at 23:30 Glucose (Glutose) 22.5 gm Q15M PRN PO DECREASED GLUCOSE; Start 08/17/16 at 23:30 Dextrose (D50w Syringe) 25 ml Q15M PRN IV DECREASED GLUCOSE; Start 08/17/16 at 23:30 Dextrose (D50w Syringe) 50 ml Q15M PRN IV DECREASED GLUCOSE; Start 08/17/16 at 23:30 Glucagon (Glucagen) 1 mg Q15M PRN IM DECREASED GLUCOSE; Start 08/17/16 at 23:30 Glucose (Glutose) 15 gm Q15M PRN BUCCAL DECREASED GLUCOSE; Start 08/17/16 at 23: 30 Miscellaneous Information 1 ea NOTE XX ; Start 08/23/16 at 07:00; Stop 08/27/18 at 06:59 Oxycodone HCl (Roxicodone) 5 mg Q4H PRN PO PAIN LEVEL 1-3; Start 08/23/16 at 19: 00 Oxycodone HCl (Roxicodone) 10 mg Q4H PRN PO PAIN LEVEL 4-7; Start 08/23/16 at 19 :00 Hydromorphone HCl (Dilaudid) 1 mg Q3H PRN IV PAIN LEVEL 8-10 Last administered on 08/28/16 13:59; Admin Dose 1 MG; Start 08/23/16 at 19:00 Ondansetron HCl (Zofran Inj) 4 mg Q6H PRN IV NAUSEA AND/OR VOMITING; Start 08/23 at 19:00 Bisacodyl (Dulcolax Supp) 10 mg Q12H PRN [place] CONSTIPATION; Start 08/23/16 at 19: 00 Magnesium Hydroxide (Milk Of Mag) 30 ml BID PRN PO CONSTIPATION; Start 08/23/16 at 19:00 Sodium Biphosphate/ Sodium Phosphate (Fleet Enema) 133 ml DAILY PRN [place] CONSTIPATION; Start 08/23/16 at 19:00 Docusate Sodium (Colace) 100 mg BID PO Last administered on 08/30/16 09:39; Admin Dose 100 MG; Start 08/23/16 at 21:00 Diphenhydramine HCl (Benadryl) 25 mg Q6H PRN PO PRURITUS; Start 08/23/16 at 19: 00 Pantoprazole (Protonix Tab) 40 mg BID@06,18 PO Last administered on 08/30/16 05:02; Admin Dose 40 MG; Start 08/24/16 at 06:00 Vancomycin HCl PER PHARMACY DOSING NOTE XX ; Start 08/23/16 at 20:00 Levofloxacin/ Dextrose (Levaquin 500mg/ D5W 100 ml (Pmx)) 100 ml @ 100 mls/hr Q48H IVPB Last administered on 08/29/16 20:28; Admin Dose 100 MLS/HR; Start at 20:00 Ferrous Sulfate (Ferrous Sulfate (Ec)) 325 mg BID PO Last administered on 09:39; Admin Dose 325 MG; Start 08/25/16 at 21:00 Hydralazine HCl (Apresoline) 10 mg Q8H PRN IV ELEVATED BLOOD PRESSURE Last administered on 08/30/16 04:38; Admin Dose 10 MG; Start 08/25/16 at 12:00 Carvedilol 6.25 mg 6.25 mg BID PO Last administered on 08/29/16 20:28; Admin Dose 6.25 MG; Start 08/28/16 at 21:00 Vancomycin HCl/ Sodium Chloride (Vancocin/NS) 150 ml @ 75 mls/hr Q96H IVPB Last administered on 08/29/16 18:05; Admin Dose 75 MLS/HR; Start 08/29/16 at 18 :00 Lisinopril (Zestril) 5 mg BID PO Last administered on 08/29/16 20:27; Admin Dose 5 MG; Start 08/29/16 at 21:00 Lidocaine (Xylocaine (Viscous)) 15 ml TID PRN PO ORAL CAVITY PAIN Last administered on 08/29/16t 19:56; Admin Dose 15 ML; Start 08/29/16 at 12:00 ELELA OSEGUERA MD Aug 30, 2016 11:10
--- NOTE | 2016-08-30 13:28 | PN ---
Date/Time of Note Date/Time of Note DATE: 08/30/16 TIME: 13:24 Assessment/Plan Lines/Catheters IV Catheter Type (from Nrsg): Saline Lock Jain in Place (from Nrsg): No Assessment/Plan Assessment/Plan Fair condition POD #7, s/p hardware removal, failed left hip IM rodding, conversion to left posterior MIGUE -continue abx per hospitalist team -Plavix restarted by cardiology. ASA held due to concern for increased bleeding -SCDs for DVT prophylaxis -posterior hip precautions -knee immobilizer to be worn at all times -OOB with PT as tolerated -check AM labs. H&H low but stable for now -BP improved and appears to have stabilized. Will follow cardiology recommendations -continue hemodialysis per nephrology -discharge planning. Spoke with Dr. Zavala and family and will plan to transfer to SNF tomorrow Subjective 24 Hr Interval Summary Pain doing much better overall. He is much more alert and talkative. Denies any hip pain. BP and other vital signs stablizing overall. Patient unfortunately was not accepted at [facility]. Spoke with the family who agree that the patient should be transferred to SNF upon discharge. Exam/Review of Systems Vital Signs Vitals Vital Signs Date Time Temp Pulse Resp B/P Pulse Ox O2 Delivery O2 Flow Rate FiO2 08/30/16 11:32 97.9 79 19 132/57 100 08/30/16 07:47 Nasal Cannula 4.0 08/30/16 01:46 27 Intake and Output 08/29/16 08/29/16 08/30/16 15:00 23:00 07:00 Intake Total 450 ml Balance 450 ml Exam Free Text/Dictation Hemovac:Dressing dry Incision clean, dry, and intact without redness or drainage 5/5 Quadriceps, Tibialis Anterior, EHL, Gastroc, Soleus, Peroneals Normal sensation Palpable DT/PT, CR <2 sec Knee immobilizer and abduction pillow in place No distal edema Results Result Diagram: 08/30/16 0600 08/30/16 06 TONI ORNELAS PA-C Aug 30, 2016 13:28
--- NOTE | 2016-08-30 15:37 | CONS ---
Date/Time of Note Date/Time of Note DATE: 08/30/16 TIME: 15:34 Assessment/Plan Assessment/Plan Chief Complaint/Hosp Course - ESRD - ANEMIA - Hx of Hip Fracture - S/P Total Hip Replacement - CAD/CHF - Recent Angiogram @ [facility] & STENT PLAN: ESRD on Dialysis @ [facility] Post Hip replacement More alert Bedside dialysis Continue with PT/OT Agree with PT/OT EPOGEN for anemia D/C MOM D/C Fleet enema Problems: Consultation Date/Type/Reason Admit Date/Time Aug 17, 2016 at 20:14 Initial Consult Date 08/24/16 Type of Consultation: NEPHROLOGY Reason for Consultation ESRD 24 HR Interval Summary Constitutional: improved Exam/Review of Systems Vital Signs Vitals Vital Signs Date Time Temp Pulse Resp B/P Pulse Ox O2 Delivery O2 Flow Rate FiO2 08/30/16 12:14 93 08/30/16 11:32 97.9 19 132/57 100 08/30/16 07:47 Nasal Cannula 4.0 08/30/16 01:46 27 Intake and Output 08/29/16 08/29/16 08/30/16 15:00 23:00 07:00 Intake Total 450 ml Balance 450 ml Exam Constitutional: well developed Psych: no complaints Head: normocephalic Eyes: nl conjunctiva ENMT: nl external ears & nose Respiratory: crackles/rales Cardiovascular: edema, systolic murmur Gastrointestinal: soft Results Result Diagram: 08/30/16 0600 08/30/16 0600 Results 24 hrs Laboratory Tests Test 08/29/16 17:27 08/30/16 06:00 08/30/16 07:15 08/30/16 11:30 Bedside Glucose 105 81 95 Anion Gap 20 H Blood Urea Nitrogen 39 #H Calcium Level 10.9 H Carbon Dioxide Level 28 Chloride Level 98 Creatinine 5.42 H Glucose Level 76 Hematocrit 28.7 L Hemoglobin 8.8 L Potassium Level 4.1 Sodium Level 142 Medications Medications Current Medications Atorvastatin Calcium (Lipitor) 40 mg DAILY PO Last administered on 08/30/16 09 :40; Admin Dose 40 MG; Start 08/18/16 at 09:00 Clopidogrel Bisulfate (plaVIX) 75 mg DAILY PO Last administered on 08/30/16 09 :40; Admin Dose 75 MG; Start 08/18/16 at 09:00; Status Future hold Metoclopramide HCl (Reglan) 5 mg Q6H PRN PO NAUSEA Last administered on 09:05; Admin Dose 5 MG; Start 08/17/16 at 23:00 Nortriptyline HCl (Aventyl) 25 mg BID PO Last administered on 08/30/16 09:39; Admin Dose 25 MG; Start 08/17/16 at 23:00 Thiamine HCl (Vitamin B1) 250 mg DAILY PO Last administered on 08/30/16 09:38 ; Admin Dose 250 MG; Start 08/18/16 at 09:00 Multivit/Ca Carb/ B Cmplx/FA/Prenat (Aleyda-Pam) 1 tab DAILY PO Last administered on 08/30/16 09:39; Admin Dose 1 TAB; Start 08/18/16 at 09:00 Insulin Glargine (Lantus) 10 unit HS SC ; Start 08/18/16 at 21:00; Status Future Hold Diagnostic Test (Pha) (Accucheck) 1 ea 02 XX Last administered on 08/26/16 02: 00; Admin Dose 1 EA; Start 08/18/16 at 02:00 Miscellaneous Information 1 ea NOTE XX ; Start 08/17/16 at 23:30 Glucose (Glutose) 15 gm Q15M PRN PO DECREASED GLUCOSE; Start 08/17/16 at 23:30 Glucose (Glutose) 22.5 gm Q15M PRN PO DECREASED GLUCOSE; Start 08/17/16 at 23:30 Dextrose (D50w Syringe) 25 ml Q15M PRN IV DECREASED GLUCOSE; Start 08/17/16 at 23:30 Dextrose (D50w Syringe) 50 ml Q15M PRN IV DECREASED GLUCOSE; Start 08/17/16 at 23:30 Glucagon (Glucagen) 1 mg Q15M PRN IM DECREASED GLUCOSE; Start 08/17/16 at 23:30 Glucose (Glutose) 15 gm Q15M PRN BUCCAL DECREASED GLUCOSE; Start 08/17/16 at 23: 30 Miscellaneous Information 1 ea NOTE XX ; Start 08/23/16 at 07:00; Stop 08/27/18 at 06:59 Oxycodone HCl (Roxicodone) 5 mg Q4H PRN PO PAIN LEVEL 1-3; Start 08/23/16 at 19: 00 Oxycodone HCl (Roxicodone) 10 mg Q4H PRN PO PAIN LEVEL 4-7; Start 08/23/16 at 19 :00 Hydromorphone HCl (Dilaudid) 1 mg Q3H PRN IV PAIN LEVEL 8-10 Last administered on 08/28/16 13:59; Admin Dose 1 MG; Start 08/23/16 at 19:00 Ondansetron HCl (Zofran Inj) 4 mg Q6H PRN IV NAUSEA AND/OR VOMITING; Start 08/23 at 19:00 Bisacodyl (Dulcolax Supp) 10 mg Q12H PRN [place] CONSTIPATION; Start 08/23/16 at 19: 00 Magnesium Hydroxide (Milk Of Mag) 30 ml BID PRN PO CONSTIPATION; Start 08/23/16 at 19:00 Sodium Biphosphate/ Sodium Phosphate (Fleet Enema) 133 ml DAILY PRN [place] CONSTIPATION; Start 08/23/16 at 19:00 Docusate Sodium (Colace) 100 mg BID PO Last administered on 08/30/16 09:39; Admin Dose 100 MG; Start 08/23/16 at 21:00 Diphenhydramine HCl (Benadryl) 25 mg Q6H PRN PO PRURITUS; Start 08/23/16 at 19: 00 Pantoprazole (Protonix Tab) 40 mg BID@06,18 PO Last administered on 08/30/16 05:02; Admin Dose 40 MG; Start 08/24/16 at 06:00 Vancomycin HCl PER PHARMACY DOSING NOTE XX ; Start 08/23/16 at 20:00 Levofloxacin/ Dextrose (Levaquin 500mg/ D5W 100 ml (Pmx)) 100 ml @ 100 mls/hr Q48H IVPB Last administered on 08/29/16 20:28; Admin Dose 100 MLS/HR; Start at 20:00 Ferrous Sulfate (Ferrous Sulfate (Ec)) 325 mg BID PO Last administered on 09:39; Admin Dose 325 MG; Start 08/25/16 at 21:00 Hydralazine HCl (Apresoline) 10 mg Q8H PRN IV ELEVATED BLOOD PRESSURE Last administered on 08/30/16 04:38; Admin Dose 10 MG; Start 08/25/16 at 12:00 Carvedilol 6.25 mg 6.25 mg BID PO Last administered on 08/29/16 20:28; Admin Dose 6.25 MG; Start 08/28/16 at 21:00 Vancomycin HCl/ Sodium Chloride (Vancocin/NS) 150 ml @ 75 mls/hr Q96H IVPB Last administered on 08/29/16 18:05; Admin Dose 75 MLS/HR; Start 08/29/16 at 18 :00 Lisinopril (Zestril) 5 mg BID PO Last administered on 08/29/16 20:27; Admin Dose 5 MG; Start 08/29/16 at 21:00 Lidocaine (Xylocaine (Viscous)) 15 ml TID PRN PO ORAL CAVITY PAIN Last administered on 08/29/16 19:56; Admin Dose 15 ML; Start 08/29/16 at 12:00 MINA QUICK MD Aug 30, 2016 15:37
--- NOTE | 2016-08-30 16:03 | CONS ---
Date/Time of Note Date/Time of Note DATE: 08/30/16 TIME: 16:02 Assessment/Plan Assessment/Plan Additional Assessment/Plan Hip fracture status post hip surgery Cardiomyopathy with ejection fraction 35% CAD with bare-metal stent to LAD May 2016 End-stage renal disease on hemodialysis Diabetes History of hypertension -Patient continues to improve postoperatively with increased physical therapy. Fluid management via hemodialysis as per our nephrology colleagues. Consultation Date/Type/Reason Admit Date/Time Aug 17, 2016 at 20:14 Type of Consultation: cv 24 HR Interval Summary Free Text/Dictation Patient denies shortness of breath, chest pain, dizziness Exam/Review of Systems Vital Signs Vitals Vital Signs Date Time Temp Pulse Resp B/P Pulse Ox O2 Delivery O2 Flow Rate FiO2 08/30/16 15:33 98.2 77 19 106/54 95 08/30/16 07:47 Nasal Cannula 4.0 08/30/16 01:46 27 Intake and Output 08/29/16 08/29/16 08/30/16 15:00 23:00 07:00 Intake Total 450 ml Balance 450 ml Exam No apparent distress, at bedside Constitutional: alert, oriented Head: normocephalic Neck: supple Respiratory: other (Coarse breath sounds bilaterally, no wheezing) Cardiovascular: other (S1-S2 heard), regular rate and rhythm Gastrointestinal: bowel sounds, non-tender, soft Extremities: edema (Trace) Results Result Diagram: 08/30/16 0600 08/30/16 0600 Results 24 hrs Laboratory Tests Test 08/29/16 17:27 08/30/16 06:00 08/30/16 07:15 08/30/16 11:30 Bedside Glucose 105 81 95 Anion Gap 20 H Blood Urea Nitrogen 39 #H Calcium Level 10.9 H Carbon Dioxide Level 28 Chloride Level 98 Creatinine 5.42 H Glucose Level 76 Hematocrit 28.7 L Hemoglobin 8.8 L Potassium Level 4.1 Sodium Level 142 Medications Medications Current Medications Atorvastatin Calcium (Lipitor) 40 mg DAILY PO Last administered on 08/30/16 09 :40; Admin Dose 40 MG; Start 08/18/16 at 09:00 Clopidogrel Bisulfate (plaVIX) 75 mg DAILY PO Last administered on 08/30/16 09 :40; Admin Dose 75 MG; Start 08/18/16 at 09:00; Status Future hold Metoclopramide HCl (Reglan) 5 mg Q6H PRN PO NAUSEA Last administered on 09:05; Admin Dose 5 MG; Start 08/17/16 at 23:00 Nortriptyline HCl (Aventyl) 25 mg BID PO Last administered on 08/30/16 09:39; Admin Dose 25 MG; Start 08/17/16 at 23:00 Thiamine HCl (Vitamin B1) 250 mg DAILY PO Last administered on 08/30/16 09:38 ; Admin Dose 250 MG; Start 08/18/16 at 09:00 Multivit/Ca Carb/ B Cmplx/FA/Prenat (Aleyda-Pam) 1 tab DAILY PO Last administered on 08/30/16 09:39; Admin Dose 1 TAB; Start 08/18/16 at 09:00 Insulin Glargine (Lantus) 10 unit HS SC ; Start 08/18/16 at 21:00; Status Future Hold Diagnostic Test (Pha) (Accucheck) 1 ea 02 XX Last administered on 08/26/16 02: 00; Admin Dose 1 EA; Start 08/18/16 at 02:00 Miscellaneous Information 1 ea NOTE XX ; Start 08/17/16 at 23:30 Glucose (Glutose) 15 gm Q15M PRN PO DECREASED GLUCOSE; Start 08/17/16 at 23:30 Glucose (Glutose) 22.5 gm Q15M PRN PO DECREASED GLUCOSE; Start 08/17/16 at 23:30 Dextrose (D50w Syringe) 25 ml Q15M PRN IV DECREASED GLUCOSE; Start 08/17/16 at 23:30 Dextrose (D50w Syringe) 50 ml Q15M PRN IV DECREASED GLUCOSE; Start 08/17/16 at 23:30 Glucagon (Glucagen) 1 mg Q15M PRN IM DECREASED GLUCOSE; Start 08/17/16 at 23:30 Glucose (Glutose) 15 gm Q15M PRN BUCCAL DECREASED GLUCOSE; Start 08/17/16 at 23: 30 Miscellaneous Information 1 ea NOTE XX ; Start 08/23/16 at 07:00; Stop 08/27/18 at 06:59 Oxycodone HCl (Roxicodone) 5 mg Q4H PRN PO PAIN LEVEL 1-3; Start 08/23/16 at 19: 00 Oxycodone HCl (Roxicodone) 10 mg Q4H PRN PO PAIN LEVEL 4-7; Start 08/23/16 at 19 :00 Hydromorphone HCl (Dilaudid) 1 mg Q3H PRN IV PAIN LEVEL 8-10 Last administered on 08/28/16 13:59; Admin Dose 1 MG; Start 08/23/16 at 19:00 Ondansetron HCl (Zofran Inj) 4 mg Q6H PRN IV NAUSEA AND/OR VOMITING; Start 08/23 at 19:00 Bisacodyl (Dulcolax Supp) 10 mg Q12H PRN [place] CONSTIPATION; Start 08/23/16 at 19: 00 Docusate Sodium (Colace) 100 mg BID PO Last administered on 08/30/16 09:39; Admin Dose 100 MG; Start 08/23/16 at 21:00 Diphenhydramine HCl (Benadryl) 25 mg Q6H PRN PO PRURITUS; Start 08/23/16 at 19: 00 Pantoprazole (Protonix Tab) 40 mg BID@06,18 PO Last administered on 08/30/16 05:02; Admin Dose 40 MG; Start 08/24/16 at 06:00 Vancomycin HCl PER PHARMACY DOSING NOTE XX ; Start 08/23/16 at 20:00 Levofloxacin/ Dextrose (Levaquin 500mg/ D5W 100 ml (Pmx)) 100 ml @ 100 mls/hr Q48H IVPB Last administered on 08/29/16 20:28; Admin Dose 100 MLS/HR; Start at 20:00 Ferrous Sulfate (Ferrous Sulfate (Ec)) 325 mg BID PO Last administered on 09:39; Admin Dose 325 MG; Start 08/25/16 at 21:00 Hydralazine HCl (Apresoline) 10 mg Q8H PRN IV ELEVATED BLOOD PRESSURE Last administered on 08/30/16 04:38; Admin Dose 10 MG; Start 08/25/16 at 12:00 Carvedilol 6.25 mg 6.25 mg BID PO Last administered on 08/29/16 20:28; Admin Dose 6.25 MG; Start 08/28/16 at 21:00 Vancomycin HCl/ Sodium Chloride (Vancocin/NS) 150 ml @ 75 mls/hr Q96H IVPB Last administered on 08/29/16 18:05; Admin Dose 75 MLS/HR; Start 08/29/16 at 18 :00 Lisinopril (Zestril) 5 mg BID PO Last administered on 08/29/16 20:27; Admin Dose 5 MG; Start 08/29/16 at 21:00 Lidocaine (Xylocaine (Viscous)) 15 ml TID PRN PO ORAL CAVITY PAIN Last administered on 08/29/16 19:56; Admin Dose 15 ML; Start 08/29/16 at 12:00 Epoetin Angel ([facility] (Esrd)) [facility] SC ; Start 08/30/16 at 17:00 Kike Cruz DO Aug 30, 2016 16:03
[2016-08-30] MEDS: EPOETIN 4000 UNITS/1 ML INJ (ESRD) SC SCH (17:35)
[2016-08-31] VITALS (11 sets, daily range): BP systolic 114–129; BP diastolic 57–66; PULSE 94–105; RESP 17–19
[2016-08-31] MEDS: ACCU-CHEK XX SCH (02:00)
[2016-08-31] MEDS: FUROSEMIDE 20 MG INJ IV SCH ×2 (05:58→18:58)
[2016-08-31] MEDS: PANTOPRAZOLE (EC) 40 MG TAB PO SCH ×2 (05:58→18:58)
[2016-08-31 06:56] LABS: ADD SCAN DIFF NO
[2016-08-31 06:59] LABS: BASOPHILS % 0.3 % (0.0-2.0); EOSINOPHILS # 0.3 10^3/ul (0.0-0.5); EOSINOPHILS % 4.5 % (0.0-7.0); HEMATOCRIT 28.9 % (42.0-52.0); LYMPHOCYTES # 1.3 10^3/ul (0.8-2.9); LYMPHOCYTES % 21.5 % (15.0-51.0); MEAN CORPUSCULAR HEMOGLOBIN 27.7 pg (29.0-33.0); MEAN CORPUSCULAR HGB CONC 31.1 g/dl (32.0-37.0); MEAN CORPUSCULAR VOLUME 88.9 fl (82.0-101.0); MEAN PLATELET VOLUME 10.1 fl (7.4-10.4); MONOCYTE # 0.7 10^3/ul (0.3-0.9); MONOCYTES % 11.6 % (0.0-11.0); NEUTROPHIL # 3.9 10^3/ul (1.6-7.5); NEUTROPHILS % 61.9 % (39.0-77.0); PLATELET COUNT 333 10^3/UL (140-415); RED BLOOD COUNT 3.25 10^6/ul (4.70-6.10); RED CELL DISTRIBUTION WIDTH 16.2 % (11.5-14.5); WHITE BLOOD COUNT 6.2 10^3/ul (4.8-10.8)
[2016-08-31 07:15] LABS: POTASSIUM 3.8 mmol/L (3.5-5.1)
[2016-08-31 07:18] LABS: CREATININE 3.28 mg/dl (0.61-1.24)
[2016-08-31 07:19] LABS: CALCIUM 10.5 mg/dl (8.4-10.2)
[2016-08-31] MEDS: INSULIN ASPART [NOVOLOG] 3 ML PEN SC SCH ×4 (07:55→21:00)
[2016-08-31] MEDS: ATORVASTATIN 40 MG TAB PO SCH (09:57)
[2016-08-31] MEDS: FERROUS SULFATE (EC) 325 MG TAB PO SCH ×2 (09:57→20:10)
[2016-08-31] MEDS: CLOPIDOGREL 75 MG TAB PO SCH (09:59)
[2016-08-31] MEDS: DOCUSATE SODIUM 100 MG CAP PO SCH ×2 (09:59→20:10)
[2016-08-31] MEDS: MULTIVIT/CA CARB/B CMPLX/FA TAB PO SCH (09:59)
[2016-08-31] MEDS: LISINOPRIL 5 MG TAB PO SCH ×2 (09:59→22:05)
[2016-08-31] MEDS: THIAMINE 100 MG TAB PO SCH (09:59)
[2016-08-31] MEDS: NORTRIPTYLINE 25 MG CAP PO SCH ×2 (09:59→20:10)
--- NOTE | 2016-08-31 10:36 | PDOCDIS ---
Discharge Instructions CONDITION Patient Condition: Stable HOME CARE INSTRUCTIONS: Special Diet: RENAL DIET ACTIVITY: Activity Restrictions: Special Exercises FOLLOW UP/APPOINTMENTS Appointments Follow up with Ortho as out-pt Follow up with Hemodialysis schedule LEELA OSEGUERA MD Aug 31, 2016 10:36
--- NOTE | 2016-08-31 11:40 | DS ---
DATE OF ADMISSION: 08/17/2016 DATE OF DISCHARGE: 08/31/2016 CONSULTANTS: 1. Dr. Kike Cruz 2. Dr. John Carver. 3. Dr. Antione Hough. 4. Dr. Tyrell Hunt. PROCEDURES: 1. Hardware removal left hip with conversion to total left hip arthroplasty. 2. Hemodialysis. DIAGNOSES: 1. Failed open reduction internal fixation left intertrochanteric hip fracture, status hardware rem oval left hip with conversion to a left total hip arthroplasty. 2. Ischemic cardiomyopathy, ejection fraction of 35%. 3. Coronary artery disease, status post coronary artery stent in the past. 4. Essential hypertension. 5. Dyslipidemia. 6. Diabetes mellitus type 2 with hemoglobin A1c of 5.2. 7. Normocytic anemia. 8. Hyperkalemia. 9. End-stage renal disease. 10. Fluid overload. 11. Debility. LABORATORY DATA: Today, WBC 6.2, hemoglobin 9.0, hematocrit 28.9, platelets 333. Sodium 141, potas sium 3.8, chloride 99, bicarbonate 33, BUN 20, creatinine 3.28, glucose 80, calcium 10.5. HOSPITAL COURSE: This is a 65-year-old gentleman with past medical history of coronary artery disea se status post CABG, diabetes mellitus, end-stage renal disease on hemodialysis, cardiomyopathy, con gestive heart failure with ejection fraction of 30%, with a recent fall in [place], had surgical int ervention status post arthroplasty in [facility], and the patient came to [facility] and went to [facility]. At that time, the patient underwent testing with evidence of a cardiac abnormality and had placement of cardiac stent. The patient was then seen and evaluated by Dr. Hough as an outpati ent secondary to the patient has been having difficulty in his left hip, the surgical hip. After be ing seen and evaluated by orthopedic surgeon, the patient was sent to the emergency department for C T of the hip, which showed left medial acetabular wall protrusion and an incomplete union of the lef t intertrochanteric fracture. The patient was seen by cardiology, nephrology and after optimizing h is cardiac condition, the patient was taken to the OR by orthopedic surgeon for hardware removal of left hip and conversion to a left total hip arthroplasty, which patient tolerated the procedure well . He was taken to ICU and was then transferred to telemetry floor, which he has been able to tolera te passive physical therapy. He has been able to tolerate his hemodialysis. His vitals have been s table with temperature of 98.0, pulse 77, respiratory rate 19, blood pressure 115/66, oxygen saturat ion 96%. After discussing the disposition with the patient's spouse and the patient himself, and di scussing the discharge with the orthopedic surgeon, it is strongly believed that the patient would b enefit from being transferred to a [facility] facility for further evaluation and staff physical therapist apy. CONDITION AT TIME OF DISCHARGE: Stable. DISPOSITION: To be transferred to [facility] facility. The patient will continue to obtain hi s hemodialysis and physical therapy and will be evaluated by orthopedic surgeon at that facility. Dictated By: LEELA ADAMS/CHRISTOPHER Conf#: [id number] DID#: [id number]
--- NOTE | 2016-08-31 12:17 | CONS ---
Date/Time of Note Date/Time of Note DATE: 08/31/16 TIME: 12:16 Assessment/Plan Assessment/Plan Additional Assessment/Plan Hip fracture status post hip surgery Cardiomyopathy with ejection fraction 35% CAD with bare-metal stent to LAD May 2016 End-stage renal disease on hemodialysis Diabetes History of hypertension -Blood pressure trend overall remained stable, continue statin and antiplatelet therapy. Fluid management via hemodialysis as per our nephrology colleagues. Consultation Date/Type/Reason Admit Date/Time Aug 17, 2016 at 20:14 Type of Consultation: cv 24 HR Interval Summary Free Text/Dictation Patient continues to improve. Denies shortness of breath or chest pain. Exam/Review of Systems Vital Signs Vitals Vital Signs Date Time Temp Pulse Resp B/P Pulse Ox O2 Delivery O2 Flow Rate FiO2 08/31/16 11:52 98.1 70 19 129/58 98 08/31/16 08:45 Nasal Cannula 2.0 08/30/16 01:46 27 Intake and Output 08/30/16 08/30/16 08/31/16 15:00 23:00 07:00 Intake Total 1000 ml Output Total 1500 ml Balance -500 ml Exam No apparent distress, at bedside Constitutional: alert, oriented Head: normocephalic Neck: supple Respiratory: other (Coarse breath sounds bilaterally, no wheezing) Cardiovascular: other (S1-S2 heard), regular rate and rhythm Gastrointestinal: bowel sounds, non-tender, other (No guarding), soft Extremities: edema (Trace), other (No cyanosis) Results Result Diagram: 08/31/16 0630 08/31/16 0630 Results 24 hrs Laboratory Tests Test 08/30/16 17:17 08/30/16 21:17 08/31/16 06:30 08/31/16 08:55 Bedside Glucose 123 114 94 Anion Gap 13 # Basophils # 0.0 Basophils % 0.3 Blood Urea Nitrogen 20 # Calcium Level 10.5 H Carbon Dioxide Level 33 H Chloride Level 99 Creatinine 3.28 #H Eosinophils # 0.3 Eosinophils % 4.5 Glucose Level 80 Hematocrit 28.9 L Hemoglobin 9.0 L Lymphocytes # 1.3 Lymphocytes % 21.5 Mean Corpuscular Hemoglobin 27.7 L Mean Corpuscular Hemoglobin Concent 31.1 L Mean Corpuscular Volume 88.9 Mean Platelet Volume 10.1 Monocytes # 0.7 Monocytes % 11.6 H Neutrophils # 3.9 Neutrophils % 61.9 Nucleated Red Blood Cells # 0.0 Nucleated Red Blood Cells % 0.0 Platelet Count 333 # Potassium Level 3.8 Red Blood Count 3.25 L Red Cell Distribution Width 16.2 H Sodium Level 141 White Blood Count 6.2 # Test 08/31/16 11:53 Bedside Glucose 145 Medications Medications Current Medications Atorvastatin Calcium (Lipitor) 40 mg DAILY PO Last administered on 08/31/16 09 :57; Admin Dose 40 MG; Start 08/18/16 at 09:00 Clopidogrel Bisulfate (plaVIX) 75 mg DAILY PO Last administered on 08/31/16 09 :59; Admin Dose 75 MG; Start 08/18/16 at 09:00; Status Future hold Metoclopramide HCl (Reglan) 5 mg Q6H PRN PO NAUSEA Last administered on 09:05; Admin Dose 5 MG; Start 08/17/16 at 23:00 Nortriptyline HCl (Aventyl) 25 mg BID PO Last administered on 08/31/16 09:59; Admin Dose 25 MG; Start 08/17/16 at 23:00 Thiamine HCl (Vitamin B1) 250 mg DAILY PO Last administered on 08/31/16 09:59 ; Admin Dose 250 MG; Start 08/18/16 at 09:00 Multivit/Ca Carb/ B Cmplx/FA/Prenat (Aleyda-Pam) 1 tab DAILY PO Last administered on 08/31/16 09:59; Admin Dose 1 TAB; Start 08/18/16 at 09:00 Insulin Glargine (Lantus) 10 unit HS SC ; Start 08/18/16 at 21:00; Status Future Hold Diagnostic Test (Pha) (Accucheck) 1 ea 02 XX Last administered on 08/26/16 02: 00; Admin Dose 1 EA; Start 08/18/16 at 02:00 Miscellaneous Information 1 ea NOTE XX ; Start 08/17/16 at 23:30 Glucose (Glutose) 15 gm Q15M PRN PO DECREASED GLUCOSE; Start 08/17/16 at 23:30 Glucose (Glutose) 22.5 gm Q15M PRN PO DECREASED GLUCOSE; Start 08/17/16 at 23:30 Dextrose (D50w Syringe) 25 ml Q15M PRN IV DECREASED GLUCOSE; Start 08/17/16 at 23:30 Dextrose (D50w Syringe) 50 ml Q15M PRN IV DECREASED GLUCOSE; Start 08/17/16 at 23:30 Glucagon (Glucagen) 1 mg Q15M PRN IM DECREASED GLUCOSE; Start 08/17/16 at 23:30 Glucose (Glutose) 15 gm Q15M PRN BUCCAL DECREASED GLUCOSE; Start 08/17/16 at 23: 30 Miscellaneous Information 1 ea NOTE XX ; Start 08/23/16 at 07:00; Stop 08/27/18 at 06:59 Oxycodone HCl (Roxicodone) 5 mg Q4H PRN PO PAIN LEVEL 1-3; Start 08/23/16 at 19: 00 Oxycodone HCl (Roxicodone) 10 mg Q4H PRN PO PAIN LEVEL 4-7; Start 08/23/16 at 19 :00 Hydromorphone HCl (Dilaudid) 1 mg Q3H PRN IV PAIN LEVEL 8-10 Last administered on 08/28/16 13:59; Admin Dose 1 MG; Start 08/23/16 at 19:00 Ondansetron HCl (Zofran Inj) 4 mg Q6H PRN IV NAUSEA AND/OR VOMITING; Start 08/23 at 19:00 Bisacodyl (Dulcolax Supp) 10 mg Q12H PRN [place] CONSTIPATION; Start 08/23/16 at 19: 00 Docusate Sodium (Colace) 100 mg BID PO Last administered on 08/31/16 09:59; Admin Dose 100 MG; Start 08/23/16 at 21:00 Diphenhydramine HCl (Benadryl) 25 mg Q6H PRN PO PRURITUS; Start 08/23/16 at 19: 00 Pantoprazole (Protonix Tab) 40 mg BID@06,18 PO Last administered on 08/31/16 05:58; Admin Dose 40 MG; Start 08/24/16 at 06:00 Vancomycin HCl PER PHARMACY DOSING NOTE XX ; Start 08/23/16 at 20:00 Levofloxacin/ Dextrose (Levaquin 500mg/ D5W 100 ml (Pmx)) 100 ml @ 100 mls/hr Q48H IVPB Last administered on 08/29/16 20:28; Admin Dose 100 MLS/HR; Start at 20:00 Ferrous Sulfate (Ferrous Sulfate (Ec)) 325 mg BID PO Last administered on 09:57; Admin Dose 325 MG; Start 08/25/16 at 21:00 Hydralazine HCl (Apresoline) 10 mg Q8H PRN IV ELEVATED BLOOD PRESSURE Last administered on 08/30/16 04:38; Admin Dose 10 MG; Start 08/25/16 at 12:00 Carvedilol 6.25 mg 6.25 mg BID PO Last administered on 08/31/16 09:59; Admin Dose 6.25 MG; Start 08/28/16 at 21:00 Vancomycin HCl/ Sodium Chloride (Vancocin/NS) 150 ml @ 75 mls/hr Q96H IVPB Last administered on 08/29/16 18:05; Admin Dose 75 MLS/HR; Start 08/29/16 at 18 :00 Lisinopril (Zestril) 5 mg BID PO Last administered on 08/31/16 09:59; Admin Dose 5 MG; Start 08/29/16 at 21:00 Lidocaine (Xylocaine (Viscous)) 15 ml TID PRN PO ORAL CAVITY PAIN Last administered on 08/29/16 19:56; Admin Dose 15 ML; Start 08/29/16 at 12:00 Epoetin Angel (Epogen (Esrd)) 8,000 units [facility]@17 SC Last administered on 08/30 17:35; Admin Dose 8,000 UNITS; Start 08/30/16 at 17:00 Kike Cruz DO Aug 31, 2016 12:17
[2016-08-31] MEDS ORDERED: NA PHOSPHATE/BIPHOS 133 ML ENEMA PR ONE (20:00)
[2016-08-31] MEDS: LEVOFLOXACIN 500MG/D5W (PMX) 100 ML IVPB SCH (20:10)
[2016-09-01] VITALS (21 sets, daily range): BP systolic 102–204; BP diastolic 47–85; PULSE 84–103; RESP 16–21
[2016-09-01] MEDS: ACCU-CHEK XX SCH (02:00)
[2016-09-01] MEDS: PANTOPRAZOLE (EC) 40 MG TAB PO SCH ×2 (05:32→18:51)
[2016-09-01] MEDS: FUROSEMIDE 20 MG INJ IV SCH ×2 (06:16→18:52)
[2016-09-01] MEDS: INSULIN ASPART [NOVOLOG] 3 ML PEN SC SCH ×4 (07:55→21:00)
[2016-09-01] MEDS: NORTRIPTYLINE 25 MG CAP PO SCH ×3 (08:39→21:23)
[2016-09-01] MEDS: DOCUSATE SODIUM 100 MG CAP PO SCH ×2 (08:46→21:22)
[2016-09-01] MEDS: ATORVASTATIN 40 MG TAB PO SCH (08:46)
[2016-09-01] MEDS: CLOPIDOGREL 75 MG TAB PO SCH (08:46)
[2016-09-01] MEDS: MULTIVIT/CA CARB/B CMPLX/FA TAB PO SCH (08:49)
[2016-09-01] MEDS: THIAMINE 100 MG TAB PO SCH (08:49)
[2016-09-01] MEDS: LISINOPRIL 5 MG TAB PO SCH ×2 (08:50→21:23)
[2016-09-01] MEDS: FERROUS SULFATE (EC) 325 MG TAB PO SCH ×2 (08:51→21:23)
--- NOTE | 2016-09-01 11:24 | PN ---
Date/Time of Note Date/Time of Note DATE: 09/01/16 TIME: 11:22 Assessment/Plan Lines/Catheters IV Catheter Type (from Nrsg): Saline Lock Jain in Place (from Nrsg): No Assessment/Plan Assessment/Plan Fair condition POD #8, s/p hardware removal, failed left hip IM rodding, conversion to left posterior MIGUE -continue abx per hospitalist team -Plavix restarted by cardiology. ASA held due to concern for increased bleeding -SCDs for DVT prophylaxis -posterior hip precautions -knee immobilizer to be worn at all times -OOB with PT as tolerated -check AM labs. H&H low but stable for now -BP improved and appears to have stabilized. Will follow cardiology recommendations -continue hemodialysis per nephrology -discharge planning. Awaiting authorization on SNF placement Subjective 24 Hr Interval Summary No acute overnight events. Complaining of mild abdominal pain secondary to constipation. reports hasn't had a bowel movement in 2 weeks. Enema given yesterday. Hip pain improving. Waiting on authorization from [facility] or other SNF placement. Exam/Review of Systems Vital Signs Vitals Vital Signs Date Time Temp Pulse Resp B/P Pulse Ox O2 Delivery O2 Flow Rate FiO2 09/01/16 10:30 102 09/01/16 10:00 16 09/01/16 08:30 170/67 09/01/16 07:51 98.2 92 09/01/16 06:13 Room Air 09/01/16 04:39 2.0 08/30/16 01:46 27 Intake and Output 08/31/16 08/31/16 09/01/16 15:00 23:00 07:00 Intake Total 700 ml 505 ml Balance 700 ml 505 ml Exam Free Text/Dictation Dressing dry Incision clean, dry, and intact without redness or drainage 5/5 Quadriceps, Tibialis Anterior, EHL, Gastroc, Soleus, Peroneals Normal sensation Palpable DT/PT, CR <2 sec No distal edema Results Result Diagram: 08/31/1662908/31/16629 TONI ORNELAS PA-C Sep 01, 2016 11:24
--- NOTE | 2016-09-01 12:12 | PN ---
DATE: 09/01/2016 INTERNAL MEDICINE FOLLOWUP SUBJECTIVE: Chart reviewed. Events noted. The patient is scheduled for discharge [facility] a [facility]; however, pending bed availability. The patient is currently undergoing hemodialysis and does not appear in acute distress. Currently on room air, saturating 95%. PHYSICAL EXAMINATION: VITAL SIGNS: Blood pressure 170/67, pulse 101, respirations 16, temperature afebrile. HEENT: Pupils are equal and reactive to light. NECK: Supple. No JVD noted, no cervical adenopathy, no carotid bruits heard. LUNGS: Fair breath sounds bilaterally. CARDIOVASCULAR: S1, S2 normal. ABDOMEN: Soft, nontender. No organomegaly or masses noted. EXTREMITIES: No clubbing or cyanosis noted. NEUROLOGICAL: Awake. IMPRESSION: 1. Failed open reduction internal fixation of left intertrochanteric hip fracture, now status post hardware removal and subsequent left total hip arthroplasty. 2. Ischemic cardiomyopathy with an ejection fraction of 35%. 3. End-stage renal disease, on hemodialysis. 4. Coronary artery disease. History of stent in the past. 5. Hypertension. 6. Dyslipidemia. 7. Diabetes mellitus type 2. 8. Anemia. 9. Generalized debility. PLAN: 1. Continue the current treatment. 2. Hemodialysis per nephrology. 3. followup noted. 4. Await bed availability for discharge. Above was discussed with nursing staff and case management. Dictated By: MENDEZ SKY MD, MA/CHRISTOPHER Conf#: [id number] DID#: [id number]
[2016-09-01] MEDS: hydrALAzine 20 MG INJ IV PRN (18:51)
[2016-09-01] MEDS: EPOETIN 4000 UNITS/1 ML INJ (ESRD) SC SCH (19:16)
[2016-09-02] VITALS (13 sets, daily range): BP systolic 111–179; BP diastolic 53–83; PULSE 88–100; RESP 16–20
[2016-09-02] MEDS: ACCU-CHEK XX SCH (02:00)
[2016-09-02] MEDS: PANTOPRAZOLE (EC) 40 MG TAB PO SCH ×2 (05:17→18:19)
[2016-09-02] MEDS: FUROSEMIDE 20 MG INJ IV SCH (05:18)
[2016-09-02] MEDS: INSULIN ASPART [NOVOLOG] 3 ML PEN SC SCH ×4 (07:55→21:00)
[2016-09-02] MEDS: ATORVASTATIN 40 MG TAB PO SCH (09:39)
[2016-09-02] MEDS: THIAMINE 100 MG TAB PO SCH (09:39)
[2016-09-02] MEDS: LISINOPRIL 5 MG TAB PO SCH ×2 (09:39→20:29)
[2016-09-02] MEDS: DOCUSATE SODIUM 100 MG CAP PO SCH ×2 (09:39→20:29)
[2016-09-02] MEDS: MULTIVIT/CA CARB/B CMPLX/FA TAB PO SCH (09:40)
[2016-09-02] MEDS: CLOPIDOGREL 75 MG TAB PO SCH (09:40)
[2016-09-02] MEDS: FERROUS SULFATE (EC) 325 MG TAB PO SCH ×2 (09:40→20:29)
[2016-09-02] MEDS: NORTRIPTYLINE 25 MG CAP PO SCH ×2 (09:41→20:29)
[2016-09-02] MEDS ORDERED: INFLUENZA VIRUS VACCINE 0.5 ML (DISPENSING) IM* ONE (10:00)
--- NOTE | 2016-09-02 10:45 | PN ---
Date/Time of Note Date/Time of Note DATE: 09/02/16 TIME: 10:43 Assessment/Plan Lines/Catheters IV Catheter Type (from Nrsg): Saline Lock Jain in Place (from Nrsg): No Assessment/Plan Assessment/Plan Improved condition POD #9, s/p hardware removal, failed left hip IM rodding, conversion to left posterior MIGUE -continue abx per hospitalist team -Plavix restarted by cardiology. ASA held due to concern for increased bleeding -SCDs for DVT prophylaxis -posterior hip precautions -knee immobilizer to be worn at all times -OOB with PT as tolerated -check AM labs. H&H stable -BP improved and appears to have stabilized. Will follow cardiology recommendations -continue hemodialysis per nephrology -discharge planning. Awaiting authorization on SNF placement Subjective 24 Hr Interval Summary No acute overnight events. Denies hip pain. Spoke with hospice case manager and are awaiting SNF placement. Underwent hemodialysis yesterday. Exam/Review of Systems Vital Signs Vitals Vital Signs Date Time Temp Pulse Resp B/P Pulse Ox O2 Delivery O2 Flow Rate FiO2 09/02/16 08:25 88 09/02/16 08:18 97.8 18 120/61 98 09/02/16 02:00 2.0 27 09/01/16 20:00 Nasal Cannula Intake and Output 09/01/16 09/01/16 09/02/16 15:00 23:00 07:00 Intake Total 500 ml 300 ml 240 ml Output Total 1500 ml Balance -1000 ml 300 ml 240 ml Exam Free Text/Dictation Dressing dry Incision clean, dry, and intact without redness or drainage 5/5 Quadriceps, Tibialis Anterior, EHL, Gastroc, Soleus, Peroneals Normal sensation knee immobilizer and abduction pillow in place Palpable DT/PT, CR <2 sec No distal edema Results Result Diagram: 08/31/1630 08/31/16629 TONI ORNELAS PA-C Sep 02, 2016 10:45
--- NOTE | 2016-09-02 16:37 | PN ---
DATE: 09/02/2016 SUBJECTIVE: Chart reviewed. No significant events noted. We are still awaiting SNF placement. Th e patient was dialyzed yesterday. Currently on 27% FIO2, saturating 95%. PHYSICAL EXAMINATION: VITAL SIGNS: Blood pressure 147/74, pulse 91, respirations 20, temperature 97.9. HEENT: Pupils are equal and reactive to light. NECK: Supple, no JVD noted, no cervical adenopathy noted, no carotid bruits heard. LUNGS: Fair breath sounds bilaterally. CARDIOVASCULAR: S1, S2 normal. ABDOMEN: Soft, nontender. No organomegaly or masses noted. EXTREMITIES: No clubbing or cyanosis noted. NEUROLOGICAL: Awake. IMPRESSION: 1. Failed open reduction and internal fixation of left intertrochanteric hip fracture, now status p ost removal of hardware and subsequent left total hip arthroplasty. 2. Ischemic cardiomyopathy with ejection fraction of 35%. 3. End-stage renal disease on hemodialysis. 4. Coronary artery disease, status post stent in the past. 5. History of hypertension. 6. Dyslipidemia. 7. Diabetes mellitus type 2. 8. Anemia. 9. Generalized debility. RECOMMENDATIONS: 1. Ortho followup noted. 2. Continue postop care. 3. Await placement to nursing facility. 4. Hemodialysis per nephrology. Dictated By: MENDEZ SKY MD, MA/CHRISTOPHER Conf#: [id number] DID#: [id number]
[2016-09-02] MEDS: VANCOMYCIN 750 MG in SOD CHLORIDE 0.9% 150 ML IVPB SCH (18:19)
[2016-09-02] MEDS: LEVOFLOXACIN 500MG/D5W (PMX) 100 ML IVPB SCH (20:29)
[2016-09-03] VITALS (14 sets, daily range): BP systolic 88–172; BP diastolic 51–79; PULSE 86–106; RESP 16–20
[2016-09-03] MEDS: hydrALAzine 20 MG INJ IV PRN (00:07)
[2016-09-03] MEDS: ACCU-CHEK XX SCH (02:00)
[2016-09-03] MEDS: PANTOPRAZOLE (EC) 40 MG TAB PO SCH ×2 (06:05→18:09)
[2016-09-03] MEDS: INSULIN ASPART [NOVOLOG] 3 ML PEN SC SCH ×4 (07:55→20:35)
[2016-09-03] MEDS: FERROUS SULFATE (EC) 325 MG TAB PO SCH ×2 (08:21→20:31)
[2016-09-03] MEDS: MULTIVIT/CA CARB/B CMPLX/FA TAB PO SCH (08:22)
[2016-09-03] MEDS: THIAMINE 100 MG TAB PO SCH (08:22)
[2016-09-03] MEDS: DOCUSATE SODIUM 100 MG CAP PO SCH ×2 (08:22→20:32)
[2016-09-03] MEDS: CLOPIDOGREL 75 MG TAB PO SCH (08:22)
[2016-09-03] MEDS: NORTRIPTYLINE 25 MG CAP PO SCH ×2 (08:22→20:32)
[2016-09-03] MEDS: ATORVASTATIN 40 MG TAB PO SCH (08:22)
[2016-09-03] MEDS: LISINOPRIL 5 MG TAB PO SCH ×2 (08:25→20:32)
--- NOTE | 2016-09-03 08:35 | PN ---
Date/Time of Note Date/Time of Note DATE: 09/03/16 TIME: 08:33 Assessment/Plan Lines/Catheters IV Catheter Type (from Nrsg): Saline Lock Jain in Place (from Nrsg): No Assessment/Plan Assessment/Plan Improved condition POD #10, s/p hardware removal, failed left hip IM rodding, conversion to left posterior MIGUE -continue abx per hospitalist team -Plavix restarted by cardiology. ASA held due to concern for increased bleeding -SCDs for DVT prophylaxis -posterior hip precautions -knee immobilizer to be worn at all times -OOB with PT as tolerated -check AM labs. H&H stable -BP improved and appears to have stabilized. Will follow cardiology recommendations -continue hemodialysis per nephrology -dressing changed -discharge planning. Awaiting authorization on SNF placement Subjective 24 Hr Interval Summary No acute overnight events. Was complaining of some mild pain last night. Denies pain currently. VSS, afebrile. Awaiting final auth for SNF placement. Exam/Review of Systems Vital Signs Vitals Vital Signs Date Time Temp Pulse Resp B/P Pulse Ox O2 Delivery O2 Flow Rate FiO2 09/03/16 08:00 97.8 94 20 88/51 98 09/03/16 03:07 2.0 09/02/16 20:00 Nasal Cannula 09/02/16 02:00 27 Intake and Output 09/02/16 09/02/16 09/03/16 15:00 23:00 07:00 Intake Total 200 ml 300 ml Balance 200 ml 300 ml Exam Free Text/Dictation Dressing dry Incision clean, dry, and intact without redness or drainage 5/5 Quadriceps, Tibialis Anterior, EHL, Gastroc, Soleus, Peroneals Normal sensation Palpable DT/PT, CR <2 sec No distal edema Results Result Diagram: 08/31/1630 08/31/1630 TONI ORNELAS PA-C Sep 03, 2016 08:34
--- NOTE | 2016-09-03 18:05 | CONS ---
Date/Time of Note Date/Time of Note DATE: 09/03/16 TIME: 18:03 Assessment/Plan Assessment/Plan Additional Assessment/Plan Hip fracture status post hip surgery Cardiomyopathy with ejection fraction 35% CAD with bare-metal stent to LAD May 2016 End-stage renal disease on hemodialysis Diabetes History of hypertension -Patient awaiting rehab placement. Denies any cardiac complaints. No new cardiac orders at the current time Consultation Date/Type/Reason Admit Date/Time Aug 17, 2016 at 20:14 Type of Consultation: cv 24 HR Interval Summary Free Text/Dictation Patient denies shortness of breath, chest pain or palpitations Exam/Review of Systems Vital Signs Vitals Vital Signs Date Time Temp Pulse Resp B/P Pulse Ox O2 Delivery O2 Flow Rate FiO2 09/03/16 17:49 2.0 09/03/16 16:00 91 09/03/16 15:56 97.4 20 141/75 99 09/03/16 08:30 Nasal Cannula 09/02/16 02:00 27 Intake and Output 09/02/16 09/02/16 09/03/16 15:00 23:00 07:00 Intake Total 200 ml 300 ml Balance 200 ml 300 ml Exam No apparent distress Constitutional: alert, oriented Head: normocephalic Neck: supple Respiratory: other (Coarse breath sounds bilaterally, no wheezing) Cardiovascular: other (S1-S2), regular rate and rhythm Gastrointestinal: bowel sounds, non-tender, other (No guarding), soft Extremities: other (No edema or cyanosis) Results Result Diagram: 08/31/16 0630 08/31/16 0630 Results 24 hrs Laboratory Tests Test 09/02/16 21:44 09/03/16 07:46 09/03/16 11:25 09/03/16 17:05 Bedside Glucose 94 86 104 101 Medications Medications Current Medications Atorvastatin Calcium (Lipitor) 40 mg DAILY PO Last administered on 09/03/16 08 :22; Admin Dose 40 MG; Start 08/18/16 at 09:00 Clopidogrel Bisulfate (plaVIX) 75 mg DAILY PO Last administered on 09/03/16 08 :22; Admin Dose 75 MG; Start 08/18/16 at 09:00; Status Future hold Metoclopramide HCl (Reglan) 5 mg Q6H PRN PO NAUSEA Last administered on 09:05; Admin Dose 5 MG; Start 08/17/16 at 23:00 Nortriptyline HCl (Aventyl) 25 mg BID PO Last administered on 09/03/16 08:22; Admin Dose 25 MG; Start 08/17/16 at 23:00 Thiamine HCl (Vitamin B1) 250 mg DAILY PO Last administered on 09/03/16 08:22 ; Admin Dose 250 MG; Start 08/18/16 at 09:00 Multivit/Ca Carb/ B Cmplx/FA/Prenat (Aleyda-Pam) 1 tab DAILY PO Last administered on 09/03/16 08:22; Admin Dose 1 TAB; Start 08/18/16 at 09:00 Insulin Glargine (Lantus) 10 unit HS SC ; Start 08/18/16 at 21:00; Status Future Hold Diagnostic Test (Pha) (Accucheck) 1 ea 02 XX Last administered on 08/26/16 02: 00; Admin Dose 1 EA; Start 08/18/16 at 02:00 Miscellaneous Information 1 ea NOTE XX ; Start 08/17/16 at 23:30 Glucose (Glutose) 15 gm Q15M PRN PO DECREASED GLUCOSE; Start 08/17/16 at 23:30 Glucose (Glutose) 22.5 gm Q15M PRN PO DECREASED GLUCOSE; Start 08/17/16 at 23:30 Dextrose (D50w Syringe) 25 ml Q15M PRN IV DECREASED GLUCOSE; Start 08/17/16 at 23:30 Dextrose (D50w Syringe) 50 ml Q15M PRN IV DECREASED GLUCOSE; Start 08/17/16 at 23:30 Glucagon (Glucagen) 1 mg Q15M PRN IM DECREASED GLUCOSE; Start 08/17/16 at 23:30 Glucose (Glutose) 15 gm Q15M PRN BUCCAL DECREASED GLUCOSE; Start 08/17/16 at 23: 30 Miscellaneous Information 1 ea NOTE XX ; Start 08/23/16 at 07:00; Stop 08/27/18 at 06:59 Oxycodone HCl (Roxicodone) 5 mg Q4H PRN PO PAIN LEVEL 1-3 Last administered on 09/02/16 02:22; Admin Dose 5 MG; Start 08/23/16 at 19:00 Oxycodone HCl (Roxicodone) 10 mg Q4H PRN PO PAIN LEVEL 4-7 Last administered on 09/02/16 10:02; Admin Dose 10 MG; Start 08/23/16 at 19:00 Hydromorphone HCl (Dilaudid) 1 mg Q3H PRN IV PAIN LEVEL 8-10 Last administered on 08/28/16 13:59; Admin Dose 1 MG; Start 08/23/16 at 19:00 Ondansetron HCl (Zofran Inj) 4 mg Q6H PRN IV NAUSEA AND/OR VOMITING; Start 08/23 at 19:00 Bisacodyl (Dulcolax Supp) 10 mg Q12H PRN [place] CONSTIPATION; Start 08/23/16 at 19: 00 Docusate Sodium (Colace) 100 mg BID PO Last administered on 09/03/16 08:22; Admin Dose 100 MG; Start 08/23/16 at 21:00 Diphenhydramine HCl (Benadryl) 25 mg Q6H PRN PO PRURITUS; Start 08/23/16 at 19: 00 Pantoprazole (Protonix Tab) 40 mg BID@06,18 PO Last administered on 09/03/16 06:05; Admin Dose 40 MG; Start 08/24/16 at 06:00 Vancomycin HCl PER PHARMACY DOSING NOTE XX ; Start 08/23/16 at 20:00 Levofloxacin/ Dextrose (Levaquin 500mg/ D5W 100 ml (Pmx)) 100 ml @ 100 mls/hr Q48H IVPB Last administered on 09/02/16 20:29; Admin Dose 100 MLS/HR; Start at 20:00 Ferrous Sulfate (Ferrous Sulfate (Ec)) 325 mg BID PO Last administered on 08:21; Admin Dose 325 MG; Start 08/25/16 at 21:00 Hydralazine HCl (Apresoline) 10 mg Q8H PRN IV ELEVATED BLOOD PRESSURE Last administered on 09/03/16 00:07; Admin Dose 10 MG; Start 08/25/16 at 12:00 Carvedilol 6.25 mg 6.25 mg BID PO Last administered on 09/02/16 20:29; Admin Dose 6.25 MG; Start 08/28/16 at 21:00 Vancomycin HCl/ Sodium Chloride (Vancocin/NS) 150 ml @ 75 mls/hr Q96H IVPB Last administered on 09/02/16 18:19; Admin Dose 75 MLS/HR; Start 08/29/16 at 18 :00 Lisinopril (Zestril) 5 mg BID PO Last administered on 09/02/16 20:29; Admin Dose 5 MG; Start 08/29/16 at 21:00 Lidocaine (Xylocaine (Viscous)) 15 ml TID PRN PO ORAL CAVITY PAIN Last administered on 08/29/16 19:56; Admin Dose 15 ML; Start 08/29/16 at 12:00 Epoetin Angel (Epogen (Esrd)) 8,000 units TuThSa@17 SC Last administered on 09/01 19:16; Admin Dose 8,000 UNITS; Start 08/30/16 at 17:00 Kike Cruz DO Sep 03, 2016 18:04
--- NOTE | 2016-09-03 19:30 | PN ---
Date/Time of Note Date/Time of Note DATE: 09/03/16 TIME: 19:26 Assessment/Plan VTE Prophylaxis VTE Prophylaxis Intervention: contraindicated (bleeeding risk) Lines/Catheters IV Catheter Type (from Nrs): Saline Lock Urinary Cath still in place: No Assessment/Plan Chief Complaint/Hosp Course A/P 1) Lt Hip subacute fracture/ failed IM rodding; sp MIGUE; stable cont pt. coumadin vs lovenox. wbat? 2) Ho mechanical fall? 3) Djd/ op? 4) Chr CAD/pci; cont plavix. +/- asa 5) Ftt; to snf 6) Dm/ Htn/ 7) ESRD. HD status 8) Chr ischemic cmy; EF=35%; needs advanced care plannning re-evaluated Problems: Subjective 24 Hr Interval Summary Free Text/Dictation no distress. +fever. no bm*16 days? Exam/Review of Systems Vital Signs Vitals Vital Signs Date Time Temp Pulse Resp B/P Pulse Ox O2 Delivery O2 Flow Rate FiO2 09/03/16 17:49 2.0 09/03/16 16:00 91 09/03/16 15:56 97.4 20 141/75 99 09/03/16 08:30 Nasal Cannula 09/02/16 02:00 27 Intake and Output 09/02/16 09/02/16 09/03/16 15:00 23:00 07:00 Intake Total 200 ml 300 ml Balance 200 ml 300 ml Exam pvc's Constitutional: alert Respiratory: clear to auscultation Cardiovascular: regular rate and rhythm Gastrointestinal: non-tender (nd;no r/rg/), soft Extremities: other (lt hip c/d/i) Results Result Diagram: 08/31/16 0630 08/31/16 0630 Results 24 hrs Laboratory Tests Test 09/02/16 21:44 09/03/16 07:46 09/03/16 11:25 09/03/16 17:05 Bedside Glucose 94 86 104 101 Medications Medications Current Medications Atorvastatin Calcium (Lipitor) 40 mg DAILY PO Last administered on 09/03/16 08 :22; Admin Dose 40 MG; Start 08/18/16 at 09:00 Clopidogrel Bisulfate (plaVIX) 75 mg DAILY PO Last administered on 09/03/16 08 :22; Admin Dose 75 MG; Start 08/18/16 at 09:00; Status Future hold Metoclopramide HCl (Reglan) 5 mg Q6H PRN PO NAUSEA Last administered on 09:05; Admin Dose 5 MG; Start 08/17/16 at 23:00 Nortriptyline HCl (Aventyl) 25 mg BID PO Last administered on 09/03/16 08:22; Admin Dose 25 MG; Start 08/17/16 at 23:00 Thiamine HCl (Vitamin B1) 250 mg DAILY PO Last administered on 09/03/16 08:22 ; Admin Dose 250 MG; Start 08/18/16 at 09:00 Multivit/Ca Carb/ B Cmplx/FA/Prenat (Aleyda-Pam) 1 tab DAILY PO Last administered on 09/03/16 08:22; Admin Dose 1 TAB; Start 08/18/16 at 09:00 Insulin Glargine (Lantus) 10 unit HS SC ; Start 08/18/16 at 21:00; Status Future Hold Diagnostic Test (Pha) (Accucheck) 1 ea 02 XX Last administered on 08/26/16 02: 00; Admin Dose 1 EA; Start 08/18/16 at 02:00 Miscellaneous Information 1 ea NOTE XX ; Start 08/17/16 at 23:30 Glucose (Glutose) 15 gm Q15M PRN PO DECREASED GLUCOSE; Start 08/17/16 at 23:30 Glucose (Glutose) 22.5 gm Q15M PRN PO DECREASED GLUCOSE; Start 08/17/16 at 23:30 Dextrose (D50w Syringe) 25 ml Q15M PRN IV DECREASED GLUCOSE; Start 08/17/16 at 23:30 Dextrose (D50w Syringe) 50 ml Q15M PRN IV DECREASED GLUCOSE; Start 08/17/16 at 23:30 Glucagon (Glucagen) 1 mg Q15M PRN IM DECREASED GLUCOSE; Start 08/17/16 at 23:30 Glucose (Glutose) 15 gm Q15M PRN BUCCAL DECREASED GLUCOSE; Start 08/17/16 at 23: 30 Miscellaneous Information 1 ea NOTE XX ; Start 08/23/16 at 07:00; Stop 08/27/18 at 06:59 Oxycodone HCl (Roxicodone) 5 mg Q4H PRN PO PAIN LEVEL 1-3 Last administered on 09/02/16 02:22; Admin Dose 5 MG; Start 08/23/16 at 19:00 Oxycodone HCl (Roxicodone) 10 mg Q4H PRN PO PAIN LEVEL 4-7 Last administered on 09/02/16 10:02; Admin Dose 10 MG; Start 08/23/16 at 19:00 Hydromorphone HCl (Dilaudid) 1 mg Q3H PRN IV PAIN LEVEL 8-10 Last administered on 08/28/16 13:59; Admin Dose 1 MG; Start 08/23/16 at 19:00 Ondansetron HCl (Zofran Inj) 4 mg Q6H PRN IV NAUSEA AND/OR VOMITING; Start 08/23 at 19:00 Bisacodyl (Dulcolax Supp) 10 mg Q12H PRN [place] CONSTIPATION; Start 08/23/16 at 19: 00 Docusate Sodium (Colace) 100 mg BID PO Last administered on 09/03/16 08:22; Admin Dose 100 MG; Start 08/23/16 at 21:00 Diphenhydramine HCl (Benadryl) 25 mg Q6H PRN PO PRURITUS; Start 08/23/16 at 19: 00 Pantoprazole (Protonix Tab) 40 mg BID@06,18 PO Last administered on 09/03/16 18:09; Admin Dose 40 MG; Start 08/24/16 at 06:00 Vancomycin HCl PER PHARMACY DOSING NOTE XX ; Start 08/23/16 at 20:00 Levofloxacin/ Dextrose (Levaquin 500mg/ D5W 100 ml (Pmx)) 100 ml @ 100 mls/hr Q48H IVPB Last administered on 09/02/16 20:29; Admin Dose 100 MLS/HR; Start at 20:00 Ferrous Sulfate (Ferrous Sulfate (Ec)) 325 mg BID PO Last administered on 08:21; Admin Dose 325 MG; Start 08/25/16 at 21:00 Hydralazine HCl (Apresoline) 10 mg Q8H PRN IV ELEVATED BLOOD PRESSURE Last administered on 09/03/16 00:07; Admin Dose 10 MG; Start 08/25/16 at 12:00 Carvedilol 6.25 mg 6.25 mg BID PO Last administered on 09/02/16 20:29; Admin Dose 6.25 MG; Start 08/28/16 at 21:00 Vancomycin HCl/ Sodium Chloride (Vancocin/NS) 150 ml @ 75 mls/hr Q96H IVPB Last administered on 09/02/16 18:19; Admin Dose 75 MLS/HR; Start 08/29/16 at 18 :00 Lisinopril (Zestril) 5 mg BID PO Last administered on 09/02/16 20:29; Admin Dose 5 MG; Start 08/29/16 at 21:00 Lidocaine (Xylocaine (Viscous)) 15 ml TID PRN PO ORAL CAVITY PAIN Last administered on 08/29/16 19:56; Admin Dose 15 ML; Start 08/29/16 at 12:00 Epoetin Angel (Epogen (Esrd)) 8,000 units TuThSa@17 SC Last administered on 09/01 19:16; Admin Dose 8,000 UNITS; Start 08/30/16 at 17:00 MARIE GARCIA MD Sep 03, 2016 19:30
[2016-09-03] MEDS ORDERED: MINERAL OIL 133 ML ENEMA PR PRN (20:00)
[2016-09-03] MEDS: MAGNESIUM HYDROXIDE 30ML CUP PO SCH (20:32)
[2016-09-03] MEDS: LACTOBACILLUS RHAMNOSUS CAP PO SCH (20:32)
[2016-09-04] VITALS (9 sets, daily range): BP systolic 95–136; BP diastolic 46–86; PULSE 90–100
--- NOTE | 2016-09-04 01:25 | RADRPT ---
PROCEDURE: XR acute abdominal series. CLINICAL INDICATION: Ileus. TECHNIQUE: 2 view abdomen x-ray series including a frontal radiograph of the chest is available fo r review. COMPARISON: Plain film pelvis dated 08/23/2016. FINDINGS: Recent surgical changes of left hip arthroplasty. Gas and stool are seen within nondilated large bowel. Mild small bowel ileus is otherwise nonspecifi c. Recommend close radiographic follow up. There are no dilated loops of small bowel to suggest a b owel obstruction. There is no pneumoperitoneum. No abnormal calcifications are identified. Mild discoid atelectasis at the left lung base. Cardiomegaly and atherosclerotic calcifications in t he thoracic aorta. No pleural effusion or pneumothorax is seen. Demineralization limits evaluation of fine osseous detail with bilateral transpedicular screw and ro d fixators over the lumbar spine. IMPRESSION: 1. Nonobstructive bowel gas pattern. 2. Mild small bowel ileus, and recommend close radiographic follow up. 3. Clear lungs. RPTAT: [facility] Physician Karely Date Time Electronically viewed and signed by Physician Karely on 09/04/2016 01:25 RS/
[2016-09-04] MEDS: ACCU-CHEK XX SCH (01:52)
[2016-09-04] MEDS: PANTOPRAZOLE (EC) 40 MG TAB PO SCH (06:12)
[2016-09-04 07:32] LABS: ADD SCAN DIFF NO
[2016-09-04] MEDS: INSULIN ASPART [NOVOLOG] 3 ML PEN SC SCH ×4 (07:50→21:00)
[2016-09-04 07:53] LABS: BASOPHILS % 0.4 % (0.0-2.0); EOSINOPHILS # 0.3 10^3/ul (0.0-0.5); EOSINOPHILS % 3.5 % (0.0-7.0); HEMATOCRIT 24.7 % (42.0-52.0); HEMOGLOBIN 7.6 g/dl (14.0-18.0); LYMPHOCYTES # 1.8 10^3/ul (0.8-2.9); LYMPHOCYTES % 20.9 % (15.0-51.0); MEAN CORPUSCULAR HEMOGLOBIN 27.5 pg (29.0-33.0); MEAN CORPUSCULAR HGB CONC 30.8 g/dl (32.0-37.0); MEAN CORPUSCULAR VOLUME 89.5 fl (82.0-101.0); MONOCYTE # 0.9 10^3/ul (0.3-0.9); MONOCYTES % 10.1 % (0.0-11.0); NEUTROPHIL # 5.4 10^3/ul (1.6-7.5); NEUTROPHILS % 64.3 % (39.0-77.0); PLATELET COUNT 382 10^3/UL (140-415); RED BLOOD COUNT 2.76 10^6/ul (4.70-6.10); RED CELL DISTRIBUTION WIDTH 17.2 % (11.5-14.5); WHITE BLOOD COUNT 8.4 10^3/ul (4.8-10.8)
[2016-09-04 08:01] LABS: POTASSIUM 4.4 mmol/L (3.5-5.1)
[2016-09-04 08:03] LABS: CREATININE 6.42 mg/dl (0.61-1.24)
[2016-09-04 08:04] LABS: PHOSPHORUS 3.8 mg/dl (2.5-4.9)
[2016-09-04 08:05] LABS: CALCIUM 10.5 mg/dl (8.4-10.2); CHOL/HDL RATIO 2.4 RATIO; MAGNESIUM 2.8 mg/dl (1.7-2.5)
[2016-09-04 08:28] LABS: THYROID STIMULATING HORMONE 4.37 MIU/L (0.465-4.680)
[2016-09-04] MEDS: FERROUS SULFATE (EC) 325 MG TAB PO SCH ×2 (08:41→21:03)
[2016-09-04] MEDS: THIAMINE 100 MG TAB PO SCH (08:42)
[2016-09-04] MEDS: CALCIUM CARBONATE 1.25 GM TAB PO SCH (08:42)
[2016-09-04] MEDS: ATORVASTATIN 40 MG TAB PO SCH (08:42)
[2016-09-04] MEDS: CLOPIDOGREL 75 MG TAB PO SCH (08:42)
[2016-09-04] MEDS: LACTOBACILLUS RHAMNOSUS CAP PO SCH ×2 (08:42→21:03)
[2016-09-04] MEDS: MAGNESIUM HYDROXIDE 30ML CUP PO SCH ×2 (08:43→21:03)
[2016-09-04] MEDS: MULTIVIT/CA CARB/B CMPLX/FA TAB PO SCH (08:43)
[2016-09-04] MEDS: DOCUSATE SODIUM 100 MG CAP PO SCH ×2 (08:43→21:03)
[2016-09-04] MEDS: NORTRIPTYLINE 25 MG CAP PO SCH ×2 (09:00→21:03)
[2016-09-04] MEDS: LISINOPRIL 5 MG TAB PO SCH ×2 (09:00→21:03)
[2016-09-04] MEDS ORDERED: SOD CHLORIDE 0.9% 250 ML IV* ONE (10:55)
[2016-09-04] MEDS ORDERED: Calcium Carbonate PO (14:47)
--- NOTE | 2016-09-04 15:04 | PN ---
Date/Time of Note Date/Time of Note DATE: 09/04/16 TIME: 15:01 Assessment/Plan VTE Prophylaxis VTE Prophylaxis Intervention: other (on plavix) VTE Contraindication Reason: bleeding (risk for coumadin/asa today) Lines/Catheters IV Catheter Type (from Nrs): Saline Lock Urinary Cath still in place: No Assessment/Plan Chief Complaint/Hosp Course S no events O vss PE no pallor s1s2 reg; no m/r/g ctab bs+ nt nd no r/r/g ext- lt hip c/d/i A/P 1) Lt Hip subacute fracture/ failed IM rodding; sp MIGUE; stable cont pt. on plavix/scd's for dvt prophylaxis. TTWB. 2) Ho mechanical fall? 3) Djd/ op? 4) Chr CAD/pci; cont plavix. +/- asa down the line. 5) Ftt; to SNF today. 6) Dm/ Htn/ 7) ESRD. HD mwf status 8) Chr ischemic cmy; EF=35%; needs advanced care plannning re-evaluated 9) Anemia/ stable no active bleed. Problems: Exam/Review of Systems Vital Signs Vitals Vital Signs Date Time Temp Pulse Resp B/P Pulse Ox O2 Delivery O2 Flow Rate FiO2 09/04/16 11:00 95 09/04/16 11:00 17 09/04/16 08:00 Nasal Cannula 09/04/16 04:44 2.0 09/04/16 04:00 97.3 136/62 95 09/02/16 02:00 27 Intake and Output 09/03/16 09/03/16 09/04/16 15:00 23:00 07:00 Intake Total 600 ml 320 ml Balance 600 ml 320 ml Results Result Diagram: 09/04/1612 09/04/16 0712 Results 24 hrs Laboratory Tests Test 09/03/16 17:05 09/03/16 20:34 09/04/16 07:12 09/04/16 08:14 Bedside Glucose 101 102 112 Anion Gap 16 Basophils # 0.0 Basophils % 0.4 Blood Urea Nitrogen 73 H Calcium Level 10.5 H Carbon Dioxide Level 28 Chloride Level 96 L Cholesterol Level 68 L Cholesterol/HDL Ratio 2.4 Creatinine 6.42 H Eosinophils # 0.3 Eosinophils % 3.5 Glucose Level 92 HDL Cholesterol 28 L Hematocrit 24.7 L Hemoglobin 7.6 L LDL Cholesterol, Calculated 23 Lymphocytes # 1.8 Lymphocytes % 20.9 Magnesium Level 2.8 H Mean Corpuscular Hemoglobin 27.5 L Mean Corpuscular Hemoglobin Concent 30.8 L Mean Corpuscular Volume 89.5 Mean Platelet Volume 10.0 Monocytes # 0.9 Monocytes % 10.1 Neutrophils # 5.4 Neutrophils % 64.3 Nucleated Red Blood Cells # 0.0 Nucleated Red Blood Cells % 0.0 Phosphorus Level 3.8 Platelet Count 382 Potassium Level 4.4 Red Blood Count 2.76 L Red Cell Distribution Width 17.2 H Sodium Level 136 Thyroid Stimulating Hormone (TSH) 4.370 Triglycerides Level 86 White Blood Count 8.4 # Test 09/04/16 12:02 Bedside Glucose 132 Medications Medications Current Medications Atorvastatin Calcium (Lipitor) 40 mg DAILY PO Last administered on 09/04/16 08 :42; Admin Dose 40 MG; Start 08/18/16 at 09:00 Clopidogrel Bisulfate (plaVIX) 75 mg DAILY PO Last administered on 09/04/16 08 :42; Admin Dose 75 MG; Start 08/18/16 at 09:00; Status Future hold Metoclopramide HCl (Reglan) 5 mg Q6H PRN PO NAUSEA Last administered on 09:05; Admin Dose 5 MG; Start 08/17/16 at 23:00 Nortriptyline HCl (Aventyl) 25 mg BID PO Last administered on 09/03/16 20:32; Admin Dose 25 MG; Start 08/17/16 at 23:00 Thiamine HCl (Vitamin B1) 250 mg DAILY PO Last administered on 09/04/16 08:42 ; Admin Dose 250 MG; Start 08/18/16 at 09:00 Multivit/Ca Carb/ B Cmplx/FA/Prenat (Aleyda-Pam) 1 tab DAILY PO Last administered on 09/03/16 08:22; Admin Dose 1 TAB; Start 08/18/16 at 09:00 Insulin Glargine (Lantus) 10 unit HS SC ; Start 08/18/16 at 21:00; Status Future Hold Diagnostic Test (Pha) (Accucheck) 1 ea 02 XX Last administered on 08/26/16 02: 00; Admin Dose 1 EA; Start 08/18/16 at 02:00 Miscellaneous Information 1 ea NOTE XX ; Start 08/17/16 at 23:30 Glucose (Glutose) 15 gm Q15M PRN PO DECREASED GLUCOSE; Start 08/17/16 at 23:30 Glucose (Glutose) 22.5 gm Q15M PRN PO DECREASED GLUCOSE; Start 08/17/16 at 23:30 Dextrose (D50w Syringe) 25 ml Q15M PRN IV DECREASED GLUCOSE; Start 08/17/16 at 23:30 Dextrose (D50w Syringe) 50 ml Q15M PRN IV DECREASED GLUCOSE; Start 08/17/16 at 23:30 Glucagon (Glucagen) 1 mg Q15M PRN IM DECREASED GLUCOSE; Start 08/17/16 at 23:30 Glucose (Glutose) 15 gm Q15M PRN BUCCAL DECREASED GLUCOSE; Start 08/17/16 at 23: 30 Miscellaneous Information 1 ea NOTE XX ; Start 08/23/16 at 07:00; Stop 08/27/18 at 06:59 Oxycodone HCl (Roxicodone) 5 mg Q4H PRN PO PAIN LEVEL 1-3 Last administered on 09/02/16 02:22; Admin Dose 5 MG; Start 08/23/16 at 19:00 Oxycodone HCl (Roxicodone) 10 mg Q4H PRN PO PAIN LEVEL 4-7 Last administered on 09/02/16 10:02; Admin Dose 10 MG; Start 08/23/16 at 19:00 Hydromorphone HCl (Dilaudid) 1 mg Q3H PRN IV PAIN LEVEL 8-10 Last administered on 08/28/16 13:59; Admin Dose 1 MG; Start 08/23/16 at 19:00 Ondansetron HCl (Zofran Inj) 4 mg Q6H PRN IV NAUSEA AND/OR VOMITING; Start 08/23 at 19:00 Bisacodyl (Dulcolax Supp) 10 mg Q12H PRN [place] CONSTIPATION; Start 08/23/16 at 19: 00 Docusate Sodium (Colace) 100 mg BID PO Last administered on 09/04/16 08:43; Admin Dose 100 MG; Start 08/23/16 at 21:00 Diphenhydramine HCl (Benadryl) 25 mg Q6H PRN PO PRURITUS; Start 08/23/16 at 19: 00 Ferrous Sulfate (Ferrous Sulfate (Ec)) 325 mg BID PO Last administered on 08:41; Admin Dose 325 MG; Start 08/25/16 at 21:00 Hydralazine HCl (Apresoline) 10 mg Q8H PRN IV ELEVATED BLOOD PRESSURE Last administered on 09/03/16 00:07; Admin Dose 10 MG; Start 08/25/16 at 12:00 Carvedilol (Coreg) 6.25 mg BID PO Last administered on 09/03/16 20:33; Admin Dose 6.25 MG; Start 08/28/16 at 21:00 Lisinopril (Zestril) 5 mg BID PO Last administered on 09/03/16 20:32; Admin Dose 5 MG; Start 08/29/16 at 21:00 Lidocaine (Xylocaine (Viscous)) 15 ml TID PRN PO ORAL CAVITY PAIN Last administered on 08/29/16 19:56; Admin Dose 15 ML; Start 08/29/16 at 12:00 Epoetin Angel (Epogen (Esrd)) 8,000 units TuThSa@17 SC Last administered on 09/01 19:16; Admin Dose 8,000 UNITS; Start 08/30/16 at 17:00 Pantoprazole (Protonix Tab) 40 mg DAILY@06 PO Last administered on 09/04/16 06 :12; Admin Dose 40 MG; Start 09/04/16 at 06:00 Magnesium Hydroxide (Milk Of Mag) 30 ml BID PO Last administered on 09/04/16 08:43; Admin Dose 30 ML; Start 09/03/16 at 21:00 Mineral Oil (Fleet Mineral Oil Enema) 133 ml DAILY PRN [place] CONSTIPATION; Start 09/03/16 at 20:00 Calcium Carbonate (Oyster Shell Calcium) 1.25 gm DAILY PO Last administered on 09/04/16 08:42; Admin Dose 1.25 GM; Start 09/04/16 at 09:00 Lactobacillus Acidophilus/ Rhamnosus (Culturelle) 1 cap BID PO Last administered on 09/04/16 08:42; Admin Dose 1 CAP; Start 09/03/16 at 21:00 MARIE GARCIA MD Sep 04, 2016 15:04
--- NOTE | 2016-09-04 15:39 | PN ---
Date/Time of Note Date/Time of Note DATE: 09/04/16 TIME: 15:36 Assessment/Plan Lines/Catheters IV Catheter Type (from Nrsg): Saline Lock Jain in Place (from Nrsg): No Assessment/Plan Assessment/Plan Improved condition POD #11, s/p hardware removal, failed left hip IM rodding, conversion to left posterior MIGUE -continue abx per hospitalist team -Plavix restarted by cardiology. ASA held due to concern for increased bleeding -SCDs for DVT prophylaxis -posterior hip precautions -knee immobilizer to be worn at all times -OOB with PT as tolerated -check AM labs. H&H low. Transfusing blood today -BP improved and appears to have stabilized. Will follow cardiology recommendations -continue hemodialysis per nephrology -dressing changed -discharge planning. Awaiting authorization on SNF placement -podiatry consult for left heel ulcer/pain Subjective 24 Hr Interval Summary No acute overnight events. Denies any hip pain but complaining of pain to the left heel. H&H low, receiving blood today. Still awaiting final auth on transfer to SNF. Exam/Review of Systems Vital Signs Vitals Vital Signs Date Time Temp Pulse Resp B/P Pulse Ox O2 Delivery O2 Flow Rate FiO2 09/04/16 11:00 95 09/04/16 11:00 17 09/04/16 08:00 Nasal Cannula 09/04/16 04:44 2.0 09/04/16 04:00 97.3 136/62 95 09/02/16 02:00 27 Intake and Output 09/03/16 09/03/16 09/04/16 15:00 23:00 07:00 Intake Total 600 ml 320 ml Balance 600 ml 320 ml Exam Free Text/Dictation Dressing dry Incision clean, dry, and intact without redness or drainage 5/5 Quadriceps, Tibialis Anterior, EHL, Gastroc, Soleus, Peroneals Normal sensation Palpable DT/PT, CR <2 sec No distal edema Stasis ulcer to calcaneus noted Results Result Diagram: 09/04/1671109/04/16711 TONI ORNELAS PA-C Sep 04, 2016 15:39
--- NOTE | 2016-09-04 15:58 | DS ---
DATE OF ADMISSION: 08/17/2016 DATE OF DISCHARGE: 09/04/2016 PRIMARY CARE PHYSICIAN: Unknown. FRAME TENDER: Drs. Pinto, Anthony, Yoshi. DIAGNOSIS ON ADMISSION: 1. Left hip fracture. 2. End-stage renal disease. DIAGNOSES ON DISCHARGE: 1. Left hip subacute fracture. 2. History of mechanical fall. 3. Degenerative joint disease. 4. Possible osteoporosis. 5. Chronic coronary artery disease. 6. Failure to thrive. 7. Diabetes. 8. Metabolic syndrome. 9. Hypertension. 10. End-stage renal disease, dialysis status. 11. Chronic ischemic cardiomyopathy. HOSPITAL COURSE: This is a 65-year-old gentleman who actually had a hip fracture and underwent IM [place]ing [place], in the country of [facility]. Apparently he was doing poorly on reevaluation here in the [facility] and was sent in by orthopedic surgery. The patient underwent a total hip a rthroplasty under the care of Dr. Pinto. Please see operative report for complete details. Postop erative hospital course was uncomplicated in terms of hip. The patient is tolerating diet. He is p articipating with physical therapy and he is stable and fit for discharge. The wound is intact. He is on aspirin or Plavix for DVT prophylaxis along with sequential compression devices. Obviously d ue to his hip fractures, his morbidity and mortality status has increased. The family is resistant to any complete coordination of care and assessment of his overall condition and prognosis at this t sasha. These conversations may be continued with primary care at some point down the line. Due to his debility, the patient will require fci facility. He is not a candidate for a cute rehab endurance-weber, along with his comorbidities. Should this change in the future, acute re hab could be considered. The patient is toe touch weightbearing. Incidentally, the patient has had constipation which is not unusual being in his situation with his comorbidities and we have increased bowel care regimen. He can have an enema as needed. In terms of his coronary artery disease, the patient has a history of percutaneous intervention. He was seen by cardiology in perioperative eval. His EF is 35. He definitely needs advanced care roney nning and reevaluated. At this point, he will continue on Plavix alone. Due to his subacute fracture and failed original surgery, and his second surgery here in the [facility] with a concern of oozing, we have optimized him only with Plavix. He was not a candidate for aspi rin at this time. He does not require Lovenox or Coumadin. I spoke with orthopedic surgery. In terms of her diabetes, it is stable. In terms of dialysis, he is stable on dialysis Saturday, Saturday, Saturday. He goes to the center in [facility]. We will him transport him to dialysis. The patient additionally has breakdown on his heel and his buttocks. Offloading and once ambulatory , these wounds should heal. Family is frustrated about disposition. The patient has been here for about 2 to 3 weeks and it is understandable that we are making a transition of care which is full of anxiety. At this point in time, I spent 20 minutes on the phone with the patient, and a ornelas slator regarding the care plan options. A care home would be in his best fit. It is not ideal, but otherwise going home with fci therapy would not be ideal. Nursing homes at least ca n provide 2 hours of therapy and 24-hour nursing. We will go with whatever wishes the patient deci purnima and we will appreciate case management evaluation assistance and disposition. In terms of anemia, it is probably of chronic disease. Patient was transfused in the hospital. LABORATORY DATA: White cell count of 8, hemoglobin and hematocrit of 7.6 and 24, MCV of 89, platele ts of 380. INR 1. Sodium 136, potassium 4, chloride 96, bicarbonate 28, BUN of 73, creatinine 6.4, glucose of 90. A1c of 5.2. TSH of 4.3. Cultures of the hip were obtained. Cultures have been un remarkable. ____Gram stain, anaerobic cultures and fungal cultures, acid fast stain were unremarkab le. ____ unremarkable. MRSA unremarkable. KUB from yesterday shows mild small bowel ileus due t o his obstipation, clear lungs, nonobstructive bowel, CAT scan of brain, moderate to generalized vol ume loss. The ultrasound venous does not show any DVT on August 19. MEDICATIONS: 1. Lipitor 40. 2. Dulcolax 10 mg q.12h as needed. 3. Oyster Estuardo 1.25 grams daily. 4. Coreg 6.25 b.i.d. 5. Plavix 75 daily. 6. Epogen 8000 units Saturday, , Saturday. 7. Iron 325 b.i.d. 5. Glucagon as needed. 6. NovoLog mild sliding scale. 7. Lantus 10 at bedtime. 8. Culturelle 1 capsule twice daily. 9. Vitreous lidocaine as needed. 10. Lisinopril 5 b.i.d. 11. Reglan 5 mg AC b.i.d. with meals. 12. Mineral oil daily as needed. 13. Renal multivitamin daily. 14. Nortriptyline 25 mg b.i.d. 15. Milligan 10 one every 8 hours as needed, script given. 16. Protonix 40 daily. 17. Thiamine 100 daily. 18. Isosorbide dinitrate 10 mg b.i.d. STOPPED MEDICATIONS: 1. Aspirin for now. Reevaluate in 2 weeks once more appropriate and stable. Dictated By: MARIE GARCIA MD AC/NTS Conf#: [id number] DID#: [id number] CC: HEATHER MULLINS MD; MAVERICK MAILN DO; AARON PINTO MD;*End*
[2016-09-04] MEDS: EPOETIN 4000 UNITS/1 ML INJ (ESRD) SC SCH (18:12)
--- NOTE | 2016-09-05 01:17 | CONS ---
Date/Time of Note Date/Time of Note DATE: 09/05/16 TIME: 01:01 Assessment/Plan Assessment/Plan Problems: (1) Pressure ulcer of left heel, stage 2 Comment: highly recommend complete offloading of the heels bilaterally; discuss case with wound care nurse to add heel protection boots for the patient ; patient will be closely monitored Thank you again for involving me in the care of this patient. If you have any questions regarding this case, please feel free to contact me at pager: or reach me at mobile: [phone]. (2) Hip fracture Status: Acute Qualifiers: Qualified Code: S72.002A - Hip fracture, left, closed, initial encounter (3) Renal failure Status: Acute Consultation Date/Type/Reason Admit Date/Time Aug 17, 2016 at 20:14 Constitutional: improved Eyes: no complaints ENT: no complaints Respiratory: no complaints Cardiovascular: no complaints Gastrointestinal: no complaints Genitourinary: no complaints Musculoskeletal: no complaints Skin: no complaints Psychological: no complaints Past Medical History Medical History: congestive heart failure, coronary artery disease, hypertension, renal disease Social History Alcohol Use: none Smoking Status: Never smoker Drug Use: none Exam/Review of Systems Vital Signs Vitals Vital Signs Date Time Temp Pulse Resp B/P Pulse Ox O2 Delivery O2 Flow Rate FiO2 09/04/16 19:13 2.0 09/04/16 11:00 95 09/04/16 11:00 17 09/04/16 08:00 Nasal Cannula 09/04/16 04:00 97.3 136/62 95 09/02/16 02:00 27 Intake and Output 09/04/16 09/04/16 09/05/16 15:00 23:00 07:00 Intake Total 300 ml 400 ml Output Total 1300 ml 0 ml Balance -1000 ml 400 ml Results Result Diagram: 09/04/1612 09/04/16 0712 Results 24 hrs Laboratory Tests Test 09/04/16 07:12 09/04/16 08:14 09/04/16 12:02 09/04/16 18:10 Anion Gap 16 Basophils # 0.0 Basophils % 0.4 Blood Urea Nitrogen 73 H Calcium Level 10.5 H Carbon Dioxide Level 28 Chloride Level 96 L Cholesterol Level 68 L Cholesterol/HDL Ratio 2.4 Creatinine 6.42 H Eosinophils # 0.3 Eosinophils % 3.5 Glucose Level 92 HDL Cholesterol 28 L Hematocrit 24.7 L Hemoglobin 7.6 L LDL Cholesterol, Calculated 23 Lymphocytes # 1.8 Lymphocytes % 20.9 Magnesium Level 2.8 H Mean Corpuscular Hemoglobin 27.5 L Mean Corpuscular Hemoglobin Concent 30.8 L Mean Corpuscular Volume 89.5 Mean Platelet Volume 10.0 Monocytes # 0.9 Monocytes % 10.1 Neutrophils # 5.4 Neutrophils % 64.3 Nucleated Red Blood Cells # 0.0 Nucleated Red Blood Cells % 0.0 Phosphorus Level 3.8 Platelet Count 382 Potassium Level 4.4 Red Blood Count 2.76 L Red Cell Distribution Width 17.2 H Sodium Level 136 Thyroid Stimulating Hormone (TSH) 4.370 Triglycerides Level 86 White Blood Count 8.4 # Bedside Glucose 112 132 122 Test 09/04/16 20:48 Bedside Glucose 95 Medications Medications Current Medications Atorvastatin Calcium (Lipitor) 40 mg DAILY PO Last administered on 09/04/16 08 :42; Admin Dose 40 MG; Start 08/18/16 at 09:00 Clopidogrel Bisulfate (plaVIX) 75 mg DAILY PO Last administered on 09/04/16 08 :42; Admin Dose 75 MG; Start 08/18/16 at 09:00; Status Future hold Metoclopramide HCl (Reglan) 5 mg Q6H PRN PO NAUSEA Last administered on 09:05; Admin Dose 5 MG; Start 08/17/16 at 23:00 Nortriptyline HCl (Aventyl) 25 mg BID PO Last administered on 09/04/16 21:03; Admin Dose 25 MG; Start 08/17/16 at 23:00 Thiamine HCl (Vitamin B1) 250 mg DAILY PO Last administered on 09/04/16 08:42 ; Admin Dose 250 MG; Start 08/18/16 at 09:00 Multivit/Ca Carb/ B Cmplx/FA/Prenat (Aleyda-Pam) 1 tab DAILY PO Last administered on 09/03/16 08:22; Admin Dose 1 TAB; Start 08/18/16 at 09:00 Insulin Glargine (Lantus) 10 unit HS SC ; Start 08/18/16 at 21:00; Status Future Hold Diagnostic Test (Pha) (Accucheck) 1 ea 02 XX Last administered on 08/26/16 02: 00; Admin Dose 1 EA; Start 08/18/16 at 02:00 Miscellaneous Information 1 ea NOTE XX ; Start 08/17/16 at 23:30 Glucose (Glutose) 15 gm Q15M PRN PO DECREASED GLUCOSE; Start 08/17/16 at 23:30 Glucose (Glutose) 22.5 gm Q15M PRN PO DECREASED GLUCOSE; Start 08/17/16 at 23:30 Dextrose (D50w Syringe) 25 ml Q15M PRN IV DECREASED GLUCOSE; Start 08/17/16 at 23:30 Dextrose (D50w Syringe) 50 ml Q15M PRN IV DECREASED GLUCOSE; Start 08/17/16 at 23:30 Glucagon (Glucagen) 1 mg Q15M PRN IM DECREASED GLUCOSE; Start 08/17/16 at 23:30 Glucose (Glutose) 15 gm Q15M PRN BUCCAL DECREASED GLUCOSE; Start 08/17/16 at 23: 30 Miscellaneous Information 1 ea NOTE XX ; Start 08/23/16 at 07:00; Stop 08/27/18 at 06:59 Oxycodone HCl (Roxicodone) 5 mg Q4H PRN PO PAIN LEVEL 1-3 Last administered on 09/02/16 02:22; Admin Dose 5 MG; Start 08/23/16 at 19:00 Oxycodone HCl (Roxicodone) 10 mg Q4H PRN PO PAIN LEVEL 4-7 Last administered on 09/02/16 10:02; Admin Dose 10 MG; Start 08/23/16 at 19:00 Hydromorphone HCl (Dilaudid) 1 mg Q3H PRN IV PAIN LEVEL 8-10 Last administered on 08/28/16 13:59; Admin Dose 1 MG; Start 08/23/16 at 19:00 Ondansetron HCl (Zofran Inj) 4 mg Q6H PRN IV NAUSEA AND/OR VOMITING; Start 08/23 at 19:00 Bisacodyl (Dulcolax Supp) 10 mg Q12H PRN [place] CONSTIPATION; Start 08/23/16 at 19: 00 Docusate Sodium (Colace) 100 mg BID PO Last administered on 09/04/16 21:03; Admin Dose 100 MG; Start 08/23/16 at 21:00 Diphenhydramine HCl (Benadryl) 25 mg Q6H PRN PO PRURITUS; Start 08/23/16 at 19: 00 Ferrous Sulfate (Ferrous Sulfate (Ec)) 325 mg BID PO Last administered on 21:03; Admin Dose 325 MG; Start 08/25/16 at 21:00 Hydralazine HCl (Apresoline) 10 mg Q8H PRN IV ELEVATED BLOOD PRESSURE Last administered on 09/03/16 00:07; Admin Dose 10 MG; Start 08/25/16 at 12:00 Carvedilol (Coreg) 6.25 mg BID PO Last administered on 09/04/16 21:04; Admin Dose 6.25 MG; Start 08/28/16 at 21:00 Lisinopril (Zestril) 5 mg BID PO Last administered on 09/04/16 21:03; Admin Dose 5 MG; Start 08/29/16 at 21:00 Lidocaine (Xylocaine (Viscous)) 15 ml TID PRN PO ORAL CAVITY PAIN Last administered on 08/29/16 19:56; Admin Dose 15 ML; Start 08/29/16 at 12:00 Epoetin Angel (Epogen (Esrd)) 8,000 units TuThSa@17 SC Last administered on 09/04 18:12; Admin Dose 8,000 UNITS; Start 08/30/16 at 17:00 Pantoprazole (Protonix Tab) 40 mg DAILY@06 PO Last administered on 09/04/16 06 :12; Admin Dose 40 MG; Start 09/04/16 at 06:00 Magnesium Hydroxide (Milk Of Mag) 30 ml BID PO Last administered on 09/04/16 21:03; Admin Dose 30 ML; Start 09/03/16 at 21:00 Mineral Oil (Fleet Mineral Oil Enema) 133 ml DAILY PRN [place] CONSTIPATION; Start 09/03/16 at 20:00 Calcium Carbonate (Oyster Shell Calcium) 1.25 gm DAILY PO Last administered on 09/04/16 08:42; Admin Dose 1.25 GM; Start 09/04/16 at 09:00 Lactobacillus Acidophilus/ Rhamnosus (Culturelle) 1 cap BID PO Last administered on 09/04/16 21:03; Admin Dose 1 CAP; Start 09/03/16 at 21:00 YESSY TAYLOR DPM Sep 05, 2016 01:17
[2016-09-05] MEDS: ACCU-CHEK XX SCH (02:00)
[2016-09-05] MEDS: PANTOPRAZOLE (EC) 40 MG TAB PO SCH (05:47)
[2016-09-05] MEDS: INSULIN ASPART [NOVOLOG] 3 ML PEN SC SCH ×4 (07:50→21:00)
[2016-09-05 08:01] VITALS: BP 130/63; RESP 16
[2016-09-05] MEDS: ATORVASTATIN 40 MG TAB PO SCH (09:00)
[2016-09-05] MEDS: LACTOBACILLUS RHAMNOSUS CAP PO SCH ×2 (09:01→21:45)
[2016-09-05] MEDS: FERROUS SULFATE (EC) 325 MG TAB PO SCH ×2 (09:01→21:45)
[2016-09-05] MEDS: MULTIVIT/CA CARB/B CMPLX/FA TAB PO SCH (09:01)
[2016-09-05] MEDS: THIAMINE 100 MG TAB PO SCH (09:01)
[2016-09-05] MEDS: CALCIUM CARBONATE 1.25 GM TAB PO SCH (09:02)
[2016-09-05] MEDS: MAGNESIUM HYDROXIDE 30ML CUP PO SCH ×2 (09:02→21:50)
[2016-09-05] MEDS: CLOPIDOGREL 75 MG TAB PO SCH (09:02)
[2016-09-05] MEDS: LISINOPRIL 5 MG TAB PO SCH ×2 (09:03→21:46)
[2016-09-05] MEDS: NORTRIPTYLINE 25 MG CAP PO SCH ×2 (09:03→21:46)
[2016-09-05] MEDS: DOCUSATE SODIUM 100 MG CAP PO SCH ×2 (09:03→21:46)
--- NOTE | 2016-09-05 09:12 | PN ---
Date/Time of Note Date/Time of Note DATE: 09/05/16 TIME: 09:10 Assessment/Plan Lines/Catheters IV Catheter Type (from Nrsg): Saline Lock Jain in Place (from Nrsg): No Assessment/Plan Assessment/Plan Improved condition POD #12, s/p hardware removal, failed left hip IM rodding, conversion to left posterior MIGUE -Plavix restarted by cardiology. ASA held due to concern for increased bleeding -SCDs for DVT prophylaxis -posterior hip precautions -knee immobilizer to be worn at all times -OOB with PT as tolerated -BP improved and appears to have stabilized. Will follow cardiology recommendations -continue hemodialysis per nephrology -podiatry consult for left heel ulcer/pain. Recommended offloading of heels. Will follow their recommendation -discharge planning. Stable for d/c today. Awaiting final discharge and definitive SNF placement per dog day care attendant Subjective 24 Hr Interval Summary No acute overnight events. Podiatry came as saw patient regarding heels and recommended complete offloading of heels. Patient accepted at [facility] but refusing to go there. Stable for transfer today pending final disposition. Exam/Review of Systems Vital Signs Vitals Vital Signs Date Time Temp Pulse Resp B/P Pulse Ox O2 Delivery O2 Flow Rate FiO2 09/05/16 08:01 98.2 92 16 130/63 97 09/05/16 01:14 2.0 09/04/16 20:00 Nasal Cannula 09/02/16 02:00 27 Intake and Output 09/04/16 09/04/16 09/05/16 14:59 22:59 06:59 Intake Total 300 ml 400 ml 300 ml Output Total 1300 ml 0 ml 0 ml Balance -1000 ml 400 ml 300 ml Exam Free Text/Dictation Dressing dry Incision clean, dry, and intact without redness or drainage 5/5 Quadriceps, Tibialis Anterior, EHL, Gastroc, Soleus, Peroneals Normal sensation Palpable DT/PT, CR <2 sec No distal edema Results Result Diagram: 09/04/16 0709/04/16711 TONI ORNELAS PA-C Sep 05, 2016 09:12
[2016-09-05] MEDS ORDERED: BISACODYL (EC) 5 MG TAB PO ONE (13:30)
--- NOTE | 2016-09-05 16:57 | PN ---
Date/Time of Note Date/Time of Note DATE: 09/05/16 TIME: 16:55 Assessment/Plan VTE Prophylaxis VTE Prophylaxis Intervention: other (plavix) Lines/Catheters IV [facility] Type (from [facility]): Saline Lock Urinary Cath still in place: No Assessment/Plan Chief Complaint/Hosp Course S 09/04- no events 09/05- stable. bm 09/01. wound clean. ready for dc. O vss PE no pallor s1s2 reg; no m/r/g ctab bs+ nt nd no r/r/g ext- lt hip c/d/i A/P 1) Lt Hip subacute fracture/ failed IM rodding; sp MIGUE; stable cont pt. on plavix/scd's for dvt prophylaxis. TTWB. 2) Ho mechanical fall? 3) Djd/ op? 4) Chr CAD/pci; cont plavix. no need for asa. 5) Ftt; DC to SNF today. 6) Dm/ Htn/ 7) ESRD. HD mwf status 8) Chr ischemic cmy; EF=35%; needs advanced care plannning re-evaluated 9) Anemia/ stable no active bleed. 10) Lt heel wound- continue offload. Problems: Exam/Review of Systems Vital Signs Vitals Vital Signs Date Time Temp Pulse Resp B/P Pulse Ox O2 Delivery O2 Flow Rate FiO2 09/05/16 09:17 2.0 09/05/16 08:01 98.2 92 16 130/63 97 09/05/16 08:00 Nasal Cannula 09/02/16 02:00 27 Intake and Output 09/04/16 09/04/16 09/05/16 15:00 23:00 07:00 Intake Total 300 ml 400 ml 300 ml Output Total 1300 ml 0 ml 0 ml Balance -1000 ml 400 ml 300 ml Results Result Diagram: 09/04/16 0712 09/04/16 0712 Results 24 hrs Laboratory Tests Test 09/04/16 18:10 09/04/16 20:48 09/05/16 08:56 09/05/16 12:01 Bedside Glucose 122 95 83 101 Medications Medications Current Medications Atorvastatin Calcium (Lipitor) 40 mg DAILY PO Last administered on 09/04/16t 08 :42; Admin Dose 40 MG; Start 08/18/16 at 09:00 Clopidogrel Bisulfate (plaVIX) 75 mg DAILY PO Last administered on 09/05/16 09 :02; Admin Dose 75 MG; Start 08/18/16 at 09:00; Status Future hold Metoclopramide HCl (Reglan) 5 mg Q6H PRN PO NAUSEA Last administered on 09:05; Admin Dose 5 MG; Start 08/17/16 at 23:00 Nortriptyline HCl (Aventyl) 25 mg BID PO Last administered on 09/05/16 09:03; Admin Dose 25 MG; Start 08/17/16 at 23:00 Thiamine HCl (Vitamin B1) 250 mg DAILY PO Last administered on 09/05/16 09:01 ; Admin Dose 250 MG; Start 08/18/16 at 09:00 Multivit/Ca Carb/ B Cmplx/FA/Prenat (Aleyda-Pam) 1 tab DAILY PO Last administered on 09/05/16 09:01; Admin Dose 1 TAB; Start 08/18/16 at 09:00 Insulin Glargine (Lantus) 10 unit HS SC ; Start 08/18/16 at 21:00; Status Future Hold Diagnostic Test (Pha) (Accucheck) 1 ea 02 XX Last administered on 08/26/16 02: 00; Admin Dose 1 EA; Start 08/18/16 at 02:00 Miscellaneous Information 1 ea NOTE XX ; Start 08/17/16 at 23:30 Glucose (Glutose) 15 gm Q15M PRN PO DECREASED GLUCOSE; Start 08/17/16 at 23:30 Glucose (Glutose) 22.5 gm Q15M PRN PO DECREASED GLUCOSE; Start 08/17/16 at 23:30 Dextrose (D50w Syringe) 25 ml Q15M PRN IV DECREASED GLUCOSE; Start 08/17/16 at 23:30 Dextrose (D50w Syringe) 50 ml Q15M PRN IV DECREASED GLUCOSE; Start 08/17/16 at 23:30 Glucagon (Glucagen) 1 mg Q15M PRN IM DECREASED GLUCOSE; Start 08/17/16 at 23:30 Glucose (Glutose) 15 gm Q15M PRN BUCCAL DECREASED GLUCOSE; Start 08/17/16 at 23: 30 Miscellaneous Information 1 ea NOTE XX ; Start 08/23/16 at 07:00; Stop 08/27/18 at 06:59 Oxycodone HCl (Roxicodone) 5 mg Q4H PRN PO PAIN LEVEL 1-3 Last administered on 09/02/16 02:22; Admin Dose 5 MG; Start 08/23/16 at 19:00 Oxycodone HCl (Roxicodone) 10 mg Q4H PRN PO PAIN LEVEL 4-7 Last administered on 09/02/16 10:02; Admin Dose 10 MG; Start 08/23/16 at 19:00 Hydromorphone HCl (Dilaudid) 1 mg Q3H PRN IV PAIN LEVEL 8-10 Last administered on 08/28/16 13:59; Admin Dose 1 MG; Start 08/23/16 at 19:00 Ondansetron HCl (Zofran Inj) 4 mg Q6H PRN IV NAUSEA AND/OR VOMITING; Start 08/23 at 19:00 Bisacodyl (Dulcolax Supp) 10 mg Q12H PRN [place] CONSTIPATION; Start 08/23/16 at 19: 00 Docusate Sodium (Colace) 100 mg BID PO Last administered on 09/05/16 09:03; Admin Dose 100 MG; Start 08/23/16 at 21:00 Diphenhydramine HCl (Benadryl) 25 mg Q6H PRN PO PRURITUS; Start 08/23/16 at 19: 00 Ferrous Sulfate (Ferrous Sulfate (Ec)) 325 mg BID PO Last administered on 09:01; Admin Dose 325 MG; Start 08/25/16 at 21:00 Hydralazine HCl (Apresoline) 10 mg Q8H PRN IV ELEVATED BLOOD PRESSURE Last administered on 09/03/16 00:07; Admin Dose 10 MG; Start 08/25/16 at 12:00 Carvedilol (Coreg) 6.25 mg BID PO Last administered on 09/05/16 09:02; Admin Dose 6.25 MG; Start 08/28/16 at 21:00 Lisinopril (Zestril) 5 mg BID PO Last administered on 09/05/16 09:03; Admin Dose 5 MG; Start 08/29/16 at 21:00 Lidocaine (Xylocaine (Viscous)) 15 ml TID PRN PO ORAL CAVITY PAIN Last administered on 08/29/16 19:56; Admin Dose 15 ML; Start 08/29/16 at 12:00 Epoetin Angel (Epogen (Esrd)) 8,000 units TuThSa@17 SC Last administered on 09/04 18:12; Admin Dose 8,000 UNITS; Start 08/30/16 at 17:00 Pantoprazole (Protonix Tab) 40 mg DAILY@06 PO Last administered on 09/05/16 05 :47; Admin Dose 40 MG; Start 09/04/16 at 06:00 Magnesium Hydroxide (Milk Of Mag) 30 ml BID PO Last administered on 09/05/16 09:02; Admin Dose 30 ML; Start 09/03/16 at 21:00 Mineral Oil (Fleet Mineral Oil Enema) 133 ml DAILY PRN [place] CONSTIPATION; Start 09/03/16 at 20:00 Calcium Carbonate (Oyster Shell Calcium) 1.25 gm DAILY PO Last administered on 09/05/16 09:02; Admin Dose 1.25 GM; Start 09/04/16 at 09:00 Lactobacillus Acidophilus/ Rhamnosus (Culturelle) 1 cap BID PO Last administered on 09/05/16 09:01; Admin Dose 1 CAP; Start 09/03/16 at 21:00 MARIE GARCIA MD Sep 05, 2016 16:57
[2016-09-05 19:41] VITALS: BP 149/66; RESP 17
[2016-09-06] VITALS (10 sets, daily range): BP systolic 106–156; BP diastolic 50–78; PULSE 66–99; RESP 18–20
[2016-09-06] MEDS: ACCU-CHEK XX SCH (02:00)
[2016-09-06] MEDS: PANTOPRAZOLE (EC) 40 MG TAB PO SCH (05:19)
[2016-09-06] MEDS: INSULIN ASPART [NOVOLOG] 3 ML PEN SC SCH ×3 (07:50→17:53)
[2016-09-06] MEDS: THIAMINE 100 MG TAB PO SCH (09:03)
[2016-09-06] MEDS: NORTRIPTYLINE 25 MG CAP PO SCH (09:03)
[2016-09-06] MEDS: LACTOBACILLUS RHAMNOSUS CAP PO SCH (09:03)
[2016-09-06] MEDS: MULTIVIT/CA CARB/B CMPLX/FA TAB PO SCH (09:03)
[2016-09-06] MEDS: ATORVASTATIN 40 MG TAB PO SCH (09:04)
[2016-09-06] MEDS: DOCUSATE SODIUM 100 MG CAP PO SCH (09:04)
[2016-09-06] MEDS: MAGNESIUM HYDROXIDE 30ML CUP PO SCH (09:04)
[2016-09-06] MEDS: CALCIUM CARBONATE 1.25 GM TAB PO SCH (09:04)
[2016-09-06] MEDS: FERROUS SULFATE (EC) 325 MG TAB PO SCH (09:04)
[2016-09-06] MEDS: CLOPIDOGREL 75 MG TAB PO SCH (09:04)
[2016-09-06] MEDS ORDERED: ALBUMIN HUMAN 25% 100 ML IV ONE (10:30)
[2016-09-06] MEDS ORDERED: PEG/ELECTROLYTES 4L BTL PO ONE (11:00)
[2016-09-06] MEDS ORDERED: ENOXAPARIN 40 MG/0.4 ML SYG SC SCH (11:00)
[2016-09-06] MEDS ORDERED: APIXABAN 5 MG TABLET PO SCH (11:30)
--- NOTE | 2016-09-06 12:56 | RADRPT ---
PROCEDURE: XR Pelvis. CLINICAL INDICATION: Pelvic pain. TECHNIQUE: Single AP view of the pelvis. COMPARISON: 08/23/2016. FINDINGS: There is a total left hip arthroplasty with overlying the lateral skin safia. The surgical drain has been removed. The right hip is grossly normal. There is diffuse osteopenia. There has been hernando or lower lumbar spine surgery with pedicle screws and connecting rods. There is no lytic or blastic lesion. Vascular calcifications are present consistent with atherosclerosis. The sacroiliac joints are grossly unremarkable. IMPRESSION: 1. Postoperative changes of the left hip and lower lumbar spine. 2. Diffuse osteopenia. 3. Atherosclerosis. RPTAT: QQ .Nasir Fonseca MD, MD Date Time Electronically viewed and signed by .Nasir Fonseca MD, on 09/06/2016 12:55 .R/
--- NOTE | 2016-09-06 14:07 | PN ---
Date/Time of Note Date/Time of Note DATE: 09/06/16 TIME: 14:05 Assessment/Plan Lines/Catheters IV Catheter Type (from Nrsg): Saline Lock Jain in Place (from Nrsg): No Assessment/Plan Assessment/Plan POD #13, s/p hardware removal, failed left hip IM rodding, conversion to left posterior MIGUE -Plavix restarted by cardiology. ASA held due to concern for increased bleeding -SCDs for DVT prophylaxis -posterior hip precautions -knee immobilizer to be worn at all times -OOB with PT as tolerated -BP improved and appears to have stabilized. Will follow cardiology recommendations -continue hemodialysis per nephrology Continue offloading heels to prevent calcaneal ulcers -discharge planning. Stable for d/c today. Awaiting final discharge and definitive SNF placement per family day carer XR of the left hip was obtained and showed no evidence of fracture or dislocation Subjective 24 Hr Interval Summary No acute overnight events. Denies any hip pain. Was evaluated and noted the knee immobilizer had been removed and the patient had his hip a flexed position despite orders to leave on at all times. States hip pain is improved. Awaiting final authorization for transfer to SNF Exam/Review of Systems Vital Signs Vitals Vital Signs Date Time Temp Pulse Resp B/P Pulse Ox O2 Delivery O2 Flow Rate FiO2 09/06/16 13:00 71 09/06/16 13:00 18 09/06/16 07:38 98.2 138/65 92 09/05/16 20:00 Nasal Cannula 2.0 Intake and Output 09/05/16 09/05/16 09/06/16 15:00 23:00 07:00 Intake Total 400 ml Output Total 0 ml Balance 400 ml Exam Free Text/Dictation Dressing dry Incision clean, dry, and intact without redness or drainage 5/5 Quadriceps, Tibialis Anterior, EHL, Gastroc, Soleus, Peroneals Normal sensation Palpable DT/PT, CR <2 sec No distal edema Results Result Diagram: 09/04/1671109/04/16711 TONI ORNELAS PA-C Sep 06, 2016 14:07
[2016-09-06] MEDS: LISINOPRIL 5 MG TAB PO SCH (14:36)
--- NOTE | 2016-09-06 15:01 | CONS ---
Date/Time of Note Date/Time of Note DATE: 09/06/16 TIME: 15:00 Assessment/Plan Assessment/Plan Chief Complaint/Hosp Course - ESRD - ANEMIA - Hx of Hip Fracture - S/P Total Hip Replacement - CAD/CHF - Recent Angiogram @ [facility] & STENT PLAN: ESRD on Dialysis @ [facility] Post Hip replacement More alert Bedside dialysis Continue with PT/OT Agree with PT/OT EPOGEN for anemia May benefit from transfusion Problems: Consultation Date/Type/Reason Admit Date/Time Aug 17, 2016 at 20:14 Initial Consult Date 08/24/16 Type of Consultation: NEPHROLOGY Reason for Consultation ESRD 24 HR Interval Summary Constitutional: improved Exam/Review of Systems Vital Signs Vitals Vital Signs Date Time Temp Pulse Resp B/P Pulse Ox O2 Delivery O2 Flow Rate FiO2 09/06/16 14:45 99 20 136/71 98 Room Air 09/06/16 07:38 98.2 09/05/16 20:00 2.0 Intake and Output 09/05/16 09/05/16 09/06/16 15:00 23:00 07:00 Intake Total 400 ml Output Total 0 ml Balance 400 ml Exam Constitutional: alert Psych: no complaints Head: normocephalic Neck: supple Respiratory: crackles/rales Cardiovascular: regular rate and rhythm, systolic murmur Results Result Diagram: 09/04/1612 09/04/16 0712 Results 24 hrs Laboratory Tests Test 09/05/16 17:50 09/05/16 21:36 09/06/16 08:05 09/06/16 11:59 Bedside Glucose 88 72 73 111 Medications Medications Current Medications Atorvastatin Calcium (Lipitor) 40 mg DAILY PO Last administered on 09/06/16 09 :04; Admin Dose 40 MG; Start 08/18/16 at 09:00 Clopidogrel Bisulfate (plaVIX) 75 mg DAILY PO Last administered on 09/06/16 09 :04; Admin Dose 75 MG; Start 08/18/16 at 09:00; Status Future hold Metoclopramide HCl (Reglan) 5 mg Q6H PRN PO NAUSEA Last administered on 09:05; Admin Dose 5 MG; Start 08/17/16 at 23:00 Nortriptyline HCl (Aventyl) 25 mg BID PO Last administered on 09/06/16 09:03; Admin Dose 25 MG; Start 08/17/16 at 23:00 Thiamine HCl (Vitamin B1) 250 mg DAILY PO Last administered on 09/06/16 09:03 ; Admin Dose 250 MG; Start 08/18/16 at 09:00 Multivit/Ca Carb/ B Cmplx/FA/Prenat (Aleyda-Pam) 1 tab DAILY PO Last administered on 09/06/16 09:03; Admin Dose 1 TAB; Start 08/18/16 at 09:00 Insulin Glargine (Lantus) 10 unit HS SC ; Start 08/18/16 at 21:00; Status Future Hold Diagnostic Test (Pha) (Accucheck) 1 ea 02 XX Last administered on 08/26/16 02: 00; Admin Dose 1 EA; Start 08/18/16 at 02:00 Miscellaneous Information 1 ea NOTE XX ; Start 08/17/16 at 23:30 Glucose (Glutose) 15 gm Q15M PRN PO DECREASED GLUCOSE; Start 08/17/16 at 23:30 Glucose (Glutose) 22.5 gm Q15M PRN PO DECREASED GLUCOSE; Start 08/17/16 at 23:30 Dextrose (D50w Syringe) 25 ml Q15M PRN IV DECREASED GLUCOSE; Start 08/17/16 at 23:30 Dextrose (D50w Syringe) 50 ml Q15M PRN IV DECREASED GLUCOSE; Start 08/17/16 at 23:30 Glucagon (Glucagen) 1 mg Q15M PRN IM DECREASED GLUCOSE; Start 08/17/16 at 23:30 Glucose (Glutose) 15 gm Q15M PRN BUCCAL DECREASED GLUCOSE; Start 08/17/16 at 23: 30 Miscellaneous Information 1 ea NOTE XX ; Start 08/23/16 at 07:00; Stop 08/27/18 at 06:59 Oxycodone HCl (Roxicodone) 5 mg Q4H PRN PO PAIN LEVEL 1-3 Last administered on 09/02/16 02:22; Admin Dose 5 MG; Start 08/23/16 at 19:00 Oxycodone HCl (Roxicodone) 10 mg Q4H PRN PO PAIN LEVEL 4-7 Last administered on 09/02/16 10:02; Admin Dose 10 MG; Start 08/23/16 at 19:00 Hydromorphone HCl (Dilaudid) 1 mg Q3H PRN IV PAIN LEVEL 8-10 Last administered on 08/28/16 13:59; Admin Dose 1 MG; Start 08/23/16 at 19:00 Ondansetron HCl (Zofran Inj) 4 mg Q6H PRN IV NAUSEA AND/OR VOMITING; Start 08/23 at 19:00 Bisacodyl (Dulcolax Supp) 10 mg Q12H PRN [place] CONSTIPATION; Start 08/23/16 at 19: 00 Diphenhydramine HCl (Benadryl) 25 mg Q6H PRN PO PRURITUS; Start 08/23/16 at 19: 00 Ferrous Sulfate (Ferrous Sulfate (Ec)) 325 mg BID PO Last administered on 09:04; Admin Dose 325 MG; Start 08/25/16 at 21:00 Hydralazine HCl (Apresoline) 10 mg Q8H PRN IV ELEVATED BLOOD PRESSURE Last administered on 09/03/16 00:07; Admin Dose 10 MG; Start 08/25/16 at 12:00 Carvedilol (Coreg) 6.25 mg BID PO Last administered on 09/06/16 14:37; Admin Dose 6.25 MG; Start 08/28/16 at 21:00 Lisinopril (Zestril) 5 mg BID PO Last administered on 09/06/16 14:36; Admin Dose 5 MG; Start 08/29/16 at 21:00 Lidocaine (Xylocaine (Viscous)) 15 ml TID PRN PO ORAL CAVITY PAIN Last administered on 08/29/16 19:56; Admin Dose 15 ML; Start 08/29/16 at 12:00 Epoetin Angel (Epogen (Esrd)) 8,000 units TuThSa@17 SC Last administered on 09/04 18:12; Admin Dose 8,000 UNITS; Start 08/30/16 at 17:00 Pantoprazole (Protonix Tab) 40 mg DAILY@06 PO Last administered on 09/06/16 05 :19; Admin Dose 40 MG; Start 09/04/16 at 06:00 Magnesium Hydroxide (Milk Of Mag) 30 ml BID PO Last administered on 09/06/16 09:04; Admin Dose 30 ML; Start 09/03/16 at 21:00 Mineral Oil (Fleet Mineral Oil Enema) 133 ml DAILY PRN [place] CONSTIPATION; Start 09/03/16 at 20:00 Calcium Carbonate (Oyster Shell Calcium) 1.25 gm DAILY PO Last administered on 09/06/16 09:04; Admin Dose 1.25 GM; Start 09/04/16 at 09:00 Lactobacillus Acidophilus/ Rhamnosus (Culturelle) 1 cap BID PO Last administered on 09/06/16 09:03; Admin Dose 1 CAP; Start 09/03/16 at 21:00 Apixaban (Eliquis) 5 mg BID PO Last administered on 09/06/16 14:43; Admin Dose 5 MG; Start 09/06/16 at 11:30 MINA QUICK MD Sep 06, 2016 15:01
[2016-09-06] MEDS: EPOETIN 4000 UNITS/1 ML INJ (ESRD) SC SCH (17:32)
--- NOTE | 2016-09-06 17:56 | PN ---
Date/Time of Note Date/Time of Note DATE: 09/06/16 TIME: 17:51 Assessment/Plan VTE Prophylaxis VTE Prophylaxis Intervention: other Lines/Catheters IV Catheter Type (from Nrs): Saline Lock Urinary Cath still in place: No Assessment/Plan Chief Complaint/Hosp Course S 09/04- no events 09/05- stable. bm 09/01. wound clean. ready for dc. 09/06-bs 67, cannot confirm whether it is symptomatic. No diaphoresis distress. He did eat lunch. No recent change in Lantus. Renal function is actually better. Pt for im glucagon. Seen by Ortho noted to be stable. Ovss PE no pallor s1s2 reg; no m/r/g ctab bs+ nt nd no r/r/g ext- lt hip c/d/i A/P 1) Lt Hip subacute fracture/ failed IM rodding; sp MIGUE; stable cont pt. on plavix/scd's for dvt prophylaxis. TTWB. Due to debility I think will benefit from Eliquis. 2) Ho mechanical fall? 3) Djd/ op? 4) Chr CAD/pci; cont plavix. no need for asa. 5) Ftt; DC to SNF today. Added Eliquis for DVT prophylaxis. 6) Dm/ Htn. Possible hypoglycemia. We will decrease Lantus. 7) ESRD. HD mwf status 8) Chr ischemic cmy; EF=35%; needs advanced care plannning re-evaluated 9) Anemia/ stable no active bleed. 10) Lt heel wound- cont offload. Problems: Exam/Review of Systems Vital Signs Vitals Vital Signs Date Time Temp Pulse Resp B/P Pulse Ox O2 Delivery O2 Flow Rate FiO2 09/06/16 14:45 99 20 136/71 98 Room Air 09/06/16 07:38 98.2 09/05/16 20:00 2.0 Intake and Output 09/05/16 09/05/16 09/06/16 15:00 23:00 07:00 Intake Total 400 ml Output Total 0 ml Balance 400 ml Results Result Diagram: 09/04/16 0712 09/04/16 0712 Results 24 hrs Laboratory Tests Test 09/05/16 21:36 09/06/16 08:05 09/06/16 11:59 09/06/16 17:25 Bedside Glucose 72 73 111 66 L Test 09/06/16 17:38 Bedside Glucose 67 L Medications Medications Current Medications Atorvastatin Calcium (Lipitor) 40 mg DAILY PO Last administered on 09/06/16 09 :04; Admin Dose 40 MG; Start 08/18/16 at 09:00 Clopidogrel Bisulfate (plaVIX) 75 mg DAILY PO Last administered on 09/06/16 09 :04; Admin Dose 75 MG; Start 08/18/16 at 09:00; Status Future hold Metoclopramide HCl (Reglan) 5 mg Q6H PRN PO NAUSEA Last administered on 09:05; Admin Dose 5 MG; Start 08/17/16 at 23:00 Nortriptyline HCl (Aventyl) 25 mg BID PO Last administered on 09/06/16 09:03; Admin Dose 25 MG; Start 08/17/16 at 23:00 Thiamine HCl (Vitamin B1) 250 mg DAILY PO Last administered on 09/06/16 09:03 ; Admin Dose 250 MG; Start 08/18/16 at 09:00 Multivit/Ca Carb/ B Cmplx/FA/Prenat (Aleyda-Pam) 1 tab DAILY PO Last administered on 09/06/16 09:03; Admin Dose 1 TAB; Start 08/18/16 at 09:00 Insulin Glargine (Lantus) 10 unit HS SC ; Start 08/18/16 at 21:00; Status Future Hold Diagnostic Test (Pha) (Accucheck) 1 ea 02 XX Last administered on 08/26/16 02: 00; Admin Dose 1 EA; Start 08/18/16 at 02:00 Miscellaneous Information 1 ea NOTE XX ; Start 08/17/16 at 23:30 Glucose (Glutose) 15 gm Q15M PRN PO DECREASED GLUCOSE; Start 08/17/16 at 23:30 Glucose (Glutose) 22.5 gm Q15M PRN PO DECREASED GLUCOSE; Start 08/17/16 at 23:30 Dextrose (D50w Syringe) 25 ml Q15M PRN IV DECREASED GLUCOSE; Start 08/17/16 at 23:30 Dextrose (D50w Syringe) 50 ml Q15M PRN IV DECREASED GLUCOSE; Start 08/17/16 at 23:30 Glucagon (Glucagen) 1 mg Q15M PRN IM DECREASED GLUCOSE Last administered on 17:49; Admin Dose 1 MG; Start 08/17/16 at 23:30 Glucose (Glutose) 15 gm Q15M PRN BUCCAL DECREASED GLUCOSE; Start 08/17/16 at 23: 30 Miscellaneous Information 1 ea NOTE XX ; Start 08/23/16 at 07:00; Stop 08/27/18 at 06:59 Oxycodone HCl (Roxicodone) 5 mg Q4H PRN PO PAIN LEVEL 1-3 Last administered on 09/02/16 02:22; Admin Dose 5 MG; Start 08/23/16 at 19:00 Oxycodone HCl (Roxicodone) 10 mg Q4H PRN PO PAIN LEVEL 4-7 Last administered on 09/02/16 10:02; Admin Dose 10 MG; Start 08/23/16 at 19:00 Hydromorphone HCl (Dilaudid) 1 mg Q3H PRN IV PAIN LEVEL 8-10 Last administered on 08/28/16 13:59; Admin Dose 1 MG; Start 08/23/16 at 19:00 Ondansetron HCl (Zofran Inj) 4 mg Q6H PRN IV NAUSEA AND/OR VOMITING; Start 08/23 at 19:00 Bisacodyl (Dulcolax Supp) 10 mg Q12H PRN [place] CONSTIPATION; Start 08/23/16 at 19: 00 Diphenhydramine HCl (Benadryl) 25 mg Q6H PRN PO PRURITUS; Start 08/23/16 at 19: 00 Ferrous Sulfate (Ferrous Sulfate (Ec)) 325 mg BID PO Last administered on 09:04; Admin Dose 325 MG; Start 08/25/16 at 21:00 Hydralazine HCl (Apresoline) 10 mg Q8H PRN IV ELEVATED BLOOD PRESSURE Last administered on 09/03/16 00:07; Admin Dose 10 MG; Start 08/25/16 at 12:00 Carvedilol (Coreg) 6.25 mg BID PO Last administered on 09/06/16 14:37; Admin Dose 6.25 MG; Start 08/28/16 at 21:00 Lisinopril (Zestril) 5 mg BID PO Last administered on 09/06/16 14:36; Admin Dose 5 MG; Start 08/29/16 at 21:00 Lidocaine (Xylocaine (Viscous)) 15 ml TID PRN PO ORAL CAVITY PAIN Last administered on 08/29/16 19:56; Admin Dose 15 ML; Start 08/29/16 at 12:00 Epoetin Angel (Epogen (Esrd)) 8,000 units TuThSa@17 SC Last administered on 09/06 17:32; Admin Dose 8,000 UNITS; Start 08/30/16 at 17:00 Pantoprazole (Protonix Tab) 40 mg DAILY@06 PO Last administered on 09/06/16 05 :19; Admin Dose 40 MG; Start 09/04/16 at 06:00 Magnesium Hydroxide (Milk Of Mag) 30 ml BID PO Last administered on 09/06/16 09:04; Admin Dose 30 ML; Start 09/03/16 at 21:00 Mineral Oil (Fleet Mineral Oil Enema) 133 ml DAILY PRN [place] CONSTIPATION; Start 09/03/16 at 20:00 Calcium Carbonate (Oyster Shell Calcium) 1.25 gm DAILY PO Last administered on 09/06/16 09:04; Admin Dose 1.25 GM; Start 09/04/16 at 09:00 Lactobacillus Acidophilus/ Rhamnosus (Culturelle) 1 cap BID PO Last administered on 09/06/16 09:03; Admin Dose 1 CAP; Start 09/03/16 at 21:00 Apixaban (Eliquis) 5 mg BID PO Last administered on 09/06/16 14:43; Admin Dose 5 MG; Start 09/06/16 at 11:30 MARIE GARCIA MD Sep 06, 2016 17:56
[2016-09-06] MEDS ORDERED: INSULIN GLARGINE [LANtus] 3 ML PEN SC SCH (21:00)
== END 2016-09-06 19:10 | DRG 469 ==
LOC: E/R 14:37 → MS1 20:14 → ICU 08-23 19:00 → MS4 08-25 19:59 → TEL 08-26 12:55 → MS1 09-04 03:50
PROVIDERS: ADMIT Internal Medicine; ATTEND Internal Medicine
PROC: 0S9B3ZX Drainage of Left Hip Joint, Percutaneous Approach, Diagnostic (ICD-10-PCS; 2016-08-18)
PROC: 5A1D60Z (ICD-10-PCS; 2016-08-18)
PROC: 0SPB04Z Removal of Internal Fixation Device from Left Hip Joint, Open Approach (ICD-10-PCS; 2016-08-23)
PROC: 30253H0 (ICD-10-PCS; 2016-08-23)
PROC: 0SRB0J9 Replacement of Left Hip Joint with Synthetic Substitute, Cemented, Open Approach (ICD-10-PCS; principal; 2016-08-23 13:30)
DX: T84.091A Other mechanical complication of internal left hip prosthesis, initial encounter (principal); N18.6 End stage renal disease; I12.0 Hypertensive chronic kidney disease with stage 5 chronic kidney disease or end stage renal disease; E11.22 Type 2 diabetes mellitus with diabetic chronic kidney disease; S72.142K Displaced intertrochanteric fracture of left femur, subsequent encounter for closed fracture with nonunion; Z99.2 Dependence on renal dialysis; Z95.5 Presence of coronary angioplasty implant and graft; Z95.1 Presence of aortocoronary bypass graft; Y79.1 Therapeutic (nonsurgical) and rehabilitative orthopedic devices associated with adverse incidents; M81.0 Age-related osteoporosis without current pathological fracture; I25.5 Ischemic cardiomyopathy; E87.5 Hyperkalemia; I95.81 Postprocedural hypotension; D63.8 Anemia in other chronic diseases classified elsewhere
CPT/HCPCS: 36430; 36600; 70450; 71010; 72170; 72192; 73500; 73530; 74000; 77002; 80048; 80053; 80061; 80076; 80202; 82306; 82803; 82947; 82962; 83036; 83540; 83735; 84100; 84145; 84436; 84443; 84479; 84484; 85014; 85018; 85025; 85610; 85651; 85730; 86140; 86850; 86885; 86900; 86901; 86920; 87040; 87070; 87075; 87081; 87102; 87116; 88300; 88304; 88311; 89051; 90686; 90935; 93005; 93306; 93970; 94640; 94660; 94664; 97110; 97162; 97530; J1940; C1713; C9290; J0131; J0171; J0360; J0690; J0735; J0886; J1100; J1170; J1610; J1644; J1815; J1885; J1956; J2250; J2270; J2274; J2370; J2765; J3010; J3370; J7040; J7042; J7050; J7120; J7121; P9016; P9047

== ENCOUNTER → 2016-08-17 | Outpatient (CLI) | payer BC ==
[~2016-08-17] MED LIST: ASPI-664 PO; ATOR40TA68 PO; CALC667C PO; CARV6.2579 PO; CLOP75TA4 PO; DOCU100C26 PO; HYDR-902 PO; ISOS10TA2 PO; METO5TAB58 PO; NEPHRO-VITE PO; NORT25CA PO; THIA100T10 PO; ZOLP10TA5 PO
--- NOTE | 2016-08-17 13:35 | RADRPT ---
PROCEDURE: XR pelvis/left hip. CLINICAL INDICATION: Hip pain TECHNIQUE: AP pelvis/AP and lateral left hip views available for review. COMPARISON: None available FINDINGS: There is diffuse osteopenia. Previous ORIF of and old healed left intertrochanteric fracture with a n intramedullary kimi and a dynamic compression screw. The compression screw has penetrated the supe rior lateral aspect of the femoral head and extending to the acetabulum. No fractures are identifie d. No osseous lesions are identified. The joints are unremarkable. There is extensive arterial va scular calcification. There is lower lumbar posterior fixation. IMPRESSION: Diffuse osteopenia ORIF of old healed left intertrochanteric fracture with an intramedullary kimi and dynamic compressio n screw. The dynamic compression screw has penetrated of the femoral head and extending into the acetabulum. RPTAT: HGDB .James Jarrell MD, Date Time Electronically viewed and signed by .James Jarrell MD, on 08/17/2016 13:35 .B/
--- NOTE | 2016-08-17 13:37 | RADRPT ---
PROCEDURE: XR left femur. CLINICAL INDICATION: Pain TECHNIQUE: AP and lateral views of the lower femur performed. COMPARISON: No prior studies are available for comparison. FINDINGS: There is diffuse osteopenia. Previous ORIF with a locking intramedullary kimi. No fracture of the l ower femur is identified. There is mild osteoarthrosis involving the knee. There is extensive ramses rial vascular calcification. IMPRESSION: Diffuse osteopenia No acute abnormality identified Locking intramedullary kimi. RPTAT: HGDB .James Jarrell MD, Date Time Electronically viewed and signed by .James Jarrell MD, on 08/17/2016 13:37 .B/
== END | disposition home or self-care (01) ==
LOC: HKI 11:45
PROVIDERS: ATTEND Orthopaedic Surgery
DX: S72.142D Displaced intertrochanteric fracture of left femur, subsequent encounter for closed fracture with routine healing (principal); M25.552 Pain in left hip
CPT/HCPCS: 73502; 73552; Z7500; G0463

== ENCOUNTER → 2016-09-14 | Outpatient (CLI) | payer BC ==
[~2016-09-14] MED LIST changes: -ASPI-664 PO; +Calcium Carbonate PO; -ZOLP10TA5 PO
== END | disposition home or self-care (01) ==
LOC: HKI 09:15
PROVIDERS: ATTEND Orthopaedic Surgery
DX: Z47.1 Aftercare following joint replacement surgery (principal); T84.115A Breakdown (mechanical) of internal fixation device of left femur, initial encounter; S72.142A Displaced intertrochanteric fracture of left femur, initial encounter for closed fracture; Z96.642 Presence of left artificial hip joint

== ENCOUNTER 2016-11-02 14:14 | Day surgery (SDC) | payer BC ==
[2016-11-02] VITALS (11 sets, daily range): BP systolic 114–166; BP diastolic 68–104; PULSE 78–96; RESP 18–27; Ht 175.3 cm; Wt 60.0 kg
[~2016-11-02] VITALS: Ht 175.3 cm; Wt 60.0 kg
--- NOTE | 2016-11-02 15:49 | RADRPT ---
PROCEDURE: XR Chest. CLINICAL INDICATION: Chest pain TECHNIQUE: Single frontal view of the chest was obtained COMPARISON: 08/26/16 FINDINGS: The heart is enlarged. The thoracic aorta is calcified. There is mild pulmonary vascular congestion. There is a right-sided Perma-Cath in place. There is no pleural effusion or pneumothorax. RPTAT: AA IMPRESSION: Mild cardiomegaly. Calcified aorta consistent with atherosclerotic disease. Mild pulmonary vascular congestion. .Jossue Jerez MD, MD Date Time Electronically viewed and signed by .Jossue Jerez MD, on 11/02/2016 15:49 .S/
[2016-11-02 17:16] LABS: ALBUMIN 3.4 g/dl (3.3-4.9); ALBUMIN/GLOBULIN RATIO 0.89; TOTAL PROTEIN 7.2 g/dl (6.1-8.1)
[2016-11-02 17:35] LABS: CALCIUM 11.1 mg/dl (8.4-10.2); CREATININE 5.61 mg/dl (0.61-1.24)
[2016-11-02 17:37] LABS: POTASSIUM 5.6 mmol/L (3.5-5.1)
[2016-11-02] MEDS ORDERED: IODIXANOL LOCM 100 ML BTL ONE (17:40)
[2016-11-02] MEDS ORDERED: HEPARIN 1000 UNITS/NS (A-LINE) 1,000 ML ONE (17:40)
[2016-11-02] MEDS ORDERED: LIDOCAINE 1% (MDV) 20 ML INJ ONE (17:40)
[2016-11-02] MEDS ORDERED: FENTAnyl 50 MCG/ML VIAL ONE (17:40)
[2016-11-02] MEDS ORDERED: MIDAZOLAM 1 MG/ML 2 ML INJ ONE (17:41)
--- NOTE | 2016-11-03 07:11 | OPR ---
DATE OF OPERATION: PREOPERATIVE DIAGNOSIS: Dysfunctional right upper extremity arteriovenous graft. POSTOPERATIVE DIAGNOSIS: Dysfunctional right upper extremity arteriovenous graft. OPERATION PERFORMED: 1. Right arm shuntogram. 1. Right arm renogram. 2. Central venogram. 3. Interpretation and supervision of the shuntogram and venogram. 4. Ultrasound guidance into the central vein. SURGEON: Nathan Macias MD ANESTHESIA: Local, plus IV sedation. CONSENT: The risks, benefits, complications and alternative therapies were explained to the patient and the family and consent obtained. OPERATIVE TECHNIQUE: The patient was placed in the supine position, prepped and draped in the usual sterile fashion. 1% lidocaine was used throughout the operation for local anesthesia. Access was gained to the right arm AV fistula. Guidewire was advanced through without any difficulty. The sub cutaneous tissues were dilated. A fistulogram was done. Interpretation and supervision of the fist ulogram revealed a fistula which was a Lo fistula that was patent. The cephalic vein and basili c vein in the forearm were patent. The cephalic vein in the arm was about 3 mm. The basilic vein in the arm was about 6 mm, which joined into an axillary vein which was 8 mm, into a subclavian vein w hich was 10 mm, into the superior vena cava, which was patent. The procedure was terminated. This patient will be a candidate for a basilic vein transposition fistula. Discussed with family. Dictated By: NATHAN BACH/CHRISTOPHER Conf#: [id number] DID#: [id number]
== END 2016-11-02 19:30 | disposition home or self-care (01) ==
LOC: SDS 14:14
PROVIDERS: ATTEND Thoracic Surgery (Cardiothoracic Vascular Surgery)
DX: T82.590A Other mechanical complication of surgically created arteriovenous fistula, initial encounter (principal); N18.6 End stage renal disease; Y83.2 Surgical operation with anastomosis, bypass or graft as the cause of abnormal reaction of the patient, or of later complication, without mention of misadventure at the time of the procedure; Y92.9 Unspecified place or not applicable
CPT/HCPCS: 36901; 71010; 80053; 82962; 84132; 93005; C1769; J1644; J2250; J3010; Q9967; Z7610

== ENCOUNTER 2017-05-01 06:20 | Observation (INO) | payer BC ==
[~2017-05-01] VITALS: Ht 175.3 cm; Wt 67.9 kg
[2017-05-01] VITALS (38 sets, daily range): BP systolic 108–213; BP diastolic 54–94; PULSE 44–90; RESP 17–38; Ht 175.3 cm; Wt 67.9 kg
--- NOTE | 2017-05-01 06:51 | RADRPT ---
PROCEDURE: XR Chest. CLINICAL INDICATION: Preop TECHNIQUE: AP Portable chest. COMPARISON: CHEST 11/02/2016; ESTER CHEST 08/26/2016; FINDINGS: The right dialysis catheter is unchanged. The cardiomediastinal silhouette is normal.The aortic arch is calcified. Prominent bilateral reticul ar densities and basilar atelectasis are visualized. The left costophrenic angle is blunted. No pneu mothorax is seen. There are old left rib fractures. IMPRESSION: Right dialysis catheter in place. Interstitial prominence. Mild bibasilar atelectasis and trace left pleural effusion. Aortic atherosclerosis. Physician Paolma Date Time Electronically viewed and signed by Verito Wong Physician on 05/01/2017 06:50 CS/
[2017-05-01 07:01] LABS: BASOPHILS % 0.7 % (0.0-2.0); EOSINOPHILS # 0.3 10^3/ul (0.0-0.5); EOSINOPHILS % 4.8 % (0.0-7.0); HEMATOCRIT 34.7 % (42.0-52.0); HEMOGLOBIN 10.9 g/dl (14.0-18.0); LYMPHOCYTES # 1.3 10^3/ul (0.8-2.9); MEAN CORPUSCULAR HEMOGLOBIN 29.3 pg (29.0-33.0); MEAN CORPUSCULAR HGB CONC 31.4 g/dl (32.0-37.0); MEAN CORPUSCULAR VOLUME 93.3 fl (82.0-101.0); MEAN PLATELET VOLUME 10.6 fl (7.4-10.4); MONOCYTE # 0.9 10^3/ul (0.3-0.9); MONOCYTES % 14.5 % (0.0-11.0); NEUTROPHIL # 3.5 10^3/ul (1.6-7.5); NEUTROPHILS % 58.8 % (39.0-77.0); PLATELET COUNT 194 10^3/UL (140-415); RED BLOOD COUNT 3.72 10^6/ul (4.70-6.10); RED CELL DISTRIBUTION WIDTH 14.7 % (11.5-14.5)
[2017-05-01 07:07] LABS: INR 1.06; PROTIME 13.8 Sec (12.2-14.2); PT RATIO 1.1
[2017-05-01 07:09] LABS: ALBUMIN 3.9 g/dl (3.3-4.9); ALBUMIN/GLOBULIN RATIO 1.14; TOTAL PROTEIN 7.3 g/dl (6.1-8.1)
[2017-05-01] MEDS ORDERED: HEPARIN 1000 UNITS/ML 10 ML INJ ONE (07:09)
[2017-05-01 07:12] LABS: CALCIUM 9.8 mg/dl (8.4-10.2); CREATININE 4.61 mg/dl (0.61-1.24); POTASSIUM 4.5 mmol/L (3.5-5.1)
[2017-05-01 07:13] LABS: PARTIAL THROMBOPLASTIN TIME 36.5 Sec (25.0-35.0)
[2017-05-01] MEDS ORDERED: SEVE800T7 PO (07:14)
[2017-05-01] MEDS ORDERED: ASPI81TA3 PO (07:14)
[2017-05-01] MEDS ORDERED: ZOLP10TA5 PO (07:14)
[2017-05-01] MEDS ORDERED: PENT400T2 PO (07:14)
[2017-05-01] MEDS ORDERED: ALPR0.254 PO (07:14)
[2017-05-01] MEDS ORDERED: LOSA25TA5 PO (07:14)
--- NOTE | 2017-05-01 07:46 | HPN ---
Date/Time of Note Date/Time of Note DATE: 05/01/17 TIME: 07:45 Interval H&P Admission Note Pt. seen H&P reviewed: No system changes LEONARD DAWSON MD May 01, 2017 07:46
[2017-05-01] MEDS ORDERED: MIDAZOLAM 1 MG/ML 2 ML INJ ONE (07:48)
[2017-05-01] MEDS ORDERED: LIDOCAINE 2% (SDV) 5 ML INJ ONE (07:49)
[2017-05-01] MEDS ORDERED: ROCURONIUM 50 MG INJ ONE (07:49)
[2017-05-01] MEDS ORDERED: FENTAnyl 50 MCG/ML VIAL ONE (07:49)
[2017-05-01] MEDS ORDERED: PROPOFOL 20 ML ONE (07:49)
[2017-05-01] MEDS ORDERED: HYDROmorphONE (0.2 MG/ML) 10ML SYG IV PRN (08:00)
[2017-05-01] MEDS ORDERED: DIPHENHYDRAMINE 50 MG INJ IV PRN (08:00)
[2017-05-01] MEDS ORDERED: PROCHLORPERAZINE 10 MG INJ IV PRN (08:00)
[2017-05-01] MEDS ORDERED: OXYCODONE/ACETAMINOPHEN (5/325) TAB PO PRN (08:00)
[2017-05-01] MEDS ORDERED: FENTAnyl 50 MCG/ML VIAL IV PRN (08:00)
[2017-05-01] MEDS ORDERED: ONDANSETRON 4 MG INJ IV PRN (08:00)
[2017-05-01] MEDS ORDERED: MEPERIDINE 25 MG INJ IV PRN (08:00)
[2017-05-01] MEDS ORDERED: CEFAZOLIN 1 GM INJ ONE (08:04)
[2017-05-01] MEDS ORDERED: FAMOTIDINE 20 MG INJ ONE (08:08)
[2017-05-01] MEDS ORDERED: ONDANSETRON 4 MG INJ ONE ×2 (08:08→12:31)
[2017-05-01] MEDS ORDERED: GLYCOPYRROLATE 0.4 MG INJ ONE (08:55)
[2017-05-01] MEDS ORDERED: NEOSTIGMINE 3 MG/3 ML SYRINGE ONE (08:55)
--- NOTE | 2017-05-01 09:01 | OPR ---
Date/Time of Note Date/Time of Note DATE: 05/01/17 TIME: 08:58 Operative Report Preoperative Diagnosis ESRD Postoperative Diagnosis SAME Operation/Procedure Performed LAPAROSCOPIC PD CATH PLACEMENT Surgeon LEONARD Aparicio signature line [employer] NONE Anesthesia Type: general Estimated Blood Loss: minimal Transfusion none Specimen NONE Grafts/Implants PD CATH Complications none Procedure Description LAP LEONARD RODRIGUEZ MD May 01, 2017 09:01
[2017-05-01] MEDS ORDERED: FLUMAZENIL 0.5 MG INJ ONE ×2 (09:28)
[2017-05-01] MEDS ORDERED: SUGAMMADEX SODIUM 200 MG/2 ML VIAL IV ONE ×2 (09:37→09:38)
[2017-05-01 10:21] LABS: AADO2 Arterial 211.2 mmHg (7.0-24.0); Arterial Base Excess -5.8 mmol/L (-3.0-3); Arterial COHb 1.2 % (0.0-3.0); Arterial Fraction of Oxyhgb 95.3 % (93.0-99.0); Arterial HCO3 21.8 mmol/L (22.0-26.0); Arterial MetHb 0.3 % (0.0-1.5); Arterial Total Hemglobin 11.7 g/dl (12.0-18.0); MODE MASK - SIMPLE
[2017-05-01 10:23] LABS: CALCIUM 9.4 mg/dl (8.4-10.2); CREATININE 4.62 mg/dl (0.61-1.24); POTASSIUM 4.9 mmol/L (3.5-5.1)
[2017-05-01 10:33] LABS: TROPONIN-I 0.031 ng/ml (0.00-0.12)
[2017-05-01] MEDS ORDERED: NALOXONE (0.4 MG/ML) INJ IV ONE (11:30)
--- NOTE | 2017-05-01 11:42 | OPR ---
DATE OF OPERATION: 05/01/2017 PREOPERATIVE DIAGNOSIS: End-stage renal disease. POSTOPERATIVE DIAGNOSIS: End-stage renal disease. OPERATION PERFORMED: Laparoscopic placement of hemodialysis catheter. SURGEON: Fior. ASSISTANTS: None. ANESTHESIA: General. INDICATION OF THE PROCEDURE: The patient is a 66-year-old male with end-stage renal disease on hemodialysis; however, he has failed multiple attempts of establishing hemodialysis access and he is here for peritoneal dialysis catheter. All risks and benefits discussed with him and his . He understood and agreed to proceed. DESCRIPTION OF PROCEDURE: The patient was brought to the operating room once obtained informed consent, placed in supine position on the operating table. Anesthesia was administered with continuous endotracheal intubation. Area of surgery was cleaned and preped in the regular fashion. A small transverse incision below the umbilicus was done using an 11 blade scalpel through which a Veress needle was inserted, it was used to insufflate the peritoneum with CO2 to the appropriate pressure. A 5 mm port was then placed. Laparoscope camera was inserted and 2 other 5 mm ports were placed in right and left lower quadrants. The PD catheter were then placed through the umbilical port and was guided to the deepest point in the pelvis after the patient was positioned in the Trendelenburg position. Upon completion of that, the patient was put in the reverse Trendelenburg position, catheter was tunneled through the subcutaneous tissue and brought to skin level in the left lower quadrant incision. One liter of saline was placed down the catheter with very good flow and was drained also with very good flow. The catheter was secured to the skin with 3-0 nylon suture. The incisions were closed using a 4-0 Monocryl in subcuticular fashion. Dressing was applied. Patient was transferred recovery in stable condition. Dictated By: LEONARD MORALES/CHRISTOPHER Conf#: [id number] DID#: [id number] CC: MINA QUICK MD;*EndCC* MTDD
--- NOTE | 2017-05-01 12:22 | HP ---
Date/Time of Note Date/Time of Note DATE: 05/01/17 TIME: 12:17 Assessment/Plan VTE Prophylaxis VTE Prophylaxis Intervention: heparin Lines/Catheters IV Catheter Type (from Nrs): Peripheral IV Assessment/Plan Chief Complaint/Hosp Course 66 yo male with ESRD who is being admitted from PACU for hypoxia following surgery - Respiratoyr status much improved per nursing staff and anesthesia at bedside following reversal agents - Suspect we can monitor the patient for a few hours today and hopefully discharge later today if he is feeling well - Patient had HD yesterday and does not have indication for acute HD at this time Problems: HPI/ROS Admit Date/Time Admit Date/Time Hx of Present Illness 66 yo male with h/o ESRD who has had difficulty getting perpiheral access and who today underwent PD catheter placement in OR who then became hypoxic and somnulent in PACU and subsequently admitted for respiratory status. Patient received paralytic and 100 mcg fentanyl michael-op. In PACU was somnulent and hypoventilating. ABG performed with very mild respiratory acidosis on metabolic acidosis of CKD. By the time I came to see patient is is more alert and no longer showing signs of hypoventilation. Wants to go home. However remains mildly hypoxic on RA to about 85, requiring 2 L by NC. He also received 600 ml NS in OR. CXR shows very mild effusion PMH/Family/Social Past Medical History Medical History: renal disease Social History Alcohol Use: none Smoking Status: Former smoker Drug Use: none Exam/Review of Systems Vital Signs Vitals Vital Signs Date Time Temp Pulse Resp B/P Pulse Ox O2 Delivery O2 Flow Rate FiO2 05/01/17 10:01 Simple Mask 10.0 05/01/17 09:44 80 17 171/80 100 05/01/17 09:09 98.0 Exam Exam PD catheter placement noted Comfortable apperaing, AOx3 Breathing is nonlabored, neck veins are flat Lungs are clear and good air entry b/l Heart sounds are regular No edema Constitutional: alert, oriented, well developed Psych: nl mood/affect, no complaints Head: atraumatic, normocephalic Eyes: EOMI, PERRL, nl conjunctiva, nl lids, nl sclera ENMT: nl external ears & nose, nl lips & teeth, nl nasal mucosa & septum Neck: non-tender, supple Respiratory: clear to auscultation, normal air movement Cardiovascular: nl pulses, regular rate and rhythm Gastrointestinal: nl liver, spleen, non-tender, soft Musculoskeletal: nl extremities to inspection Extremities: normal pulses Neurological: CAFETERIA ASSISTANT II-XII intact, nl mental status, nl speech, nl strength Skin: nl turgor, No rash or lesions Lymph: nl lymph nodes Labs Result Diagram: 05/01/17 0645 05/01/17 0952 GOGO PALOMO MD May 01, 2017 12:22
[2017-05-01] MEDS ORDERED: NACL 0.9% 3 ML SYG IV SCH (12:30)
[2017-05-01] MEDS: HYDROCODONE/APAP (5/325) TAB PO PRN ×2 (14:24→18:27)
[2017-05-01] MEDS: ONDANSETRON 4 MG INJ IV PRN ×2 (14:24→18:24)
[2017-05-01] MEDS ORDERED: FUROSEMIDE 40 MG INJ IV ONE (15:30)
--- NOTE | 2017-05-01 15:54 | RADRPT ---
PROCEDURE: X-ray Chest. CLINICAL INDICATION: Pulmonary edema. TECHNIQUE: Single view chest x-ray. COMPARISON: Exam dated 05/01/2017. FINDINGS: There is a tunneled right IJ catheter with its tip overlying the right atrium. There are a therosclerotic changes of the aorta. The cardiomediastinal silhouette is enlarged. There is diffuse bilateral interstitial prominence without focal consolidation, effusion, or pneumothorax. There ar e no acute osseous abnormalities. IMPRESSION: 1. Cardiomegaly with findings suggestive of mild to moderate hydrostatic edema. Correlate clinicall y for CHF. 2. Vascular calcifications consistent with atherosclerosis. RPTAT: HLBP .Antione Bailey MD, Date Time Electronically viewed and signed by .Antione Bailey MD, on 05/01/2017 15:54 .P/
--- NOTE | 2017-05-01 16:25 | PN ---
Date/Time of Note Date/Time of Note DATE: 05/01/17 TIME: 16:25 Assessment/Plan VTE Prophylaxis VTE Prophylaxis Intervention: LMWH Lines/Catheters IV Catheter Type (from Nrs): Peripheral IV Assessment/Plan Chief Complaint/Hosp Course 66 yo male with ESRD who is being admitted from PACU for hypoxia following surgery - Respiratoyr status much improved per nursing staff and anesthesia at bedside following reversal agents - Suspect we can monitor the patient for a few hours today and hopefully discharge later today if he is feeling well - Patient had HD yesterday and does not have indication for acute HD at this time Problems: Subjective 24 Hr Interval Summary Free Text/Dictation Remains hypoxic, XR showing congestion. Have asked Dr El to dialyze him Exam/Review of Systems Vital Signs Vitals Vital Signs Date Time Temp Pulse Resp B/P Pulse Ox O2 Delivery O2 Flow Rate FiO2 05/01/17 15:07 97.5 65 20 174/82 96 05/01/17 15:00 Nasal Cannula 2.0 Results Result Diagram: 05/01/17 0645 05/01/17 0952 Results 24 hrs Laboratory Tests Test 05/01/17 06:45 05/01/17 07:03 05/01/17 09:52 White Blood Count 6.0 # Red Blood Count 3.72 #L Hemoglobin 10.9 #L Hematocrit 34.7 #L Mean Corpuscular Volume 93.3 Mean Corpuscular Hemoglobin 29.3 Mean Corpuscular Hemoglobin Concent 31.4 L Red Cell Distribution Width 14.7 H Platelet Count 194 # Mean Platelet Volume 10.6 H Neutrophils % 58.8 Lymphocytes % 21.0 Monocytes % 14.5 H Eosinophils % 4.8 Basophils % 0.7 Nucleated Red Blood Cells % 0.0 Neutrophils # 3.5 Lymphocytes # 1.3 Monocytes # 0.9 Eosinophils # 0.3 Basophils # 0.0 Nucleated Red Blood Cells # 0.0 Prothrombin Time 13.8 Prothrombin Time Ratio 1.1 INR International Normalized Ratio 1.06 Activated Partial Thromboplast Time 36.5 H Sodium Level 141 140 Potassium Level 4.5 4.9 Chloride Level 99 101 Carbon Dioxide Level 28 26 Anion Gap 19 H 18 H Blood Urea Nitrogen 33 H 33 H Creatinine 4.61 H 4.62 H Glucose Level 115 137 Calcium Level 9.8 9.4 Total Bilirubin 0.0 L Direct Bilirubin 0.00 Indirect Bilirubin 0.0 Aspartate Amino Transf (AST/SGOT) 25 Alanine Aminotransferase (ALT/SGPT) 39 Alkaline Phosphatase 178 H Total Protein 7.3 Albumin 3.9 Globulin 3.40 H Albumin/Globulin Ratio 1.14 Bedside Glucose 100 Blood Gas Specimen Source Blood arterial Arterial Blood Date Drawn 05/01/2017 10:05:38 AM Arterial Blood pH (Temp corrected) 7.238 *L Arterial Blood pCO2 (Temp correct) 52.3 H Arterial Blood pO2 (Temp corrected) 108.2 H Arterial Blood HCO3 21.8 L Arterial Blood Base Excess -5.8 L Arterial Blood Oxygen Saturation 96.8 Ruel Test N/A Arterial Blood Gas Puncture Site LB Arterial Blood Carboxyhemoglobin 1.2 Arterial Blood Methemoglobin 0.3 Blood Gas A-a O2 Differential 211.2 H Oxyhemoglobin Percent 95.3 Total Hemoglobin 11.7 L Blood Gas Temperature 37.0 Blood Gas Modality MASK - SIMPLE FiO2 53.0 Blood Gas Critical Value Read Back K JOI Blood Gas Notified Whom SONYA Blood Gas Notified Time 05/01/2017 10:21:32 AM Troponin I 0.031 Medications Medications Current Medications Carvedilol (Coreg) 6.25 mg BID PO ; Start 05/01/17 at 21:00 Isosorbide Dinitrate (Isordil) 10 mg BID PO ; Start 05/01/17 at 21:00 Losartan Potassium (Cozaar) 25 mg BID PO ; Start 05/01/17 at 21:00 Nortriptyline HCl (Aventyl) 25 mg BID PO ; Start 05/01/17 at 21:00 Acetaminophen/ Hydrocodone Bitart ([place] (5/325)) 1 tab Q4H PRN PO PAIN LEVEL 7 -10 Last administered on 05/01/17 14:24; Admin Dose 1 TAB; Start 05/01/17 at 14:00 Ondansetron HCl (Zofran Inj) 4 mg Q4H PRN IV NAUSEA AND/OR VOMITING Last administered on 05/01/17 14:24; Admin Dose 4 MG; Start 05/01/17 at 14:00 GOGO PALOMO MD May 01, 2017 16:25
[2017-05-01] MEDS: SEVELAMER CARBONATE 0.8 GM PKT PO SCH (18:00)
[2017-05-01] MEDS: CALCIUM ACETATE 667 MG CAP PO SCH (18:00)
[2017-05-01] MEDS: LOSARTAN 25 MG TAB PO SCH (21:00)
[2017-05-01] MEDS: ISOSORBIDE DINITRATE 10 MG TAB PO SCH (21:00)
[2017-05-01] MEDS: NORTRIPTYLINE 25 MG CAP PO SCH (21:05)
[2017-05-02] VITALS (8 sets, daily range): BP systolic 109–154; BP diastolic 57–70; PULSE 66–75; RESP 18
[2017-05-02] MEDS: NORTRIPTYLINE 25 MG CAP PO SCH (08:35)
[2017-05-02] MEDS: CALCIUM ACETATE 667 MG CAP PO SCH ×3 (08:35→18:00)
[2017-05-02] MEDS: SEVELAMER CARBONATE 0.8 GM PKT PO SCH ×3 (08:35→18:00)
[2017-05-02] MEDS: LOSARTAN 25 MG TAB PO SCH (08:36)
[2017-05-02] MEDS: ISOSORBIDE DINITRATE 10 MG TAB PO SCH (08:36)
[2017-05-02] MEDS ORDERED: ALPRAZOLAM 0.25 MG TAB PO SCH (09:00)
[2017-05-02] MEDS ORDERED: CLOPIDOGREL 75 MG TAB PO SCH (09:00)
[2017-05-02] MEDS ORDERED: ASPIRIN 81 MG TAB PO SCH (09:00)
--- NOTE | 2017-05-02 10:56 | RADRPT ---
PROCEDURE: XR Chest. CLINICAL INDICATION: Chest pain TECHNIQUE: Single frontal view of the chest was obtained COMPARISON: CR CHEST 08/26/2016 FINDINGS: The heart is enlarged. The thoracic aorta is calcified. There is a right-sided Perma-Cath in place. There is mild pulmonary vascular congestion. There are mild bibasilar atelectatic changes. There is no pleural effusion or pneumothorax. There are healed left posterior rib fractures. RPTAT: AA IMPRESSION: Mild cardiomegaly. Mild pulmonary vascular congestion. Mild bibasilar atelectatic changes. Calcified aorta consistent with atherosclerotic disease. .Jossue Jerez MD, MD Date Time Electronically viewed and signed by .Jossue Jerez MD, on 05/02/2017 10:56 .S/
--- NOTE | 2017-05-02 15:19 | CONS ---
Date/Time of Note Date/Time of Note DATE: 05/02/17 TIME: 15:15 Assessment/Plan Assessment/Plan Chief Complaint/Hosp Course - ESRD on Hemodialysis TTS @ [facility] - S/P Placing a PD catheter - Anemia - Hypertension - Post Hip fracture & surgery PLAN: Bedside Hemodialysis Feels better now Post PD catheter OK to discharge Needs a ride/ambulance home Problems: Consultation Date/Type/Reason Admit Date/Time Date of Consultation: May 02, 2017 Type of Consultation: NEPHROLOGY Reason for Consultation ESRD on Hemodialysis Hx of Present Illness ESRD came in for placing a PD catheter. Post surgery patient was SOB. Admitted foro Extra Hemodialysis & fluid removal Constitutional: improved, no complaints Eyes: no complaints ENT: no complaints Respiratory: no complaints Cardiovascular: no complaints Gastrointestinal: no complaints Genitourinary: no complaints Musculoskeletal: no complaints Skin: no complaints Neurologic: no complaints Psychological: nl mood/affect, no complaints Past Medical History Medical History: congestive heart failure, hypertension, renal disease Past Surgical History Past Surgical Hx: other Family History Significant Family History: no pertinent family hx Social History Alcohol Use: none Smoking Status: Former smoker Drug Use: none Exam/Review of Systems Vital Signs Vitals Vital Signs Date Time Temp Pulse Resp B/P Pulse Ox O2 Delivery O2 Flow Rate FiO2 05/02/17 14:30 70 05/02/17 12:30 18 05/02/17 08:00 Nasal Cannula 2.0 05/02/17 07:44 97.4 123/60 95 Intake and Output 05/01/17 05/01/17 05/02/17 15:00 23:00 07:00 Intake Total 600 ml 620 ml Output Total 5 ml 2000 ml Balance 595 ml -1380 ml Exam Constitutional: alert, oriented Psych: no complaints Head: normocephalic Eyes: nl conjunctiva Neck: supple Respiratory: crackles/rales Cardiovascular: edema, regular rate and rhythm, systolic murmur Gastrointestinal: soft Results Result Diagram: 05/01/17 0645 05/01/17 0952 Medications Medications Current Medications Isosorbide Dinitrate (Isordil) 10 mg BID PO Last administered on 05/02/17 08: 36; Admin Dose 10 MG; Start 05/01/17 at 21:00 Losartan Potassium (Cozaar) 25 mg BID PO Last administered on 05/02/17 08:36 ; Admin Dose 25 MG; Start 05/01/17 at 21:00 Nortriptyline HCl (Aventyl) 25 mg BID PO Last administered on 05/02/17 08:35 ; Admin Dose 25 MG; Start 05/01/17 at 21:00 Acetaminophen/ Hydrocodone Bitart ([place] (5/325)) 1 tab Q4H PRN PO PAIN LEVEL 7 -10 Last administered on 05/01/17 14:24; Admin Dose 1 TAB; Start 05/01/17 at 14:00 Ondansetron HCl (Zofran Inj) 4 mg Q4H PRN IV NAUSEA AND/OR VOMITING Last administered on 05/01/17 18:24; Admin Dose 4 MG; Start 05/01/17 at 14:00 Alprazolam (Xanax) 0.25 mg DAILY PO Last administered on 05/02/17 08:36; Admin Dose 0.25 MG; Start 05/02/17 at 09:00 Aspirin (Aspirin) 81 mg DAILY PO Last administered on 05/02/17 08:35; Admin Dose 81 MG; Start 05/02/17 at 09:00 Atorvastatin Calcium (Lipitor) 40 mg QHS PO ; Start 05/02/17 at 21:00 Clopidogrel Bisulfate (plaVIX) 75 mg DAILY PO Last administered on 05/02/17 08:36; Admin Dose 75 MG; Start 05/02/17 at 09:00 Carvedilol (Coreg) 3.125 mg BID PO ; Start 05/02/17 at 21:00 MINA QUICK MD May 02, 2017 15:19
--- NOTE | 2017-05-02 16:09 | DS ---
Date/Time of Note Date/Time of Note DATE: 05/02/17 TIME: 16:07 Discharge Summary Admission/Discharge Info Admit Date/Time May 01, 2017 at 12:14 Discharge Date/Time Hx of Present Illness 66 yo male with h/o ESRD who has had difficulty getting perpiheral access and who today underwent PD catheter placement in OR who then became hypoxic and somnulent in PACU and subsequently admitted for respiratory status. Patient received paralytic and 100 mcg fentanyl michael-op. In PACU was somnulent and hypoventilating. ABG performed with very mild respiratory acidosis on metabolic acidosis of CKD. By the time I came to see patient is is more alert and no longer showing signs of hypoventilation. Wants to go home. However remains mildly hypoxic on RA to about 85, requiring 2 L by NC. He also received 600 ml NS in OR. CXR shows very mild effusion Hospital Course - ESRD on Hemodialysis TTS @ [facility] - S/P Placing a PD catheter - Anemia - Hypertension - Post Hip fracture & surgery PLAN: Bedside Hemodialysis Feels better now Post PD catheter OK to discharge Needs a ride/ambulance home Patient found to have pulmonary edema from cardiorenal syndrome and IVF given michael-operatively. He was mildly hypoxic but in no distress. He underwent HD last night with 1.5 L fluid removed. However, remained hypoxic this AM. Subsequently underwent HD again today with further volume removal, and was no longer hypoxic. Discharged to further care as an outpatient. Home Meds Active Scripts [Calcium Carbonate] 1.25 GM TAB No Conflict Check, 1.25 GM PO DAILY Prov:MARIE GARCIA MD 09/04/16 Reported Medications Losartan Potassium* (Losartan Potassium*) 25 Mg Tablet, 25 MG PO BID, TAB 05/01/17 Sevelamer Carbonate* (Renvela*) 800 Mg Tablet, 0.8 GM PO WITH MEALS, TAB 05/01/17 Zolpidem Tartrate* (Zolpidem Tartrate*) 10 Mg Tablet, 10 MG PO QHS Y for INSOMNIA, #30 TAB 05/01/17 Alprazolam* (Alprazolam*) 0.25 Mg Tablet, 0.25 MG PO DAILY, TAB 05/01/17 Aspirin* (Aspirin* Chew) 81 Mg Tab.chew, 81 MG PO DAILY, TAB.CHEW 05/01/17 Pentoxifylline* (Pentoxifylline*) 400 Mg Tablet.sa, 400 MG PO DAILY, TAB 05/01/17 Thiamine* (Thiamine*) 100 Mg Tablet, 250 MG PO DAILY, TAB 08/17/16 Nortriptyline Hcl* (Nortriptyline Hcl*) 25 Mg Capsule, 25 MG PO BID, CAP 08/17/16 Atorvastatin* (Atorvastatin*) 40 Mg Tablet, 40 MG PO DAILY, #30 TAB 08/17/16 Calcium Acetate* (Calcium Acetate*) 667 Mg Capsule, 2001 MG PO WITH MEALS, #90 CAP 08/17/16 [Nephro-Pam] No Conflict Check, 1 TAB PO DAILY 08/17/16 Carvedilol* (Carvedilol*) 6.25 Mg Tablet, 6.25 MG PO BID, #60 TAB 08/17/16 Clopidogrel Bisulfate* (Clopidogrel Bisulfate*) 75 Mg Tablet, 75 MG PO DAILY, # 30 TAB 08/17/16 Metoclopramide* (Reglan*) 5 Mg Tablet, 5 MG PO AC MEALS BID, TAB 08/17/16 Hydrocodone/Acetaminophen ([place] 10-325 Tablet) 1 Each Tablet, 1 EACH PO Q4H, TAB 08/17/16 Isosorbide Dinitrate* (Isosorbide Dinitrate*) 10 Mg Tablet, 10 MG PO BID, TAB 08/17/16 Docusate Sodium* (Doc-Q-Lace*) 100 Mg Capsule, 100 MG PO DAILY, CAP 08/17/16 Primary Care Provider GOGO Bailey MD May 02, 2017 16:08
[2017-05-02] MEDS ORDERED: ATORVASTATIN 40 MG TAB PO SCH (21:00)
--- NOTE | 2017-05-03 13:22 | RADRPT ---
Vent Rate: 63 bpm RR Interval: 0 msec DE Interval: 180 msec QRS Duration: 104 msec QT Interval: 436 msec QTC Interval: 446 msec P-R-T [place]: 67 - 0 - 0 degrees Normal sinus rhythm ST amp; T wave abnormality, consider inferolateral ischemia Abnormal ECG Electronically Signed By: Ayaan Laughlin [id number]
--- NOTE | 2017-05-06 11:17 | CONS ---
DATE OF ADMISSION: 05/01/2017 DATE OF CONSULTATION: 05/02/2017 HISTORY OF PRESENT ILLNESS: . This is a 66-year-old male with a past medical history of end s tage renal disease. . PD catheter placed yesterday. The patient following . The patien vazquez was admitted to med/surg urgent hemodialysis 1.5 L. Overnight, the patient was stable, but remains , saturations of 90% on room air. The patient denies any hemoptysis or hematochezia. 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 PAST MEDICAL HISTORY: History of end-stage renal disease, . PAST SURGICAL HISTORY: cath placement. ALLERGIES: . REVIEW OF SYSTEMS: negative. PHYSICAL EXAMINATION: VITAL SIGNS: Blood pressure 122/60, respirations 18, pulse . HEART: Regular rate. LUNG: Clear to auscultation . ABDOMEN: Soft, nontender, nondistended on palpation without rebound or guarding. EXTREMITIES: Negative for clubbing, cyanosis. DERMATOLOGIC: No rashes. MUSCULOSKELETAL: NEUROLOGIC: No change in exam. MEDICATIONS: The patient's medications have been reviewed. LABORATORY DATA: Sodium 140, potassium , BUN 33, creatinine 4.62, bicarbonate , platelet count . ASSESSMENT AND PLAN: This is a 56-year-old male . 1. Plan is for dialysis today. Will dialyze for 3 hours K bath, . 2. Acute respiratory failure, likely due to volume overload. and ultrafiltration with dialys is. 3. Anemia. Monitor hemoglobin and hematocrit levels. 4. Mineral bone disorder. Monitor calcium and phosphorus levels. Continue phos binders. 5. Hypertension. Continue current blood pressure regimen. 6. . 7. . Thank you, for this consult. It will be pleasure to follow patient with you throughout hi s hospital course. Dictated By: SVITLANA MCDOWELL/CHRISTOPHER Conf#: [id number] DID#: [id number] CC: LEONARD DAWSON MD;*EndCC*
== END 2017-05-02 18:10 ==
LOC: SDS 06:20 → MS2 12:14
PROVIDERS: ADMIT Surgery; ATTEND Internal Medicine
DX: I13.2 Hypertensive heart and chronic kidney disease with heart failure and with stage 5 chronic kidney disease, or end stage renal disease (principal); I50.9 Heart failure, unspecified; N18.6 End stage renal disease; Z99.2 Dependence on renal dialysis; D64.9 Anemia, unspecified; I25.10 Atherosclerotic heart disease of native coronary artery without angina pectoris; Z95.5 Presence of coronary angioplasty implant and graft; Z87.891 Personal history of nicotine dependence
CPT/HCPCS: 36600; 49324; 71010; 80048; 80053; 82803; 82962; 84484; 85025; 85610; 85730; 90935; 93005; J0690; J1940; J2250; J2405; J2710; J3010; Z7500; Z7512; Z7610; G0378; J1644

== ENCOUNTER 2017-06-18 20:48 | Inpatient (IN) | END 2017-07-26 19:48 | disposition home health service (06) | DRG 166 ==